=== PATIENT | male | born 1960 | race African-American/Black ===

== ENCOUNTER 2016-04-12 14:41 | Observation (INO) | payer MEDICAID ==
[~2016-04-12] VITALS: Ht 170.2 cm; Wt 85.0 kg
[~2016-04-12 14:41] MED LIST: ASPI1TAB69 PO; CARV6.252 PO; CLOP75TA PO; FLUTI110I INH; FURO1TAB60 PO; LISI-519 PO; NITR1SUB3 SL; POTA20TA5 PO; SIMV20TA PO; VENTAER INH
[2016-04-12 14:43] VITALS: BP 111/73; PULSE 80; RESP 17; TEMP 97.9; O2SAT 99
[2016-04-12 14:59] VITALS: BP 119/77; PULSE 74; RESP 16; O2SAT 100
[2016-04-12] MEDS ORDERED: ASPIRIN 81 MG CHEW TAB PO ONE (15:15)
[2016-04-12] MEDS ORDERED: SODIUM CHLORIDE 0.9% FLUSH 5 ML FLUSH IVF PRN ×2 (15:15→16:30)
[2016-04-12 15:41] VITALS: O2SAT 100
[2016-04-12 15:43] LABS: AUTOMATED NEUTROPHIL # 3.7 TH/MM3 (1.8-7.7); BASOPHIL % 0.7 % (0.0-2.0); EOSINOPHIL # 0.1 TH/MM3 (0-0.4); EOSINOPHIL % 2.1 % (0.0-4.0); HEMO FLAGS DIFF FINAL; LYMPH % 22.9 % (9.0-44.0); LYMPHOCYTE # 1.4 TH/MM3 (1.0-4.8); MEAN CELL VOLUME 79.5 FL (80.0-100.0); MEAN CORPUSCULAR HEMOGLOBIN 25.9 PG (27.0-34.0); MEAN CORPUSCULAR HGB CONC 32.6 % (32.0-36.0); NEUT % 60.3 % (16.0-70.0); PLATELET COUNT 278 TH/MM3 (150-450); RED BLOOD COUNT 4.53 MIL/MM3 (4.50-5.90); RED CELL DISTRIBUTION WIDTH 14.3 % (11.6-17.2); WHITE BLOOD COUNT 6.1 TH/MM3 (4.0-11.0)
--- NOTE | 2016-04-12 15:48 | RADRPT ---
EXAM DATE/TIME: 04/12/2016 15:13 [place] COMPARISON: CT ABDOMEN & PELVIS W CONTRAST, September 26, 2015, 3:34. CHEST SINGLE AP, April 04, 2014, 2:44. INDICATIONS : Cough and chest pain for 3 days. MEDICAL HISTORY : Hypertension. SURGICAL HISTORY : Pacemaker. CABG. ENCOUNTER: Initial ACUITY: 3 days PAIN SCORE: 0/10 LOCATION: Bilateral Chest FINDINGS: Portable AP view of the chest demonstrates stable mild enlargement of the cardiac silhouette in this patient post median sternotomy. Left chest wall cardiac pacing device size AICD is present. No pleura l effusion, airspace consolidation, or pneumothorax is visualized. The bones and soft tissues demonst rate no acute finding. CONCLUSION: Stable chest x-ray. No acute cardiopulmonary abnormality is identified. Benito Fuentes MD on April 12, 2016 at 15:45 Board Certified Radiologist. This report was verified electronically.
[2016-04-12 16:01] LABS: APTT (PATIENT) 27.6 SEC (24.3-30.1)
[2016-04-12 16:06] LABS: BICARBONATE 26.1 MEQ/L (21.0-32.0); MAGNESIUM 1.8 MG/DL (1.5-2.5); POTASSIUM 3.7 MEQ/L (3.5-5.1)
[2016-04-12 16:21] LABS: CKMB 3.8 NG/ML (0.5-3.6)
--- NOTE | 2016-04-12 16:21 | PD ---
HPI Chief Complaint: Chest Pain Time Seen by Provider: 14:55 Travel History International Travel<30 days: No Contact w/Intl Traveler<30days: No Traveled to known affect area: No History of Present Illness HPI 56-year-old male came to the emergency room with history of chest pain on and off since this morning. Patient points to the left side of his chest radiating to the right side. Patient took one aspirin this morning. He has strong history of coronary artery disease. He has had couple stents as well as bypass surgery. He has hypertension and takes his medications like he is supposed to. However he still smoking cigarettes. Denied any drug abuse history. No associated symptoms like dizziness, syncope, nausea, diaphoresis. Since the pain kept coming and going patient decided come to the emergency room. Vital signs are within normal limits. 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 [facility] Past Medical History Narrative Medical List of his past medical, social and family history as reviewed from the nursing note. Hx Anticoagulant Therapy: Yes (plavix) Asthma: No Blood Disorders: No Heart Rhythm Problems: Yes Cancer: No Cardiac Catheterization: Yes Cardiovascular Problems: Yes High Cholesterol: Yes Chemotherapy: No Chest Pain: Yes Congestive Heart Failure: Yes COPD: No Coronary Artery Disease: Yes Diabetes: No Diminished Hearing: No Endocrine: No Gastrointestinal Disorders: No Genitourinary: No Hypertension: Yes Musculoskeletal: No Neurologic: No Psychiatric: No Reproductive: No Respiratory: No Myocardial Infarction: Yes Radiation Therapy: No Sleep Apnea: No Past Surgical History Cardiac Surgery: Yes (PACER/DEFIB [facility]) Coronary Artery Bypass Graft: Yes Coronary Stent: Yes (X 2 IN 2010) Other Surgery: Yes (CABG 2012, 2010 STENTS) Family History Family Myocardial Infarction: Yes Social History Alcohol Use: No Tobacco Use: Yes (2 PPD) Substance Use: No Allergies-Medications (Allergen,Severity, Reaction): Coded Allergies: No Known Allergies (Unverified , 03/20/16) Comments No known drug allergies. Reported Meds & Prescriptions Reported Meds & Active Scripts Active Lasix (Furosemide) 40 Mg Tab 20 Mg PO BID Carvedilol 6.25 Mg Tab 6.25 Mg PO BID Clopidogrel (Clopidogrel Bisulfate) 75 Mg Tab 75 Mg PO DAILY Reported Potassium Chloride Microencaps 20 Meq Tab 20 Meq PO Q12HR Lisinopril 5 Mg Tab 2.5 Mg PO DAILY Aspirin 81 Mg Tabdr 81 Mg PO DAILY Simvastatin 20 Mg Tab 20 Mg PO HS Nitroglycerin SL (Nitroglycerin) 0.4 Mg Subl 0.4 Mg SL DIRECTED PRN ONE TABLET UNDER THE TONGUE NEEDED FOR CHEST PAIN, MAY REPEAT EVERY FIVE MINUTES FOR A TOTAL OF 3 DOSES OR CALL 911 IF NO RELIEF Flovent Hfa 12 GM Inh (Fluticasone Propionate) 110 Mcg/Act Inh 1 Puff INH BID Ventolin Hfa 18 GM Inh (Albuterol Sulfate) 90 Mcg/Act Aer 1 Puff INH Q4H PRN Narrative Medication List of his home medications reviewed from the nursing note. Review of Systems Except as stated in HPI: all other systems reviewed are Neg Physical Exam Narrative GENERAL: Awake, alert, moderate distress SKIN: Warm and dry. HEAD: Atraumatic. Normocephalic. EYES: Pupils equal and round. No scleral icterus. No injection or drainage. ENT: No nasal bleeding or discharge. Mucous membranes pink and moist. NECK: Trachea midline. No JVD. CARDIOVASCULAR: Regular rate and rhythm. No murmur appreciated. RESPIRATORY: No accessory muscle use. Clear to auscultation. Breath sounds equal bilaterally. GASTROINTESTINAL: Abdomen soft, non-tender, nondistended. Hepatic and splenic margins not palpable. MUSCULOSKELETAL: No obvious deformities. No clubbing. No cyanosis. No edema. NEUROLOGICAL: Awake and alert. No obvious cranial nerve deficits. Motor grossly within normal limits. Normal speech. PSYCHIATRIC: Appropriate mood and affect; insight and judgment normal. Data Data Last Documented VS Orders Electrocardiogram (04/12/16 ) Basic Metabolic Panel (Bmp) (04/12/16 15:02) Ckmb (Isoenzyme) Profile (04/12/16 15:02) Complete Blood Count With Diff (04/12/16 15:02) D-Dimer (04/12/16 15:02) Magnesium (Mg) (04/12/16 15:02) Prothrombin Time / Inr (Pt) (04/12/16 15:02) Act Partial Throm Time (Ptt) (04/12/16 15:02) Troponin I (04/12/16 15:02) Chest, Single Ap (04/12/16 15:02) Ecg Monitoring (04/12/16 15:02) Bilateral Bp Monitoring (04/12/16 15:02) Iv Access Insert/Monitor (04/12/16 15:02) Oximetry (04/12/16 15:02) Oxygen Administration (04/12/16 15:02) Aspirin Chew (Aspirin Chew) (04/12/16 15:15) Sodium Chloride 0.9% Flush (Ns Flush) (04/12/16 15:15) CKMB (04/12/16 15:05) CKMB% (04/12/16 15:05) Admit Order (Ed Use Only) (04/12/16 16:19) Labs MDM Medical Decision Making Medical Screen Exam Complete: Yes Emergency Medical Condition: Yes Medical Record Reviewed: Yes Interpretation(s) Twelve-lead EKG was reviewed by me. Normal sinus rhythm, right axis deviation, interventricular conduction delay, tall T waves, lateral and inferior T wave inversions, first-degree AV block. Heart rate of 74 bpm. Differential Diagnosis ACS, non-STEMI, PE Narrative Course 4:44 PM blood test results of back and within normal limits. I gave patient 2 baby aspirin. Patient has significant risk factor for coronary artery disease/ ACS. I decided to admit him to chest pain center to be ruled out. Procedures EKG Prior to Arrival: Yes Diagnosis Primary Impression: Chest pain Qualified Code: R07.9 - Chest pain, unspecified type Admitting Information Admitting Physician Requests: Observation Scripts E-Z Spacer-Aerosol Holding Chamber 1 Mis Mis #1 EA .ROUTE DIRECTED Ref 0 Prov:Katie Greenberg MD R2 04/14/16 Potassium Chloride Microencaps 20 Meq Tab20 Meq PO Q12HR #60 TAB Prov:Katie Greenberg MD R2 04/14/16 Pantoprazole (Protonix)40 Mg Tab40 Mg PO DAILY #7 TAB Ref 0 Prov:Katie Greenberg MD R2 04/14/16 Prednisone 10 Mg Tab10 Mg PO DAILY #12 TAB Ref 0 Prov:Katie Greenberg MD R2 04/14/16 Furosemide 20 Mg Tab20 Mg PO BID #60 TAB Prov:Katie Greenberg MD R2 04/14/16 Dennis Fagan MD Apr 12, 2016 16:21 Red Blood Count 4.53 MIL/MM3 Hemoglobin 11.7 GM/DL Hematocrit 36.0 % Mean Corpuscular Volume 79.5 FL Mean Corpuscular Hemoglobin 25.9 PG Mean Corpuscular Hemoglobin 32.6 % Concent Red Cell Distribution Width 14.3 % Platelet Count 278 TH/MM3 Mean Platelet Volume 8.7 FL Neutrophils (%) (Auto) 60.3 % Lymphocytes (%) (Auto) 22.9 % Monocytes (%) (Auto) 14.0 % Eosinophils (%) (Auto) 2.1 % Basophils (%) (Auto) 0.7 % Neutrophils # (Auto) 3.7 TH/MM3 Lymphocytes # (Auto) 1.4 TH/MM3 Monocytes # (Auto) 0.9 TH/MM3 Eosinophils # (Auto) 0.1 TH/MM3 Basophils # (Auto) 0.0 TH/MM3 CBC Comment DIFF FINAL Differential Comment Prothrombin Time 11.0 SEC Prothromb Time International 1.0 RATIO Ratio Activated Partial 27.6 SEC Thromboplast Time D-Dimer Quantitative (PE/DVT) 0.38 MG/L FEU Sodium Level 138 MEQ/L Potassium Level 3.7 MEQ/L Chloride Level 105 MEQ/L Carbon Dioxide Level 26.1 MEQ/L Anion Gap 7 MEQ/L Blood Urea Nitrogen 22 MG/DL Creatinine 1.37 MG/DL Estimat Glomerular Filtration 65 ML/MIN Rate Random Glucose 91 MG/DL Calcium Level 9.1 MG/DL Magnesium Level 1.8 MG/DL Total Creatine Kinase 387 U/L Creatine Kinase MB 3.8 NG/ML Creatine Kinase MB % 1.0 % Troponin I 0.04 NG/ML [facility] Medical Decision Making Medical Screen Exam Complete: Yes Emergency Medical Condition: Yes Medical Record Reviewed: Yes Interpretation(s) Twelve-lead EKG was reviewed by me. Normal sinus rhythm, right axis deviation, interventricular conduction delay, tall T waves, lateral and inferior T wave inversions, first-degree AV block. Heart rate of 74 bpm. Differential Diagnosis ACS, non-STEMI, PE Narrative Course 4:44 PM blood test results of back and within normal limits. I gave patient 2 baby aspirin. Patient has significant risk factor for coronary artery disease/ ACS. I decided to admit him to chest pain center to be ruled out. Procedures EKG Prior to Arrival: Yes Diagnosis Primary Impression: Chest pain Qualified Code: R07.9 - Chest pain, unspecified type Admitting Information Admitting Physician Requests: Dennis Nichols MD Apr 12, 2016 16:21
[2016-04-12] MEDS ORDERED: ONDANSETRON HCL 4 MG/2 ML VIAL IV PRN (16:30)
[2016-04-12] MEDS ORDERED: ACETAMINOPHEN 500 MG CPLT PO PRN (16:30)
[2016-04-12] MEDS ORDERED: MORPHINE SULFATE 4 MG/ML INJ IV PUSH ONE (16:45)
[2016-04-12] MEDS ORDERED: ONDANSETRON HCL 4 MG/2 ML VIAL IV PUSH ONE (16:45)
[2016-04-12] MEDS ORDERED: SENNOSIDES 8.6 MG TAB PO PRN (17:45)
[2016-04-12] MEDS ORDERED: PROCHLORPERAZINE 25 MG SUPP PR PRN (17:45)
[2016-04-12] MEDS ORDERED: BISACODYL 10 MG SUPP PR PRN (17:45)
[2016-04-12] MEDS ORDERED: ONDANSETRON HCL 4 MG/2 ML VIAL IVP PRN (17:45)
[2016-04-12] MEDS ORDERED: SODIUM CHLORIDE 0.9% FLUSH 5 ML FLUSH FLUSH PRN (17:45)
[2016-04-12 18:29] VITALS: BP 115/78; PULSE 78; RESP 16; O2SAT 100
[2016-04-12] MEDS ORDERED: RESP: ALBUTEROL 2.5 MG/IPRATROPIUM 0.5 MG NEB (PRN) NEB (18:30)
--- NOTE | 2016-04-12 18:44 | HHI.HP ---
[facility] Primary [facility] Physician Viki So MD Admission Diagnosis chest pain, rule out ACS Diagnoses: (1) Chest pain Diagnosis: Principal Chief Complaint: Chest pain 3 days Travel History International Travel<30 Days: No Contact w/Intl Traveler <30 Da: No Traveled to Known Affected Are: No History of Present Illness This is a 56-year-old male patient with a past medical history which includes CAD status post MS 2008, coronary stents and coronary artery bypass graft 2, congestive heart failure status post pacemaker/defibrillator and asthma. Patient reports he ran out of Lasix approximately 6 days ago. Patient reports he was out of his Lasix for about 4 days and then restarted taking them 2 days ago. Patient reports for the past 3 days he's had been having chest pain. The chest pain is located on the left side of his chest with radiation around in a jena which goes around the left side of his chest. Patient denies associated symptoms such as diaphoresis nausea vomiting shortness of breath. Patient does report the chest pain is getting worse today 6 out of 10 in severity. Patient reports the pain is relieved by walking around and taking deep breaths. Patient does report the pain is exacerbated by coughing. Patient reports for the past to 3 days he has had a cough initially was productive of dark phlegm but is now clear. Patient ports he sleeps on 3 pillows which is normal for him. Patient Denies PND or lower extremity edema or weight gain. Patient also denies fevers chills nausea vomiting diarrhea constipation. Review of Systems Except as stated in HPI: all other systems reviewed are Neg Past Family Social History Past Medical History CAD status post MS 2008, coronary stents and coronary artery bypass graft 2, congestive heart failure status post pacemaker/defibrillator and asthma. Past Surgical History Coronary artery bypass graft, cardiac stents, pacemaker defibrillator placement Reported Medications Lasix (Furosemide) 40 Mg Tab 20 Mg PO BID Carvedilol 6.25 Mg Tab 6.25 Mg PO BID Clopidogrel (Clopidogrel Bisulfate) 75 Mg Tab 75 Mg PO DAILY Potassium Chloride Microencaps 20 Meq Tab 20 Meq PO Q12HR Lisinopril 5 Mg Tab 2.5 Mg PO DAILY Aspirin 81 Mg Tabdr 81 Mg PO DAILY Simvastatin 20 Mg Tab 20 Mg PO HS Nitroglycerin SL (Nitroglycerin) 0.4 Mg Subl 0.4 Mg SL DIRECTED PRN ONE TABLET UNDER THE TONGUE NEEDED FOR CHEST PAIN, MAY REPEAT EVERY FIVE MINUTES FOR A TOTAL OF 3 DOSES OR CALL 911 IF NO RELIEF Flovent Hfa 12 GM Inh (Fluticasone Propionate) 110 Mcg/Act Inh 1 Puff INH BID Ventolin Hfa 18 GM Inh (Albuterol Sulfate) 90 Mcg/Act Aer 1 Puff INH Q4H PRN Allergies: Coded Allergies: No Known Allergies (Unverified , 03/20/16) Active Ordered Medications Current Medications Medications (Trade) Dose Ordered Sig/Jann Route Start Time Stop Time Status Last Admin (Tylenol) 500 mg Q4H PRN PO 04/12/16 16:30 (NS Flush) 2 ml UNSCH PRN FLUSH 04/12/16 17:45 (NS Flush) 2 ml BID FLUSH 04/12/16 21:00 (Zofran Inj) 4 mg Q6H PRN IVP 04/12/16 17:45 (Compazine Supp) 25 mg Q12H PRN LA 04/12/16 17:45 (Dulcolax Supp) 10 mg DAILY PRN LA 04/12/16 17:45 (Senokot) 17.2 mg Q12H PRN PO 04/12/16 17:45 (Nitroglycerin 2% Oint) 0.5 inch Q6HR TOPICAL 04/12/16 18:30 UNV (Ecotrin Ec) 81 mg DAILY PO 04/13/16 09:00 UNV (Coreg) 6.25 mg BID PO 04/12/16 21:00 UNV (Plavix) 75 mg DAILY PO 04/13/16 09:00 UNV (Lasix) 20 mg BID PO 04/12/16 21:00 UNV (KCl) 20 meq Q12HR PO 04/12/16 21:00 UNV Non-Formulary Medication 20 mg HS PO 04/12/16 21:00 UNV Family History Mother secondary to breast cancer Social History Patient smokes half-pack serous per day for the past 35 years History of heroin use denies current illicit drug use Physical Exam Vital Signs Vital Signs Date Time Temp Pulse Resp B/P Pulse Ox O2 Delivery O2 Flow Rate FiO2 04/12/16 15:41 100 Room Air 04/12/16 15:41 100 Room Air 04/12/16 14:59 74 16 119/77 100 Room Air 04/12/16 14:54 20 04/12/16 14:43 97.9 80 17 111/73 99 Physical Exam GENERAL: This is a well-nourished, well-developed patient, in no apparent distress. SKIN: No rashes, ecchymoses or lesions. Cool and dry. HEAD: Atraumatic. Normocephalic. No temporal or scalp tenderness. EYES: Extraocular motions intact. No scleral icterus. No injection or drainage. CARDIOVASCULAR: Regular rate and rhythm without murmurs, gallops, or rubs. RESPIRATORY: Diminished throughout no wheezes rhonchi or rale GASTROINTESTINAL: Abdomen soft, non-tender, nondistended. MUSCULOSKELETAL: Extremities without clubbing, cyanosis, or edema. No joint tenderness, effusion, or edema noted. No calf tenderness. Negative Homans sign bilaterally. NEUROLOGICAL: Awake and alert. No focal deficits appreciated. Motor and sensory grossly within normal limits. Five out of 5 muscle strength in all muscle groups. Normal speech. Laboratory Laboratory Tests Test 04/12/16 15:05 White Blood Count 6.1 Red Blood Count 4.53 Hemoglobin 11.7 Hematocrit 36.0 Mean Corpuscular Volume 79.5 Mean Corpuscular Hemoglobin 25.9 Mean Corpuscular Hemoglobin 32.6 Concent Red Cell Distribution Width 14.3 Platelet Count 278 Mean Platelet Volume 8.7 Neutrophils (%) (Auto) 60.3 Lymphocytes (%) (Auto) 22.9 Monocytes (%) (Auto) 14.0 Eosinophils (%) (Auto) 2.1 Basophils (%) (Auto) 0.7 Neutrophils # (Auto) 3.7 Lymphocytes # (Auto) 1.4 Monocytes # (Auto) 0.9 Eosinophils # (Auto) 0.1 Basophils # (Auto) 0.0 CBC Comment DIFF FINAL Differential Comment Prothrombin Time 11.0 Prothromb Time International 1.0 Ratio Activated Partial 27.6 Thromboplast Time D-Dimer Quantitative (PE/DVT) 0.38 Sodium Level 138 Potassium Level 3.7 Chloride Level 105 Carbon Dioxide Level 26.1 Anion Gap 7 Blood Urea Nitrogen 22 Creatinine 1.37 Estimat Glomerular Filtration 65 Rate Random Glucose 91 Calcium Level 9.1 Magnesium Level 1.8 Total Creatine Kinase 387 Creatine Kinase MB 3.8 Creatine Kinase MB % 1.0 Troponin I 0.04 Digoxin Level 0.1 Result Diagram: 04/12/16 1505 04/12/16 1505 Imaging Last Impressions Chest X-Ray 04/12/16 1502 Signed Impressions: Service Date/Time: March 15:13 - CONCLUSION: Stable chest x-ray. No acute cardiopulmonary abnormality is identified. Benito Fuentes MD Assessment and Plan Assessment and Plan This is a 56-year-old male patient with a past medical history which includes CAD status post MS 2008, coronary stents and coronary artery bypass graft 2, congestive heart failure status post pacemaker/defibrillator and asthma. Patient reports he ran out of Lasix approximately 6 days ago. Patient reports he was out of his Lasix for about 4 days and then restarted taking them 2 days ago. Patient reports for the past 3 days he's had been having chest pain. Chest pain rule out acute coronary syndrome patient with a history of CAD MS coronary artery bypass graft and cardiac stents Initial troponin 0.04 will trend serial troponin Initial EKG reviewed by myself as well as Dr. Andrade reveals Normal sinus rhythm, right axis deviation, interventricular conduction delay, tall T waves, lateral and inferior T wave inversions, first-degree AV block. Heart rate of 74 bpm. 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 Frausto revealed stable chest x- ray no acute cardiopulmonary abnormality identified Asthma history Continue Flovent add duonebs PRN Renal insufficiency creatinine 1.37 baseline 0.93-1.2 Recheck BMP in a.m. DVT prophylaxis with SCDs Discussed plan of care with patient, ER provider, RN Written by Pushpa Fuller, acting as scribe for Dr. Frausto on 04/12/16 at 18 :42. The documentation accurately reflects the work performed [id number] by me Dr. Frausto on 04/12/16 at 18:42. Discussed Condition With patient nurse, ED physician Problem Qualifiers (1) Chest pain: Qualified Code: R07.9 - Chest pain, unspecified type Pushpa Fuller Apr 12, 2016 18:44 Addie Frausto MD Apr 12, 2016 19:34
[2016-04-12] MEDS: NITROGLYCERIN 2% OINT 1 GM PACKET TOPICAL SCH (18:49)
[2016-04-12] MEDS ORDERED: PILL SPLITTER OTHER PRN (19:00)
--- NOTE | 2016-04-12 19:41 | EKG ---
Date Performed: 04/12/2016 Time Performed: 14:56:42 PTAGE: 56 years EKG: Sinus rhythm WITH FIRST DEGREE AV BLOCK BORDERLINE RIGHT AXIS DEVIATION MODERATE INTRAVENTRICULAR CONDUCTION GURJIT Y MODERATE T-WAVE ABNORMALITY, CONSIDER INFERIOR AND LATERAL ISCHEMIA vs REPOLARIZATION CHANGES ABNOR MAL ECG Since PREVIOUS TRACING STchanges are more pronounced PREVIOUS TRACIN04/04/2014 08.30 DOCTOR: Charley Tinsley Interpretating Date/Time 04/12/2016 19:40:31
[2016-04-12 19:56] VITALS: BP 108/67; PULSE 60; RESP 19; TEMP 98.6; O2SAT 97
[2016-04-12] MEDS ORDERED: RESP: ALBUTEROL 2.5 MG/IPRATROPIUM 0.5 MG NEB (SCH) NEB (20:00)
[2016-04-12] MEDS ORDERED: SODIUM CHLORIDE 0.9% FLUSH 5 ML FLUSH IVF SCH (21:00)
[2016-04-12] MEDS: SODIUM CHLORIDE 0.9% FLUSH 5 ML FLUSH FLUSH SCH (21:16)
[2016-04-12] MEDS: PRAVASTATIN SOD 40 MG TAB PO SCH (21:16)
[2016-04-12] MEDS: CARVEDILOL 6.25 MG TAB PO SCH (21:17)
[2016-04-12] MEDS: FUROSEMIDE 20 MG TAB PO SCH (21:17)
[2016-04-12] MEDS: POTASSIUM CHLORIDE 20 MEQ CONTROLLED RELEASE TAB PO SCH (21:23)
[2016-04-12 21:44] VITALS: O2SAT 98
[2016-04-12] MEDS: FLUTICASONE PROPIONATE 110 MCG/ACT 12 GM INHALER INH SCH (22:45)
[2016-04-12 22:57] LABS: CKMB 3.1 NG/ML (0.5-3.6)
[2016-04-13] VITALS (10 sets, daily range): BP systolic 82–116; BP diastolic 50–68; PULSE 62–73; RESP 18–20; TEMP 97.7–98.6; O2SAT 95–99
[2016-04-13] MEDS: NITROGLYCERIN 2% OINT 1 GM PACKET TOPICAL SCH ×4 (00:38→18:00)
[2016-04-13 04:15] LABS: AUTOMATED NEUTROPHIL # 3.1 TH/MM3 (1.8-7.7); BASOPHIL % 0.5 % (0.0-2.0); EOSINOPHIL # 0.1 TH/MM3 (0-0.4); EOSINOPHIL % 2.2 % (0.0-4.0); HEMATOCRIT 34.5 % (39.0-51.0); HEMO FLAGS DIFF FINAL; LYMPH % 22.7 % (9.0-44.0); LYMPHOCYTE # 1.1 TH/MM3 (1.0-4.8); MEAN CELL VOLUME 79.6 FL (80.0-100.0); MEAN CORPUSCULAR HEMOGLOBIN 25.8 PG (27.0-34.0); MEAN CORPUSCULAR HGB CONC 32.4 % (32.0-36.0); MONO % 13.7 % (0.0-8.0); NEUT % 60.9 % (16.0-70.0); PLATELET COUNT 260 TH/MM3 (150-450); RED BLOOD COUNT 4.33 MIL/MM3 (4.50-5.90); RED CELL DISTRIBUTION WIDTH 14.9 % (11.6-17.2); WHITE BLOOD COUNT 5.1 TH/MM3 (4.0-11.0)
[2016-04-13 04:44] LABS: ANION GAP 8 MEQ/L (5-15); BICARBONATE 28.8 MEQ/L (21.0-32.0); BLOOD UREA NITROGEN 24 MG/DL (7-18); CHLORIDE 104 MEQ/L (98-107); GLOMERULAR FILTRATION RATE 62 ML/MIN (>89); POTASSIUM 3.6 MEQ/L (3.5-5.1); SODIUM (NA) 141 MEQ/L (136-145)
[2016-04-13 04:47] LABS: CREATINE KINASE 285 U/L (39-308)
[2016-04-13 05:01] LABS: CKMB 2.6 NG/ML (0.5-3.6)
--- NOTE | 2016-04-13 08:23 | HHI.FPPN ---
Subjective Remarks Mr Fuentes is a 56-year-old male patient with a past medical history which includes CAD status post [place] 2009, coronary stents and coronary artery bypass graft 2, congestive heart failure status post pacemaker/ defibrillator and asthma who is feeling generally ill this am. He reports a 4 day history of cough initially was productive of dark phlegm but is now clear.. He was tending his sick girlfriend with the flu last weekend. He has also had headaches, sore throat, myalgias and arthralgias though he denies any high fevers or chills. He had some chest pain at home for three days and presented to the hospital with this however he had little to no elevation in his troponins and his EKG is difficult to interpret as he has a pacemaker. The chest pain was located on the left side of his chest with radiation around in a kaw which went around the left side of his chest but he denies chest pain this am. Patient denies associated symptoms such as diaphoresis nausea vomiting shortness of breath. Patient does report the chest pain was getting worse to 6 out of 10 in severity before coming to the hospital. Patient reported the pain is relieved by walking around and taking deep breaths. Patient also reported the pain was exacerbated by coughing. Patient reports he sleeps on 3 pillows which is normal for him. Patient Denies PND or lower extremity edema or weight gain. Patient also denies fevers chills nausea vomiting diarrhea constipation. Patient reports he ran out of Lasix approximately 6 days ago. Patient reports he was out of his Lasix for about 4 days and then restarted taking them 2 days ago. He has no chest pain this am above the generalized pain he is having. He was a smoker and has a history of asthma which could be made worse by the flu. Objective Vitals Vital Signs Date Time Temp Pulse Resp B/P Pulse Ox O2 Delivery O2 Flow Rate FiO2 04/13/16 07:35 97.8 71 18 97/60 99 04/13/16 03:41 98.2 62 20 105/60 97 04/13/16 00:02 98.2 63 19 99/56 96 04/12/16 21:44 98 04/12/16 19:56 98.6 60 19 108/67 97 04/12/16 18:29 78 16 115/78 100 Room Air 04/12/16 15:41 100 Room Air 04/12/16 15:41 100 Room Air 04/12/16 14:59 74 16 119/77 100 Room Air 04/12/16 14:54 20 04/12/16 14:43 97.9 80 17 111/73 99 Result Diagram: 04/13/16 0347 04/13/16 0347 Objective Remarks GENERAL: This is a well-nourished, well-developed patient, having "spasms" of cough where he has trouble speaking momentarily. SKIN: No rashes, ecchymoses or lesions. Cool and dry. HEAD: Atraumatic. Normocephalic. EYES: Extraocular motions intact. No scleral icterus. No injection or drainage. CARDIOVASCULAR: Regular rate and rhythm without murmurs, gallops, or rubs. Some occasional early beats. RESPIRATORY: good air movement, no wheezes rhonchi or rales GASTROINTESTINAL: Abdomen soft, non-tender, nondistended. MUSCULOSKELETAL: Extremities without clubbing, cyanosis, or edema. No joint tenderness, effusion, or edema noted. No calf tenderness. NEUROLOGICAL: Awake and alert. No focal deficits appreciated. Motor and sensory grossly within normal limits. Five out of 5 muscle strength in all muscle groups. Normal speech. A/P Problem List: (1) Flu Status: Acute Plan: based on history of exposure and current sxs suspect the flu. It is too late for tamiflu but can treat symptomatically with tylenol, nebulizers and steroids as he has a history of asthma which can be greatly exacerbated by the flu. flu test ordered. no suspected pneumonia at this time (2) Coronary artery disease Status: Chronic Plan: no need for cath now as he has other reasons for his chest pain and atypical pain with being better when he walks and worse when he coughs Patient reports recent stress test January 2016 was normal (3) HTN (hypertension) Status: Chronic Plan: stay on meds (4) Atypical chest pain Status: Acute Plan: was worse with coughing so suspect it could be more pleuritic pain at this time (5) DVT prophylaxis Status: Acute Plan: lovenox, will start 40 mg daily (6) Congestive heart failure Status: Chronic Plan: Chronic systolic congestive heart failure status post pacemaker/ defibrillator placement Continue Lasix, Coreg and Lisinopril checked BNP, 400s Chest x-ray revealed stable chest x-ray no acute cardiopulmonary abnormality identified (7) Renal insufficiency Status: Acute Plan: slightly elevated over baseline. will recheck. pt taking po, may need to back off on lasix if he worsens Problem Qualifiers (1) Coronary artery disease: Qualified Code: I25.10 - Coronary artery disease involving [place] heart, angina presence unspecified, unspecified vessel or lesion type (2) HTN (hypertension): Qualified Code: I10 - Essential hypertension (3) Congestive heart failure: Qualified Code: I50.22 - Chronic systolic congestive heart failure Bonnie Porter MD Apr 13, 2016 08:23
[2016-04-13] MEDS ORDERED: guaiFENesin/CODEINE SYRUP 200 MG/20 MG/10 ML CUP PO PRN (09:00)
[2016-04-13] MEDS ORDERED: ACETAMINOPHEN 325 MG TAB PO PRN (09:00)
[2016-04-13] MEDS ORDERED: DEXAMETHASONE SOD PHOS 4 MG/ML VIAL IM ONE (09:00)
[2016-04-13] MEDS: FUROSEMIDE 20 MG TAB PO SCH ×2 (09:38→21:00)
[2016-04-13] MEDS: CARVEDILOL 6.25 MG TAB PO SCH ×2 (09:38→21:32)
[2016-04-13] MEDS: POTASSIUM CHLORIDE 20 MEQ CONTROLLED RELEASE TAB PO SCH ×2 (09:38→21:00)
[2016-04-13] MEDS: SODIUM CHLORIDE 0.9% FLUSH 5 ML FLUSH FLUSH SCH ×2 (09:38→21:32)
[2016-04-13] MEDS: CLOPIDOGREL 75 MG TAB PO SCH (09:38)
[2016-04-13] MEDS: LISINOPRIL 5 MG TAB PO SCH (09:39)
[2016-04-13] MEDS: ASPIRIN EC 81 MG TABEC PO SCH (09:39)
[2016-04-13] MEDS: FLUTICASONE PROPIONATE 110 MCG/ACT 12 GM INHALER INH SCH ×2 (09:39→21:32)
[2016-04-13] MEDS: ENOXAPARIN SODIUM 40 MG/0.4 ML SYRINGE SQ SCH (11:52)
--- NOTE | 2016-04-13 17:28 | EKG ---
Date Performed: 04/12/2016 Time Performed: 21:26:04 PTAGE: 56 years EKG: Sinus rhythm WITH FIRST DEGREE AV BLOCK BORDERLINE RIGHT AXIS DEVIATION MODERATE INTRAVENTRICULAR CONDUCTION GURJIT Y ST ELEVATION CONSISTENT WITH INJURY, PERICARDITIS, OR EARLY REPOLARIZATION ST DEVIATION AND MODERAT E T-WAVE ABNORMALITY, CONSIDER LATERAL ISCHEMIA ABNORMAL ECG PREVIOUS TRACING : 04/12/2016 14.56 Since previous tracing, no significant change noted DOCTOR: Charley Tinsley Interpretating Date/Time 04/13/2016 17:25:03
--- NOTE | 2016-04-13 17:29 | EKG ---
Date Performed: 04/13/2016 Time Performed: 03:33:17 PTAGE: 56 years EKG: Sinus rhythm WITH FIRST DEGREE AV BLOCK MODERATE INTRAVENTRICULAR CONDUCTION DELAY ST ELEVATION CONSISTENT WITH I NJURY, PERICARDITIS, OR EARLY REPOLARIZATION ST DEVIATION AND MODERATE T-WAVE ABNORMALITY, CONSIDER L ATERAL ISCHEMIA ST DEVIATION AND MODERATE T-WAVE ABNORMALITY, CONSIDER INFERIOR ISCHEMIA ABNORMAL ECG PREVIOUS TRACING : 04/12/2016 21.26 Since previous tracing, no significant change noted DOCTOR: Charley Tinsley Interpretating Date/Time 04/13/2016 17:25:33
[2016-04-13] MEDS: PRAVASTATIN SOD 40 MG TAB PO SCH (21:00)
[2016-04-13] MEDS: RESP: ALBUTEROL 2.5 MG/IPRATROPIUM 0.5 MG NEB (SCH) NEB (22:27)
[2016-04-14 04:11] VITALS: BP 105/59; PULSE 68; RESP 18; TEMP 98.4; O2SAT 98
[2016-04-14] MEDS: NITROGLYCERIN 2% OINT 1 GM PACKET TOPICAL SCH ×3 (05:29→12:24)
[2016-04-14 07:04] LABS: AUTOMATED NEUTROPHIL # 9.2 TH/MM3 (1.8-7.7); BASOPHIL % 0.1 % (0.0-2.0); EOSINOPHIL % 0.2 % (0.0-4.0); HEMATOCRIT 34.9 % (39.0-51.0); HEMO FLAGS DIFF FINAL; LYMPH % 12.3 % (9.0-44.0); LYMPHOCYTE # 1.4 TH/MM3 (1.0-4.8); MEAN CELL VOLUME 80.1 FL (80.0-100.0); MEAN CORPUSCULAR HEMOGLOBIN 25.9 PG (27.0-34.0); MEAN CORPUSCULAR HGB CONC 32.3 % (32.0-36.0); MONO % 5.9 % (0.0-8.0); NEUT % 81.5 % (16.0-70.0); PLATELET COUNT 270 TH/MM3 (150-450); RED BLOOD COUNT 4.36 MIL/MM3 (4.50-5.90); RED CELL DISTRIBUTION WIDTH 14.8 % (11.6-17.2); WHITE BLOOD COUNT 11.3 TH/MM3 (4.0-11.0)
[2016-04-14 07:10] LABS: BICARBONATE 28.6 MEQ/L (21.0-32.0)
[2016-04-14 07:19] VITALS: PULSE 85
[2016-04-14] MEDS: RESP: ALBUTEROL 2.5 MG/IPRATROPIUM 0.5 MG NEB (SCH) NEB ×2 (07:47→13:13)
[2016-04-14 08:24] VITALS: BP 109/61; PULSE 66; RESP 18; TEMP 98.3; O2SAT 98
--- NOTE | 2016-04-14 08:30 | HHI.FPPN ---
Subjective Remarks Pt seen and examined this morning. No acute events overnight. Pt reports feeling significantly improved since admission. He denies chest pain, abdominal pain, calf pain. He endorses a occasional wheezing, denies feeling short of breath. He notes that he has a small amount of bright red blood in his stools and after he has a bowel movement. He last had a colonoscopy 2 years ago at the [facility]. He denies a significant amount of bleeding with bowel movements. (Katie Greenberg MD R2) Objective Vitals Vital Signs Date Time Temp Pulse Resp B/P Pulse Ox O2 Delivery O2 Flow Rate FiO2 04/14/16 08:24 98.3 66 18 109/61 98 04/14/16 07:50 21 04/14/16 04:11 98.4 68 18 105/59 98 04/13/16 23:51 98.2 70 19 106/60 98 04/13/16 22:39 71 04/13/16 22:28 95 21 04/13/16 19:35 98.6 69 19 116/68 98 04/13/16 15:31 97.7 73 19 96/53 96 04/13/16 11:39 97.7 69 18 82/50 98 04/13/16 11:25 67 (Katie Greenberg MD R2) Result Diagram: 04/14/16 0616 04/14/16 0616 Objective Remarks GENERAL: This is a well-nourished, well-developed patient, in no acute distress. SKIN: No rashes, ecchymoses or lesions. Cool and dry. HEAD: Atraumatic. Normocephalic. EYES: Extraocular motions intact. No scleral icterus. No injection or drainage. CARDIOVASCULAR: Regular rate and rhythm without murmurs, gallops, or rubs. Some occasional early beats. RESPIRATORY: Good air movement, no wheezes rhonchi or rales GASTROINTESTINAL: Abdomen soft, non-tender, nondistended. MUSCULOSKELETAL: Extremities without clubbing, cyanosis, or edema. No joint tenderness, effusion, or edema noted. No calf tenderness. NEUROLOGICAL: Awake and alert. No focal deficits appreciated. Motor and sensory grossly within normal limits. Normal speech. (Katie Greenberg MD R2) A/P Assessment and Plan Pt is a 56 year old Afican Nepalese male presenting with chest pain and flu symptoms. PCP is Dr. So. Discharge Planning Anticipate discharge later today. (Katie Greenberg MD R2) Attending Attestation Patient seen and examined. Case reviewed and discussed with the resident team. Agree with plan of care as discussed with me and documented in the resident note. he has a history of asthma so agree with treating for an exacerbation (Bonnie Porter MD) Problem List: (1) Flu Status: Acute Plan: Exposure history and current symptoms suggestive of the flu, despite negative antigen test. . It is too late for tamiflu but can treat symptomatically with tylenol, nebulizers and steroids as he has a history of asthma which can be greatly exacerbated by the flu. No suspected pneumonia at this time Influenza A and B antigen negative -Tylenol 650mg po Q4hrs prin headache or fever -Prednisone 40 mg po daily -Duonebs -Robitussin prn Cough (2) Coronary artery disease Status: Chronic Plan: Pt with history of coronary artery disease. Cardiac catheterization not indicated at this time as chest pain is otherwise explained by non-cardiac causes, pain improves with ambulation, worsens with coughing. -Patient reports recent stress test January 2016 was normal -Continue home medications (3) HTN (hypertension) Status: Chronic Plan: Continue home medications (4) Atypical chest pain Status: Resolved Plan: Resolved Pt currently denies chest pain. Previously pain was worse with coughing, so suspect it could be more pleuritic pain (5) Congestive heart failure Status: Chronic Plan: Chronic systolic congestive heart failure status post pacemaker/ defibrillator placement Continue Lasix, Coreg and Lisinopril checked BNP:404 Chest x-ray revealed stable chest x-ray no acute cardiopulmonary abnormality identified (6) Renal insufficiency Status: Acute Plan: Resolved Creatinine 1.28 this morning, decreased from 1.43 yesterday (7) Bright red blood per rectum Status: Acute Plan: Pt endorses occasional bright red blood per rectum, worse after bowel movements, likely due to hemorrhoids. -H&H stable, pt slightly anemic with hemoglobin and hematocrit of 11.3 and 34.9 respectively -Reports last colonoscopy was 2 years ago, he has had a difficult time following up with GI due to his insurance. -Pt to follow up with GI as an out patient (8) DVT prophylaxis Status: Acute Plan: lovenox, 40 mg daily (Katie Greenberg MD R2) Problem Qualifiers (1) Coronary artery disease: Qualified Code: I25.10 - Coronary artery disease involving [place] heart, angina presence unspecified, unspecified vessel or lesion type (2) HTN (hypertension): Qualified Code: I10 - Essential hypertension (3) Congestive heart failure: Qualified Code: I50.22 - Chronic systolic congestive heart failure Katie Greenberg MD R2 Apr 14, 2016 08:30 Bonnie Porter MD Apr 16, 2016 14:07
[2016-04-14] MEDS: FLUTICASONE PROPIONATE 110 MCG/ACT 12 GM INHALER INH SCH (08:44)
[2016-04-14] MEDS: SODIUM CHLORIDE 0.9% FLUSH 5 ML FLUSH FLUSH SCH (08:44)
[2016-04-14] MEDS: CARVEDILOL 6.25 MG TAB PO SCH (08:44)
[2016-04-14] MEDS: ASPIRIN EC 81 MG TABEC PO SCH (08:45)
[2016-04-14] MEDS: FUROSEMIDE 20 MG TAB PO SCH (08:45)
[2016-04-14] MEDS: POTASSIUM CHLORIDE 20 MEQ CONTROLLED RELEASE TAB PO SCH (08:45)
[2016-04-14] MEDS: CLOPIDOGREL 75 MG TAB PO SCH (08:45)
[2016-04-14] MEDS: LISINOPRIL 5 MG TAB PO SCH (08:46)
[2016-04-14] MEDS ORDERED: predniSONE 20 MG TAB PO SCH (09:00)
--- NOTE | 2016-04-14 09:54 | HHI.DCPOC ---
Discharge Care Plan Diagnosis: (1) CAD (coronary artery disease) (2) CHF (congestive heart failure) (3) Coronary artery disease (4) Flu (5) HTN (hypertension) (6) Renal insufficiency (7) Bright red blood per rectum (8) Atypical chest pain Goals to Promote Your Health * To prevent worsening of your condition and complications * To maintain your health at the optimal level Directions to Meet Your Goals Take your medications as prescribed Follow your dietary instruction Follow activity as directed Keep your appointments as scheduled Take your immunizations and boosters as scheduled If your symptoms worsen call your PCP, if no PCP go to Urgent Care Center or Emergency Room Smoking is Dangerous to Your Health. Avoid second hand smoke Call the 24-hour hour crisis hotline for domestic abuse at Katie Greenberg MD R2 Apr 14, 2016 09:53
[2016-04-14] MEDS ORDERED: FURO20TA PO (10:00)
[2016-04-14] MEDS ORDERED: PROT40TA PO (10:00)
[2016-04-14] MEDS ORDERED: PRED10 PO (10:00)
[2016-04-14] MEDS ORDERED: E-ZMIS3 (11:07)
[2016-04-14] MEDS ORDERED: POTA20TA5 PO (11:07)
[2016-04-14 11:39] VITALS: BP 118/74; PULSE 72; RESP 24; TEMP 98; O2SAT 100
[2016-04-14] MEDS: ENOXAPARIN SODIUM 40 MG/0.4 ML SYRINGE SQ SCH (12:24)
[2016-04-30] MEDS ORDERED: PROT40TA PO (08:48)
[2016-05-10] MEDS ORDERED: FLUTI110I INH (10:40)
[2016-05-10] MEDS ORDERED: VENTAER INH (10:40)
[2016-05-10] MEDS ORDERED: PROT40TA PO (10:41)
[2016-05-15] MEDS ORDERED: POTA20TA5 PO (09:34)
[2016-05-15] MEDS ORDERED: FURO20TA PO (09:35)
[2016-06-11] MEDS ORDERED: FLUTI110I INH (15:02)
[2016-06-21] MEDS ORDERED: VIAG100T PO (11:19)
[2016-06-25] MEDS ORDERED: CLOP75TA PO (15:18)
[2016-07-05] MEDS ORDERED: ALBUAER3 INH (09:23)
== END 2016-04-14 16:23 | disposition home or self-care (01) ==
LOC: NEPE 14:41 → NEDA 16:21 → NEPHCDU 19:07
PROVIDERS: ADMIT Family Medicine; ATTEND Family Medicine
DX: R07.9 Chest pain, unspecified (principal); I25.119 Atherosclerotic heart disease of native coronary artery with unspecified angina pectoris; I10 Essential (primary) hypertension; F17.210 Nicotine dependence, cigarettes, uncomplicated; Z79.01 Long term (current) use of anticoagulants; E78.00 Pure hypercholesterolemia, unspecified; I25.2 Old myocardial infarction; Z79.899 Other long term (current) drug therapy; I44.0 Atrioventricular block, first degree; Z95.5 Presence of coronary angioplasty implant and graft; Z95.1 Presence of aortocoronary bypass graft; Z95.0 Presence of cardiac pacemaker; J45.909 Unspecified asthma, uncomplicated; I50.22 Chronic systolic (congestive) heart failure; Z95.810 Presence of automatic (implantable) cardiac defibrillator; N28.9 Disorder of kidney and ureter, unspecified; K92.1 Melena; D64.9 Anemia, unspecified
CPT/HCPCS: 71010; 80048; 80162; 82550; 82552; 83735; 83880; 84484; 85025; 85379; 85610; 85730; 87804; 93005; 94640; 94664; 97163; 99285; G0378; G8987; G8988; J1100; J1650; J2270; J2405; J7512

== ENCOUNTER 2016-09-24 20:09 | Inpatient (IN) | payer MEDICAID ==
[~2016-09-24] VITALS: Ht 170.2 cm; Wt 73.4 kg
[~2016-09-24 20:09] MED LIST changes: +ALBUAER3 INH; +E-ZMIS3; -FURO1TAB60 PO; +FURO20TA PO; +PROT40TA PO; +VIAG100T PO
[2016-09-24 20:10] VITALS: BP 121/79; PULSE 89; RESP 18; TEMP 98.8; O2SAT 99
--- NOTE | 2016-09-24 21:41 | PD ---
Physical Exam Date Seen by Provider: Sep 24, 2016 Time Seen by Provider: 21:37 Narrative 56 y/o male with History CHF and Pace maker. C/O pain in left chest constantly since yesterday. Worse today. Increased SOB with exertion. 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 Patient has increased lower extremity swelling and pain as well. No fever or chills. Protocols ordered. Vital signs reviewed. Patient stable. Awaiting Bed placement. Data Data Last Documented VS Vital Signs Date Time Temp Pulse Resp B/P Pulse Ox O2 Delivery O2 Flow Rate FiO2 09/24/16 20:10 98.8 89 18 121/79 99 Room Air [facility] Medical Record Reviewed: Yes Supervised Visit with MARIO: Yes Condition: Stable Jimmy Daigle Sep 24, 2016 21:41
--- NOTE | 2016-09-24 22:12 | PD ---
HPI Chief Complaint: Chest Pain Time Seen by Provider: 22:05 Travel History International Travel<30 days: No Contact w/Intl Traveler<30days: No Traveled to known affect area: No History of Present Illness HPI The patient is a 56 year old male who presents to the [facility] emergency department with a history of left sided lower chest pain/left upper quadrant abdominal pain that radiates down to the left lower quadrant of the abdomen that began 2 days ago. The patient reports that the pain was coming and going and then became constant yesterday. He reports that it was less severe yesterday and has become increasingly painful today. He reports that the pain is an aching sensation. He reports that it is associated with shortness of breath. He denies having any diaphoresis, nausea or vomiting associated with this. He reports that he has had a one-week history of diarrhea 2-3 times per day. He reports that he attributed the diarrhea to recently being on antibiotics for a tooth that was pulled. He reports that the tooth was pulled approximately 2 weeks ago. He reports that he did complete a course of amoxicillin. He denies having any blood or mucus in his stool. He denies taking an aspirin daily, however he has been taking Plavix daily. The patient has a history of coronary artery disease status post stents being placed previously and 2008 and a two-vessel coronary artery bypass graft done in 2011. The patient also reports having a pacemaker and defibrillator placed in 2014 related to congestive heart failure. He reports that he has lower extremity edema that waxes and wanes in severity. He reports that 2 days ago he began to have pain in the left leg. On review of systems, the patient denies having any recent fevers, increased cough or congestion, neck pain, urinary symptoms, or neurologic symptoms. [facility] Past Medical History Narrative Medical The patient's past medical history is significant for coronary artery disease status post myocardial infarction in 2008 with stents placed, history of coronary artery bypass grafting 2 vessels in 2011, history of congestive heart failure status post pacemaker and defibrillator placement, history of asthma, history of hypertension, hyperlipidemia. Hx Anticoagulant Therapy: Yes (plavix) Asthma: No Blood Disorders: No Heart Rhythm Problems: Yes Cancer: No Cardiac Catheterization: Yes Cardiovascular Problems: Yes High Cholesterol: Yes Chemotherapy: No Chest Pain: Yes Congestive Heart Failure: Yes COPD: No Coronary Artery Disease: Yes Diabetes: No Diminished Hearing: No Endocrine: No Gastrointestinal Disorders: No Genitourinary: No Hypertension: Yes Immune Disorder: No Implanted Vascular Access Dvce: Yes Musculoskeletal: No Neurologic: No Psychiatric: No Reproductive: No Respiratory: No Myocardial Infarction: Yes Radiation Therapy: No Sleep Apnea: No Thyroid Disease: No Past Surgical History Narrative Surgical The patient's past surgical history is significant for coronary artery bypass grafting of 2 vessels, pacemaker and defibrillator placement. Body Medical Devices: PACEMAKER, DEFIBRILLATOR Cardiac Surgery: Yes (PACER/DEFIB [facility]) Coronary Artery Bypass Graft: Yes Coronary Stent: Yes (X 2 IN 2010) Other Surgery: Yes (CABG 2012, 2010 STENTS) Family History Family Myocardial Infarction: Yes Social History Alcohol Use: No Tobacco Use: Yes (3-4 cigarettes per day) Substance Use: Yes (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) Allergies-Medications (Allergen,Severity, Reaction): Coded Allergies: No Known Allergies (Unverified , 09/24/16) Reported Meds & Prescriptions Reported Meds & Active Scripts Active Potassium Chloride Microencaps 20 Meq Tab 20 Meq PO Q12HR Proair Hfa 8.5 GM Inh (Albuterol Sulfate) 90 Mcg/Act Aer 1 Puff INH Q4H PRN 108 mcg/actuation Clopidogrel (Clopidogrel Bisulfate) 75 Mg Tab 75 Mg PO DAILY Flovent Hfa 12 GM Inh (Fluticasone Propionate) 110 Mcg/Act Inh 1 Puff INH BID Furosemide 20 Mg Tab 20 Mg PO BID Ventolin Hfa 18 GM Inh (Albuterol Sulfate) 90 Mcg/Act Aer 1 Puff INH Q4H PRN E-Z Spacer-Aerosol Holding Chamber 1 Mis Mis 1 Ea .ROUTE DIRECTED Carvedilol 6.25 Mg Tab 6.25 Mg PO BID Reported Lisinopril 5 Mg Tab 2.5 Mg PO DAILY Simvastatin 20 Mg Tab 20 Mg PO HS Nitroglycerin SL (Nitroglycerin) 0.4 Mg Subl 0.4 Mg SL DIRECTED PRN ONE TABLET UNDER THE TONGUE NEEDED FOR CHEST PAIN, MAY REPEAT EVERY FIVE MINUTES FOR A TOTAL OF 3 DOSES OR CALL 911 IF NO RELIEF Review of Systems Except as stated in HPI: all other systems reviewed are Neg General / Constitutional: No: Fever Eyes: No: Visual changes HENT: No: Headaches Cardiovascular: Positive: Chest Pain or Discomfort Respiratory: Positive: Shortness of Breath Gastrointestinal: Positive: Diarrhea, Abdominal Pain, Changes in Bowel Habits, No: Nausea, Vomiting, Hematemesis, Hematochezia, Indigestion, Loss of Appetite Genitourinary: No: Dysuria Musculoskeletal: No: Pain Skin: No Rash Neurologic: No: Weakness Psychiatric: No: Depression Endocrine: No: Polydipsia Hematologic/Lymphatic: No: Easy Bruising Physical Exam Narrative General: The patient is a well-developed well-nourished male in no acute distress. Head and Neck exam: Head is normocephalic atraumatic. Eyes: EOMI, pupils are equal round and reactive to light. Nose: Midline septum with pink mucous membranes Mouth: Dentition unremarkable. Moist mucus membranes. Posterior oropharynx is not erythematous. No tonsillar hypertrophy. Uvula midline. Airway patent. Neck: No palpable lymphadenopathy. No nuchal rigidity. No thyromegaly. Cardiovascular: Regular rate and rhythm without murmurs, gallops, or rubs. No pulse deficit to the extremities and simultaneous auscultation and palpation of his radial artery. Lungs: Clear to auscultation bilaterally. No wheezes, rhonchi, or rales. Abdomen: Soft, with tenderness on palpation of the left upper and left lower quadrant of the abdomen. No other tenderness on palpation of the other quadrants of the abdomen. No guarding, rebound, or rigidity. Negative [place] sign. Normal bowel sounds are audible. No tenderness on palpation of McBurney's point. Extremities: No clubbing, cyanosis, or edema. 2+ pulses in all 4 extremities. The patient reports having left-sided calf tenderness on palpation. Less than 3 second capillary refill of his digits bilaterally. Back: No spinous process tenderness to palpation. No costovertebral angle tenderness to palpation. Neurologic Exam: Grossly nonfocal. Skin Exam: No rash noted. Intact skin that is warm and dry. Data Data Last Documented VS Vital Signs Date Time Temp Pulse Resp B/P Pulse Ox O2 Delivery O2 Flow Rate FiO2 09/25/16 00:05 84 16 108/66 99 Room Air 09/24/16 20:10 98.8 Orders Electrocardiogram (09/24/16 21:41) B-Type Natriuretic Peptide (09/24/16 21:41) Ckmb (Isoenzyme) Profile (09/24/16 21:41) Complete Blood Count With Diff (09/24/16 21:41) Comprehensive Metabolic Panel (09/24/16 21:41) Magnesium (Mg) (09/24/16 21:41) Prothrombin Time / Inr (Pt) (09/24/16 21:41) Act Partial Throm Time (Ptt) (09/24/16 21:41) Troponin I (09/24/16 21:41) Chest, Single Ap (09/24/16 21:41) Nitroglycerin 2% Oint (Nitroglycerin 2% (09/24/16 22:15) Nitroglycerin Sl (Nitrostat Sl) (09/24/16 22:15) Aspirin Chew (Aspirin Chew) (09/25/16 09:00) Cta Thor Abd Aorta W Iv C W3d (09/24/16 22:05) Us Leg Venous Doppler (09/24/16 22:24) Aspirin Chew (Aspirin Chew) (09/24/16 22:29) Aspirin Chew (Aspirin Chew) (09/24/16 22:29) Aspirin Chew (Aspirin Chew) (09/24/16 22:45) CKMB (09/24/16 22:05) CKMB% (09/24/16 22:05) Iohexol 350 Inj (Omnipaque 350 Inj) (09/24/16 23:29) Admit Order (Ed Use Only) (09/25/16 00:08) Ceftriaxone Inj (Rocephin Inj) (09/25/16 00:15) Azithromycin Inj (Zithromax Inj) (09/25/16 00:15) Blood Culture (09/25/16 00:08) Amylase (09/24/16 22:05) Lipase (09/24/16 22:05) Labs Laboratory Tests Test 09/24/16 22:05 Prothrombin Time 11.4 SEC Prothromb Time International 1.0 RATIO Ratio Activated Partial 24.0 SEC Thromboplast Time Sodium Level 139 MEQ/L Potassium Level 3.7 MEQ/L Chloride Level 105 MEQ/L Carbon Dioxide Level 25.1 MEQ/L Blood Urea Nitrogen 12 MG/DL Creatinine 1.37 MG/DL Random Glucose 81 MG/DL Calcium Level 8.5 MG/DL Magnesium Level 1.6 MG/DL Total Bilirubin 1.6 MG/DL Aspartate Amino Transf 58 U/L (AST/SGOT) Alanine Aminotransferase 45 U/L (ALT/SGPT) Alkaline Phosphatase 97 U/L B-Type Natriuretic Peptide 1089 PG/ML Total Protein 6.9 GM/DL Albumin 3.3 GM/DL White Blood Count 5.7 TH/MM3 Red Blood Count 5.99 MIL/MM3 Hemoglobin 15.0 GM/DL Hematocrit 48.2 % Mean Corpuscular Volume 80.4 FL Mean Corpuscular Hemoglobin 25.1 PG Mean Corpuscular Hemoglobin 31.2 % Concent Red Cell Distribution Width 16.0 % Platelet Count 344 TH/MM3 Mean Platelet Volume 8.0 FL Neutrophils (%) (Auto) 69.4 % Lymphocytes (%) (Auto) 15.1 % Monocytes (%) (Auto) 13.4 % Eosinophils (%) (Auto) 1.3 % Basophils (%) (Auto) 0.8 % Neutrophils # (Auto) 3.9 TH/MM3 Lymphocytes # (Auto) 0.9 TH/MM3 Monocytes # (Auto) 0.8 TH/MM3 Eosinophils # (Auto) 0.1 TH/MM3 Basophils # (Auto) 0.0 TH/MM3 CBC Comment DIFF FINAL Differential Comment Anion Gap 9 MEQ/L Estimat Glomerular Filtration 65 ML/MIN Rate Total Creatine Kinase 737 U/L Creatine Kinase MB 7.1 NG/ML Creatine Kinase MB % 1.0 % Troponin I 0.04 NG/ML Amylase Level 41 U/L Lipase 73 U/L [facility] Medical Decision Making Medical Screen Exam Complete: Yes Emergency Medical Condition: Yes Medical Record Reviewed: Yes Interpretation(s) Last Impressions Lower Extremity Ultrasound 09/24/[id number] Signed Impressions: Service Date/Time: Saturday, September 24, 2016 22:51 - CONCLUSION: Normal examination. Sudeep Flores MD Aorta CTA 09/24/[id number] Signed Impressions: Service Date/Time: Saturday, September 24, 2016 23:22 - CONCLUSION: 1. Left upper lobe pneumonia. 2. 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 3. No evidence for aortic dissection. 4. Minimal atherosclerosis. 5. Emphysema. 6. Left lower lobe nodule. Six-month followup CT chest recommended. 7. Cardiomegaly. Sudeep Flores MD Chest X-Ray [id number]/[id number] Signed Impressions: Service Date/Time: Saturday, September 24, 2016 21:48 - CONCLUSION: 1. Cardiomegaly with questionable minimal interstitial edema. Jaron Llamas MD Differential Diagnosis Acute coronary syndrome, versus aortic dissection, versus STEMI, versus gastritis, versus colitis Narrative Course During the course of the patients emergency department visit, the patients history, examination, and differential diagnosis were reviewed with the patient. The patient had IV access obtained and blood work sent for analysis. The patient was placed on a cardiac cath rn with oximetry and blood pressure monitoring. An ECG was done on arrival. The patient's ECG shows a sinus rhythm heart rate of 85, borderline right axis deviation, ST segment elevation was noted in the anteroseptal leads which was reviewed and compared to prior ECGs done at this facility. The patient has a similar appearing ECG done in March 2016 when he was admitted for chest pain and a rule out serial cardiac enzyme protocol. The patient was initially provided aspirin 162 mg by mouth 1, sublingual nitroglycerin. The patients laboratory studies were reviewed and remarkable for a white count of 5.7, hemoglobin 15, platelets 344 with 13.4 monocytes, CMP is remarkable for creatinine of 1.37, glucose 81, GFR 65, total bilirubin 1.6, AST 58, CPK 737 with MB percent of 1, troponin I 0.04, lipase 73, BNP 1089, PT 11.4, PTT 24, urinalysis shows concentrated urine, 4 urobilinogen otherwise unremarkable. Radiology studies were reviewed and remarkable for chest x-ray that shows cardiomegaly with questionable minimal interstitial edema, ultrasound shows no evidence of DVT. CT aortogram reveals a left upper lobe pneumonia, focal subcentimeter aneurysm right external iliac artery, no evidence for aortic dissection, minimal atherosclerosis, emphysema, left lower lobe nodule recommending six-month follow-up CT. Given the findings of pneumonia blood cultures 2 were sent. The patient was given Rocephin 1 g IV, 8 azithromycin 500 IV. The patients results were discussed with the patient, including the plan of care. I explained that further testing and/ or monitoring is indicated based on the patients history, examination, and/ or laboratory findings. Therefore, I recommended admission for additional evaluation. The patient expressed understanding and was agreeable with this plan. The patient was admitted to the hospital in stable condition and [facility] Physician Communication Physician Communication the patient's case was discussed with Dr. Link who did agree to admit the patient for further evaluation and treatment at this time. Diagnosis Primary Impression: Chest pain, rule out acute myocardial infarction Additional Impressions: Abdominal pain Qualified Code: R10.9 - Abdominal pain, unspecified abdominal location Pneumonia Qualified Code: J18.1 - Pneumonia of left upper lobe due to infectious organism Admitting Information Admitting Physician Requests: Admit Condition: Stable Moriah Blas MD Sep 24, 2016 22:12 Moriah Blas MD Sep 24, 2016 22:12
[2016-09-24] MEDS ORDERED: NITROGLYCERIN 2% OINT 1 GM PACKET TOPICAL ONE (22:15)
--- NOTE | 2016-09-24 22:22 | RADRPT ---
EXAM DATE/TIME: 09/24/2016 21:48 [facility] COMPARISON: CHEST SINGLE AP, April 12, 2016, 15:13. INDICATIONS : Chest pain. MEDICAL HISTORY : Hypertension. SURGICAL HISTORY : CABG. Pacemaker. ENCOUNTER: Initial ACUITY: 2 days PAIN SCORE: 6/10 LOCATION: Bilateral chest FINDINGS: A single view of the chest demonstrates global cardiomegaly. Pacer leads overlie right atrium and rig ht ventricle. Previous median sternotomy. Mild interstitial prominence present with no significant ef fusion. CONCLUSION: 1. Cardiomegaly with questionable minimal interstitial edema. Jaron Llamas MD on September 24, 2016 at 22:20 Board Certified Radiologist. This report was verified electronically.
[2016-09-24] MEDS ORDERED: ASPIRIN 81 MG CHEW TAB ONE ×2 (22:29)
[2016-09-24 22:36] LABS: AUTOMATED NEUTROPHIL # 3.9 TH/MM3 (1.8-7.7); BASOPHIL % 0.8 % (0.0-2.0); EOSINOPHIL # 0.1 TH/MM3 (0-0.4); EOSINOPHIL % 1.3 % (0.0-4.0); HEMATOCRIT 48.2 % (39.0-51.0); HEMO FLAGS DIFF FINAL; LYMPH % 15.1 % (9.0-44.0); LYMPHOCYTE # 0.9 TH/MM3 (1.0-4.8); MEAN CELL VOLUME 80.4 FL (80.0-100.0); MEAN CORPUSCULAR HEMOGLOBIN 25.1 PG (27.0-34.0); MEAN CORPUSCULAR HGB CONC 31.2 % (32.0-36.0); MONO % 13.4 % (0.0-8.0); NEUT % 69.4 % (16.0-70.0); PLATELET COUNT 344 TH/MM3 (150-450); RED BLOOD COUNT 5.99 MIL/MM3 (4.50-5.90); WHITE BLOOD COUNT 5.7 TH/MM3 (4.0-11.0)
[2016-09-24] MEDS: NITROGLYCERIN 0.4 MG SL 25 TABS/BTL SL PRN (22:36)
[2016-09-24 22:40] VITALS: BP 108/66; PULSE 80; RESP 16; O2SAT 96
[2016-09-24 22:45] LABS: PROTHROMBIN TIME - PATIENT 11.4 SEC (9.8-11.6)
[2016-09-24] MEDS ORDERED: ASPIRIN 81 MG CHEW TAB CHEW ONE (22:45)
[2016-09-24 22:48] LABS: ALT (GPT) 45 U/L (12-78)
[2016-09-24 22:51] LABS: ALKALINE PHOSPHATASE 97 U/L (45-117); ANION GAP 9 MEQ/L (5-15); AST (GOT) 58 U/L (15-37); BICARBONATE 25.1 MEQ/L (21.0-32.0); BLOOD UREA NITROGEN 12 MG/DL (7-18); CHLORIDE 105 MEQ/L (98-107); CREATINE KINASE 737 U/L (39-308); GLOMERULAR FILTRATION RATE 65 ML/MIN (>89); MAGNESIUM 1.6 MG/DL (1.5-2.5); POTASSIUM 3.7 MEQ/L (3.5-5.1); SODIUM (NA) 139 MEQ/L (136-145); TOTAL BILIRUBIN ADULT 1.6 MG/DL (0.2-1.0)
[2016-09-24 23:04] LABS: CKMB 7.1 NG/ML (0.5-3.6)
--- NOTE | 2016-09-24 23:21 | RADRPT ---
EXAM DATE/TIME: 09/24/2016 22:51 [facility] COMPARISON: No previous studies available for comparison. INDICATIONS : Left leg pain and swelling. MEDICAL HISTORY : Myocardial infarction. Congestive heart failure. Hypercholesterolemia. Coronary artery disease. An ticoagulant therapy, Plavix. Hyperlipidemia. Afib. Hypertension. Blood transfusion. SURGICAL HISTORY : CABG Coronary artery stent. Pacemaker. Internal defibrillator. ENCOUNTER: Initial ACUITY: 3 days PAIN SCORE: 2/10 LOCATION: Left leg. TECHNIQUE: Venous ultrasound of the leg was performed from the inguinal ligament to the proximal calf. Real-silvestre e, color Doppler and spectral tracing, compression and augmentation techniques were used. FINDINGS: There is normal compressibility of the deep venous system from the inguinal region to the proximal ca lf. No echogenic clot is seen in the lumen of the common femoral, femoral, popliteal, and posterior tibial veins. There is a normal response of the venous system to proximal and distal augmentation an d respiration. CONCLUSION: Normal examination. Sudeep Flores MD on September 24, 2016 at 23:20 Board Certified Radiologist. This report was verified electronically.
[2016-09-24] MEDS ORDERED: IOHEXOL 350 MG/ML 10 ML VIAL (for RAD DIAG) IV ONE (23:29)
--- NOTE | 2016-09-24 23:59 | RADRPT ---
EXAM DATE/TIME: 09/24/2016 23:22 [facility] COMPARISON: No previous studies available for comparison. INDICATIONS : Chest pain with shortness of breath. IV CONTRAST: 95 cc Omnipaque 350 (iohexol) IV RADIATION DOSE: 5.94 CTDIvol (mGy) MEDICAL HISTORY : Myocardial infarction. Congestive heart failure. Hypertension. Coronary artery disease. SURGICAL HISTORY : CABG Pacemaker. ENCOUNTER: Initial ACUITY: 3 days PAIN SCALE: 10/10 LOCATION: chest TECHNIQUE: Volumetric scanning was performed using a multi-row detector CT scanner. The data was post processed with a variety of visualization algorithms including full volume maximum intensity projection, multi -planar sliding thin slab reformation, curved planar reformation, and surface rendering techniques. Using automated exposure control and adjustment of the mA and/or kV according to patient size, radiat ion dose was kept as low as reasonably achievable to obtain optimal diagnostic quality images. DICOM format image data is available electronically for review and comparison. FINDINGS: There are moderate emphysematous changes identified. There is consolidation identified in the le ft upper lobe characteristic of a pneumonia. There is a noncalcified nodular focus at the left lung b ase measuring 8.5 mm. The patient is status post CABG and cardiac pacer placement. 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 There is no aneurysm or dissection. The heart is enlarged. There is min imal calcific plaquing left common iliac artery and internal iliac artery as well as the right common and internal iliac arteries. There is a focal aneurysm of the right external iliac artery on axial i mage 183 of series 2 measuring 8.5 mm. There is no evidence for stenosis. Liver, gallbladder, spleen, kidneys, pancreas, adrenals, small and large bowel, urinary bladder and prostate are unremarkable. T he osseous structures are intact. CONCLUSION: 1. Left upper lobe pneumonia. 2. 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 3. No evidence for aortic dissection. 4. Minimal atherosclerosis. 5. Emphysema. 6. Left lower lobe nodule. Six-month followup CT chest recommended. 7. Cardiomegaly. Sudeep Flores MD on September 24, 2016 at 23:52 Board Certified Radiologist. This report was verified electronically.
[2016-09-25] VITALS (15 sets, daily range): BP systolic 96–110; BP diastolic 60–73; PULSE 70–97; RESP 16–26; TEMP 97–100; O2SAT 94–100
[2016-09-25] MEDS ORDERED: cefTRIAXone INJ 1,000 MG in SODIUM CHLORIDE 0.9% INJ 100 ML IV ONE (00:15)
[2016-09-25] MEDS ORDERED: AZITHROMYCIN INJ 500 MG in SODIUM CHLOR 0.9% 250 ML INJ 250 ML IV ONE (00:15)
--- NOTE | 2016-09-25 00:15 | HHI.HP ---
HPI Service Family Medicine Primary Care Physician Viki So MD Admission Diagnosis CP R/O [place], Pneumonia Diagnoses: Chief Complaint: chest pains and shortness of breath International Travel<30 Days: No Contact w/Intl Traveler<30days: No Known Affected Area: No History of Present Illness 56 YO male FPTS pt with PMHx of CHF (EF20%), CAD, HTN, HLD, IL in 2008, CABGx2 ( 2012 and 2014 w/pacer and internal defibrillator), and tobacco use presents with left-sided CP and SOB for 3 days and developing sharp pains and edema in bilateral LEs over the past day or two. 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 Pain radiates from left side of chest down to the left lower quadrant of abdomen and is accompanied by dizziness. Pt's cough is productive of clear sputum. Pt states he has reduced tobacco use from 1 ppd in 2008 to 4 cigarettes per day currently. Pt endorses unintended wt loss of 4 pounds over the last month with associated loss of appetite, followed by rapid wt gain w/LE edema over the past few days. Denies fever, dysuria, N/V, but admits to some loose stools over the past week. In ED, pt is afebrile w/VSS, EKG w/ST elevations but no interval change from , BNP 1089, Tropo 0.04; CXR w/cardiomegaly and possible interstitial edema , Doppler US of LEs negative for DVT, and CTA w/HOLLIE PNA and right iliac artery aneurysm; CP partially alleviated by nitroglycerin, started on Rocephin 1g q24h and Azithromycin 500 mg BID. Admitted for OBS. (Shravan Vicente MD R1) Review of Systems Constitutional: COMPLAINS OF: Diaphoretic episodes, Weight loss, Dizziness, Change in appetite, DENIES: Fatigue, Fever, Weight gain, Chills, Night Sweats Endocrine: DENIES: Heat/cold intolerance, Polydipsia, Polyuria, Polyphagia Eyes: DENIES: Blurred vision, Diplopia, Eye inflammation, Eye pain, Vision loss , Photosensitivity, Double Vision Ears, nose, mouth, throat: DENIES: Tinnitus, Hearing loss, Vertigo, Nasal discharge, Oral lesions, Throat pain, Hoarseness, Ear Pain, Running Nose, Epistaxis, Sinus Pain, Toothache, Odynophagia Respiratory: COMPLAINS OF: Sputum production (clear sputum), Shortness of breath Cardiovascular: COMPLAINS OF: Chest pain, Dyspnea on Exertion, Lower Extremity Edema Gastrointestinal: COMPLAINS OF: Abdominal pain (left sided), Diarrhea, DENIES : Black stools, Bloody stools, Constipation, Nausea, Vomiting, Difficulty Swallowing, Anorexia Genitourinary: DENIES: Sexual dysfunction, Urinary frequency, Urinary incontinence, Urgency, Hematuria, Dysuria, Nocturia, Penile Discharge, Testicular Pain, Testicular Swelling Musculoskeletal: DENIES: Joint pain, Muscle aches, Stiffness, Joint Swelling, Back pain, Neck pain Integumentary: DENIES: Abnormal pigmentation, Nail changes, Pruritus, Rash Hematologic/lymphatic: DENIES: Bruising, Lymphadenopathy (Shravan Vicente MD R1) Past Family Social History Past Medical History [place] in 2008 Congestive heart failure with last hospitalization in July 2014 requiring pacer placement w/internal defibrillator Hemorrhoids Hyperlipidemia Hypertension Past Surgical History CABG in 3 stents placed Cardiac pacer w/internal defibrillator placed in July 2014 for decreased ejection fraction Reported Medications Reported Meds & Active Scripts Active Potassium Chloride Microencaps 20 Meq Tab 20 Meq PO Q12HR Proair Hfa 8.5 GM Inh (Albuterol Sulfate) 90 Mcg/Act Aer 1 Puff INH Q4H PRN 108 mcg/actuation Clopidogrel (Clopidogrel Bisulfate) 75 Mg Tab 75 Mg PO DAILY Viagra (Sildenafil Citrate) 100 Mg Tab 100 Mg PO DAILY PRN Patient not to take nitroglycerin while on this medication. Flovent Hfa 12 GM Inh (Fluticasone Propionate) 110 Mcg/Act Inh 1 Puff INH BID Furosemide 20 Mg Tab 20 Mg PO BID Ventolin Hfa 18 GM Inh (Albuterol Sulfate) 90 Mcg/Act Aer 1 Puff INH Q4H PRN E-Z Spacer-Aerosol Holding Chamber 1 Mis Mis 1 Ea .ROUTE DIRECTED Carvedilol 6.25 Mg Tab 6.25 Mg PO BID Reported Lisinopril 5 Mg Tab 2.5 Mg PO DAILY Simvastatin 20 Mg Tab 20 Mg PO HS Nitroglycerin SL (Nitroglycerin) 0.4 Mg Subl 0.4 Mg SL DIRECTED PRN ONE TABLET UNDER THE TONGUE NEEDED FOR CHEST PAIN, MAY REPEAT EVERY FIVE MINUTES FOR A TOTAL OF 3 DOSES OR CALL 911 IF NO RELIEF (Shravan Vicente MD R1) Allergies: Coded Allergies: No Known Allergies (Unverified , 09/24/16) Active Ordered Medications Current Medications Medications (Trade) Dose Ordered Sig/Jann Route Start Time Stop Time Status Last Admin (Nitrostat Sl) 0.4 mg Q5M PRN SL 09/24/16 22:15 09/24/16 22:36 (Coreg) 6.25 mg BID PO 09/25/16 09:00 (Plavix) 75 mg DAILY PO 09/25/16 09:00 (Flovent Hfa 110 Mcg Inh) 1 puff BID INH 09/25/16 09:00 (Prinivil) 2.5 mg DAILY PO 09/25/16 09:00 (Lipitor) 40 mg HS PO 09/25/16 21:00 (Pill Splitter) 1 ea UNSCH PRN OTHER 09/25/16 00:45 (NS Flush) 2 ml UNSCH PRN IV FLUSH 09/25/16 01:00 (NS Flush) 2 ml BID IV FLUSH 09/25/16 09:00 (Zofran Inj) 4 mg Q6H PRN IVP 09/25/16 01:00 (Heparin Inj) 5,000 units Q12H SQ 09/25/16 01:00 (Tylenol) 650 mg Q6H PRN PO 09/25/16 01:00 (Pipestem 5-325 Mg) 1 tab Q4H PRN PO 09/25/16 01:00 (Pipestem 7.5-325 Mg) 1 tab Q4H PRN PO 09/25/16 01:00 (Narcan Inj) 0.4 mg UNSCH PRN IV 09/25/16 01:00 (Cayla-Colace) 1 tab BID PO 09/25/16 09:00 (Milk Of Magnesia Liq) 30 ml Q12H PRN PO 09/25/16 01:00 (Senokot) 17.2 mg Q12H PRN PO 09/25/16 01:00 (Dulcolax Supp) 10 mg DAILY PRN RECTAL 09/25/16 01:00 (Lactulose Liq) 30 ml DAILY PRN PO 09/25/16 01:00 (Aspirin Chew) 162 mg DAILY PO 09/25/16 09:00 (Nitroglycerin 2% Oint) 1 inch Q6HR PRN TOP 09/25/16 01:15 (Morphine Inj) 2 mg Q5M PRN IV 09/25/16 01:15 Furosemide 20 mg 20 mg BID PO 09/25/16 09:00 (Rocephin Inj/NS Inj) 100 ml @ 200 mls/hr Q24H IV 09/25/16 21:30 (Zithromax) 500 mg Q24H PO 09/25/16 21:00 09/28/16 20:59 Family History Father: Gout of natural causes Mother: of breast cancer Sister's 5: Metastatic cancer origin unknown, lung cancer, hypertension Social History Tobacco: One pack per day until [place] in 2008 then half a pack per day; now smoking 4 cigarettes per day; smoking a total 35 years Alcohol: Denies Drugs: Denies current use, history of heroin use/injectables - screened in the past for hepatitis and AIDS currently negative (Shravan Vicente MD R1) Physical Exam Vital Signs Vital Signs Date Time Temp Pulse Resp B/P Pulse Ox O2 Delivery O2 Flow Rate FiO2 09/25/16 00:05 84 16 108/66 99 Room Air 09/24/16 22:40 80 16 108/66 96 Room Air 09/24/16 20:10 98.8 89 18 121/79 99 Room Air Physical Exam GENERAL: This is a well-nourished, well-developed patient, in no apparent distress. SKIN: No rashes, ecchymoses or lesions. Cool and dry. HEAD: Atraumatic. Normocephalic. EYES: Pupils equal round and reactive. Extraocular motions intact. No scleral icterus. No injection or drainage. ENT: Nose without bleeding, purulent drainage or septal hematoma. Throat without erythema, tonsillar hypertrophy or exudate. Uvula midline. Airway patent. NECK: Trachea midline. No lymphadenopathy. Supple, nontender, no meningeal signs. CARDIOVASCULAR: Regular rate and rhythm without murmurs, gallops, or rubs. RESPIRATORY: Clear to auscultation. Breath sounds equal bilaterally. No wheezes , rales, or rhonchi. GASTROINTESTINAL: Abdomen soft, tender to palpation in LUQ and LLQ, nondistended. No hepato-splenomegaly, or palpable masses. No guarding. MUSCULOSKELETAL: Extremities without clubbing, cyanosis; 1+ pitting edema in bilateral feet (L>R). No joint tenderness, effusion, or edema noted. Pt felt Left calf tenderness. No tenderness to dorsiflexion of bilateral feet. NEUROLOGICAL: Awake and alert. Cranial nerves II through XII intact. Motor and sensory grossly within normal limits. Normal speech. Laboratory Laboratory Tests Test 09/24/16 22:05 White Blood Count 5.7 Red Blood Count 5.99 Hemoglobin 15.0 Hematocrit 48.2 Mean Corpuscular Volume 80.4 Mean Corpuscular Hemoglobin 25.1 Mean Corpuscular Hemoglobin 31.2 Concent Red Cell Distribution Width 16.0 Platelet Count 344 Mean Platelet Volume 8.0 Neutrophils (%) (Auto) 69.4 Lymphocytes (%) (Auto) 15.1 Monocytes (%) (Auto) 13.4 Eosinophils (%) (Auto) 1.3 Basophils (%) (Auto) 0.8 Neutrophils # (Auto) 3.9 Lymphocytes # (Auto) 0.9 Monocytes # (Auto) 0.8 Eosinophils # (Auto) 0.1 Basophils # (Auto) 0.0 CBC Comment DIFF FINAL Differential Comment Prothrombin Time 11.4 Prothromb Time International 1.0 Ratio Activated Partial 24.0 Thromboplast Time Sodium Level 139 Potassium Level 3.7 Chloride Level 105 Carbon Dioxide Level 25.1 Anion Gap 9 Blood Urea Nitrogen 12 Creatinine 1.37 Estimat Glomerular Filtration 65 Rate Random Glucose 81 Calcium Level 8.5 Magnesium Level 1.6 Total Bilirubin 1.6 Aspartate Amino Transf 58 (AST/SGOT) Alanine Aminotransferase 45 (ALT/SGPT) Alkaline Phosphatase 97 Total Creatine Kinase 737 Creatine Kinase MB 7.1 Creatine Kinase MB % 1.0 Troponin I 0.04 B-Type Natriuretic Peptide 1089 Total Protein 6.9 Albumin 3.3 (Shravan Vicente MD R1) Result Diagram: 09/24/16220409/24/162204 Imaging Last Impressions Lower Extremity Ultrasound 09/24/162223 Signed Impressions: Service Date/Time: Saturday, September 24, 2016 22:51 - CONCLUSION: Normal examination. Sudeep Flores MD Aorta CTA 09/24/162204 Signed Impressions: Service Date/Time: Saturday, September 24, 2016 23:22 - CONCLUSION: 1. Left upper lobe pneumonia. 2. 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 3. No evidence for aortic dissection. 4. Minimal atherosclerosis. 5. Emphysema. 6. Left lower lobe nodule. Six-month followup CT chest recommended. 7. Cardiomegaly. Sudeep Flores MD Chest X-Ray 09/24/164 Signed Impressions: Service Date/Time: Saturday, September 24, 2016 21:48 - CONCLUSION: 1. Cardiomegaly with questionable minimal interstitial edema. Jaron Llamas MD (Shravan Vicente MD R1) Assessment and Plan Assessment and Plan 56-year-old male w/PMHx IL, s/p CABGx2, CHF (EF20%) presents with exertional CP , SOB and cough with [place] r/o, CHF exacerbation, and possible CAP. Normal CBC, CXR and tropo x1, but elevated BNP 1089, CK-MB 7.1. CTA notes right iliac artery aneurysm and r/o AAA, but also notes small node in LLL. DDx: demand ischemia atypical CP vs COPD exacerbation vs PNA vs mesenteric ischemia. Code Status FULL Discussed Condition With Dr Soto (Shravan Vicente MD R1) Attending Attestation Patient seen and examined. Case reviewed and discussed with the resident team. Agree with plan of care as discussed with me and documented in the resident note. (Izaiah Bañuelos MD) Problem List: (1) Atypical chest pain Status: Acute Plan: - BNP 1089, CK-MB 7.1, Tropo 0.04 - CXR w/Cardiomegaly - Trending Trops and EKG q3h - Mag 1.6 wnl - Tylenol 650 mg PRN, Pipestem 5-325 for pain - Morphine 2mg IV for breakthrough CP - Nitroglycerin PRN for CP - ASA 162 mg PO/day - Plavix 75 mg PO day - Echo later today (2) CHF (congestive heart failure) Status: Chronic Plan: - Continue home dose Lasix 20 mg PO BID, Carvedilol 6.25 mg PO BID, Lisinopril 5 mg PO/day - Holding IVF for now (3) PNA (pneumonia) Status: Acute Plan: - CTA w/HOLLIE PNA w/normal WBC on CBC - Blood cx pending - Rocephin 1g IV q12h and Azithromycin 500 mg PO/day - Continue home dose albuterol 2 puffs 2x/day (4) COPD (chronic obstructive pulmonary disease) Status: Acute Plan: - COPD noted on imaging in 35 year smoker - Albuterol neb PRN q2h inhaler - Flutacasone 1 puff BID (5) HTN (hypertension) Status: Chronic Plan: - Stable w/BP 108/66 - Holding home simvastatin, continuing lisinopril as above (6) Tobacco dependency Status: Chronic Plan: - Encourage smoking cessation (7) FEN/GI/PPx Status: Acute Plan: - NPO at midnight due to CP - Plavix as above - Heparin 5000 units q12h for DVT ppx - Doppler US of LEs negative for DVT - Senna and colace PRN (Shravan Vicente MD R1) Problem Qualifiers (1) CHF (congestive heart failure): Qualified Code: I50.22 - Chronic systolic congestive heart failure (2) PNA (pneumonia): Qualified Code: J18.1 - Pneumonia of left upper lobe due to infectious organism (3) COPD (chronic obstructive pulmonary disease): Qualified Code: J44.9 - Chronic obstructive pulmonary disease, unspecified COPD type Shravan Vicente MD R1 Sep 25, 2016 00:15 Izaiah Bañuelos MD Sep 26, 2016 10:56
[2016-09-25] MEDS: NITROGLYCERIN 0.4 MG SL 25 TABS/BTL SL PRN ×2 (00:37→00:38)
[2016-09-25] MEDS ORDERED: PILL SPLITTER OTHER PRN (00:45)
[2016-09-25] MEDS ORDERED: SENNOSIDES 8.6 MG TAB PO PRN (01:00)
[2016-09-25] MEDS ORDERED: ONDANSETRON HCL 4 MG/2 ML VIAL IVP PRN (01:00)
[2016-09-25] MEDS ORDERED: MAGNESIUM HYDROXIDE SUSP 30 ML CUP PO PRN (01:00)
[2016-09-25] MEDS ORDERED: ACETAMINOPHEN 325 MG TAB PO PRN (01:00)
[2016-09-25] MEDS ORDERED: NALOXONE HCL 0.4 MG/ML AMP IV PRN (01:00)
[2016-09-25] MEDS ORDERED: ACETAMINOPHEN/HYDROcodone 325 MG/7.5 MG TAB PO PRN (01:00)
[2016-09-25] MEDS ORDERED: LACTULOSE SYRUP 20 GM/30 ML CUP PO PRN (01:00)
[2016-09-25] MEDS ORDERED: BISACODYL 10 MG SUPP RECTAL PRN (01:00)
[2016-09-25] MEDS ORDERED: ACETAMINOPHEN/HYDROcodone 325 MG/5 MG TAB PO PRN (01:00)
[2016-09-25] MEDS ORDERED: SODIUM CHLORIDE 0.9% FLUSH 10 ML FLUSH IV FLUSH PRN (01:00)
[2016-09-25] MEDS ORDERED: MORPHINE SULFATE 4 MG/ML INJ IV PRN (01:15)
[2016-09-25] MEDS ORDERED: NITROGLYCERIN 2% OINT 1 GM PACKET TOP PRN (01:15)
[2016-09-25 01:27] LABS: AMYLASE 41 U/L (25-115)
[2016-09-25] MEDS ORDERED: RESP: ALBUTEROL 2.5 MG/3 ML NEB (PRN) INH (01:30)
[2016-09-25] MEDS: HEPARIN SODIUM - SQ 10,000 UNITS/ML VIAL SQ SCH ×2 (01:43→12:22)
[2016-09-25 02:56] LABS: BLOOD, URINE NEG (NEG); COMMENT (UR) CULT NOT INDICATED; CULTURE IF INDICATED CULT NOT INDICATED; GLUCOSE,URINE NEG (NEG); KETONE, URINE NEG (NEG); MUCUS URINE FEW /lpf (OCC); NITRITE,URINE NEG (NEG); PH, URINE 5.5 (5.0-8.5); SQUAMOUS EPITHELIAL CELL URINE 1 /hpf (0-5); URINE COLOR YELLOW (YELLW/STRAW)
[2016-09-25 03:07] LABS: MAGNESIUM 1.5 MG/DL (1.5-2.5)
[2016-09-25] MEDS: ASPIRIN 81 MG CHEW TAB PO SCH (08:24)
[2016-09-25] MEDS: LISINOPRIL 5 MG TAB PO SCH (08:24)
[2016-09-25] MEDS: DOCUSATE SODIUM 50 MG/SENNA 8.6 MG TAB PO SCH ×2 (08:25→20:36)
[2016-09-25] MEDS: CARVEDILOL 6.25 MG TAB PO SCH ×2 (08:25→20:36)
[2016-09-25] MEDS: CLOPIDOGREL 75 MG TAB PO SCH (08:25)
[2016-09-25] MEDS ORDERED: guaiFENesin/DEXTROMETHORPHAN 200 MG/20 MG/10 ML CUP PO PRN (08:30)
--- NOTE | 2016-09-25 08:31 | HHI.FPPN ---
Subjective Remarks Pt seen and examined this morning. No acute events overnight. Pt continues to endorse pain in his left chest and left abdomen. He has been coughing for the past several days. Pain worse with coughing. He denies substernal chest pain. He endorses shortness of breath after coughing, otherwise breathing is stable. Pt reports that he has been having liquid stools prior to coming to the hospital. He has not yet had a bowel movement. (Katie Greenberg MD R3) Objective Vitals Vital Signs Date Time Temp Pulse Resp B/P Pulse Ox O2 Delivery O2 Flow Rate FiO2 09/25/16 05:02 97 16 100/66 97 Room Air 09/25/16 02:00 99 Nasal Cannula 2.00 09/25/16 00:05 84 16 108/66 99 Room Air 09/24/16 22:40 80 16 108/66 96 Room Air 09/24/16 20:10 98.8 89 18 121/79 99 Room Air I/O 09/24/16 09/24/16 09/24/16 09/25/16 09/25/16 09/25/16 07:00 15:00 23:00 07:00 15:00 23:00 Output Total 325 ml Balance -325 ml Output Urine Total 325 ml (Katie Greenberg MD R3) Result Diagram: 09/24/16220409/24/162204 Objective Remarks GENERAL: This is a well-nourished, well-developed patient, in no apparent distress. SKIN: No rashes, ecchymoses or lesions. Cool and dry. HEAD: Atraumatic. Normocephalic. Pupils equal round and reactive. Extraocular motions intact. No scleral icterus. No injection or drainage. Nose without bleeding, purulent drainage or septal hematoma. Airway patent. NECK: Trachea midline. Supple, nontender, no meningeal signs. CARDIOVASCULAR: Regular rate and rhythm RESPIRATORY: Clear to auscultation. Upper lung wood clear to auscultation. Lower lung wood with expiratory wheezes GASTROINTESTINAL: Abdomen soft, nondistended. left upper and lower quadrants and left flank tender to light palpation. No hepato-splenomegaly, or palpable masses. MUSCULOSKELETAL: Extremities without clubbing, cyanosis; 1+ pitting edema in bilateral feet (L>R). No joint tenderness, effusion, or edema noted. NEUROLOGICAL: Awake and alert. Motor and sensory grossly within normal limits. Normal speech. (Katie Greenberg MD R3) A/P Assessment and Plan 56-year-old male w/PMHx [place], s/p CABGx2, CHF (EF20%) presents with exertional CP , SOB and cough with [place] r/o, CHF exacerbation, and possible CAP. Normal CBC, CXR and tropo x1, but elevated BNP 1089, CK-MB 7.1. CTA notes right iliac artery aneurysm and r/o AAA, but also notes small node in LLL. DDx: demand ischemia atypical CP vs COPD exacerbation vs PNA vs mesenteric ischemia. Discharge Planning Anticipate discharge once labs have resulted and respiratory status is stable, likely in 1-2 days. (Katie Greenberg MD R3) Attending Attestation Patient seen and examined. Case reviewed and discussed with the resident team. Agree with plan of care as discussed with me and documented in the resident note. (Izaiah Bañuelos MD) Problem List: (1) Atypical chest pain Status: Acute Plan: Pt with left chest and abdominal pain. Due to history of CABG, stent placement and pacemaker, ACS was ruled. Pt continues to have pain. He has been coughing several days prior to coming into the hospital, left chest and abdomen and flank region tender to palpation on exam, likely musculoskeletal in nature. - Troponins 0.04-->0.05-->0.04 - No interval EKG cchanges suggestive of ischemia - BNP elevated to 1089, will continue to trend - Echo ordered, to be completed later today Pain medication: - Tylenol 650 mg PRN, Brant 5-325 for pain - Morphine 2mg IV for breakthrough CP - Nitroglycerin PRN for CP Imaging: - Chest X-ray: Cardiomegaly with questionable minimal interstitial edema - Aorta CTA: Focal subcentimeter aneurysm, right external iliac artery. No evidence of aortic dissection. Minimal atherosclerosis. Emphysema. Left lower lobe nodule that should be followed with a CT in 6 months to reevaluate (2) CHF (congestive heart failure) Status: Chronic Plan: - Increase Lasix to 20 mg IV BID, continue to monitor creatinine -We'll hold off on IV fluids due to concern for CHF exacerbation with elevated BNP, see plan above Continue home medications: - Carvedilol 6.25 mg PO BID - Lisinopril 5 mg PO/day (3) PNA (pneumonia) Status: Acute Plan: CTA significant for left upper lobe pneumonia. No acute infectious process identified on chest x-ray. Patient reports worsening cough several days prior to hospitalization. has been afebrile, white blood cell count within normal limits. - Rocephin 1g IV q12h and Azithromycin 500 mg PO/day - Continue home dose albuterol 2 puffs 2x/day - DuoNeb's Q6hrs while awake - Incentive spirometry - We'll check urinary Legionella and pneumococcal antigen - Blood cultures pending (4) COPD (chronic obstructive pulmonary disease) Status: Acute Plan: -Continue home medication, see above (5) CAD (coronary artery disease) Status: Chronic Plan: Patient with history of stent placement 2, CABG Continuing home medications: -Plavix 75 mg daily -Statin converted to Atorvastatin 40 mg daily (6) HTN (hypertension) Status: Chronic Plan: -Blood pressure stable -Continue home medications as above (7) Diarrhea Status: Acute Plan: Patient with recent history of antibiotic use. He reports having liquid stools. -We'll check C. difficile PCR (8) Tobacco dependency Status: Chronic Plan: - Encourage smoking cessation (9) FEN/GI/PPx Status: Acute Plan: Fluids: None at this time Electrolytes: Within normal limits, continue to monitor Nutrition: Heart healthy diet, fluid ejection to 2 L DVT PPX: Plavix, home med (Katie Greenberg MD R3) Problem Qualifiers (1) CHF (congestive heart failure): Qualified Code: I50.22 - Chronic systolic congestive heart failure (2) PNA (pneumonia): Qualified Code: J18.1 - Pneumonia of left upper lobe due to infectious organism (3) COPD (chronic obstructive pulmonary disease): Qualified Code: J44.9 - Chronic obstructive pulmonary disease, unspecified COPD type Katie Greenberg MD R3 Sep 25, 2016 08:31 Izaiah Bañuelos MD Sep 26, 2016 10:59
[2016-09-25] MEDS: FLUTICASONE PROPIONATE 110 MCG/ACT 12 GM INHALER INH SCH ×2 (09:00→20:38)
[2016-09-25] MEDS ORDERED: FUROSEMIDE 20 MG TAB PO SCH (09:00)
[2016-09-25] MEDS: SODIUM CHLORIDE 0.9% FLUSH 10 ML FLUSH IV FLUSH SCH ×2 (09:00→20:36)
[2016-09-25] MEDS ORDERED: SODIUM CHLORIDE 0.9% FLUSH 10 ML FLUSH IV FLUSH SCH (09:00)
[2016-09-25] MEDS ORDERED: ASPIRIN 81 MG CHEW TAB CHEW SCH (09:00)
--- NOTE | 2016-09-25 15:05 | EKG ---
Date Performed: 09/25/2016 Time Performed: 04:03:25 PTAGE: 56 years EKG: Sinus rhythm WITH FIRST DEGREE AV BLOCK WITH OCCASIONAL SUPRAVENTRICULAR PREMATURE COMPLEXES POSSIBLE LEFT ATRIAL ENLARGEMENT POSSIBLE RIGHT VENTRICULAR HYPERTROPHY PROBABLE LATERAL MYOCARDIAL INFARCTION ABNORMAL E CG PREVIOUS TRACING : 09/25/2016 02.07 DOCTOR: Nanette Smiley Interpretating Date/Time 09/25/2016 14:59:00
--- NOTE | 2016-09-25 15:33 | EKG ---
Date Performed: 09/25/2016 Time Performed: 02:07:56 PTAGE: 56 years EKG: Sinus rhythm WITH FIRST DEGREE AV BLOCK WITH OCCASIONAL SUPRAVENTRICULAR PREMATURE COMPLEXES POSSIBLE LEFT ATRIAL ENLARGEMENT POSSIBLE RIGHT VENTRICULAR HYPERTROPHY LATERAL MYOCARDIAL INFARCTION ABNORMAL ECG PREVIOUS TRACING : 04/13/2016 03.33 DOCTOR: Nanette Smiley Interpretating Date/Time 09/25/2016 15:32:10
--- NOTE | 2016-09-25 15:37 | EKG ---
Date Performed: 09/24/2016 Time Performed: 21:48:10 PTAGE: 56 years EKG: Sinus rhythm LEFT ATRIAL ENLARGEMENT BORDERLINE RIGHT AXIS DEVIATION PATTERN CONSISTENT WITH PULMONARY DISEASE ST ELEVATION, PROBABLY EARLY REPOLARIZATION NONSPECIFIC ST & T-WAVE ABNORMALITY ABNORMAL ECG PREVIOUS TRACING : 04/13/2016 03.33 DOCTOR: Nanette Smiley Interpretating Date/Time 09/25/2016 15:34:48
[2016-09-25] MEDS: FUROSEMIDE 20 MG/2 ML VIAL IV PUSH SCH (17:39)
[2016-09-25] MEDS ORDERED: FUROSEMIDE 20 MG/2 ML VIAL IV PUSH SCH (18:00)
[2016-09-25] MEDS ORDERED: AZITHROMYCIN 250 MG TAB PO SCH (21:00)
[2016-09-25] MEDS ORDERED: ATORVASTATIN 40 MG TAB PO SCH (21:00)
[2016-09-25] MEDS: RESP: ALBUTEROL 2.5 MG/IPRATROPIUM 0.5 MG NEB (SCH) NEB (21:17)
[2016-09-25] MEDS ORDERED: cefTRIAXone INJ 1,000 MG in SODIUM CHLORIDE 0.9% INJ 100 ML IV SCH (21:30)
[2016-09-26] VITALS (7 sets, daily range): BP systolic 90–118; BP diastolic 55–76; PULSE 77–95; RESP 16–20; TEMP 98–99.3; O2SAT 98–100
[2016-09-26] MEDS: HEPARIN SODIUM - SQ 10,000 UNITS/ML VIAL SQ SCH ×2 (01:39→12:17)
[2016-09-26] MEDS: RESP: ALBUTEROL 2.5 MG/IPRATROPIUM 0.5 MG NEB (SCH) NEB (08:12)
[2016-09-26 08:29] LABS: AUTOMATED NEUTROPHIL # 3.2 TH/MM3 (1.8-7.7); BASOPHIL % 0.6 % (0.0-2.0); EOSINOPHIL # 0.1 TH/MM3 (0-0.4); EOSINOPHIL % 1.3 % (0.0-4.0); HEMATOCRIT 39.4 % (39.0-51.0); HEMO FLAGS DIFF FINAL; LYMPH % 14.6 % (9.0-44.0); LYMPHOCYTE # 0.7 TH/MM3 (1.0-4.8); MEAN CELL VOLUME 78.7 FL (80.0-100.0); MEAN CORPUSCULAR HEMOGLOBIN 25.8 PG (27.0-34.0); MEAN CORPUSCULAR HGB CONC 32.8 % (32.0-36.0); MONO % 18.2 % (0.0-8.0); NEUT % 65.3 % (16.0-70.0); PLATELET COUNT 271 TH/MM3 (150-450); RED BLOOD COUNT 5.01 MIL/MM3 (4.50-5.90); RED CELL DISTRIBUTION WIDTH 15.7 % (11.6-17.2); WHITE BLOOD COUNT 4.9 TH/MM3 (4.0-11.0)
[2016-09-26 08:57] LABS: ALKALINE PHOSPHATASE 74 U/L (45-117); ALT (GPT) 28 U/L (12-78); ANION GAP 9 MEQ/L (5-15); AST (GOT) 30 U/L (15-37); BICARBONATE 25.8 MEQ/L (21.0-32.0); BLOOD UREA NITROGEN 15 MG/DL (7-18); CHLORIDE 105 MEQ/L (98-107); GLOMERULAR FILTRATION RATE 68 ML/MIN (>89); HDL CHOLESTEROL 23.4 MG/DL (40.0-60.0); LDL CHOLESTEROL 109 MG/DL (0-99); POTASSIUM 3.8 MEQ/L (3.5-5.1); SODIUM (NA) 140 MEQ/L (136-145)
[2016-09-26] MEDS: DOCUSATE SODIUM 50 MG/SENNA 8.6 MG TAB PO SCH (09:30)
[2016-09-26] MEDS: LISINOPRIL 5 MG TAB PO SCH (09:30)
[2016-09-26] MEDS: CARVEDILOL 6.25 MG TAB PO SCH (09:30)
[2016-09-26] MEDS: CLOPIDOGREL 75 MG TAB PO SCH (09:30)
[2016-09-26] MEDS: ASPIRIN 81 MG CHEW TAB PO SCH (09:30)
[2016-09-26] MEDS: FLUTICASONE PROPIONATE 110 MCG/ACT 12 GM INHALER INH SCH (09:31)
[2016-09-26] MEDS: FUROSEMIDE 20 MG/2 ML VIAL IV PUSH SCH ×2 (09:31→17:26)
[2016-09-26] MEDS: SODIUM CHLORIDE 0.9% FLUSH 10 ML FLUSH IV FLUSH SCH (09:47)
--- NOTE | 2016-09-26 11:10 | HHI.FPPN ---
Subjective Remarks Patient seen and examined this morning. No acute events overnight. Patient has been afebrile, vital signs stable. Patient reports that he continues to have pain on his left side, is worse with movement. He denies any centrally located chest pain. His breathing is stable. He denies abdominal pain. Swelling of lower extremities has significantly improved. He has no other acute concerns. (Katie Greenberg MD R3) Objective Vitals Vital Signs Date Time Temp Pulse Resp B/P Pulse Ox O2 Delivery O2 Flow Rate FiO2 09/26/16 09:39 79 09/26/16 09:39 Room Air 09/26/16 08:14 98 21 09/26/16 08:00 98.7 78 20 118/74 100 09/26/16 04:00 Room Air 09/26/16 04:00 98.7 82 18 109/68 98 09/26/16 00:00 Room Air 09/26/16 00:00 99.3 79 16 95/58 100 09/25/16 21:22 96 21 09/25/16 20:00 Room Air 09/25/16 20:00 100.0 86 16 110/68 98 09/25/16 20:00 87 09/25/16 18:36 73 09/25/16 16:45 97.0 93 20 99/73 99 09/25/16 16:00 97.8 73 22 96/62 100 09/25/16 15:00 73 09/25/16 13:00 74 09/25/16 12:00 97.7 70 26 100/68 99 I/O 09/25/16 09/25/16 09/25/16 09/26/16 09/26/16 09/26/16 07:00 15:00 23:00 07:00 15:00 23:00 Intake Total 360 ml 240 ml 240 ml Output Total 325 ml 250 ml 850 ml Balance -325 ml 110 ml -610 ml 240 ml Intake Oral 360 ml 240 ml 240 ml Output Urine Total 325 ml 250 ml 850 ml # Voids 2 # Bowel Movements 0 1 (Katie Greenberg MD R3) Result Diagram: 09/26/16 0750 09/26/16 0750 Objective Remarks GENERAL: This is a well-nourished, well-developed patient, in no apparent distress. SKIN: No rashes, ecchymoses or lesions. Cool and dry. HEAD: Atraumatic. Normocephalic. Pupils equal round and reactive. Extraocular motions intact. No scleral icterus. No injection or drainage. Nose without bleeding, purulent drainage or septal hematoma. Airway patent. NECK: Trachea midline. Supple, nontender, no meningeal signs. CARDIOVASCULAR: Regular rate and rhythm RESPIRATORY: Clear to auscultation. Upper lung wood clear to auscultation. Lower lung wood with mild bibasilar crackles. GASTROINTESTINAL: Abdomen soft, nondistended. left upper and lower quadrants and left flank tender to light palpation. No hepato-splenomegaly, or palpable masses. MUSCULOSKELETAL: Extremities without clubbing, cyanosis; trace edema of bilateral lower extremities to midcalf. No joint tenderness, effusion, or edema noted. NEUROLOGICAL: Awake and alert. Motor and sensory grossly within normal limits. Normal speech. (Katie Greenberg MD R3) A/P Assessment and Plan 56-year-old male w/PMHx [place], s/p CABGx2, CHF (EF20%) presents with exertional CP , SOB and cough with [place] r/o, CHF exacerbation, and possible CAP. Normal CBC, CXR and tropo x1, but elevated BNP 1089, CK-MB 7.1. CTA notes right iliac artery aneurysm and r/o AAA, but also notes small node in LLL. DDx: demand ischemia atypical CP vs COPD exacerbation vs PNA vs mesenteric ischemia. Discharge Planning Anticipate discharge once after echo has resulted. Respiratory status stable. Anticipate discharge later today. (Katie Greenberg MD R3) Attending Attestation Patient seen and examined. Case reviewed and discussed with the resident team. Agree with plan of care as discussed with me and documented in the resident note. (Izaiah Bañuelos MD) Problem List: (1) Atypical chest pain Status: Acute Plan: Pt with left chest and abdominal pain. Due to history of CABG, stent placement and pacemaker, ACS was ruled. Pt continues to have pain. He has been coughing several days prior to coming into the hospital, left chest and abdomen and flank region tender to palpation on exam, likely musculoskeletal in nature. - Troponins 0.04-->0.05-->0.04 - No interval EKG changes suggestive of ischemia - BNP elevated to 1089--> 1246, will continue to trend - Echo completed, results pending Pain medication: - Tylenol 650 mg PRN, Bogard 5-325 for pain - Morphine 2mg IV for breakthrough CP - Nitroglycerin PRN for CP Imaging: - Chest X-ray: Cardiomegaly with questionable minimal interstitial edema - Aorta CTA: Focal subcentimeter aneurysm, right external iliac artery. No evidence of aortic dissection. Minimal atherosclerosis. Emphysema. Left lower lobe nodule that should be followed with a CT in 6 months to reevaluate (2) CHF (congestive heart failure) Status: Chronic Plan: - Increase Lasix to 20 mg IV BID, continue to monitor creatinine -We'll hold off on IV fluids due to concern for CHF exacerbation with elevated BNP, see plan above Continue home medications: - Carvedilol 6.25 mg PO BID - Lisinopril 5 mg PO/day (3) PNA (pneumonia) Status: Acute Plan: CTA significant for left upper lobe pneumonia. No acute infectious process identified on chest x-ray. Patient reports worsening cough several days prior to hospitalization. Pt has been afebrile, white blood cell count within normal limits. - Rocephin 1g IV q12h and Azithromycin 500 mg PO/day - Continue home dose albuterol 2 puffs 2x/day - DuoNeb's Q6hrs while awake - Incentive spirometry - We'll check urinary Legionella and pneumococcal antigen - Blood cultures pending (4) COPD (chronic obstructive pulmonary disease) Status: Acute Plan: -Continue home medication, see above (5) CAD (coronary artery disease) Status: Chronic Plan: Patient with history of stent placement 2, CABG Continuing home medications: -Plavix 75 mg daily -Statin converted to Atorvastatin 40 mg daily (6) HTN (hypertension) Status: Chronic Plan: -Blood pressure stable -Continue home medications as above (7) Diarrhea Status: Acute Plan: Patient with recent history of antibiotic use. He reports having liquid stools. -No recent diarrhea (8) Tobacco dependency Status: Chronic Plan: - Encourage smoking cessation (9) FEN/GI/PPx Status: Acute Plan: Fluids: None at this time Electrolytes: Within normal limits, continue to monitor Nutrition: Heart healthy diet, fluid ejection to 2 L DVT PPX: Plavix, home med (Katie Greenberg MD R3) Problem Qualifiers (1) CHF (congestive heart failure): Qualified Code: I50.22 - Chronic systolic congestive heart failure (2) PNA (pneumonia): Qualified Code: J18.1 - Pneumonia of left upper lobe due to infectious organism (3) COPD (chronic obstructive pulmonary disease): Qualified Code: J44.9 - Chronic obstructive pulmonary disease, unspecified COPD type Katie Greenberg MD R3 Sep 26, 2016 11:10 Izaiah Bañuelos MD Sep 26, 2016 17:01
--- NOTE | 2016-09-26 11:44 | HHI.FF ---
Face to Face Verification Diagnosis: (1) CAD (coronary artery disease) (2) Pneumonia (3) Chest pain, rule out acute myocardial infarction Physical Therapy Order: Evaluate and Treat, Strength and gait training Home Health Nursing Order: CHF education Nursing assessment with vital signs I have seen patient Jl Fuentes on 09/26/16. My clinical findings support the need for the requested home health care services because: Patient has SOB Infection w/ risk of complications I certify that my clinical findings support that this patient is homebound because: Hx COPD- exertion dyspnea/weakness Poor cardiac reserve Katie Greenberg MD R3 Sep 26, 2016 11:44
[2016-09-26] MEDS ORDERED: GUAI237L PO (14:10)
[2016-09-26] MEDS ORDERED: LEVA750T9 PO (14:10)
[2016-09-26] MEDS ORDERED: FURO20TA PO (14:19)
--- NOTE | 2016-09-26 17:58 | ECHRPT ---
Indication: Chest pain, unspecified CONCLUSIONS Mildly dilated left ventricle. Wall thickness is normal. The left ventricular systolic function is severely reduced with an estimated ejection fraction in th e range of 20-25%. The left atrial size is dilated. Mild mitral valve regurgitation. Aortic valve sclerosis is present. Trace aortic valve regurgitation. There is moderate tricuspid regurgitation. There is estimated severe pulmonary hypertension present ( 80 mmHg). BP: / HR: Rhythm: Sinus Technical Quality:Excellent FINDINGS LEFT VENTRICLE Mildly dilated left ventricle. Wall thickness is normal. The left ventricular systolic function is severely reduced with an estimated ejection fraction in th e range of 20-25%. RIGHT VENTRICLE Normal right ventricular size and systolic function. LEFT ATRIUM The left atrial size is dilated. RIGHT ATRIUM The right atrial size is normal. ATRIAL SEPTUM Normal atrial septal thickness without atrial level shunting by limited color doppler interrogation. AORTA The aortic root and proximal ascending aorta are normal in size on limited imaging. MITRAL VALVE Mild mitral valve regurgitation. AORTIC VALVE Aortic valve sclerosis is present. Trace aortic valve regurgitation. TRICUSPID VALVE There is moderate tricuspid regurgitation. There is estimated severe pulmonary hypertension present ( 80 mmHg). PULMONARY VALVE The pulmonary valve is not well visualized. VESSELS The inferior vena cava is normal in size. PERICARDIUM No pericardial effusion. Trisha John MD, FACC (Electronically Signed) Final Date:26 September 2016 17:56
== END 2016-09-26 18:21 | disposition home or self-care (01) | DRG 190 ==
LOC: NEPE 20:09 → NEDH 09-25 00:10 → N03A 09-25 06:52 → N04A 09-25 16:42
PROVIDERS: ADMIT Family Medicine; ATTEND Family Medicine
DX: J44.0 Chronic obstructive pulmonary disease with (acute) lower respiratory infection (principal); J18.9 Pneumonia, unspecified organism; I50.9 Heart failure, unspecified; I72.3 Aneurysm of iliac artery; R07.89 Other chest pain; I25.2 Old myocardial infarction; I25.10 Atherosclerotic heart disease of native coronary artery without angina pectoris; I51.7 Cardiomegaly; Z95.1 Presence of aortocoronary bypass graft; Z95.5 Presence of coronary angioplasty implant and graft; Z95.810 Presence of automatic (implantable) cardiac defibrillator; F17.210 Nicotine dependence, cigarettes, uncomplicated; E78.5 Hyperlipidemia, unspecified; I10 Essential (primary) hypertension; R19.7 Diarrhea, unspecified
CPT/HCPCS: 71010; 71275; 74174; 80053; 80061; 81001; 82150; 82550; 82552; 83690; 83735; 83880; 84484; 85025; 85610; 85730; 87040; 87449; 87804; 93005; 93306; 93971; 94150; 94640; 94664; J0456; J0696; J1644; J1940; J7050; Q9967

== ENCOUNTER 2016-10-17 10:38 | Emergency (ER) | payer MEDICAID ==
[~2016-10-17] VITALS: Ht 170.2 cm; Wt 70.0 kg
[~2016-10-17 10:38] MED LIST changes: -ASPI1TAB69 PO; +GUAI237L PO; +LEVA750T9 PO; -PROT40TA PO; -VIAG100T PO
[2016-10-17 10:41] VITALS: BP 96/67; PULSE 126; RESP 18; TEMP 97.9; O2SAT 98
[2016-10-17] MEDS ORDERED: NITROGLYCERIN 2% OINT 1 GM PACKET TOP ONE (11:00)
[2016-10-17] MEDS ORDERED: SODIUM CHLORIDE 0.9% FLUSH 10 ML FLUSH IVF PRN (11:00)
[2016-10-17] MEDS ORDERED: DILTIAZEM HCL 25 MG/5 ML VIAL IV PUSH ONE (11:00)
[2016-10-17] MEDS ORDERED: ASPIRIN 325 MG TAB PO ONE (11:00)
[2016-10-17] MEDS ORDERED: SODIUM CHLORIDE 0.9% FLUSH 5 ML FLUSH IV FLUSH PRN (11:00)
[2016-10-17 11:11] VITALS: BP 88/68; PULSE 124; RESP 18; O2SAT 100
--- NOTE | 2016-10-17 11:15 | PD ---
HPI Chief Complaint: Cardiac Complaint Time Seen by Provider: 10:57 Travel History International Travel<30 days: No Contact w/Intl Traveler<30days: No Traveled to known affect area: No History of Present Illness HPI 56-year-old male patient with history of hypertension, high cholesterol, previous PA, currently follows up with Dr. Nunez for cardiology, presents to the ER today for 3 days history of palpitations, chest discomfort, shortness of breath. He states that he had seen his primary care doctor today and was told to come to the ER because his heart rate was fairly fast. He has also noticed some leg swelling as well. Modifying Factors: None Associated Signs & Symptoms: Chest discomfort, shortness of breath, palpitations , leg swelling Risk Factors: Previous PA PFSH Past Medical History Hx Anticoagulant Therapy: Yes (plavix) Asthma: No Blood Disorders: No Heart Rhythm Problems: Yes Cancer: No Cardiac Catheterization: Yes Cardiovascular Problems: Yes High Cholesterol: Yes Chemotherapy: No Chest Pain: Yes Congestive Heart Failure: Yes COPD: Yes Coronary Artery Disease: Yes Diabetes: No Diminished Hearing: No Endocrine: No Gastrointestinal Disorders: No Genitourinary: No Hypertension: Yes Immune Disorder: No Implanted Vascular Access Dvce: Yes Musculoskeletal: No Neurologic: No Psychiatric: No Reproductive: No Respiratory: No Myocardial Infarction: Yes Radiation Therapy: No Sleep Apnea: No Thyroid Disease: No Past Surgical History Body Medical Devices: PACEMAKER, DEFIBRILLATOR Cardiac Surgery: Yes (PACER/DEFIB [facility]) Coronary Artery Bypass Graft: Yes Coronary Stent: Yes (X 2 IN 2010) Other Surgery: Yes (CABG 2012, 2010 STENTS) Family History Family Myocardial Infarction: Yes Social History Alcohol Use: No Tobacco Use: Yes (3-4 cigarettes per day) Substance Use: Yes (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) Allergies-Medications (Allergen,Severity, Reaction): Coded Allergies: No Known Allergies (Unverified , 10/17/16) Reported Meds & Prescriptions Reported Meds & Active Scripts Active Furosemide 20 Mg Tab 20 Mg PO BID Robitussin Cough-Chest Dm Liq (Guaifenesin/Dextromethorphan) 237 Ml Liquid 10 Ml PO Q6HR PRN Levaquin (Levofloxacin) 750 Mg Tablet 1 Tab PO DAILY Potassium Chloride Microencaps 20 Meq Tab 20 Meq PO Q12HR Proair Hfa 8.5 GM Inh (Albuterol Sulfate) 90 Mcg/Act Aer 1 Puff INH Q4H PRN 108 mcg/actuation Clopidogrel (Clopidogrel Bisulfate) 75 Mg Tab 75 Mg PO DAILY Flovent Hfa 12 GM Inh (Fluticasone Propionate) 110 Mcg/Act Inh 1 Puff INH BID Furosemide 20 Mg Tab 20 Mg PO BID Ventolin Hfa 18 GM Inh (Albuterol Sulfate) 90 Mcg/Act Aer 1 Puff INH Q4H PRN E-Z Spacer-Aerosol Holding Chamber 1 Mis Mis 1 Ea .ROUTE DIRECTED Carvedilol 6.25 Mg Tab 6.25 Mg PO BID Reported Lisinopril 5 Mg Tab 2.5 Mg PO DAILY Simvastatin 20 Mg Tab 20 Mg PO HS Nitroglycerin SL (Nitroglycerin) 0.4 Mg Subl 0.4 Mg SL DIRECTED PRN ONE TABLET UNDER THE TONGUE NEEDED FOR CHEST PAIN, MAY REPEAT EVERY FIVE MINUTES FOR A TOTAL OF 3 DOSES OR CALL 911 IF NO RELIEF Review of Systems Except as stated in HPI: all other systems reviewed are Neg Physical Exam Narrative GENERAL: Well-developed middle age -Martiniquais male patient currently mild distress. Awake and oriented 3. SKIN: Focused skin assessment warm/dry. HEAD: Atraumatic. Normocephalic. EYES: Pupils equal and round. No scleral icterus. No injection or drainage. ENT: No nasal bleeding or discharge. Mucous membranes pink and moist. NECK: Trachea midline. No JVD. CARDIOVASCULAR: Fast and irregularly irregular. No murmur appreciated. RESPIRATORY: No accessory muscle use. Clear to auscultation. Breath sounds equal bilaterally. GASTROINTESTINAL: Abdomen soft, non-tender, nondistended. Hepatic and splenic margins not palpable. MUSCULOSKELETAL: No obvious deformities. No clubbing. No cyanosis. No edema. NEUROLOGICAL: Awake and alert. No obvious cranial nerve deficits. Motor grossly within normal limits. Normal speech. PSYCHIATRIC: Appropriate mood and affect; insight and judgment normal. Data Data Last Documented VS Vital Signs Date Time Temp Pulse Resp B/P (MAP) Pulse Ox O2 Delivery O2 Flow Rate FiO2 10/17/16 11:11 124 18 88/68 (75) 100 Nasal Cannula 2.00 10/17/16 10:41 97.9 Orders Orders Electrocardiogram (10/17/16 ) Ecg Monitoring (10/17/16 10:57) Blood Pressure (10/17/16 10:57) Iv Access Insert/Monitor (10/17/16 10:57) Oximetry (10/17/16 10:57) Vital Signs (10/17/16 10:57) Diltiazem Inj (Cardizem Inj) (10/17/16 11:00) Sodium Chloride 0.9% Flush (Ns Flush) (10/17/16 11:00) Electrocardiogram (10/17/16 10:57) Basic Metabolic Panel (Bmp) (10/17/16 10:57) B-Type Natriuretic Peptide (10/17/16 10:57) Ckmb (Isoenzyme) Profile (10/17/16 10:57) Complete Blood Count With Diff (10/17/16 10:57) Magnesium (Mg) (10/17/16 10:57) Prothrombin Time / Inr (Pt) (10/17/16 10:57) Act Partial Throm Time (Ptt) (10/17/16 10:57) Troponin I (10/17/16 10:57) Chest, Single Ap (10/17/16 10:57) Bilateral Bp Monitoring (10/17/16 10:57) Oxygen Administration (10/17/16 10:57) Aspirin (Aspirin) (10/17/16 11:00) Nitroglycerin 2% Oint (Nitroglycerin 2% (10/17/16 11:00) Sodium Chloride 0.9% Flush (Ns Flush) (10/17/16 11:00) CKMB (10/17/16 11:00) CKMB% (10/17/16 11:00) Labs Laboratory Tests Test 10/17/16 11:00 White Blood Count 6.4 TH/MM3 Red Blood Count 4.90 MIL/MM3 Hemoglobin 12.5 GM/DL Hematocrit 39.8 % Mean Corpuscular Volume 81.2 FL Mean Corpuscular Hemoglobin 25.6 PG Mean Corpuscular Hemoglobin Concent 31.5 % Red Cell Distribution Width 15.8 % Platelet Count 303 TH/MM3 Mean Platelet Volume 7.7 FL Neutrophils (%) (Auto) 81.3 % Lymphocytes (%) (Auto) 8.6 % Monocytes (%) (Auto) 8.8 % Eosinophils (%) (Auto) 0.7 % Basophils (%) (Auto) 0.6 % Neutrophils # (Auto) 5.2 TH/MM3 Lymphocytes # (Auto) 0.5 TH/MM3 Monocytes # (Auto) 0.6 TH/MM3 Eosinophils # (Auto) 0.0 TH/MM3 Basophils # (Auto) 0.0 TH/MM3 CBC Comment DIFF FINAL Differential Comment Prothrombin Time 18.2 SEC Prothromb Time International Ratio 1.6 RATIO Activated Partial Thromboplast Time 35.7 SEC Blood Urea Nitrogen 14 MG/DL Creatinine 1.13 MG/DL Random Glucose 96 MG/DL Calcium Level 8.1 MG/DL Magnesium Level 1.4 MG/DL Sodium Level 138 MEQ/L Potassium Level 3.7 MEQ/L Chloride Level 105 MEQ/L Carbon Dioxide Level 23.4 MEQ/L Anion Gap 10 MEQ/L Estimat Glomerular Filtration Rate 81 ML/MIN Total Creatine Kinase 418 U/L Creatine Kinase MB 5.5 NG/ML Creatine Kinase MB % 1.3 % Troponin I 0.03 NG/ML MDM Medical Decision Making Medical Screen Exam Complete: Yes Emergency Medical Condition: Yes Medical Record Reviewed: Yes Interpretation(s) EKG shows A. fib with rapid ventricular response at a rate of [address]pm[address] There is concerning [address] changes and ST elevations in V2 through V4 as well as T-wave depressions in inferior leads. 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 Nunez at 11:06 AM. After seeing the EKG and comparing it to old ones in his office, he does not think that this is a STEMI, thinks that this is more likely to be LVH with strain pattern and a paroxysmal A. fib which needs rate control. Per discussion with him, patient was given Cardizem, aspirin and nitroglycerin. Patient was seen in the ER by Dr. Nunez at 12:45 PM, and he states that considering the improvement in heart rate after being given the meds, negative cardiac enzymes, he feels that the patient can be managed as an outpatient and can be released with follow-up to his office. He will give the patient digoxin and further treatment. Return for any worsening in symptoms as necessary. The plan has been discussed with the patient and he states understanding. Diagnosis Primary Impression: Atrial fibrillation with rapid ventricular response Referrals: Augustin Nunez MD Disposition: 01 DISCHARGE HOME Condition: Stable Carolee Johnson MD Oct 17, 2016 11:15
--- NOTE | 2016-10-17 11:22 | RADRPT ---
EXAM DATE/TIME: 10/17/2016 10:59 [facility] COMPARISON: CHEST SINGLE AP, September 24, 2016, 21:48. INDICATIONS : Short of breath for several days. Cough since yesterday. MEDICAL HISTORY : Myocardial infarction. Congestive heart failure. Hypertension. Coronary artery disease. SURGICAL HISTORY : Coronary artery stent. CABG Pacemaker. ENCOUNTER: Initial ACUITY: 3 days PAIN SCORE: 2/10 LOCATION: Bilateral chest FINDINGS: A single portable frontal view the chest shows moderate cardiomegaly. Pulmonary vessels are prominent but remain distinct. No infiltrates or effusions. Pacing device on the left with median sternotomy w ires. CONCLUSION: Cardiomegaly with pulmonary vascular engorgement but no radiographic evidence to suggest interstitial or intra-alveolar pulmonary edema. Michel Odonnell Jr., MD on October 17, 2016 at 11:16 Board Certified Radiologist. This report was verified electronically.
[2016-10-17 11:28] LABS: AUTOMATED NEUTROPHIL # 5.2 TH/MM3 (1.8-7.7); BASOPHIL % 0.6 % (0.0-2.0); EOSINOPHIL % 0.7 % (0.0-4.0); HEMATOCRIT 39.8 % (39.0-51.0); HEMO FLAGS DIFF FINAL; LYMPH % 8.6 % (9.0-44.0); LYMPHOCYTE # 0.5 TH/MM3 (1.0-4.8); MEAN CELL VOLUME 81.2 FL (80.0-100.0); MEAN CORPUSCULAR HEMOGLOBIN 25.6 PG (27.0-34.0); MEAN CORPUSCULAR HGB CONC 31.5 % (32.0-36.0); MONO % 8.8 % (0.0-8.0); NEUT % 81.3 % (16.0-70.0); PLATELET COUNT 303 TH/MM3 (150-450); RED CELL DISTRIBUTION WIDTH 15.8 % (11.6-17.2); WHITE BLOOD COUNT 6.4 TH/MM3 (4.0-11.0)
[2016-10-17 11:37] LABS: BICARBONATE 23.4 MEQ/L (21.0-32.0); MAGNESIUM 1.4 MG/DL (1.5-2.5); POTASSIUM 3.7 MEQ/L (3.5-5.1)
[2016-10-17 11:44] LABS: APTT (PATIENT) 35.7 SEC (24.3-30.1); INTERNATIONAL NORMALIZED RATIO 1.6 RATIO; PROTHROMBIN TIME - PATIENT 18.2 SEC (9.8-11.6)
[2016-10-17 11:53] LABS: CKMB 5.5 NG/ML (0.5-3.6)
[2016-10-17 13:00] VITALS: BP 97/53; PULSE 99; RESP 18; O2SAT 100
[2016-10-17] MEDS ORDERED: BENZ100 PO (13:32)
--- NOTE | 2016-10-17 13:42 | MB ---
cc: PARVEZ CREWS REWADEE MD DATE OF CONSULTATION 10/17/2016 REFERRING PHYSICIAN Carolee Davis MD REASON FOR CONSULTATION I was asked by Dr. Davis to evaluate the patient with atrial fibrillation with rapid ventricular rate and shortness of breath. HISTORY OF PRESENT ILLNESS Jl Fuentes is a very pleasant 56 year-old -[place] gentleman with a past medical history significant for ischemic dilated cardiomyopathy, ejection fraction 25-30%, chronic atrial fibrillation, hyperlipidemia and status post AICD. He reports having progressive shortness of breath over the past week. He has also noted increasing lower extremity swelling. He reports to be drinking liberal amounts of fluids. He denies chest pain. He saw his primary care physician earlier today and noted him to be in atrial fibrillation with rapid ventricular rate and with shortness of breath and lower extremity swelling prompting emergency room evaluation. He reports to be taking all his medications regularly. MEDICATIONS Prior to admission: 1. Entresto 49/51 mg twice a day 2. Xarelto 20 mg daily 3. Potassium 10 mEq daily 4. Lasix 20 mg twice a day 5. Famotidine 40 mg daily 6. Plavix 75 mg daily 7. Carvedilol 12.5 mg twice a day 8. Simvastatin 40 mg daily ALLERGIES No known drug allergies. PAST MEDICAL HISTORY As above. He also has a history of known: 1. Coronary artery disease and multiple stents, status post CABG times two. 2. Frequent episodes of congestive heart failure. 3. He also has a history of hypercholesterolemia. PAST SURGICAL HISTORY 1. Status post pacemaker AICD. SOCIAL HISTORY He continues to smoke about a pack a day. He denies illicit drug use. He does not drink alcohol. FAMILY HISTORY No family history of premature coronary artery disease. REVIEW OF SYSTEMS He has noted over the past week increasing shortness of breath, lower extremity edema and occasional palpitations. He denies fevers, chills, cough and sputum production. PHYSICAL EXAM VITAL SIGNS: Pulse 124, respirations 18, blood pressure 88/68. HEAD, EYES, EARS, NOSE, AND THROAT: He is anicteric, PERRLA. No xanthelasma. NECK: He has increased JVD. LUNGS: A few bibasilar crackles. CARDIAC: Irregular rate and rhythm. 2/6 systolic murmur left lower sternal border. ABDOMEN: Soft and nontender. EXTREMITIES: Shows 2+ lower extremity edema. ECG atrial fibrillation ventricular rate 127 BMP, normal axis and intervals. Diffuse nonspecific STT abnormalities. STT elevation V2-V5 likely secondary to LVH/early repolarization pattern. LABORATORY DATA WBC 6.4, hemoglobin 12.5, platelet count 303,000. PT is 18.2. BUN 14, creatinine 1.13, calcium 8.1, potassium 3.7, sodium 138, chloride 105, anion gap is 10, troponin is 0.03. Chest x-ray, we will review. IMPRESSION 1. Atrial fibrillation with rapid ventricular rate. 2. Pulmonary congestion secondary to volume overload. 3. History of hypertension. 4. History of dilated congestive cardiomyopathy. 5. History of AICD. 6. Status post AICD/no discharge. PLAN 1. We will change his Lasix regimen to 40 mg daily. 2. Increase Carvedilol 25 mg twice a day. 3. Start Digoxin 0.25 mg daily. No bolus. 4. He was instructed to decrease total fluid intake, although avoid dehydration. 5. Continue all other medications listed. 6. He was instructed to follow up with me in the office early next week for re-evaluation. MD ARAVIND Cohn/LATASHA /12:58 PM /1:19 PM
--- NOTE | 2016-10-17 17:04 | EKG ---
Date Performed: 10/17/2016 Time Performed: 10:48:48 PTAGE: 56 years EKG: ATRIAL FIBRILLATION WITH RAPID VENTRICULAR RESPONSE MARKED RIGHT AXIS DEVIATION ST ELEVATIO N, CONSIDER ANTERIOR INJURY Compared to PREVIOUS TRACING , the patient is now in atrial fibrillation with rapid ventricular rate ACUTE IN PREVIOUS TRACIN09/25/2016 04.03 DOCTOR: Charley Tinsley Interpretating Date/Time 10/17/2016 17:02:01
[2016-10-31] MEDS ORDERED: FURO20TA PO (08:37)
[2016-10-31] MEDS ORDERED: FLUTI110I INH (08:38)
[2016-11-01] MEDS ORDERED: CARV25TA PO (09:25)
[2016-11-01] MEDS ORDERED: DIGO0.25 PO (09:25)
[2016-11-01] MEDS ORDERED: FURO40TA PO (09:25)
[2016-11-21] MEDS ORDERED: SIMV20TA PO (08:32)
[2016-12-06] MEDS ORDERED: NITR1SUB3 SL (08:32)
[2016-12-08] MEDS ORDERED: FURO40TA PO (14:27)
[2016-12-10] MEDS ORDERED: PRED20 PO (11:08)
[2016-12-10] MEDS ORDERED: LEVA750T9 PO (11:08)
== END 2016-10-17 13:39 | disposition home or self-care (01) ==
LOC: NEPE 10:38
DX: I48.91 Unspecified atrial fibrillation (principal); R09.89 Other specified symptoms and signs involving the circulatory and respiratory systems; I50.9 Heart failure, unspecified; R06.02 Shortness of breath; M79.89 Other specified soft tissue disorders; I10 Essential (primary) hypertension; I42.9 Cardiomyopathy, unspecified; F17.200 Nicotine dependence, unspecified, uncomplicated; E78.00 Pure hypercholesterolemia, unspecified
CPT/HCPCS: 71010; 80048; 82550; 82552; 83735; 84484; 85025; 85610; 85730; 93005; 96374

== ENCOUNTER 2016-11-08 00:05 | Inpatient (IN) | payer MEDICAID ==
[~2016-11-08] VITALS: Ht 170.2 cm; Wt 75.0 kg
[2016-11-08] VITALS (11 sets, daily range): BP systolic 101–119; BP diastolic 63–88; PULSE 81–98; RESP 15–26; TEMP 97.2–98.1; O2SAT 93–100
[~2016-11-08 00:05] MED LIST changes: +BENZ100 PO; +CARV25TA PO; -CARV6.252 PO; +DIGO0.25 PO; -FURO20TA PO; +FURO40TA PO
[2016-11-08] MEDS ORDERED: SODIUM CHLORIDE 0.9% FLUSH 10 ML FLUSH IVF PRN (00:15)
[2016-11-08] MEDS: NITROGLYCERIN 0.4 MG SL 25 TABS/BTL SL SCH ×3 (00:15→00:25)
[2016-11-08] MEDS ORDERED: ASPIRIN 81 MG CHEW TAB PO ONE (00:15)
[2016-11-08] MEDS ORDERED: SODIUM CHLOR 0.9% 1000 ML INJ 1,000 ML IV ONE (00:30)
[2016-11-08 00:39] LABS: AUTOMATED NEUTROPHIL # 3.8 TH/MM3 (1.8-7.7); BASOPHIL % 0.5 % (0.0-2.0); EOSINOPHIL # 0.1 TH/MM3 (0-0.4); EOSINOPHIL % 2.3 % (0.0-4.0); HEMATOCRIT 42.7 % (39.0-51.0); HEMO FLAGS DIFF FINAL; LYMPH % 23.4 % (9.0-44.0); LYMPHOCYTE # 1.4 TH/MM3 (1.0-4.8); MEAN CELL VOLUME 81.3 FL (80.0-100.0); MEAN CORPUSCULAR HEMOGLOBIN 26.3 PG (27.0-34.0); MEAN CORPUSCULAR HGB CONC 32.3 % (32.0-36.0); MONO % 10.7 % (0.0-8.0); NEUT % 63.1 % (16.0-70.0); PLATELET COUNT 341 TH/MM3 (150-450); RED BLOOD COUNT 5.25 MIL/MM3 (4.50-5.90); RED CELL DISTRIBUTION WIDTH 16.3 % (11.6-17.2)
--- NOTE | 2016-11-08 00:41 | RADRPT ---
EXAM DATE/TIME: 11/08/2016 00:30 [facility] COMPARISON: CHEST SINGLE AP, October 17, 2016, 10:59. INDICATIONS : Chest pain. MEDICAL HISTORY : Myocardial infarction. Congestive heart failure. Hypertension. SURGICAL HISTORY : Coronary artery stent. CABG. Pacemaker. ENCOUNTER: Initial ACUITY: 1 day PAIN SCORE: 6/10 LOCATION: Bilateral chest FINDINGS: A single view of the chest demonstrates the lungs to be symmetrically aerated without evidence of mas s, infiltrate or effusion. Stable moderate cardiomegaly. No pulmonary vascular engorgement. Left-side d pacing device. Median sternotomy wires. Osseous structures are intact. CONCLUSION: Cardiomegaly. Clear lungs. Michel Odonnell Jr., MD on November 08, 2016 at 0:39 Board Certified Radiologist. This report was verified electronically.
[2016-11-08] MEDS ORDERED: MORPHINE SULFATE 4 MG/ML INJ IV PUSH ONE (00:45)
[2016-11-08 00:51] LABS: APTT (PATIENT) 25.5 SEC (24.3-30.1); INTERNATIONAL NORMALIZED RATIO 1.1 RATIO; PROTHROMBIN TIME - PATIENT 12.6 SEC (9.8-11.6)
[2016-11-08 01:07] LABS: ALKALINE PHOSPHATASE 123 U/L (45-117); ALT (GPT) 45 U/L (12-78); ANION GAP 6 MEQ/L (5-15); AST (GOT) 50 U/L (15-37); BLOOD UREA NITROGEN 23 MG/DL (7-18); CHLORIDE 109 MEQ/L (98-107); CREATINE KINASE 271 U/L (39-308); GLOMERULAR FILTRATION RATE 63 ML/MIN (>89); MAGNESIUM 1.9 MG/DL (1.5-2.5); SODIUM (NA) 142 MEQ/L (136-145); TOTAL BILIRUBIN ADULT 0.9 MG/DL (0.2-1.0)
[2016-11-08 01:10] LABS: POTASSIUM 4.5 MEQ/L (3.5-5.1)
[2016-11-08 01:22] LABS: CKMB 5.1 NG/ML (0.5-3.6)
[2016-11-08] MEDS ORDERED: FUROSEMIDE 40 MG/4 ML VIAL IV PUSH ONE (01:30)
--- NOTE | 2016-11-08 01:34 | PD ---
HPI Chief Complaint: Respiratory Distress Time Seen by Provider: 00:15 Travel History International Travel<30 days: No Contact w/Intl Traveler<30days: No Traveled to known affect area: No History of Present Illness HPI Patient is a 56-year-old male who presents to emergency room with complaints of chest pain and shortness of breath. Patient reports that he has been having on and off chest pain since yesterday afternoon. Patient reports that chest pain feels like a sharp and stabbing sensation to the left side of his chest. Patient reports that tonight, he woke up from sleep with severe chest pain and shortness of breath. Patient does have history of CHF, hypertension, CAD, cardiac stents as well as bypass surgery hyperlipidemia, A. fib, he currently is on aspirin as well as Plavix. Patient reports that he follows with a major general Dr. Terrie Miller in the office. PFSH Past Medical History Hx Anticoagulant Therapy: Yes (plavix) Asthma: No Blood Disorders: No Heart Rhythm Problems: Yes Cancer: No Cardiac Catheterization: Yes Cardiovascular Problems: Yes High Cholesterol: Yes Chemotherapy: No Chest Pain: Yes Congestive Heart Failure: Yes COPD: Yes Coronary Artery Disease: Yes Diabetes: No Diminished Hearing: No Endocrine: No Gastrointestinal Disorders: No Genitourinary: No Hypertension: Yes Immune Disorder: No Implanted Vascular Access Dvce: Yes Musculoskeletal: No Neurologic: No Psychiatric: No Reproductive: No Respiratory: No Myocardial Infarction: Yes Radiation Therapy: No Sleep Apnea: No Thyroid Disease: No Past Surgical History Body Medical Devices: PACEMAKER, DEFIBRILLATOR Cardiac Surgery: Yes (PACER/DEFIB [facility]) Coronary Artery Bypass Graft: Yes Coronary Stent: Yes (X 2 IN 2010) Other Surgery: Yes (CABG 2012, 2010 STENTS) Social History Alcohol Use: No Tobacco Use: Yes (3-4 cigarettes per day) Substance Use: Yes (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) Allergies-Medications (Allergen,Severity, Reaction): Coded Allergies: No Known Allergies (Unverified , 10/17/16) Reported Meds & Prescriptions Reported Meds & Active Scripts Active Digoxin 0.25 Mg Tab 0.25 Mg PO DAILY Furosemide 40 Mg Tab 40 Mg PO DAILY Carvedilol 25 Mg Tab 25 Mg PO BID Flovent Hfa 12 GM Inh (Fluticasone Propionate) 110 Mcg/Act Inh 1 Puff INH BID Tessalon Perles (Benzonatate) 100 Mg Cap 100 Mg PO TID PRN Robitussin Cough-Chest Dm Liq (Guaifenesin/Dextromethorphan) 237 Ml Liquid 10 Ml PO Q6HR PRN Levaquin (Levofloxacin) 750 Mg Tablet 1 Tab PO DAILY Potassium Chloride Microencaps 20 Meq Tab 20 Meq PO Q12HR Proair Hfa 8.5 GM Inh (Albuterol Sulfate) 90 Mcg/Act Aer 1 Puff INH Q4H PRN 108 mcg/actuation Clopidogrel (Clopidogrel Bisulfate) 75 Mg Tab 75 Mg PO DAILY Ventolin Hfa 18 GM Inh (Albuterol Sulfate) 90 Mcg/Act Aer 1 Puff INH Q4H PRN E-Z Spacer-Aerosol Holding Chamber 1 Mis Mis 1 Ea .ROUTE DIRECTED Reported Lisinopril 5 Mg Tab 2.5 Mg PO DAILY Simvastatin 20 Mg Tab 20 Mg PO HS Nitroglycerin SL (Nitroglycerin) 0.4 Mg Subl 0.4 Mg SL DIRECTED PRN ONE TABLET UNDER THE TONGUE NEEDED FOR CHEST PAIN, MAY REPEAT EVERY FIVE MINUTES FOR A TOTAL OF 3 DOSES OR CALL 911 IF NO RELIEF Review of Systems General / Constitutional: No: Fever Eyes: No: Visual changes HENT: No: Headaches Cardiovascular: Positive: Chest Pain or Discomfort, Palpitations, Irregular Rhythm, Diaphoresis Respiratory: Positive: Cough, Shortness of Breath Gastrointestinal: No: Abdominal Pain Genitourinary: No: Dysuria Musculoskeletal: No: Pain Skin: No Rash Neurologic: No: Weakness Psychiatric: No: Depression Endocrine: No: Polydipsia Hematologic/Lymphatic: No: Easy Bruising Physical Exam Narrative GENERAL: Moderate distress SKIN: Focused skin assessment warm/dry. HEAD: Atraumatic. Normocephalic. EYES: Pupils equal and round. No scleral icterus. No injection or drainage. ENT: No nasal bleeding or discharge. Mucous membranes pink and moist. NECK: Trachea midline. No JVD. CARDIOVASCULAR: irregular rate and rhythm. No murmur appreciated. RESPIRATORY: No accessory muscle use. Clear to auscultation. Breath sounds equal bilaterally. GASTROINTESTINAL: Abdomen soft, non-tender, nondistended. Hepatic and splenic margins not palpable. MUSCULOSKELETAL: No obvious deformities. No clubbing. No cyanosis. +2 edema bl NEUROLOGICAL: Awake and alert. No obvious cranial nerve deficits. Motor grossly within normal limits. Normal speech. PSYCHIATRIC: Appropriate mood and affect; insight and judgment normal. Data Data Last Documented VS Vital Signs Date Time Temp Pulse Resp B/P (MAP) Pulse Ox O2 Delivery O2 Flow Rate FiO2 11/08/16 00:55 97 15 103/86 (92) 100 Nasal Cannula 2.00 11/08/16 00:11 97.8 Orders Orders Electrocardiogram (11/08/16 00:15) B-Type Natriuretic Peptide (11/08/16 00:15) Ckmb (Isoenzyme) Profile (11/08/16 00:15) Complete Blood Count With Diff (11/08/16 00:15) Comprehensive Metabolic Panel (11/08/16 00:15) Magnesium (Mg) (11/08/16:15) Prothrombin Time / Inr (Pt) (11/08/16:15) Act Partial Throm Time (Ptt) (11/08/16 00:15) Troponin I (11/08/16:15) Chest, Single Ap (11/08/16 00:15) Ecg Monitoring (11/08/16 00:15) Iv Access Insert/Monitor (11/08/16 00:15) Oximetry (11/08/16 00:15) Aspirin Chew (Aspirin Chew) (11/08/16 00:15) Sodium Chloride 0.9% Flush (Ns Flush) (11/08/16 00:15) Nitroglycerin Sl (Nitrostat Sl) (11/08/16 00:15) Digoxin (11/08/16:17) Sodium Chlor 0.9% 1000 Ml Inj (Ns 1000 M (11/08/16 00:30) Morphine Inj (Morphine Inj) (11/08/16 00:45) CKMB (11/08/16 00:10) CKMB% (11/08/16 00:10) Furosemide Inj (Lasix Inj) (11/08/16 01:30) Labs Laboratory Tests Test 11/08/16 00:10 White Blood Count 6.0 TH/MM3 Red Blood Count 5.25 MIL/MM3 Hemoglobin 13.8 GM/DL Hematocrit 42.7 % Mean Corpuscular Volume 81.3 FL Mean Corpuscular Hemoglobin 26.3 PG Mean Corpuscular Hemoglobin Concent 32.3 % Red Cell Distribution Width 16.3 % Platelet Count 341 TH/MM3 Mean Platelet Volume 8.1 FL Neutrophils (%) (Auto) 63.1 % Lymphocytes (%) (Auto) 23.4 % Monocytes (%) (Auto) 10.7 % Eosinophils (%) (Auto) 2.3 % Basophils (%) (Auto) 0.5 % Neutrophils # (Auto) 3.8 TH/MM3 Lymphocytes # (Auto) 1.4 TH/MM3 Monocytes # (Auto) 0.6 TH/MM3 Eosinophils # (Auto) 0.1 TH/MM3 Basophils # (Auto) 0.0 TH/MM3 CBC Comment DIFF FINAL Differential Comment Prothrombin Time 12.6 SEC Prothromb Time International Ratio 1.1 RATIO Activated Partial Thromboplast Time 25.5 SEC Blood Urea Nitrogen 23 MG/DL Creatinine 1.41 MG/DL Random Glucose 100 MG/DL Total Protein 6.4 GM/DL Albumin 2.9 GM/DL Calcium Level 8.6 MG/DL Magnesium Level 1.9 MG/DL Alkaline Phosphatase 123 U/L Aspartate Amino Transf (AST/SGOT) 50 U/L Alanine Aminotransferase (ALT/SGPT) 45 U/L Total Bilirubin 0.9 MG/DL Sodium Level 142 MEQ/L Potassium Level 4.5 MEQ/L Chloride Level 109 MEQ/L Carbon Dioxide Level 27.0 MEQ/L Anion Gap 6 MEQ/L Estimat Glomerular Filtration Rate 63 ML/MIN Total Creatine Kinase 271 U/L Creatine Kinase MB 5.1 NG/ML Troponin I 0.05 NG/ML B-Type Natriuretic Peptide 2299 PG/ML Digoxin Level LESS THAN 0.1 NG/ML MDM Medical Decision Making Medical Screen Exam Complete: Yes Emergency Medical Condition: Yes Medical Record Reviewed: Yes Interpretation(s) EKG at 0008: afib with rvr at 111bpm, qt/qtc: 317/383, no acute st or t wave changes Vital Signs Date Time Temp Pulse Resp B/P (MAP) Pulse Ox O2 Delivery O2 Flow Rate FiO2 11/08/16 00:55 97 15 103/86 (92) 100 Nasal Cannula 2.00 11/08/16 00:17 26 99 Nasal Cannula 2.00 11/08/16 00:11 97.8 98 26 119/88 (98) 99 Differential Diagnosis Differential includes ACS, arrhythmia, electrolyte abnormality, CHF exacerbation Narrative Course 56-year-old male who presents to emergency room with chest pain and shortness of breath for the past 2 days. He was placed on a surveillance monitor upon arrival to the emergency room. He was found to be in A. fib with RVR. I initially ordered nitroglycerin for chest pain, patient was was hypotensive, and this was held. Patient was then given morphine for his chest pain - reports improvement with his symptoms Laboratory Tests Test 11/08/16 00:10 White Blood Count 6.0 TH/MM3 (4.0-11.0) Red Blood Count 5.25 MIL/MM3 (4.50-5.90) Hemoglobin 13.8 GM/DL (13.0-17.0) Hematocrit 42.7 % (39.0-51.0) Mean Corpuscular Volume 81.3 FL (80.0-100.0) Mean Corpuscular Hemoglobin 26.3 PG (27.0-34.0) Mean Corpuscular Hemoglobin Concent 32.3 % (32.0-36.0) Red Cell Distribution Width 16.3 % (11.6-17.2) Platelet Count 341 TH/MM3 (150-450) Mean Platelet Volume 8.1 FL (7.0-11.0) Neutrophils (%) (Auto) 63.1 % (16.0-70.0) Lymphocytes (%) (Auto) 23.4 % (9.0-44.0) Monocytes (%) (Auto) 10.7 % (0.0-8.0) Eosinophils (%) (Auto) 2.3 % (0.0-4.0) Basophils (%) (Auto) 0.5 % (0.0-2.0) Neutrophils # (Auto) 3.8 TH/MM3 (1.8-7.7) Lymphocytes # (Auto) 1.4 TH/MM3 (1.0-4.8) Monocytes # (Auto) 0.6 TH/MM3 (0-0.9) Eosinophils # (Auto) 0.1 TH/MM3 (0-0.4) Basophils # (Auto) 0.0 TH/MM3 (0-0.2) CBC Comment DIFF FINAL Differential Comment Prothrombin Time 12.6 SEC (9.8-11.6) Prothromb Time International Ratio 1.1 RATIO Activated Partial Thromboplast Time 25.5 SEC (24.3-30.1) Blood Urea Nitrogen 23 MG/DL (7-18) Creatinine 1.41 MG/DL (0.60-1.30) Random Glucose 100 MG/DL (74-106) Total Protein 6.4 GM/DL (6.4-8.2) Albumin 2.9 GM/DL (3.4-5.0) Calcium Level 8.6 MG/DL (8.5-10.1) Magnesium Level 1.9 MG/DL (1.5-2.5) Alkaline Phosphatase 123 U/L (45-117) Aspartate Amino Transf (AST/SGOT) 50 U/L (15-37) Alanine Aminotransferase (ALT/SGPT) 45 U/L (12-78) Total Bilirubin 0.9 MG/DL (0.2-1.0) Sodium Level 142 MEQ/L (136-145) Potassium Level 4.5 MEQ/L (3.5-5.1) Chloride Level 109 MEQ/L (98-107) Carbon Dioxide Level 27.0 MEQ/L (21.0-32.0) Anion Gap 6 MEQ/L (5-15) Estimat Glomerular Filtration Rate 63 ML/MIN (>89) Total Creatine Kinase 271 U/L (39-308) Creatine Kinase MB 5.1 NG/ML (0.5-3.6) Troponin I 0.05 NG/ML (0.02-0.05) B-Type Natriuretic Peptide 2299 PG/ML (0-100) Last Impressions Chest X-Ray 11/08/16 0015 Signed Impressions: Service Date/Time: October 00:30 - CONCLUSION: Cardiomegaly. Clear lungs. Michel Odonnell Jr., MD BNP: 2299 - ivf fluids held, IV lasix 40mg ordered. HR now 97. Plan to admit for observation Case reviewed with residents who accepts pt to their service under Dr. High Diagnosis Primary Impression: CHF exacerbation Qualified Codes: I50.23 - Acute on chronic systolic (congestive) heart failure Additional Impression: Chest pain Qualified Codes: R07.9 - Chest pain, unspecified Admitting Information Admitting Physician Requests: Observation Lindsay Aragon DO Nov 08, 2016 01:34
--- NOTE | 2016-11-08 02:51 | HHI.HP ---
HPI Service Family Medicine Primary Care Physician Unknown Admission Diagnosis chest pain, chf exacerbation Diagnoses: International Travel<30 Days: No Contact w/Intl Traveler<30days: No Known Affected Area: No History of Present Illness 56 year old male, patient of Dr. Roe. He has a history of OK with two coronary artery stents, currently on Plavix, congestive heart failure with EF of 20-25 and pacemaker/defibrillator, hypertension, hyperlipidemia, and chronic atrial fibrillation. He presents to the ED with worsening shortness of breath and left sided chest pain that radiates down his left arm. Shortness of breath has been increasing over the past few days. He normally walks a lot at work without a problem and can climb the 18 stairs at his house. However, in the past few days, he gets short of breath after just 5 stairs. He has increasing orthopnea and is requiring 3 pillows when he lies down. He has increasing edema in his lower extremities. He has increased coughing with clear sputum production. He does not report a history of COPD but does use albuterol and Flovent at home and has a smoking history. He reports no PFT testing in the past. He tries to watch what he eats but did eat a bag of salty potato chips a few days ago. He's had two hospital admissions in the past year. His shortness of breath started early this morning and was mild. It increased in intensity throughout the day. It reached a peak at 10:30 PM tonight when he laid down to sleep. The pain is stabbing and sharp and located across his left chest. It radiates down his left arm with pain and cramping going all the way down to his left hand. The pain became severe which prompted his visit to the ED. He gets chest pains routinely, but this is more severe and felt different than his usual chest pains. He states it felt like someone was kicking his chest. He does not get diaphoretic. He did feel lightheaded with the shortness of breath. The episodes of chest pain are intermittent and last about 15 minutes each time. Currently he has zero pain after receiving morphine in the ED. He reports no history of ICU stay or intubations in the past. Review of Systems Constitutional: COMPLAINS OF: Weight loss, DENIES: Diaphoretic episodes, Fever , Weight gain, Chills, Night Sweats Endocrine: DENIES: Polydipsia, Polyuria, Polyphagia Eyes: DENIES: Blurred vision, Eye inflammation, Double Vision Ears, nose, mouth, throat: DENIES: Vertigo, Nasal discharge, Oral lesions, Throat pain, Hoarseness Respiratory: COMPLAINS OF: Cough, Wheezing, Sputum production, Shortness of breath, DENIES: Hemoptysis Cardiovascular: COMPLAINS OF: Chest pain, Dyspnea on Exertion, Orthopnea, DENIES: Palpitations, Syncope Gastrointestinal: DENIES: Abdominal pain, Black stools, Bloody stools, Constipation, Diarrhea, Nausea, Vomiting Musculoskeletal: COMPLAINS OF: Back pain, DENIES: Joint pain, Stiffness, Joint Swelling Integumentary: DENIES: Rash Hematologic/lymphatic: DENIES: Lymphadenopathy Immunologic/allergic: DENIES: Urticaria Neurologic: DENIES: Headache, Localized weakness, Paresthesias, Seizures, Speech Problems, Tremor, Poor Balance Psychiatric: DENIES: Anxiety, Mood changes, Depression Past Family Social History Past Medical History OK in 2008, two stents placed, on Plavix Congestive heart failure with last hospitalization in July 2014 requiring pacer placement Hemorrhoids Hypertension: Entresto Hyperlipidemia: on statin Atrial fibrillation, on digoxin, Xarelto Past Surgical History CABG in 2012 3 stents placed Cardiac pacemaker placed in July 2014 for decreased ejection fraction Reported Medications Reported Meds & Active Scripts Active Digoxin 0.25 Mg Tab 0.25 Mg PO DAILY Furosemide 40 Mg Tab 40 Mg PO DAILY Flovent Hfa 12 GM Inh (Fluticasone Propionate) 110 Mcg/Act Inh 1 Puff INH BID Tessalon Perles (Benzonatate) 100 Mg Cap 100 Mg PO TID PRN Robitussin Cough-Chest Dm Liq (Guaifenesin/Dextromethorphan) 237 Ml Liquid 10 Ml PO Q6HR PRN Potassium Chloride Microencaps 20 Meq Tab 20 Meq PO Q12HR Proair Hfa 8.5 GM Inh (Albuterol Sulfate) 90 Mcg/Act Aer 1 Puff INH Q4H PRN 108 mcg/actuation Clopidogrel (Clopidogrel Bisulfate) 75 Mg Tab 75 Mg PO DAILY Ventolin Hfa 18 GM Inh (Albuterol Sulfate) 90 Mcg/Act Aer 1 Puff INH Q4H PRN E-Z Spacer-Aerosol Holding Chamber 1 Mis Mis 1 Ea .ROUTE DIRECTED Reported Entresto (Sacubitril-Valsartan) 49-51 Mg Tab 1 Tab PO DAILY Xarelto (Rivaroxaban) 20 Mg Tab 20 Mg PO DAILY Lisinopril 5 Mg Tab 2.5 Mg PO DAILY Simvastatin 20 Mg Tab 20 Mg PO HS Nitroglycerin SL (Nitroglycerin) 0.4 Mg Subl 0.4 Mg SL DIRECTED PRN ONE TABLET UNDER THE TONGUE NEEDED FOR CHEST PAIN, MAY REPEAT EVERY FIVE MINUTES FOR A TOTAL OF 3 DOSES OR CALL 911 IF NO RELIEF Allergies: Coded Allergies: No Known Allergies (Unverified , 10/17/16) Active Ordered Medications Inpatient Medications Albuterol Sulfate (Proair Hfa Inh) 2 puff Q4H PRN INH SOB/WHEEZING; Start 11/08 at 03:15 Aspirin (Aspirin Chew) 162 mg ONCE ONCE PO Last administered on 11/08/16 00: 27; Start 11/08/16 at 00:15; Stop 11/08/16 at 00:16; Status DC Clopidogrel Bisulfate (Plavix) 75 mg DAILY PO ; Start 11/08/16 at 09:00 Digoxin (Lanoxin) 0.25 mg DAILY PO ; Start 11/08/16 at 09:00 Fluticasone Propionate (Flovent Hfa 110 Mcg Inh) 1 puff BID INH ; Start at 09:00 Furosemide (Lasix Inj) 40 mg ONCE ONCE IV PUSH Last administered on 11/08/16 01:53; Start 11/08/16 at 01:30; Stop 11/08/16 at 01:31; Status DC Lisinopril (Prinivil) 2.5 mg DAILY PO ; Start 11/08/16 at 09:00; Status Future Hold Morphine Sulfate (Morphine Inj) 2 mg ONCE ONCE IV PUSH Last administered on 00:58; Start 11/08/16 at 00:45; Stop 11/08/16 at 00:46; Status DC Nitroglycerin (Nitrostat Sl) 0.4 mg Q5M SL ; Start 11/08/16 at 00:15; Stop 11/08 at 00:26; Status DC Potassium Chloride (KCl) 20 meq Q12HR PO ; Start 11/08/16 at 09:00 Pravastatin Sodium (Pravachol) 40 mg HS PO ; Start 11/08/16 at 21:00 Rivaroxaban (Xarelto) 20 mg DAILY PO ; Start 11/08/16 at 09:00 Sacubitril/ Valsartan (Entresto 49-51 Mg) 1 tab DAILY PO ; Start 11/08/16 at 09: 00; Status Future Hold Sodium Chloride 1,000 ml @ 999 mls/hr BOLUS ONCE IV Last administered on 11/08t 00:27; Start 11/08/16 at 00:30; Stop 11/08/16 at 01:30; Status DC Sodium Chloride (NS Flush) 2 ml UNSCH PRN IVF FLUSH AFTER USING IV ACCESS; Start 11/08/16 at 00:15 Family History Father: Gout of natural causes Mother: of breast cancer Sister's 5: Metastatic cancer origin unknown, lung cancer, hypertension Social History Tobacco: One pack per day until OK in 2008 then half a pack per day until now smoking a total 35 years Alcohol: Denies Drugs: Denies current use, history of heroin use/injectables - screened in the past for hepatitis and AIDS currently negative. 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 Pacemaker left chest under skin. HEAD: Atraumatic. Normocephalic. EYES: Pupils equal round and reactive. Extraocular motions intact. No scleral icterus. No injection or drainage. ENT: Nose without bleeding, purulent drainage or septal hematoma. Throat without erythema, tonsillar hypertrophy or exudate. Uvula midline. Airway patent. NECK: Trachea midline. Supple, nontender, no meningeal signs. CARDIOVASCULAR: Irregular rhythm, normal rate, laterally displaced PMI. Pacemaker under skin apparent. Pulses intact. Chest wall painful on palpation in the left lower chest. RESPIRATORY: Wheezing bilaterally, rhonchi in bases. No egophony. No dullness to percussion. No respiratory distress. GASTROINTESTINAL: Abdomen soft, non-tender, nondistended. No hepato-splenomegaly , or palpable masses. No guarding. MUSCULOSKELETAL: Left arm anterior and posterior shoulder without pain, has full range of motion of left arm, no pain on palpation of the forearm or elbow, hands and wrist with normal movement and without pain. NEUROLOGICAL: Awake and alert. Cranial nerves II through XII intact. Motor and sensory grossly within normal limits. Five out of 5 muscle strength in all muscle groups. Normal speech. Laboratory Laboratory Tests Test 11/08/16 00:10 White Blood Count 6.0 Red Blood Count 5.25 Hemoglobin 13.8 Hematocrit 42.7 Mean Corpuscular Volume 81.3 Mean Corpuscular Hemoglobin 26.3 Mean Corpuscular Hemoglobin Concent 32.3 Red Cell Distribution Width 16.3 Platelet Count 341 Mean Platelet Volume 8.1 Neutrophils (%) (Auto) 63.1 Lymphocytes (%) (Auto) 23.4 Monocytes (%) (Auto) 10.7 Eosinophils (%) (Auto) 2.3 Basophils (%) (Auto) 0.5 Neutrophils # (Auto) 3.8 Lymphocytes # (Auto) 1.4 Monocytes # (Auto) 0.6 Eosinophils # (Auto) 0.1 Basophils # (Auto) 0.0 CBC Comment DIFF FINAL Differential Comment Prothrombin Time 12.6 Prothromb Time International Ratio 1.1 Activated Partial Thromboplast Time 25.5 Blood Urea Nitrogen 23 Creatinine 1.41 Random Glucose 100 Total Protein 6.4 Albumin 2.9 Calcium Level 8.6 Magnesium Level 1.9 Alkaline Phosphatase 123 Aspartate Amino Transf (AST/SGOT) 50 Alanine Aminotransferase (ALT/SGPT) 45 Total Bilirubin 0.9 Sodium Level 142 Potassium Level 4.5 Chloride Level 109 Carbon Dioxide Level 27.0 Anion Gap 6 Estimat Glomerular Filtration Rate 63 Total Creatine Kinase 271 Creatine Kinase MB 5.1 Troponin I 0.05 B-Type Natriuretic Peptide 2299 Digoxin Level LESS THAN 0.1 Result Diagram: 11/08/16 0010 11/08/169 Imaging Last 72 hours Impressions Chest X-Ray 11/08/16 001 Signed Impressions: Service Date/Time: October 00:30 - CONCLUSION: Cardiomegaly. Clear lungs. Michel Odonnell Jr., MD Septic Shock Reassessment Heart: Irregular Lungs: Clear Skin: Warm Capillary Refill: <2 seconds Caprini VTE Risk Assessment Caprini VTE Risk Assessment: Mod/High Risk (score >= 2) Caprini Risk Assessment Model Point Value = 1 Point Value = 2 Point Value = 3 Point Value = 5 Age 41-60 Minor surgery BMI > 25 kg/m2 Swollen legs Varicose veins or History of unexplained or recurrent spontaneous Oral contraceptives or hormone replacement Sepsis (< 1 month) Serious lung disease, including pneumonia (< 1 month) Abnormal pulmonary function Acute myocardial infarction Congestive heart failure (< 1 month) History of inflammatory bowel disease Medical patient at bed rest Age 61-74 Arthroscopic surgery Major open surgery (> 45 min) Laparoscopic surgery (> 45 min) Malignancy Confined to bed (> 72 hours) Immobilizing plaster cast Central venous access Age >= 75 History of VTE Family history of VTE Factor V Leiden Prothrombin [id number] Lupus anticoagulant Anticardiolipin antibodies Elevated serum homocysteine Heparin-induced thrombocytopenia Other congenital or acquired thrombophilia Stroke (< 1 month) Elective arthroplasty Hip, pelvis, or leg fracture Acute spinal cord injury (< 1 month) Prophylaxis Regimen Total Risk Factor Score Risk Level Prophylaxis Regimen 0-1 Low Early ambulation 2 Moderate Order ONE of the following: *Sequential Compression Device (SCD) *Heparin 5000 units SQ BID 3-4 Higher Order ONE of the following medications: *Heparin 5000 units SQ TID *Enoxaparin/Lovenox 40 mg SQ daily (WT < 150 kg, CrCl > 30 mL/min) *Enoxaparin/Lovenox 30 mg SQ daily (WT < 150 kg, CrCl > 10-29 mL/min) *Enoxaparin/Lovenox 30 mg SQ BID (WT < 150 kg, CrCl > 30 mL/min) AND/OR *Sequential Compression Device (SCD) 5 or more Highest Order ONE of the following medications: *Heparin 5000 units SQ TID (Preferred with Epidurals) *Enoxaparin/Lovenox 40 mg SQ daily (WT < 150 kg, CrCl > 30 mL/min) *Enoxaparin/Lovenox 30 mg SQ daily (WT < 150 kg, CrCl > 10-29 mL/min) *Enoxaparin/Lovenox 30 mg SQ BID (WT < 150 kg, CrCl > 30 mL/min) AND *Sequential Compression Device (SCD) Assessment and Plan Assessment and Plan 56 year old male with a history of presents with chest pain and shortness of breath Code Status FULL CODE Discussed Condition With Will discuss with morning team Problem List: (1) CHF exacerbation ICD Codes: I50.9 - Heart failure, unspecified Status: Acute Plan: Presenting with increasing shortness of breath, increased coughing and sputum production, increasing orthopnea. History of CHF with pacemaker/ defibrillator. Last ECHO 10/17/16, EF was 20-25% with dilated left ventricle. BNP 2299. Chest x-ray with cardiomegaly. Significant pitting edema up to knees on exam. - Lasix 40 mg IV bid, monitor potassium - KCl 20 meQ bid - Continue Entresto 49/51 mg daily - Not on beta brigitte, consider starting before discharge. - May benefit from spironolactone with severe decreased EF. - May consider repeating ECHO, but one done recently, will defer to day team. - Fluid/sodium restriction (1.5L, 2g) - Monitor I's and O's - History of smoking, may be a component of COPD: continue Flovent 1 buff bid and albuterol PRN. Trial of steroids if not improving. Would benefit from bedside PFT once CHF symptoms improved. Smoking cessation counseling. - Low threshold to consult java web application developer if not improving. (2) Chest pain ICD Codes: R07.9 - Chest pain Status: Acute Plan: Atypical chest pain located left chest with radiation down the left arm with arm cramping down to left hand. EKG shows atrial fibrillation with RVR, right axis deviation (not new), q-wave suggesting old infarction, no acute ST changes. Received 162 mg aspirin and 2 mg morphine in ED. Currently no chest pain. - Serial troponins and EKG's - Nitroglycerin topical PRN for chest pain - Cardiac monitoring - Pain management with [place]/morphine as needed (3) Atrial fibrillation ICD Codes: I48.91 - Unspecified atrial fibrillation Status: Chronic Plan: History of atrial fibrillation - Continue digoxin 0.25 mg, check level - Cardiac monitoring - Continue Xarelto 20 mg daily (4) Coronary artery disease ICD Codes: I25.10 - Atherosclerosis of coronary artery Status: Chronic Plan: History of significant coronary artery disease with stents. - Continue Plavix 75 mg daily from home (5) HTN (hypertension) ICD Codes: I10 - Hypertension Status: Chronic Plan: - Continue Entresto from home (6) No contraindication to deep vein thrombosis (DVT) prophylaxis ICD Codes: Z78.9 - Other specified health status Status: Acute Plan: Continue Xarelto from home (7) Nutrition, metabolism, and development symptoms ICD Codes: R63.8 - Other symptoms and signs concerning food and fluid intake Status: Acute Plan: Cardiac diet with fluid restriction (1.5 L) and sodium restriction (2 g) daily Monitor I's and O's Monitor potassium while on Lasix, getting 20 meQ bid Physician Certification 2 Midnight Certification Type: Admission for Inpatient Services Order for Inpatient Services The services are ordered in accordance with Medicare regulations or non- Medicare payer requirements, as applicable. In the case of services not specified as inpatient-only, they are appropriately provided as inpatient services in accordance with the 2-midnight benchmark. Estimated LOS (days): 3 days is the estimated time the patient will need to remain in the hospital, assuming treatment plan goals are met and no additional complications. Post-Hospital Plan: Home Problem Qualifiers (1) CHF exacerbation: Qualified Codes: I50.23 - Acute on chronic systolic (congestive) heart failure (2) Chest pain: Qualified Codes: R07.9 - Chest pain, unspecified (3) Atrial fibrillation: Qualified Codes: I48.2 - Chronic atrial fibrillation London Cifuentes MD R3 Nov 08, 2016 02:51
[2016-11-08] MEDS ORDERED: SACU1TAB7 PO (02:57)
[2016-11-08] MEDS ORDERED: XARE20TA PO (02:57)
[2016-11-08] MEDS ORDERED: ALBUTEROL SULFATE 90 MCG/ACT HFA 8 GM INHALER INH PRN (03:15)
[2016-11-08] MEDS ORDERED: NITROGLYCERIN 0.4 MG SL 25 TABS/BTL SL PRN (03:30)
[2016-11-08] MEDS ORDERED: LACTULOSE SYRUP 20 GM/30 ML CUP PO PRN (03:45)
[2016-11-08] MEDS ORDERED: MORPHINE SULFATE 4 MG/ML INJ IV PUSH PRN (03:45)
[2016-11-08] MEDS ORDERED: SODIUM CHLORIDE 0.9% FLUSH 10 ML FLUSH IV FLUSH PRN (03:45)
[2016-11-08] MEDS ORDERED: NALOXONE HCL 0.4 MG/ML AMP IV PUSH PRN ×2 (03:45)
[2016-11-08] MEDS ORDERED: MAGNESIUM HYDROXIDE SUSP 30 ML CUP PO PRN (03:45)
[2016-11-08] MEDS ORDERED: HYDROmorphone HCL PF 1 MG/ML VIAL IV PUSH PRN (03:45)
[2016-11-08] MEDS ORDERED: BISACODYL 10 MG SUPP RECTAL PRN (03:45)
[2016-11-08] MEDS ORDERED: SENNOSIDES 8.6 MG TAB PO PRN (03:45)
[2016-11-08] MEDS: oxyCODONE/ACETAMINOPHEN 5 MG/325 MG TAB PO PRN ×2 (06:48→22:36)
[2016-11-08] MEDS ORDERED: LISINOPRIL 5 MG TAB PO SCH (09:00)
[2016-11-08] MEDS ORDERED: SACUBITRIL/VALSARTAN 49 MG-51 MG TAB PO SCH (09:00)
[2016-11-08] MEDS: CLOPIDOGREL 75 MG TAB PO SCH (09:23)
[2016-11-08] MEDS: DOCUSATE SODIUM 50 MG/SENNA 8.6 MG TAB PO SCH ×2 (09:23→22:35)
[2016-11-08] MEDS: DIGOXIN 0.25 MG TAB PO SCH (09:23)
[2016-11-08] MEDS: POTASSIUM CHLORIDE 20 MEQ CONTROLLED RELEASE TAB PO SCH ×2 (09:23→21:00)
[2016-11-08] MEDS: SODIUM CHLORIDE 0.9% FLUSH 10 ML FLUSH IV FLUSH SCH ×2 (09:24→22:34)
[2016-11-08] MEDS: FUROSEMIDE 40 MG/4 ML VIAL IV PUSH SCH ×2 (09:24→17:45)
--- NOTE | 2016-11-08 11:11 | HHI.FPPN ---
Subjective Remarks No acute issues overnight. Vitals are stable, patient remains afebrile. His shortness of breath has improved since admission. He continues to have lower extremity edema. His chest pain has also improved, although he continues to feel cramping in his left arm and fingers. Previously, he was feeling cramping throughout his body and this has improved since admission. He denies any fever , chills, nausea, abdominal pain. He does have a chronic cough productive of clear sputum that he attributes to smoking. He expresses interest in tobacco cessation. (Beryl Mckinney MD, R3) Objective Vitals Vital Signs Date Time Temp Pulse Resp B/P (MAP) Pulse Ox O2 Delivery O2 Flow Rate FiO2 11/08/16 09:58 90 11/08/16 08:54 97.8 97 18 113/72 (86) 97 11/08/16 08:43 99 Nasal Cannula 2.00 11/08/16 05:30 65 18 105/70 (82) 100 11/08/16 00:55 97 15 103/86 (92) 100 Nasal Cannula 2.00 11/08/16 00:17 26 99 Nasal Cannula 2.00 11/08/16 00:15 100 Nasal Cannula 2.00 11/08/16 00:11 97.8 98 26 119/88 (98) 99 I/O 11/07/16 11/07/16 11/07/16 11/08/16 11/08/16 11/08/16 07:00 15:00 23:00 07:00 15:00 23:00 Output Total 800 ml Balance -800 ml Output Urine Total 800 ml (Beryl Mckinney MD, R3) Result Diagram: 11/08/16 0010 11/08/16 0010 Imaging Last Impressions Chest X-Ray 11/08/16 0015 Signed Impressions: Service Date/Time: October 00:30 - CONCLUSION: Cardiomegaly. Clear lungs. Michel Odonnell Jr., MD Objective Remarks GENERAL: Well-nourished, well-developed male patient in no acute distress. SKIN: Warm and dry. No rashes or lesions present. EYES: No scleral icterus. No conjunctival injection or drainage. Pupils equal, round, reactive to light and accommodation. Extraocular movements intact. THROAT: Moist mucous membranes. NECK: Supple, trachea midline. CARDIOVASCULAR: Irregularly irregular rate and rhythm without murmurs, gallops, or rubs. Strong radial and pedal pulses. CHEST: Symmetric chest expansion with respiration. RESPIRATORY: Breath sounds clear to auscultation bilaterally. No accessory muscle use. No wheezes, rhonchi or rales. Breathing comfortably on room air. GASTROINTESTINAL: Abdomen soft, non-tender, nondistended. No masses or hernias. No hepatosplenomegaly. Bowel sounds present. MUSCULOSKELETAL: Bilateral lower extremity edema. NEURO: Cranial nerves II through XII grossly intact. Good muscle tone. Normal gait and coordination. PSYCH: Normal mood and affect. Good eye contact. Good insight and judgment. Normal speech. (Beryl Mckinney MD, R3) A/P Assessment and Plan Patient is a 56-year-old male with a past medical history significant for CHF with AICD, GA s/p stent x 2, HTN, HLD, and atrial fibrillation on Xarelto who presented to the hospital with shortness of breath and was admitted for CHF exacerbation. Discharge Planning In 1-3 days pending clinical improvement. sdw Dr. High (Beryl Mckinney MD, R3) Attending Attestation Patient seen and examined with Dr Antonieta Mckinney. Case reviewed and discussed with the resident team. Agree with plan of care as discussed with me and documented in the resident note.Patient is receptive to imformation on different ways of stopping smoking.Patient counseled on management of CHF (Mychal High MD) Problem List: (1) CHF exacerbation ICD Codes: I50.9 - Heart failure, unspecified Status: Resolved Plan: Improving Shortness of breath and increasing orthopnea on admission. Last Echo 10/17/16: EF 20-25% with dilated left ventricle. BNP 2299 on admission. Chest x-ray with cardiomegaly. Significant pitting edema up to knees on exam. - Lasix 40 mg IV bid, monitor potassium - KCl 20 meQ bid - Continue Entresto 49/51 mg daily - Not on beta brigitte, consider starting before discharge. - May benefit from spironolactone with severe decreased EF. - Fluid/sodium restriction (1.5L, 2g) - Monitor I's and O's - Low threshold to consult outside parts salesman if not improving. (2) Chest pain ICD Codes: R07.9 - Chest pain Status: Resolved Plan: Resolved except for continued cramping down to left hand. EKG shows atrial fibrillation with RVR, right axis deviation (not new), q-wave suggesting old infarction, no acute ST changes. Received 162 mg aspirin and 2 mg morphine in ED. Troponin 0.05 Currently no chest pain. - Serial troponins and EKG's - Nitroglycerin topical PRN for chest pain - Cardiac monitoring - Pain management with [place]/morphine as needed (3) COPD (chronic obstructive pulmonary disease) ICD Codes: J44.9 - Chronic obstructive pulmonary disease, unspecified Status: Chronic Plan: History of smoking. Tobacco cessation counseling provided and patient expresses interest in tobacco cessation. Continue Flovent 1 buff bid and albuterol PRN. (4) Atrial fibrillation ICD Codes: I48.91 - Unspecified atrial fibrillation Status: Chronic Plan: History of atrial fibrillation - Continue digoxin 0.25 mg, level low at <0.1 on admission - Cardiac monitoring - Continue Xarelto 20 mg daily (5) Coronary artery disease ICD Codes: I25.10 - Atherosclerosis of coronary artery Status: Chronic Plan: History of significant coronary artery disease with stents. - Continue Plavix 75 mg daily from home (6) HTN (hypertension) ICD Codes: I10 - Hypertension Status: Chronic Plan: - Home dose of Entresto held for low BP (7) No contraindication to deep vein thrombosis (DVT) prophylaxis ICD Codes: Z78.9 - Other specified health status Status: Acute Plan: Continue Xarelto from home (8) Nutrition, metabolism, and development symptoms ICD Codes: R63.8 - Other symptoms and signs concerning food and fluid intake Status: Acute Plan: Cardiac diet with fluid restriction (1.5 L) and sodium restriction (2 g) daily Monitor I's and O's Monitor potassium while on Lasix, getting 20 meQ bid (Beryl Mckinney MD, R3) Problem Qualifiers (1) CHF exacerbation: Qualified Codes: I50.23 - Acute on chronic systolic (congestive) heart failure (2) Chest pain: Qualified Codes: R07.9 - Chest pain, unspecified (3) COPD (chronic obstructive pulmonary disease): Qualified Codes: J43.9 - Emphysema, unspecified (4) Atrial fibrillation: Qualified Codes: I48.2 - Chronic atrial fibrillation (5) Coronary artery disease: Qualified Codes: I25.10 - Atherosclerotic heart disease of [place] coronary artery without angina pectoris (6) HTN (hypertension): Qualified Codes: I10 - Essential (primary) hypertension Beryl Mckinney MD, R3 Nov 08, 2016 11:05 Mychal High MD Nov 09, 2016 12:38
[2016-11-08] MEDS: RIVAROXABAN 20 MG TAB PO SCH (11:27)
[2016-11-08] MEDS: FLUTICASONE PROPIONATE 110 MCG/ACT 12 GM INHALER INH SCH ×2 (11:27→22:32)
--- NOTE | 2016-11-08 11:48 | EKG ---
Date Performed: 11/08/2016 Time Performed: 11:05:23 PTAGE: 56 years EKG: ELECTRONIC VENTRICULAR PACEMAKER ABNORMAL RHYTHM ECG PREVIOUS TRACING : 11/08/2016 00.08 Compared to the previous tracing, previously atrial fibrill ation DOCTOR: Rachid Shelton Interpretating Date/Time 11/08/2016 11:47:36
[2016-11-08 15:02] LABS: BICARBONATE 28.7 MEQ/L (21.0-32.0); POTASSIUM 6.4 MEQ/L (3.5-5.1)
--- NOTE | 2016-11-08 17:14 | EKG ---
Date Performed: 11/08/2016 Time Performed: 00:08:46 PTAGE: 56 years EKG: ATRIAL FIBRILLATION WITH RAPID VENTRICULAR RESPONSE MARKED RIGHT AXIS DEVIATION POSSIBLE AN TERIOR MYOCARDIAL INFARCTION ABNORMAL ECG Compared to the PREVIOUS TRACING from 10/07/16, no significant change DOCTOR: Rachid Shelton Interpretating Date/Time 11/08/2016 17:13:13
[2016-11-08] MEDS ORDERED: PRAVASTATIN SOD 40 MG TAB PO SCH (21:00)
[2016-11-09 01:45] VITALS: BP 95/61; PULSE 85; RESP 16; TEMP 98.1; O2SAT 97
[2016-11-09 02:11] VITALS: PULSE 81
[2016-11-09 05:57] VITALS: BP 106/68; PULSE 95; RESP 16; TEMP 98.3; O2SAT 95
[2016-11-09 06:55] LABS: AUTOMATED NEUTROPHIL # 2.9 TH/MM3 (1.8-7.7); BASOPHIL % 0.8 % (0.0-2.0); EOSINOPHIL # 0.1 TH/MM3 (0-0.4); HEMATOCRIT 39.5 % (39.0-51.0); HEMO FLAGS DIFF FINAL; LYMPH % 21.7 % (9.0-44.0); LYMPHOCYTE # 0.9 TH/MM3 (1.0-4.8); MEAN CELL VOLUME 81.1 FL (80.0-100.0); MEAN CORPUSCULAR HEMOGLOBIN 25.5 PG (27.0-34.0); MEAN CORPUSCULAR HGB CONC 31.4 % (32.0-36.0); MONO % 8.1 % (0.0-8.0); NEUT % 66.4 % (16.0-70.0); PLATELET COUNT 257 TH/MM3 (150-450); RED BLOOD COUNT 4.87 MIL/MM3 (4.50-5.90); RED CELL DISTRIBUTION WIDTH 15.7 % (11.6-17.2); WHITE BLOOD COUNT 4.3 TH/MM3 (4.0-11.0)
[2016-11-09 07:25] LABS: ANION GAP 7 MEQ/L (5-15); AST (GOT) 33 U/L (15-37); BICARBONATE 28.6 MEQ/L (21.0-32.0); BLOOD UREA NITROGEN 26 MG/DL (7-18); CHLORIDE 106 MEQ/L (98-107); GLOMERULAR FILTRATION RATE 70 ML/MIN (>89); POTASSIUM 4.1 MEQ/L (3.5-5.1); SODIUM (NA) 142 MEQ/L (136-145)
[2016-11-09 07:37] LABS: ALKALINE PHOSPHATASE 84 U/L (45-117); ALT (GPT) 34 U/L (12-78); TOTAL BILIRUBIN ADULT 1.2 MG/DL (0.2-1.0)
[2016-11-09 08:18] VITALS: BP 100/76; PULSE 96; RESP 24; TEMP 98.4; O2SAT 95
[2016-11-09 08:34] VITALS: O2SAT 96
[2016-11-09] MEDS: POTASSIUM CHLORIDE 20 MEQ CONTROLLED RELEASE TAB PO SCH (09:00)
[2016-11-09] MEDS: DIGOXIN 0.25 MG TAB PO SCH (09:03)
[2016-11-09] MEDS: DOCUSATE SODIUM 50 MG/SENNA 8.6 MG TAB PO SCH (09:03)
[2016-11-09] MEDS: RIVAROXABAN 20 MG TAB PO SCH (09:04)
[2016-11-09] MEDS: CLOPIDOGREL 75 MG TAB PO SCH (09:04)
[2016-11-09] MEDS: SODIUM CHLORIDE 0.9% FLUSH 10 ML FLUSH IV FLUSH SCH (09:05)
[2016-11-09] MEDS: FUROSEMIDE 40 MG/4 ML VIAL IV PUSH SCH (09:05)
[2016-11-09] MEDS: FLUTICASONE PROPIONATE 110 MCG/ACT 12 GM INHALER INH SCH (09:06)
[2016-11-09 09:52] VITALS: PULSE 104
[2016-11-09] MEDS ORDERED: NICO14DI T-DERMAL (10:37)
[2016-11-09] MEDS ORDERED: NITR1SUB3 SL (10:37)
--- NOTE | 2016-11-09 10:38 | HHI.DCPOC ---
Discharge Care Plan Diagnosis: (1) CHF exacerbation Goals to Promote Your Health * To prevent worsening of your condition and complications * To maintain your health at the optimal level Directions to Meet Your Goals Take your medications as prescribed Follow your dietary instruction Follow activity as directed Keep your appointments as scheduled Take your immunizations and boosters as scheduled If your symptoms worsen call your PCP, if no PCP go to Urgent Care Center or Emergency Room Smoking is Dangerous to Your Health. Avoid second hand smoke Call the 24-hour hour crisis hotline for domestic abuse at Beryl Mckinney MD, R3 Nov 09, 2016 10:38
--- NOTE | 2016-11-09 11:05 | HHI.FPPN ---
Subjective Remarks No acute issues overnight. Vitals are stable, patient remains afebrile. He is feeling much better today, back to baseline with his breathing. He no longer has orthopnea and his lower extremity edema has improved. He denies any further chest pain but does continue to have occasional paraesthesia in his left arm. He denies any cough, fever, chills, nausea or vomiting. He is tolerating PO and feels ready to go home today. (Beryl Mckinney MD, R3) Objective Vitals Vital Signs Date Time Temp Pulse Resp B/P (MAP) Pulse Ox O2 Delivery O2 Flow Rate FiO2 11/09/16 09:52 104 11/09/16 08:18 98.4 96 24 100/76 (84) 95 11/09/16 05:57 98.3 95 16 106/68 (81) 95 11/09/16 02:11 81 11/09/16 01:45 98.1 85 16 95/61 (72) 97 11/08/16 23:42 18 11/08/16 21:19 98.1 91 16 101/65 (77) 93 11/08/16 18:00 97 Nasal Cannula 2.00 11/08/16 16:00 98.1 81 20 101/63 (76) 97 11/08/16 12:00 97.2 97 20 106/70 (82) 98 I/O 11/08/16 11/08/16 11/08/16 11/09/16 11/09/16 11/09/16 07:00 15:00 23:00 07:00 15:00 23:00 Intake Total 240 ml Output Total 800 ml Balance -800 ml 240 ml Intake Oral 240 ml Output Urine Total 800 ml # Voids 7 # Bowel Movements 0 (Beryl Mckinney MD, R3) Result Diagram: 11/09/16 0509 11/09/16 0508 Imaging Last Impressions Chest X-Ray 11/08/16 0015 Signed Impressions: Service Date/Time: October 00:30 - CONCLUSION: Cardiomegaly. Clear lungs. Michel Odonnell Jr., MD Objective Remarks GENERAL: Well-nourished, well-developed male patient in no acute distress. SKIN: Warm and dry. No rashes or lesions present. EYES: No scleral icterus. No conjunctival injection or drainage. Pupils equal, round, reactive to light and accommodation. Extraocular movements intact. THROAT: Moist mucous membranes. NECK: Supple, trachea midline. CARDIOVASCULAR: Irregularly irregular rate and rhythm without murmurs, gallops, or rubs. Strong radial and pedal pulses. CHEST: Symmetric chest expansion with respiration. RESPIRATORY: Breath sounds clear to auscultation bilaterally. No accessory muscle use. No wheezes, rhonchi or rales. Breathing comfortably on room air. GASTROINTESTINAL: Abdomen soft, non-tender, nondistended. No masses or hernias. No hepatosplenomegaly. Bowel sounds present. MUSCULOSKELETAL: Bilateral lower extremity edema. NEURO: Cranial nerves II through XII grossly intact. Good muscle tone. Normal gait and coordination. PSYCH: Normal mood and affect. Good eye contact. Good insight and judgment. Normal speech. (Beryl Mckinney MD, R3) A/P Assessment and Plan Patient is a 56-year-old male with a past medical history significant for CHF with AICD, AL s/p stent x 2, HTN, HLD, and atrial fibrillation on Xarelto who presented to the hospital with shortness of breath and was admitted for CHF exacerbation. Discharge Planning Discharge home today. sdw Dr. High (Beryl Mckinney MD, R3) Attending Attestation THIS CASE WAS DISCUSSED WITH THE RESIDENT PHYSICIANS. PATIENT INTERVIEWED AND EXAMINED WITH DR MCKINNEY, I HAVE REVIEWED THE RECORD AND AGREE WITH THE ABOVE NOTE AND PLAN OF CARE WAS DISCUSSED. PATIENT WILL FOLLOW CHF DIET.TAKE HIS MEDS SCHEDULED,DAILY WEIGHTS AND HAVE RENEWED HIS SLNITRO SCRIPT.PATIENT WOULD LIKE A RETURN TO WORK NOTE (Mychal High MD) Problem List: (1) CHF exacerbation ICD Codes: I50.9 - Heart failure, unspecified Status: Resolved Plan: Resolved Shortness of breath and increasing orthopnea on admission now resolved. Last Echo 10/17/16: EF 20-25% with dilated left ventricle. BNP 2299 on admission. Chest x-ray with cardiomegaly. - Transition to PO Lasix 40mg PO daily - KCl 20 meQ bid - Continue Entresto 49/51 mg daily - Follow-up with ammunition components inspector as an outpatient - Fluid/sodium restriction (1.5L, 2g) - Monitor I's and O's (2) Chest pain ICD Codes: R07.9 - Chest pain Status: Resolved Plan: Resolved. AL r/o Will refill home medication of Nitro PRN chest pain on discharge (3) COPD (chronic obstructive pulmonary disease) ICD Codes: J44.9 - Chronic obstructive pulmonary disease, unspecified Status: Chronic Plan: History of smoking. Tobacco cessation counseling provided and patient expresses interest in tobacco cessation. Continue Flovent 1 buff bid and albuterol PRN. Nicotine patch on discharge to help with tobacco cessation (4) Atrial fibrillation ICD Codes: I48.91 - Unspecified atrial fibrillation Status: Chronic Plan: History of atrial fibrillation - Continue digoxin 0.25 mg, level low at <0.1 on admission - Cardiac monitoring - Continue Xarelto 20 mg daily (5) Coronary artery disease ICD Codes: I25.10 - Atherosclerosis of coronary artery Status: Chronic Plan: History of significant coronary artery disease with stents. - Continue Plavix 75 mg daily from home (6) HTN (hypertension) ICD Codes: I10 - Hypertension Status: Chronic Plan: -Continue home Entresto (7) No contraindication to deep vein thrombosis (DVT) prophylaxis ICD Codes: Z78.9 - Other specified health status Status: Acute Plan: Continue Xarelto from home (8) Nutrition, metabolism, and development symptoms ICD Codes: R63.8 - Other symptoms and signs concerning food and fluid intake Status: Acute Plan: Cardiac diet with fluid restriction (1.5 L) and sodium restriction (2 g) daily Monitor I's and O's Monitor potassium while on Lasix, getting 20 meQ bid (Beryl Mckinney MD, R3) Problem Qualifiers (1) CHF exacerbation: Qualified Codes: I50.23 - Acute on chronic systolic (congestive) heart failure (2) Chest pain: Qualified Codes: R07.9 - Chest pain, unspecified (3) COPD (chronic obstructive pulmonary disease): Qualified Codes: J43.9 - Emphysema, unspecified (4) Atrial fibrillation: Qualified Codes: I48.2 - Chronic atrial fibrillation (5) Coronary artery disease: Qualified Codes: I25.10 - Atherosclerotic heart disease of [place] coronary artery without angina pectoris (6) HTN (hypertension): Qualified Codes: I10 - Essential (primary) hypertension Beryl Mckinney MD, R3 Nov 09, 2016 11:05 Mychal High MD Nov 09, 2016 15:37
[2016-11-21] MEDS ORDERED: SIMV20TA PO (08:32)
[2016-12-06] MEDS ORDERED: NITR1SUB3 SL (08:32)
[2016-12-08] MEDS ORDERED: FURO40TA PO (14:27)
[2016-12-10] MEDS ORDERED: LEVA750T9 PO (11:08)
[2016-12-10] MEDS ORDERED: PRED20 PO (11:08)
== END 2016-11-09 13:02 | disposition home or self-care (01) | DRG 293 ==
LOC: NEPE 00:05 → NEDA 02:28 → OBSVTOIN 03:40 → N05A 06:01
PROVIDERS: ADMIT Family Medicine; ATTEND Family Medicine
DX: I50.9 Heart failure, unspecified (principal); Z95.1 Presence of aortocoronary bypass graft; R07.89 Other chest pain; I10 Essential (primary) hypertension; I48.2 Chronic atrial fibrillation; I25.2 Old myocardial infarction; I25.10 Atherosclerotic heart disease of native coronary artery without angina pectoris; Z95.5 Presence of coronary angioplasty implant and graft; Z79.02 Long term (current) use of antithrombotics/antiplatelets; I51.7 Cardiomegaly; Z95.810 Presence of automatic (implantable) cardiac defibrillator; E78.5 Hyperlipidemia, unspecified; J44.9 Chronic obstructive pulmonary disease, unspecified; F17.210 Nicotine dependence, cigarettes, uncomplicated
CPT/HCPCS: 71010; 80048; 80053; 80162; 82550; 82552; 83735; 83880; 84484; 85025; 85610; 85730; 93005; 96374; 96375; J1940; J2270; J7030

== ENCOUNTER 2017-01-05 21:36 | Emergency (ER) | payer MEDICAID ==
[~2017-01-05] VITALS: Ht 170.2 cm; Wt 72.0 kg
[~2017-01-05 21:36] MED LIST changes: -ALBUAER3 INH; -BENZ100 PO; -CARV25TA PO; -LEVA750T9 PO; -LISI-519 PO; +SACU1TAB7 PO
[2017-01-05 21:37] VITALS: BP 122/75; PULSE 87; RESP 20; TEMP 99.1; O2SAT 99
--- NOTE | 2017-01-05 21:53 | PD ---
HPI Chief Complaint: Respiratory Symptoms Time Seen by Provider: 21:45 Travel History International Travel<30 days: No Contact w/Intl Traveler<30days: No Traveled to known affect area: No History of Present Illness HPI 56-year-old male with history of COPD, CHF, presents for evaluation. For the past 3 days he has had cough, congestion, some dyspnea when coughing. The cough is occasionally productive with clear sputum. He has had chills but no objective fevers at home. He denies any chest pain, nausea or vomiting, abdominal pain, leg swelling. He has been compliant with all medications at home. He has no other complaints at this time. His primary care physician is Dr. roy. [facility] Past Medical History Hx Anticoagulant Therapy: Yes (plavix) Asthma: Yes Blood Disorders: No Heart Rhythm Problems: Yes Cancer: No Cardiac Catheterization: Yes Cardiovascular Problems: Yes High Cholesterol: Yes Chemotherapy: No Chest Pain: Yes Congestive Heart Failure: Yes COPD: Yes Coronary Artery Disease: Yes Diabetes: No Diminished Hearing: No Endocrine: No Gastrointestinal Disorders: No Genitourinary: No Hypertension: Yes Immune Disorder: No Implanted Vascular Access Dvce: Yes (PACER) Musculoskeletal: No Neurologic: No Psychiatric: No Reproductive: No Respiratory: Yes Myocardial Infarction: Yes Radiation Therapy: No Sleep Apnea: No Thyroid Disease: No Past Surgical History AICD: Yes Body Medical Devices: PACEMAKER, DEFIBRILLATOR Cardiac Surgery: Yes (pacemaker) Coronary Artery Bypass Graft: Yes Coronary Stent: Yes (X 2 IN 2010) Other Surgery: Yes (CABG 2012, 2010 STENTS) Family History Family Myocardial Infarction: Yes Social History Alcohol Use: No Tobacco Use: No Substance Use: No (cocaine (quit in 2008)) Allergies-Medications (Allergen,Severity, Reaction): Coded Allergies: No Known Allergies (Unverified Adverse Reaction, Unknown, 01/05/17) Reported Meds & Prescriptions Reported Meds & Active Scripts Active Prednisone 50 Mg Tab 50 Mg PO DAILY 5 Days Zithromax Z-Koko (Azithromycin) 250 Mg Dspk 250 Mg PO DIRECTED 500 MG (2 tabs) day 1, then 1 tab days 2-5. Ventolin Hfa 18 GM Inh (Albuterol Sulfate) 90 Mcg/Act Aer 1 Puff INH Q4H PRN Nitroglycerin SL (Nitroglycerin) 0.4 Mg Subl 0.4 Mg SL DIRECTED PRN ONE TABLET UNDER THE TONGUE NEEDED FOR CHEST PAIN, MAY REPEAT EVERY FIVE MINUTES Simvastatin 20 Mg Tab 20 Mg PO HS Digoxin 0.25 Mg Tab 0.25 Mg PO DAILY Flovent Hfa 12 GM Inh (Fluticasone Propionate) 110 Mcg/Act Inh 1 Puff INH BID Robitussin Cough-Chest Dm Liq (Guaifenesin/Dextromethorphan) 237 Ml Liquid 10 Ml PO Q6HR PRN Potassium Chloride Microencaps 20 Meq Tab 20 Meq PO Q12HR Clopidogrel (Clopidogrel Bisulfate) 75 Mg Tab 75 Mg PO DAILY E-Z Spacer-Aerosol Holding Chamber 1 Mis Mis 1 Ea .ROUTE DIRECTED Reported Furosemide 40 Mg Tab 40 Mg PO BID Entresto (Sacubitril-Valsartan) 49-51 Mg Tab 1 Tab PO DAILY Review of Systems Except as stated in HPI: all other systems reviewed are Neg Physical Exam Narrative GENERAL: Well-developed well-nourished male in no acute distress SKIN: Warm and dry. HEAD: Atraumatic. Normocephalic. EYES: Pupils equal and round. No scleral icterus. No injection or drainage. ENT: No nasal bleeding or discharge. Mucous membranes pink and moist. NECK: Trachea midline. No JVD. CARDIOVASCULAR: Regular rate and rhythm. No murmur appreciated. RESPIRATORY: No accessory muscle use. Mild wheezing, coarse breath sounds bilaterally. GASTROINTESTINAL: Abdomen soft, non-tender, nondistended. Hepatic and splenic margins not palpable. MUSCULOSKELETAL: No obvious deformities. No clubbing. No cyanosis. No edema. NEUROLOGICAL: Awake and alert. No obvious cranial nerve deficits. Motor grossly within normal limits. Normal speech. PSYCHIATRIC: Appropriate mood and affect; insight and judgment normal. Data Data Last Documented VS Vital Signs Date Time Temp Pulse Resp B/P (MAP) Pulse Ox O2 Delivery O2 Flow Rate FiO2 01/05/17 23:35 01/05/17 22:00 99 2.00 01/05/17 22:00 19 Nasal Cannula 01/05/17 21:37 99.1 87 Orders Orders Complete Blood Count With Diff (01/05/17 21:51) Basic Metabolic Panel (Bmp) (01/05/17 21:51) B-Type Natriuretic Peptide (01/05/17 21:51) Magnesium (Mg) (01/05/17 21:51) Influenzae A/B Antigen (01/05/17 21:51) Iv Access Insert/Monitor (01/05/17 21:51) Electrocardiogram (01/05/17 21:51) Ecg Monitoring (01/05/17 21:51) Oximetry (01/05/17 21:51) Oxygen Administration (01/05/17 21:51) Chest, Single Ap (01/05/17 21:51) Sodium Chloride 0.9% Flush (Ns Flush) (01/05/17 22:00) Methylprednisolone So Succ Inj (Solumedr (01/05/17 22:00) Albuterol-Ipratropium Neb (Duoneb Neb) (01/05/17 22:00) Ed Discharge Order (01/05/17 23:31) Labs Laboratory Tests Test 01/05/17 21:50 White Blood Count 3.9 TH/MM3 Red Blood Count 4.81 MIL/MM3 Hemoglobin 12.2 GM/DL Hematocrit 38.5 % Mean Corpuscular Volume 80.1 FL Mean Corpuscular Hemoglobin 25.3 PG Mean Corpuscular Hemoglobin Concent 31.6 % Red Cell Distribution Width 16.8 % Platelet Count 252 TH/MM3 Mean Platelet Volume 8.1 FL Neutrophils (%) (Auto) 58.0 % Lymphocytes (%) (Auto) 22.3 % Monocytes (%) (Auto) 18.7 % Eosinophils (%) (Auto) 0.6 % Basophils (%) (Auto) 0.4 % Neutrophils # (Auto) 2.3 TH/MM3 Lymphocytes # (Auto) 0.9 TH/MM3 Monocytes # (Auto) 0.7 TH/MM3 Eosinophils # (Auto) 0.0 TH/MM3 Basophils # (Auto) 0.0 TH/MM3 CBC Comment DIFF FINAL Differential Comment Blood Urea Nitrogen 15 MG/DL Creatinine 1.31 MG/DL Random Glucose 100 MG/DL Calcium Level 8.8 MG/DL Magnesium Level 1.7 MG/DL Sodium Level 137 MEQ/L Potassium Level 4.1 MEQ/L Chloride Level 104 MEQ/L Carbon Dioxide Level 24.7 MEQ/L Anion Gap 8 MEQ/L Estimat Glomerular Filtration Rate 68 ML/MIN B-Type Natriuretic Peptide 1661 PG/ML MDM Medical Decision Making Medical Screen Exam Complete: Yes Emergency Medical Condition: Yes Medical Record Reviewed: Yes Differential Diagnosis COPD exacerbation, CHF exacerbation, pneumonia, bronchitis, reactive airway disease Narrative Course The patient was placed on ECG monitoring pulse oximetry. A 12 EKG was obtained. Plan is for basic lab work, chest x-ray, DuoNeb treatment and Solu- Medrol. Upon reexamination the patient is feeling improved after the administration of DuoNeb nebs. His chest x-ray reveals, take cardiomegaly with no acute findings. His BNP is 1661 however this is improved from recent visit. At this point in time the plan is to attempt to ambulate the patient, influenza antigen test is currently pending. Diagnosis Primary Impression: COPD exacerbation Additional Impression: CHF (congestive heart failure) Qualified Codes: I50.9 - Heart failure, unspecified Scripts Prednisone (Prednisone) 50 Mg Tab 50 MG PO DAILY for 5 Days, #5 TAB 0 Refills Prov: Carolee Johnson MD 01/05/17 Azithromycin (Zithromax Z-Koko) 250 Mg Dspk 250 MG PO DIRECTED for Infection, #1 DSPK 0 Refills 500 MG (2 tabs) day 1, then 1 tab days 2-5. Prov: Carolee Johnson MD 01/05/17 Albuterol 18 GM Inh (Ventolin Hfa 18 GM Inh) 90 Mcg/Act Aer 1 PUFF INH Q4H Y for SHORTNESS OF BREATH, #1 INHALER 0 Refills Prov: Carolee Johnson MD 01/05/17 Ajay Pleitez Jan 05, 2017 21:53
[2017-01-05 22:00] VITALS: RESP 19; O2SAT 99
[2017-01-05] MEDS ORDERED: methylPREDNISolone SOD SUCC 125 MG/2 ML VIAL IV PUSH ONE (22:00)
[2017-01-05] MEDS ORDERED: SODIUM CHLORIDE 0.9% FLUSH 10 ML FLUSH IVF PRN (22:00)
[2017-01-05] MEDS: RESP: ALBUTEROL 2.5 MG/IPRATROPIUM 0.5 MG NEB (SCH) INH (22:09)
--- NOTE | 2017-01-05 22:37 | PD ---
Physical Exam Date Seen by Provider: Jan 05, 2017 Time Seen by Provider: 22:10 Narrative I, Dr. Johnson, have reviewed the advance practice practitioner's documentation and am in agreement, met with the patient face to face, made the diagnosis, and the medical decision making was done by me. *My assessment and Findings: Patient seen and evaluated with PA, please see PA note for further details. Here for coughing, shortness of breath, history of COPD and CHF. Notable wheezing on initial exam. Started on nebulizers in the ER. Chest x-ray and workup initiated in the ER. Laboratory Tests Test 01/05/17 21:50 White Blood Count 3.9 TH/MM3 (4.0-11.0) Hemoglobin 12.2 GM/DL (13.0-17.0) Hematocrit 38.5 % (39.0-51.0) Mean Corpuscular Hemoglobin 25.3 PG (27.0-34.0) Mean Corpuscular Hemoglobin Concent 31.6 % (32.0-36.0) Monocytes (%) (Auto) 18.7 % (0.0-8.0) Lymphocytes # (Auto) 0.9 TH/MM3 (1.0-4.8) Creatinine 1.31 MG/DL (0.60-1.30) Estimat Glomerular Filtration Rate 68 ML/MIN (>89) B-Type Natriuretic Peptide 1661 PG/ML (0-100) Last 24 hours Impressions Chest X-Ray 01/05/17 2151 Signed Impressions: Service Date/Time: Thursday, January 05, 2017 22:35 - CONCLUSION: No acute cardiopulmonary disease. Compensated stable cardiomegaly. Benito Diaz MD Chest x-ray did not show any signs of acute pulmonary issues. He was given nebulizers in the ER and on reevaluation at 11:20 PM is feeling much improved. He is able to ambulate around the ER without issues. His BNP is quite elevated , patient has long-standing CHF, but chest x-ray reveals a compensated cardiomegaly with no signs of underlying pulmonary edema at this point. His BNP is elevated but actually an improvement from previous ones. At this point, he is ambulatory without issues and I do not think that this is an acute CHF exacerbation. It appears that this is more COPD related at this point with improvement from nebulizers. My plan would be to release him with further nebulization, steroids, and Zithromax. Follow-up with primary care physician. Return for worsening in symptoms as necessary. The plan has been discussed with him and he states understanding. Data Data Last Documented VS Vital Signs Date Time Temp Pulse Resp B/P (MAP) Pulse Ox O2 Delivery O2 Flow Rate FiO2 01/05/17 22:00 99 2.00 01/05/17 22:00 19 Nasal Cannula 01/05/17 21:37 99.1 87 Orders Orders Complete Blood Count With Diff (01/05/17 21:51) Basic Metabolic Panel (Bmp) (01/05/17 21:51) B-Type Natriuretic Peptide (01/05/17 21:51) Magnesium (Mg) (01/05/17 21:51) Influenzae A/B Antigen (01/05/17 21:51) Iv Access Insert/Monitor (01/05/17 21:51) Electrocardiogram (01/05/17 21:51) Ecg Monitoring (01/05/17 21:51) Oximetry (01/05/17 21:51) Oxygen Administration (01/05/17 21:51) Chest, Single Ap (01/05/17 21:51) Sodium Chloride 0.9% Flush (Ns Flush) (01/05/17 22:00) Methylprednisolone So Succ Inj (Solumedr (01/05/17 22:00) Albuterol-Ipratropium Neb (Duoneb Neb) (01/05/17 22:00) Labs Laboratory Tests Test 01/05/17 21:50 White Blood Count 3.9 TH/MM3 Red Blood Count 4.81 MIL/MM3 Hemoglobin 12.2 GM/DL Hematocrit 38.5 % Mean Corpuscular Volume 80.1 FL Mean Corpuscular Hemoglobin 25.3 PG Mean Corpuscular Hemoglobin Concent 31.6 % Red Cell Distribution Width 16.8 % Platelet Count 252 TH/MM3 Mean Platelet Volume 8.1 FL Neutrophils (%) (Auto) 58.0 % Lymphocytes (%) (Auto) 22.3 % Monocytes (%) (Auto) 18.7 % Eosinophils (%) (Auto) 0.6 % Basophils (%) (Auto) 0.4 % Neutrophils # (Auto) 2.3 TH/MM3 Lymphocytes # (Auto) 0.9 TH/MM3 Monocytes # (Auto) 0.7 TH/MM3 Eosinophils # (Auto) 0.0 TH/MM3 Basophils # (Auto) 0.0 TH/MM3 CBC Comment DIFF FINAL Differential Comment Blood Urea Nitrogen 15 MG/DL Creatinine 1.31 MG/DL Random Glucose 100 MG/DL Calcium Level 8.8 MG/DL Magnesium Level 1.7 MG/DL Sodium Level 137 MEQ/L Potassium Level 4.1 MEQ/L Chloride Level 104 MEQ/L Carbon Dioxide Level 24.7 MEQ/L Anion Gap 8 MEQ/L Estimat Glomerular Filtration Rate 68 ML/MIN B-Type Natriuretic Peptide 1661 PG/ML [facility] Medical Record Reviewed: Yes Supervised Visit with MARIO: Yes Diagnosis Primary Impression: COPD (chronic obstructive pulmonary disease) Med/Other Pt SpecificInfo: Prescription(s) given Scripts Prednisone (Prednisone) 50 Mg Tab 50 MG PO DAILY for 5 Days, #5 TAB 0 Refills Prov: Carolee Johnson MD 01/05/17 Azithromycin (Zithromax Z-Koko) 250 Mg Dspk 250 MG PO DIRECTED for Infection, #1 DSPK 0 Refills 500 MG (2 tabs) day 1, then 1 tab days 2-5. Prov: Carolee Johnson MD 01/05/17 Albuterol 18 GM Inh (Ventolin Hfa 18 GM Inh) 90 Mcg/Act Aer 1 PUFF INH Q4H Y for SHORTNESS OF BREATH, #1 INHALER 0 Refills Prov: Carolee Johnson MD 01/05/17 Disposition: 01 DISCHARGE HOME Condition: Stable Carolee Johnson MD Jan 05, 2017 22:37
[2017-01-05 22:42] LABS: BICARBONATE 24.7 MEQ/L (21.0-32.0); MAGNESIUM 1.7 MG/DL (1.5-2.5); POTASSIUM 4.1 MEQ/L (3.5-5.1)
[2017-01-05 22:44] LABS: AUTOMATED NEUTROPHIL # 2.3 TH/MM3 (1.8-7.7); BASOPHIL % 0.4 % (0.0-2.0); EOSINOPHIL % 0.6 % (0.0-4.0); HEMATOCRIT 38.5 % (39.0-51.0); HEMO FLAGS DIFF FINAL; LYMPH % 22.3 % (9.0-44.0); LYMPHOCYTE # 0.9 TH/MM3 (1.0-4.8); MEAN CELL VOLUME 80.1 FL (80.0-100.0); MEAN CORPUSCULAR HEMOGLOBIN 25.3 PG (27.0-34.0); MEAN CORPUSCULAR HGB CONC 31.6 % (32.0-36.0); MONO % 18.7 % (0.0-8.0); PLATELET COUNT 252 TH/MM3 (150-450); RED BLOOD COUNT 4.81 MIL/MM3 (4.50-5.90); RED CELL DISTRIBUTION WIDTH 16.8 % (11.6-17.2); WHITE BLOOD COUNT 3.9 TH/MM3 (4.0-11.0)
--- NOTE | 2017-01-05 22:54 | RADRPT ---
EXAM DATE/TIME: 01/05/2017 22:35 [place] COMPARISON: CHEST SINGLE AP, December 08, 2016, 14:47. INDICATIONS : Shortness of breath. MEDICAL HISTORY : Hypercholesterolemia. Hypertension Myocardial infarction. Congestive heart failure, Coronary wilfredo ry disease, AFIB, COPD, Asthma. SURGICAL HISTORY : Pacemaker. CABG. Cardiac cath, defibrillator, coronary stent. ENCOUNTER: Initial ACUITY: 3 days PAIN SCORE: 0/10 LOCATION: Bilateral chest FINDINGS: No infiltrate, effusion or pneumothorax demonstrated. Mild to moderate cardiomegaly again noted. Bety ent has had previous median sternotomy. Cardiac pacer/defibrillator present. CONCLUSION: No acute cardiopulmonary disease. Compensated stable cardiomegaly. Benito Diaz MD on January 05, 2017 at 22:51 Board Certified Radiologist. This report was verified electronically.
[2017-01-05] MEDS ORDERED: ZITHTAB PO (23:31)
[2017-01-05] MEDS ORDERED: VENTAER INH (23:31)
[2017-01-05] MEDS ORDERED: PRED50 PO (23:31)
--- NOTE | 2017-01-06 12:03 | EKG ---
Date Performed: 01/05/2017 Time Performed: 22:00:10 PTAGE: 56 years EKG: ATRIAL FIBRILLATION WITH ABERRANT CONDUCTION OR VENTRICULAR PREMATURE COMPLEXES BORDERLINE RIGHT AXIS DEVIATION PREVIOUS TRACING 12/09/16 ST elevation is noted in the anterior leads. Compared to prior tracing no significant change, except that paced beats are no longer noted. DOCTOR: Eddie Greenberg Interpretating Date/Time 01/06/2017 12:01:38
== END 2017-01-05 23:47 | disposition home or self-care (01) ==
LOC: NEPC 21:36
DX: J44.1 Chronic obstructive pulmonary disease with (acute) exacerbation (principal); I50.9 Heart failure, unspecified; R68.83 Chills (without fever); R94.31 Abnormal electrocardiogram [ECG] [EKG]; I10 Essential (primary) hypertension; E78.00 Pure hypercholesterolemia, unspecified; I25.2 Old myocardial infarction; Z79.01 Long term (current) use of anticoagulants; Z79.899 Other long term (current) drug therapy; Z95.0 Presence of cardiac pacemaker; Z87.09 Personal history of other diseases of the respiratory system; Z86.79 Personal history of other diseases of the circulatory system
CPT/HCPCS: 71010; 80048; 83735; 83880; 85025; 87804; 93005; 94640; 94664; 96374; 99285; J2930

== ENCOUNTER 2017-02-09 04:15 | Emergency (ER) | payer MEDICAID ==
[~2017-02-09] VITALS: Ht 170.2 cm; Wt 78.0 kg
[2017-02-09 04:15] VITALS: BP 113/70; PULSE 90; RESP 22; TEMP 98; O2SAT 97
[~2017-02-09 04:15] MED LIST changes: +PRED50 PO; +ZITHTAB PO
[2017-02-09 04:35] VITALS: BP 127/83; PULSE 77; O2SAT 98
[2017-02-09 04:49] VITALS: O2SAT 98
--- NOTE | 2017-02-09 04:55 | PD ---
HPI Chief Complaint: Chest Pain Time Seen by Provider: 04:32 Travel History International Travel<30 days: No Contact w/Intl Traveler<30days: No Traveled to known affect area: No History of Present Illness HPI The patient is a 57-year-old Jasm[place] male who presents emergency department for 3 days of shortness of breath, productive cough, and chest wall pain. The patient states his symptoms started 3 days ago shortness of breath. Patient noted he has some wheezing, has been using his nebulizers at home without significant relief. He then developed a productive cough producing white to yellow sputum and now complains of anterior abdominal and chest wall pain secondary to coughing. The chest pain is reproducible with coughing, is not present at rest. The patient does have a history of COPD, CHF, and previous bronchitis. The patient's symptoms are moderate without any alleviating or exacerbating factors. The patient denies any fever, chills, sweats, nausea, vomiting, diarrhea, abdominal pain, myalgias, or arthralgias. PFSH Past Medical History Hx Anticoagulant Therapy: Yes (PLAVIX) Asthma: Yes Blood Disorders: No Heart Rhythm Problems: Yes Cancer: No Cardiac Catheterization: Yes Cardiovascular Problems: Yes (CO, PACEMAKER) High Cholesterol: Yes Chemotherapy: No Chest Pain: Yes Congestive Heart Failure: Yes COPD: Yes Coronary Artery Disease: Yes Diabetes: No Diminished Hearing: No Endocrine: No Gastrointestinal Disorders: No Genitourinary: No Hypertension: Yes Immune Disorder: No Implanted Vascular Access Dvce: Yes (PACER) Musculoskeletal: No Neurologic: No Psychiatric: No Reproductive: No Respiratory: Yes (ASTHMA, COPD) Myocardial Infarction: Yes Radiation Therapy: No Sleep Apnea: No Thyroid Disease: No Past Surgical History AICD: Yes Body Medical Devices: PACEMAKER, DEFIBRILLATOR Cardiac Surgery: Yes (pacemaker) Coronary Artery Bypass Graft: Yes Coronary Stent: Yes (X 2 IN 2010) Other Surgery: Yes (CABG 2012, 2010 STENTS) Family History Family Myocardial Infarction: Yes Social History Alcohol Use: No Tobacco Use: No Substance Use: No (cocaine (quit in 2008)) Allergies-Medications (Allergen,Severity, Reaction): Coded Allergies: No Known Allergies (Unverified Adverse Reaction, Unknown, 02/09/17) Reported Meds & Prescriptions Reported Meds & Active Scripts Active Ventolin Hfa 18 GM Inh (Albuterol Sulfate) 90 Mcg/Act Aer 1 Puff INH Q4H PRN Nitroglycerin SL (Nitroglycerin) 0.4 Mg Subl 0.4 Mg SL DIRECTED PRN ONE TABLET UNDER THE TONGUE NEEDED FOR CHEST PAIN, MAY REPEAT EVERY FIVE MINUTES Simvastatin 20 Mg Tab 20 Mg PO HS Digoxin 0.25 Mg Tab 0.25 Mg PO DAILY Flovent Hfa 12 GM Inh (Fluticasone Propionate) 110 Mcg/Act Inh 1 Puff INH BID Robitussin Cough-Chest Dm Liq (Guaifenesin/Dextromethorphan) 237 Ml Liquid 10 Ml PO Q6HR PRN Potassium Chloride Microencaps 20 Meq Tab 20 Meq PO Q12HR Clopidogrel (Clopidogrel Bisulfate) 75 Mg Tab 75 Mg PO DAILY E-Z Spacer-Aerosol Holding Chamber 1 Mis Mis 1 Ea .ROUTE DIRECTED Reported Furosemide 40 Mg Tab 40 Mg PO BID Entresto (Sacubitril-Valsartan) 49-51 Mg Tab 1 Tab PO DAILY Review of Systems Except as stated in HPI: all other systems reviewed are Neg General / Constitutional: No: Fever, Chills Cardiovascular: Positive: Chest Pain or Discomfort (chest wall pain with coughing) Respiratory: Positive: Cough, Shortness of Breath, Wheezing Gastrointestinal: No: Nausea, Vomiting, Abdominal Pain Musculoskeletal: No: Myalgias, Arthralgias, Edema Neurologic: No: Dizziness Physical Exam Narrative GENERAL: Awake, alert, pleasant 57-year-old male who appears his stated age and is actively coughing white to yellow sputum. SKIN: Focused skin assessment warm/dry. HEAD: Atraumatic. Normocephalic. EYES: Pupils equal and round. Mild injection bilaterally. ENT: No nasal bleeding or discharge. Mucous membranes pink and moist. NECK: Trachea midline. No JVD. CARDIOVASCULAR: Irregularly irregular with a heart rate in the 80s. AICD in place left chest wall. RESPIRATORY: No accessory muscle use. Prolonged expiratory phase with diffuse wheezing. GASTROINTESTINAL: Abdomen soft, non-tender, nondistended. No rebound tenderness. MUSCULOSKELETAL: No obvious deformities. No clubbing. No cyanosis. No edema. NEUROLOGICAL: Awake and alert. No obvious cranial nerve deficits. Motor grossly within normal limits. Normal speech. PSYCHIATRIC: Appropriate mood and affect; insight and judgment normal. Data Data Last Documented VS Vital Signs Date Time Temp Pulse Resp B/P (MAP) Pulse Ox O2 Delivery O2 Flow Rate FiO2 02/09/17 05:00 98 21 12/23/17 04:49 Room Air 02/09/17 04:35 77 02/09/17 04:15 98.0 22 Orders Orders Complete Blood Count With Diff (02/09/17 04:47) Comprehensive Metabolic Panel (02/09/17 04:47) Magnesium (Mg) (02/09/17 04:47) Iv Access Insert/Monitor (02/09/17 04:47) Ecg Monitoring (02/09/17 04:47) Oximetry (02/09/17 04:47) Oxygen Administration (02/09/17 04:47) Chest, Single Ap (02/09/17 04:47) Sodium Chloride 0.9% Flush (Ns Flush) (02/09/17 05:00) Methylprednisolone So Succ Inj (Solumedr (02/09/17 05:00) Albuterol-Ipratropium Neb (Duoneb Neb) (02/09/17 05:00) Lidocaine Pf 4% Neb (Lidocaine Pf 4% Neb (02/09/17 05:00) Labs Laboratory Tests Test 02/09/17 05:05 White Blood Count 5.1 TH/MM3 Red Blood Count 4.85 MIL/MM3 Hemoglobin 12.4 GM/DL Hematocrit 40.2 % Mean Corpuscular Volume 83.0 FL Mean Corpuscular Hemoglobin 25.6 PG Mean Corpuscular Hemoglobin Concent 30.9 % Red Cell Distribution Width 17.9 % Platelet Count 241 TH/MM3 Mean Platelet Volume 7.6 FL Neutrophils (%) (Auto) 80.5 % Lymphocytes (%) (Auto) 6.2 % Monocytes (%) (Auto) 11.5 % Eosinophils (%) (Auto) 1.4 % Basophils (%) (Auto) 0.4 % Neutrophils # (Auto) 4.1 TH/MM3 Lymphocytes # (Auto) 0.3 TH/MM3 Monocytes # (Auto) 0.6 TH/MM3 Eosinophils # (Auto) 0.1 TH/MM3 Basophils # (Auto) 0.0 TH/MM3 CBC Comment DIFF FINAL Differential Comment Blood Urea Nitrogen 23 MG/DL Creatinine 1.41 MG/DL Random Glucose 102 MG/DL Total Protein 6.0 GM/DL Albumin 2.9 GM/DL Calcium Level 8.1 MG/DL Magnesium Level 1.5 MG/DL Alkaline Phosphatase 88 U/L Aspartate Amino Transf (AST/SGOT) 42 U/L Alanine Aminotransferase (ALT/SGPT) 33 U/L Total Bilirubin 1.8 MG/DL Sodium Level 140 MEQ/L Potassium Level 3.8 MEQ/L Chloride Level 108 MEQ/L Carbon Dioxide Level 22.2 MEQ/L Anion Gap 10 MEQ/L Estimat Glomerular Filtration Rate 63 ML/MIN MDM Medical Decision Making Medical Screen Exam Complete: Yes Emergency Medical Condition: Yes Medical Record Reviewed: Yes Interpretation(s) EKG reveals atrial fibrillation with a rate in 93. Inverted T waves noted in V5 and V6. Chest x-ray was compared to x-ray performed on January 05, 2017. Reveals compensated stable cardiomegaly. Previous median sternotomy. Cardiac pacer/ defibrillator present. No visible infiltrate. No acute cardiopulmonary disease. Laboratory Tests Test 02/09/17 05:05 White Blood Count 5.1 TH/MM3 Red Blood Count 4.85 MIL/MM3 Hemoglobin 12.4 GM/DL Hematocrit 40.2 % Mean Corpuscular Volume 83.0 FL Mean Corpuscular Hemoglobin 25.6 PG Mean Corpuscular Hemoglobin Concent 30.9 % Red Cell Distribution Width 17.9 % Platelet Count 241 TH/MM3 Mean Platelet Volume 7.6 FL Neutrophils (%) (Auto) 80.5 % Lymphocytes (%) (Auto) 6.2 % Monocytes (%) (Auto) 11.5 % Eosinophils (%) (Auto) 1.4 % Basophils (%) (Auto) 0.4 % Neutrophils # (Auto) 4.1 TH/MM3 Lymphocytes # (Auto) 0.3 TH/MM3 Monocytes # (Auto) 0.6 TH/MM3 Eosinophils # (Auto) 0.1 TH/MM3 Basophils # (Auto) 0.0 TH/MM3 CBC Comment DIFF FINAL Differential Comment Blood Urea Nitrogen 23 MG/DL Creatinine 1.41 MG/DL Random Glucose 102 MG/DL Total Protein 6.0 GM/DL Albumin 2.9 GM/DL Calcium Level 8.1 MG/DL Magnesium Level 1.5 MG/DL Alkaline Phosphatase 88 U/L Aspartate Amino Transf (AST/SGOT) 42 U/L Alanine Aminotransferase (ALT/SGPT) 33 U/L Total Bilirubin 1.8 MG/DL Sodium Level 140 MEQ/L Potassium Level 3.8 MEQ/L Chloride Level 108 MEQ/L Carbon Dioxide Level 22.2 MEQ/L Anion Gap 10 MEQ/L Estimat Glomerular Filtration Rate 63 ML/MIN Differential Diagnosis Differential diagnosis includes bronchitis, COPD exacerbation, congestive heart failure, pulmonary edema, ACS, cardiomyopathy, pleural effusion, pulmonary embolism. Narrative Course IV was established, labs are drawn and sent, and the patient was placed on cardiac telemetry monitoring and continuous pulse oximetry monitoring. EKG was ordered and interpreted. Chest x-ray was obtained. The patient received Solu- Medrol 125 mg orally and duo nebs 3 with respiratory lidocaine. I reviewed the patient's previous visits, he has multiple admissions for COPD and chest pain, has a cardiomyopathy with chronically elevated BNP and has a baseline troponin that varies between 0.0 3 AM 0.08. The patient's chest wall is reproducible with coughing and palpation, is alleviated at rest. He has diffuse wheezing, most likely bronchitis and/or COPD exacerbation. The patient had no tachycardia or hypoxia, I doubt pulmonary embolism. Chest x-ray reveals stable cardiomegaly, no acute cardiopulmonary disease. The patient was reevaluated at 5:45 AM, his symptoms had significantly improved. The patient does not have a nebulizer at home, I did advise them to follow-up with his primary physician to obtain a nebulizer and outpatient basis. The patient will be treated for bronchitis with acute COPD exacerbation with prednisone, Zithromax, and promethazine with codeine. He will also be given a work excuse for 2 days. He is advised to return if symptoms worsen or progress. Diagnosis Primary Impression: COPD (chronic obstructive pulmonary disease) Qualified Codes: J44.9 - Chronic obstructive pulmonary disease, unspecified Additional Impression: Bronchitis Patient Instructions: General Instructions Additional Instructions: Medications as directed. Work excuse for 2 days. Avoid tobacco use and tobacco smoke. Follow-up with your primary physician on an outpatient basis as soon as possible and obtain an outpatient nebulizer. Return if symptoms worsen or progress. Med/Other Pt SpecificInfo: Prescription(s) given Scripts Promethazine-Codeine Liq (Promethazine-Codeine Liq) 6.25-10 Mg/5 Ml Syrp 5 ML PO Q6H Y for COUGH AND/OR COLD SYMPTOMS, #240 ML 0 Refills Prov: Anthony Boggs MD 02/09/17 Azithromycin (Zithromax Z-Koko) 250 Mg Dspk 250 MG PO DIRECTED for Infection, #1 DSPK 0 Refills 500 MG (2 tabs) day 1, then 1 tab days 2-5. Prov: Anthony Boggs MD 02/09/17 Prednisone (Prednisone) 50 Mg Tab 50 MG PO DAILY for 5 Days, #5 TAB 0 Refills Prov: Anthony Boggs MD 02/09/17 Disposition: 01 DISCHARGE HOME Condition: Stable Anthony Boggs MD Feb 09, 2017 04:55
[2017-02-09 05:00] VITALS: O2SAT 98
[2017-02-09] MEDS ORDERED: RESP: LIDOCAINE HCL 4% PF 5 ML NEB NEB ONE (05:00)
[2017-02-09] MEDS ORDERED: methylPREDNISolone SOD SUCC 125 MG/2 ML VIAL IV PUSH ONE (05:00)
[2017-02-09] MEDS ORDERED: SODIUM CHLORIDE 0.9% FLUSH 10 ML FLUSH IVF PRN (05:00)
[2017-02-09] MEDS: RESP: ALBUTEROL 2.5 MG/IPRATROPIUM 0.5 MG NEB (SCH) INH (05:05)
[2017-02-09 05:15] LABS: AUTOMATED NEUTROPHIL # 4.1 TH/MM3 (1.8-7.7); BASOPHIL % 0.4 % (0.0-2.0); EOSINOPHIL # 0.1 TH/MM3 (0-0.4); EOSINOPHIL % 1.4 % (0.0-4.0); HEMATOCRIT 40.2 % (39.0-51.0); HEMOGLOBIN 12.4 GM/DL (13.0-17.0); LYMPH % 6.2 % (9.0-44.0); LYMPHOCYTE # 0.3 TH/MM3 (1.0-4.8); MEAN CORPUSCULAR HEMOGLOBIN 25.6 PG (27.0-34.0); MEAN CORPUSCULAR HGB CONC 30.9 % (32.0-36.0); MEAN PLATELET VOLUME 7.6 FL (7.0-11.0); MONO % 11.5 % (0.0-8.0); MONOCYTE # 0.6 TH/MM3 (0-0.9); NEUT % 80.5 % (16.0-70.0); PLATELET COUNT 241 TH/MM3 (150-450); RED BLOOD COUNT 4.85 MIL/MM3 (4.50-5.90); RED CELL DISTRIBUTION WIDTH 17.9 % (11.6-17.2); WHITE BLOOD COUNT 5.1 TH/MM3 (4.0-11.0)
[2017-02-09 05:33] LABS: ALBUMIN 2.9 GM/DL (3.4-5.0); AST (GOT) 42 U/L (15-37); BICARBONATE 22.2 MEQ/L (21.0-32.0); BLOOD UREA NITROGEN 23 MG/DL (7-18); CALCIUM 8.1 MG/DL (8.5-10.1); CHLORIDE 108 MEQ/L (98-107); CREATININE 1.41 MG/DL (0.60-1.30); GLOMERULAR FILTRATION RATE 63 ML/MIN (>89); GLUCOSE,RANDOM 102 MG/DL (74-106); MAGNESIUM 1.5 MG/DL (1.5-2.5); SODIUM (NA) 140 MEQ/L (136-145)
[2017-02-09 05:34] LABS: ALT (GPT) 33 U/L (12-78)
[2017-02-09 05:36] LABS: ALKALINE PHOSPHATASE 88 U/L (45-117); TOTAL BILIRUBIN ADULT 1.8 MG/DL (0.2-1.0)
[2017-02-09] MEDS ORDERED: ZITHTAB PO (05:50)
[2017-02-09] MEDS ORDERED: PRED50 PO (05:50)
[2017-02-09] MEDS ORDERED: PROM6.256 PO (05:50)
--- NOTE | 2017-02-09 06:28 | RADRPT ---
EXAM DATE/TIME: 02/09/2017 05:06 [facility] COMPARISON: CHEST SINGLE AP, January 05, 2017, 22:35. INDICATIONS : Shortness of breath. MEDICAL HISTORY : Hypercholesterolemia. Hypertension Myocardial infarction. CHF CAD COPD Asthma SURGICAL HISTORY : Pacemaker. CABG. Coronary artery stent. Defibrillator ENCOUNTER: Initial ACUITY: 1 day PAIN SCORE: 0/10 LOCATION: Bilateral chest FINDINGS: Pacemaker device is noted with control pack over the left chest. Cardiac silhouette is enlarged, unch anged. Mild central vascular congestion and interstitial prominence. No evidence of alveolar consolid ation or significant effusion. CONCLUSION: Cardiomegaly and vascular congestion. Benito Terrazas MD on February 09, 2017 at 6:25 Board Certified Radiologist. This report was verified electronically.
--- NOTE | 2017-02-09 17:05 | EKG ---
Date Performed: 02/09/2017 Time Performed: 04:45:13 PTAGE: 57 years EKG: ATRIAL FIBRILLATION MARKED RIGHT AXIS DEVIATION DIFFUSE ST-T CHANGES ABNORMAL ECG PREVIOUS TRACING : 01/05/2017 22.00 Compared to prior tracing no significant change DOCTOR: Trisha John Interpretating Date/Time 02/09/2017 17:03:29
[2017-02-15] MEDS ORDERED: IPRASOL INH (11:42)
[2017-02-15] MEDS ORDERED: NEBULIZER1 MI1 (11:42)
[2017-02-15] MEDS ORDERED: NICO14DI T-DERMAL (11:44)
== END 2017-02-09 06:35 | disposition home or self-care (01) ==
LOC: NEPC 04:15
DX: J44.9 Chronic obstructive pulmonary disease, unspecified (principal); J20.9 Acute bronchitis, unspecified; I42.9 Cardiomyopathy, unspecified; I48.91 Unspecified atrial fibrillation; R94.31 Abnormal electrocardiogram [ECG] [EKG]; I11.0 Hypertensive heart disease with heart failure; I50.9 Heart failure, unspecified; I25.10 Atherosclerotic heart disease of native coronary artery without angina pectoris; I25.2 Old myocardial infarction
CPT/HCPCS: 71010; 80053; 83735; 85025; 93005; 94640; 94664; 96374; 99285; J2930

== ENCOUNTER 2017-02-10 00:06 | Inpatient (IN) | payer MEDICAID ==
[~2017-02-10] VITALS: Ht 170.2 cm; Wt 70.4 kg
[2017-02-10] VITALS (12 sets, daily range): BP systolic 103–137; BP diastolic 64–76; PULSE 79–118; RESP 18–31; TEMP 97.5–99; O2SAT 93–100
[~2017-02-10 00:06] MED LIST changes: +PROM6.256 PO
--- NOTE | 2017-02-10 00:29 | PD ---
HPI Chief Complaint: Respiratory Symptoms Time Seen by Provider: 00:17 Travel History International Travel<30 days: No Contact w/Intl Traveler<30days: No Traveled to known affect area: No History of Present Illness HPI 57-year-old man, history of CAD, COPD, CHF, EF 20-25%, presents with worsening shortness of breath, some chest pain, some cough. Short of breath worse with laying flat. Was seen in the ED yesterday and treated for COPD exacerbation. Chest x-ray did rate some vascular congestion. Patient states his cough is been productive of green phlegm. No fevers. No other associated symptoms. Otherwise has been feeling generally well and healthy. History Past Medical History Narrative Medical CAD, history of [place], CABG in 2012 stents CHF, history of AICD, EF 2024% Hypertension Hyperlipidemia Chronic A. fib, on Xarelto COPD Tetanus Vaccination: Unknown Influenza Vaccination: Yes Social History Alcohol Use: No Tobacco Use: No Allergies-Medications (Allergen,Severity, Reaction): Coded Allergies: No Known Allergies (Unverified Adverse Reaction, Unknown, 02/10/17) Reported Meds & Prescriptions Reported Meds & Active Scripts Active Promethazine-Codeine Liq 6.25-10 Mg/5 Ml Syrp 5 Ml PO Q6H PRN Zithromax Z-Koko (Azithromycin) 250 Mg Dspk 250 Mg PO DIRECTED 500 MG (2 tabs) day 1, then 1 tab days 2-5. Prednisone 50 Mg Tab 50 Mg PO DAILY 5 Days Ventolin Hfa 18 GM Inh (Albuterol Sulfate) 90 Mcg/Act Aer 1 Puff INH Q4H PRN Nitroglycerin SL (Nitroglycerin) 0.4 Mg Subl 0.4 Mg SL DIRECTED PRN ONE TABLET UNDER THE TONGUE NEEDED FOR CHEST PAIN, MAY REPEAT EVERY FIVE MINUTES Simvastatin 20 Mg Tab 20 Mg PO HS Digoxin 0.25 Mg Tab 0.25 Mg PO DAILY Flovent Hfa 12 GM Inh (Fluticasone Propionate) 110 Mcg/Act Inh 1 Puff INH BID Robitussin Cough-Chest Dm Liq (Guaifenesin/Dextromethorphan) 237 Ml Liquid 10 Ml PO Q6HR PRN Potassium Chloride Microencaps 20 Meq Tab 20 Meq PO Q12HR Clopidogrel (Clopidogrel Bisulfate) 75 Mg Tab 75 Mg PO DAILY E-Z Spacer-Aerosol Holding Chamber 1 Mis Mis 1 Ea .ROUTE DIRECTED Reported Furosemide 40 Mg Tab 40 Mg PO BID Entresto (Sacubitril-Valsartan) 49-51 Mg Tab 1 Tab PO DAILY Review of Systems Except as stated in HPI: all other systems reviewed are Neg Physical Exam Narrative GENERAL: 57-year-old man, generally well-appearing. Moderate respiratory distress. SKIN: Focused skin assessment warm/dry. HEAD: Atraumatic. Normocephalic. EYES: Pupils equal and round. No scleral icterus. No injection or drainage. ENT: No nasal bleeding or discharge. Mucous membranes pink and moist. NECK: Trachea midline. Some JVD. CARDIOVASCULAR: Heart rate irregular, little bit rapid. No murmurs. RESPIRATORY: Moderate respiratory distress. Rales throughout the boluses with diminished breath sounds and some expiratory wheezing. GASTROINTESTINAL: Abdomen soft, non-tender, nondistended. Hepatic and splenic margins not palpable. MUSCULOSKELETAL: No obvious deformities. Mild edema both lower extremities. NEUROLOGICAL: Awake and alert. No obvious cranial nerve deficits. Motor grossly within normal limits. Normal speech. PSYCHIATRIC: Appropriate mood and affect; insight and judgment normal. Data Data Last Documented VS Vital Signs Date Time Temp Pulse Resp B/P (MAP) Pulse Ox O2 Delivery O2 Flow Rate FiO2 02/10/17 03:03 97 02/10/17 03:02 118 20 137/75 (95) Room Air 02/10/17 01:22 2.00 02/10/17 00:08 98.5 Orders Orders Complete Blood Count With Diff (02/10/17 00:17) Comprehensive Metabolic Panel (02/10/17 00:17) B-Type Natriuretic Peptide (02/10/17 00:17) Act Partial Throm Time (Ptt) (02/10/17 00:17) Prothrombin Time / Inr (Pt) (02/10/17 00:17) Magnesium (Mg) (02/10/17 00:17) Troponin I (02/10/17 00:17) Influenzae A/B Antigen (02/10/17 00:17) Iv Access Insert/Monitor (02/10/17 00:17) Electrocardiogram (02/10/17 00:17) Ecg Monitoring (02/10/17 00:17) Oximetry (02/10/17 00:17) Oxygen Administration (02/10/17 00:17) Chest, Single Ap (02/10/17 00:17) Sodium Chloride 0.9% Flush (Ns Flush) (02/10/17 00:30) Furosemide Inj (Lasix Inj) (02/10/17 00:30) Albuterol-Ipratropium Neb (Duoneb Neb) (02/10/17 00:30) Oseltamivir (Tamiflu) (02/10/17 02:45) Oseltamivir (Tamiflu) (02/10/17 02:45) Place In Observation (02/10/17 ) Vital Signs (Adult) [place].Q4H (02/10/17 02:48) Activity Oob Ad Evelin (02/10/17 02:48) Intake + Output 06,14,22 (02/10/17 02:48) Resp Oxygen Diogenes C Titrat 1-4 L (02/10/17 ) Sodium Chloride 0.9% Flush (Ns Flush) (02/10/17 03:00) Sodium Chloride 0.9% Flush (Ns Flush) (02/10/17 09:00) Admit Order (Ed Use Only) (02/10/17 ) Labs Laboratory Tests Test 02/10/17 00:20 White Blood Count 10.2 TH/MM3 Red Blood Count 4.63 MIL/MM3 Hemoglobin 11.9 GM/DL Hematocrit 38.0 % Mean Corpuscular Volume 82.1 FL Mean Corpuscular Hemoglobin 25.7 PG Mean Corpuscular Hemoglobin Concent 31.3 % Red Cell Distribution Width 18.2 % Platelet Count 277 TH/MM3 Mean Platelet Volume 8.0 FL Neutrophils (%) (Auto) 89.0 % Lymphocytes (%) (Auto) 3.7 % Monocytes (%) (Auto) 7.3 % Eosinophils (%) (Auto) 0.0 % Basophils (%) (Auto) 0.0 % Neutrophils # (Auto) 9.1 TH/MM3 Lymphocytes # (Auto) 0.4 TH/MM3 Monocytes # (Auto) 0.7 TH/MM3 Eosinophils # (Auto) 0.0 TH/MM3 Basophils # (Auto) 0.0 TH/MM3 CBC Comment DIFF FINAL Differential Comment Prothrombin Time 11.6 SEC Prothromb Time International Ratio 1.1 RATIO Activated Partial Thromboplast Time 27.3 SEC Blood Urea Nitrogen 22 MG/DL Creatinine 1.37 MG/DL Random Glucose 136 MG/DL Total Protein 6.2 GM/DL Albumin 3.0 GM/DL Calcium Level 8.5 MG/DL Magnesium Level 1.6 MG/DL Alkaline Phosphatase 92 U/L Aspartate Amino Transf (AST/SGOT) 35 U/L Alanine Aminotransferase (ALT/SGPT) 32 U/L Total Bilirubin 1.3 MG/DL Sodium Level 140 MEQ/L Potassium Level 4.1 MEQ/L Chloride Level 107 MEQ/L Carbon Dioxide Level 23.3 MEQ/L Anion Gap 10 MEQ/L Estimat Glomerular Filtration Rate 65 ML/MIN Troponin I 0.05 NG/ML B-Type Natriuretic Peptide 3910 PG/ML [facility] [place] Medical Decision Making Medical Screen Exam Complete: Yes Emergency Medical Condition: Yes Interpretation(s) My review of EKG: A. fib, rate of 95, normal axis, inferior lateral ST changes with T wave inversions. LABS: CBC mild anemia. CMP mildly elevated BUN and creatinine Troponin 0.05 BNP 3910 Chest x-ray: Stable with fairly well compensated cardiomegaly. Influenza positive for flu a Differential Diagnosis CHF exacerbation, COPD exacerbation, pneumonia, A. fib, ACS, other Narrative Course Medical decision making 57 year-old woman presents emergency department worsening shortness of breath, treated for COPD exacerbation, likely some element of volume overload as well. We'll continue bronchodilators, steroids, antibiotics, will add diuretics, reassess but likely observation overnight. Patient received steroids with EMS. Started on antibiotics yesterday. Positive for flu, will start Tamiflu as well. Symptoms likely related to combination of influenza was CHF and COPD exacerbation. Diagnosis Primary Impression: Influenza A Additional Impression: COPD exacerbation Admitting Information Admitting Physician Requests: Iain Barrera MD Feb 10, 2017 00:29
[2017-02-10] MEDS ORDERED: FUROSEMIDE 40 MG/4 ML VIAL IVP ONE (00:30)
[2017-02-10] MEDS ORDERED: SODIUM CHLORIDE 0.9% FLUSH 10 ML FLUSH IVF PRN (00:30)
[2017-02-10] MEDS: RESP: ALBUTEROL 2.5 MG/IPRATROPIUM 0.5 MG NEB (SCH) INH (00:33)
--- NOTE | 2017-02-10 00:45 | RADRPT ---
EXAM DATE/TIME: 02/10/2017 00:25 [facility] COMPARISON: CHEST SINGLE AP, February 09, 2017, 5:06. INDICATIONS : Chest pain. MEDICAL HISTORY : Hypercholesterolemia. Hypertension Myocardial infarction. CHF CAD COPD Asthma SURGICAL HISTORY : Pacemaker. CABG. Coronary artery stent. Defibrillator ENCOUNTER: Subsequent ACUITY: 2 days PAIN SCORE: 8/10 LOCATION: Bilateral chest FINDINGS: Pacemaker device is noted with control pack over the left chest. Cardiac silhouette is enlarged, unch anged. Mediastinal contours and pulmonary vascular is stable. There is no evidence of focal infiltrat e or effusion. CONCLUSION: Stable exam with fairly well compensated cardiomegaly. Benito Terrazas MD on February 10, 2017 at 0:43 Board Certified Radiologist. This report was verified electronically.
[2017-02-10 01:30] LABS: AUTOMATED NEUTROPHIL # 9.1 TH/MM3 (1.8-7.7); HEMOGLOBIN 11.9 GM/DL (13.0-17.0); LYMPH % 3.7 % (9.0-44.0); LYMPHOCYTE # 0.4 TH/MM3 (1.0-4.8); MEAN CELL VOLUME 82.1 FL (80.0-100.0); MEAN CORPUSCULAR HEMOGLOBIN 25.7 PG (27.0-34.0); MEAN CORPUSCULAR HGB CONC 31.3 % (32.0-36.0); MONO % 7.3 % (0.0-8.0); MONOCYTE # 0.7 TH/MM3 (0-0.9); PLATELET COUNT 277 TH/MM3 (150-450); RED BLOOD COUNT 4.63 MIL/MM3 (4.50-5.90); RED CELL DISTRIBUTION WIDTH 18.2 % (11.6-17.2); WHITE BLOOD COUNT 10.2 TH/MM3 (4.0-11.0)
[2017-02-10 01:43] LABS: AST (GOT) 35 U/L (15-37); BICARBONATE 23.3 MEQ/L (21.0-32.0); BLOOD UREA NITROGEN 22 MG/DL (7-18); CALCIUM 8.5 MG/DL (8.5-10.1); CHLORIDE 107 MEQ/L (98-107); CREATININE 1.37 MG/DL (0.60-1.30); GLOMERULAR FILTRATION RATE 65 ML/MIN (>89); GLUCOSE,RANDOM 136 MG/DL (74-106); MAGNESIUM 1.6 MG/DL (1.5-2.5); SODIUM (NA) 140 MEQ/L (136-145)
[2017-02-10 01:48] LABS: ALKALINE PHOSPHATASE 92 U/L (45-117); ALT (GPT) 32 U/L (12-78); TOTAL BILIRUBIN ADULT 1.3 MG/DL (0.2-1.0); TOTAL PROTEIN 6.2 GM/DL (6.4-8.2); TROPONIN I 0.05 NG/ML (0.02-0.05)
[2017-02-10 01:53] LABS: INTERNATIONAL NORMALIZED RATIO 1.1 RATIO; PROTHROMBIN TIME - PATIENT 11.6 SEC (9.8-11.6)
[2017-02-10] MEDS ORDERED: OSELTAMIVIR PHOSPHATE 75 MG CAP PO ONE (02:30)
[2017-02-10] MEDS ORDERED: OSELTAMIVIR PHOSPHATE 45 MG CAP PO ONE (02:45)
[2017-02-10] MEDS ORDERED: OSELTAMIVIR PHOSPHATE 30 MG CAP PO ONE (02:45)
[2017-02-10] MEDS ORDERED: SODIUM CHLORIDE 0.9% FLUSH 10 ML FLUSH IV FLUSH PRN ×2 (03:00→04:15)
[2017-02-10] MEDS ORDERED: RESP: ALBUTEROL 2.5 MG/3 ML NEB (PRN) NEB (04:15)
[2017-02-10] MEDS ORDERED: HEPARIN SODIUM - SQ 10,000 UNITS/ML VIAL SQ SCH (04:15)
[2017-02-10] MEDS ORDERED: ACETAMINOPHEN 325 MG TAB PO PRN (04:15)
[2017-02-10] MEDS ORDERED: ONDANSETRON HCL 4 MG/2 ML VIAL IV PUSH PRN (04:15)
--- NOTE | 2017-02-10 04:19 | HHI.HP ---
HPI Service Family Medicine Primary Care Physician No Primary Care Physician Admission Diagnosis influenza, COPD exacerbation Diagnoses: International Travel<30 Days: No Contact w/Intl Traveler<30days: No Known Affected Area: No History of Present Illness 57 yo AAM with PMH of COPD, CHF (EF 20-25%), A fib, CAD presenting to the ED with SOB, CP and cough. He has had a productive cough (clear sputum) for the past 3 days. He developed SOB, wheezing, chest pain precipitated by the cough and came to the ED on 02/09 - CXR at that time was negative. Patient received SoluMedrol x1, DuoNebs x 3 and improved significantly. Was sent home with prescriptions for Z miguelangel, Prednisone and promethazine codeine cough syrup, but was unable to have any of them filled over the holiday weekend. He states he felt well enough to walk around and go shopping on the day of discharge, but he is returning to the ED today due to worsening shortness of breath, cough with associated chest pain. He describes the chest pain as burning and along the L sternal border, only occurring with cough and never at rest. +Chills. Denies fever, N/V, diarrhea, abdominal pain, black/bloody stool. Of note, he stated he starting having pain in his R groin area, states he has known history of enlarged prostate - has appointment with urologist in February. Denies history of known hernia. Of note, he has been hospitalized 6-7 times in past year for respiratory distress. Never intubated or in ICU Review of Systems Constitutional: COMPLAINS OF: Chills, DENIES: Fever Ears, nose, mouth, throat: DENIES: Throat pain, Running Nose Respiratory: COMPLAINS OF: Cough, Wheezing, Sputum production, Shortness of breath, DENIES: Hemoptysis Cardiovascular: COMPLAINS OF: Chest pain, Palpitations (when SOB) Gastrointestinal: DENIES: Abdominal pain, Black stools, Bloody stools, Diarrhea , Nausea, Vomiting Genitourinary: DENIES: Urinary frequency, Dysuria Musculoskeletal: DENIES: Joint pain, Muscle aches Integumentary: DENIES: Rash Hematologic/lymphatic: DENIES: Lymphadenopathy Other Per HPI, all other systems reviewed were negative Past Family Social History Past Medical History COPD CHF CAD s/p coronary stent x2 in 2010 [place] sp CABG in 2013 Afib - Pacemaker in 2015 HTN Past Surgical History See PMH Allergies: Coded Allergies: No Known Allergies (Unverified Adverse Reaction, Unknown, 02/10/17) Family History Sister has CAD Breast cancer in mother, sister has renal cancer HTN in sisters Social History Lives by himself 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 Stopped smoking 3 weeks ago (wearing Nicotine patch now), used to smoke 0.5 ppd No alcohol 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 Resting comfortably in bed SKIN: No rashes, ecchymoses or lesions. Cool and dry. HEAD: Atraumatic. Normocephalic. No temporal or scalp tenderness. EYES: Pupils equal round and reactive. Extraocular motions intact. No scleral icterus. No injection or drainage. ENT: Nose without bleeding, purulent drainage or septal hematoma. Throat without erythema, tonsillar hypertrophy or exudate. Uvula midline. Airway patent. NECK: Trachea midline. No JVD or lymphadenopathy. Supple, nontender, no meningeal signs. CARDIOVASCULAR: Irregular rhythm, normal rate with no murmurs RESPIRATORY: Rales throughout the bases with diminished breath sounds and some expiratory wheezing. GASTROINTESTINAL: Abdomen soft, non-tender, nondistended. No hepato-splenomegaly , or palpable masses. No guarding. MUSCULOSKELETAL: Extremities without clubbing, cyanosis, or edema. No joint tenderness, effusion, or edema noted. No calf tenderness. Negative Homans sign bilaterally. NEUROLOGICAL: Awake and alert. Cranial nerves II through XII intact. Motor and sensory grossly within normal limits. Five out of 5 muscle strength in all muscle groups. Normal speech. Laboratory Laboratory Tests Test 02/10/17 00:20 White Blood Count 10.2 Red Blood Count 4.63 Hemoglobin 11.9 Hematocrit 38.0 Mean Corpuscular Volume 82.1 Mean Corpuscular Hemoglobin 25.7 Mean Corpuscular Hemoglobin Concent 31.3 Red Cell Distribution Width 18.2 Platelet Count 277 Mean Platelet Volume 8.0 Neutrophils (%) (Auto) 89.0 Lymphocytes (%) (Auto) 3.7 Monocytes (%) (Auto) 7.3 Eosinophils (%) (Auto) 0.0 Basophils (%) (Auto) 0.0 Neutrophils # (Auto) 9.1 Lymphocytes # (Auto) 0.4 Monocytes # (Auto) 0.7 Eosinophils # (Auto) 0.0 Basophils # (Auto) 0.0 CBC Comment DIFF FINAL Differential Comment Prothrombin Time 11.6 Prothromb Time International Ratio 1.1 Activated Partial Thromboplast Time 27.3 Blood Urea Nitrogen 22 Creatinine 1.37 Random Glucose 136 Total Protein 6.2 Albumin 3.0 Calcium Level 8.5 Magnesium Level 1.6 Alkaline Phosphatase 92 Aspartate Amino Transf (AST/SGOT) 35 Alanine Aminotransferase (ALT/SGPT) 32 Total Bilirubin 1.3 Sodium Level 140 Potassium Level 4.1 Chloride Level 107 Carbon Dioxide Level 23.3 Anion Gap 10 Estimat Glomerular Filtration Rate 65 Troponin I 0.05 B-Type Natriuretic Peptide 3910 Date/Time Source Procedure Growth Status 02/10/17 00:25 Nasal Washing Influenza Types A,B Antigen (ROJAS) - Final Positive For Flu A Antigen Complete Result Diagram: 02/10/17 0020 02/10/17 0020 Imaging Last 24 hours Impressions Chest X-Ray 02/10/17 0017 Signed Impressions: Service Date/Time: Friday, February 10, 2017 00:25 - CONCLUSION: Stable exam with fairly well compensated cardiomegaly. MD Sue Mishra VTE Risk Assessment Sue VTE Risk Assessment: No/Low Risk (score <= 1) Assessment and Plan Assessment and Plan 57 yo M with PMH of COPD, CHF, CAD, A fib with pacemaker presenting to ED with 3 day history of SOB, Cough, CP. Found to be influenza positive on admission. CXR negative on admission. Differential including COPD exacerbation vs CHF exacerbation vs PE. Improved symptomatically in ED after DuoNebs x 3, 40mg Lasix. Code Status Full Code Discussed Condition With Dr. Quan and Dr. Arriaga Problem List: (1) SOB (shortness of breath) ICD Codes: R06.02 - Shortness of breath Plan: 3 day history of worsening SOB, wheezing COPD vs CHF exacerbation (likely multifactorial) vs PE Given 3 DuoNebs, 40mg Lasix x1 in the ED Improved symptomatically Afebrile per history and on admission CXR - stable exam BNP elevated at 3910 (most recent was 1661 on 01/05/17) D-dimer WNL Plan: Duonebs scheduled q4hr Albuterol PRN Repeat BNP 2D Echo ordered Continue home medications: Continue Lasix 40mg BID (KCL 10mg BID) Entresto 49-51mg daily Plavix 75 mg daily Pravastatin 40 daily ASA 81 mg chew (2) Chest pain ICD Codes: R07.9 - Chest pain Status: Acute Plan: Complaining of CP associated with cough ASC rule out with significant PMH of cardiac disease Wells score of 1.5, D-Dimer WNL so PE is unlikely Troponin 0.05 x2 EKG on 02/09 showed no change from prior EKG Trending troponin, EKG See SOB workup as above Continuing home meds as above (3) Influenza A ICD Codes: J10.1 - Influenza due to other identified influenza virus with other respiratory manifestations Status: Acute Plan: Influenza A positive on admission No history of fevers, muscle aches, joint pain Starting Tamiflu 75mg po BID (4) Afib ICD Codes: I48.91 - Unspecified atrial fibrillation Plan: Known history of Afib with pacemaker in place Continue Digoxin 0.25mg daily Reportedly on Xarelto per prior documentation, not currently in med rec. Will need to confirm with his pharmacy Giving Heparin 5,000 units TID Consider cardiology consult pending workup/management of Afib (5) FEN Plan: No IVF at this time as patient likely has CHF component of SOB Replace electrolytes as needed Foster Villalobos MD R1 Feb 10, 2017 04:19
[2017-02-10] MEDS: OSELTAMIVIR PHOSPHATE 30 MG CAP PO SCH ×3 (05:00→21:42)
[2017-02-10] MEDS: OSELTAMIVIR PHOSPHATE 45 MG CAP PO SCH ×3 (05:00→21:41)
[2017-02-10] MEDS: DIGOXIN 0.25 MG TAB PO SCH ×2 (05:52→08:33)
[2017-02-10] MEDS: RESP: ALBUTEROL 2.5 MG/IPRATROPIUM 0.5 MG NEB (SCH) NEB ×4 (07:12→23:50)
[2017-02-10] MEDS: POTASSIUM CHLORIDE 10 MEQ CONTROLLED RELEASE TAB PO SCH ×2 (08:31→21:43)
[2017-02-10] MEDS: CLOPIDOGREL 75 MG TAB PO SCH (08:32)
[2017-02-10] MEDS: ASPIRIN 81 MG CHEW TAB CHEW SCH (08:32)
[2017-02-10] MEDS: SACUBITRIL/VALSARTAN 49 MG-51 MG TAB PO SCH (08:33)
[2017-02-10] MEDS: FUROSEMIDE 40 MG/4 ML VIAL IVP SCH ×2 (08:33→17:19)
[2017-02-10] MEDS: SODIUM CHLORIDE 0.9% FLUSH 10 ML FLUSH IV FLUSH SCH ×2 (08:34→21:42)
[2017-02-10] MEDS ORDERED: DIGOXIN 0.25 MG TAB PO SCH (09:00)
[2017-02-10] MEDS ORDERED: POTASSIUM CHLORIDE 10 MEQ CONTROLLED RELEASE TAB PO SCH (09:00)
[2017-02-10] MEDS ORDERED: SODIUM CHLORIDE 0.9% FLUSH 10 ML FLUSH IV FLUSH SCH (09:00)
[2017-02-10] MEDS ORDERED: POTASSIUM CHLORIDE 20 MEQ CONTROLLED RELEASE TAB PO SCH (09:00)
--- NOTE | 2017-02-10 11:13 | HHI.HP ---
HPI Service Family Medicine Primary Care Physician No Primary Care Physician Admission Diagnosis influenza, COPD exacerbation Diagnoses: (1) SOB (shortness of breath) Diagnosis: Principal (2) Influenza A Diagnosis: Principal (3) Afib Diagnosis: Principal (4) FEN Diagnosis: Principal (5) Chest pain Diagnosis: Principal International Travel<30 Days: No Contact w/Intl Traveler<30days: No Known Affected Area: No History of Present Illness Mr Fuentes is a 57 yo AAM with PMH of COPD, CHF (EF 20-25%), A fib, CAD who presented to the ED with SOB, CP and cough. He has had a productive cough ( clear sputum) for the past 3-4 days. He developed SOB, wheezing, chest pain precipitated by the cough and came to the ED on 02/09 - CXR at that time was negative for pneumonia. Patient received SoluMedrol x1, DuoNebs x 3 and improved significantly. Was sent home with prescriptions for Z miguelangel, Prednisone and promethazine codeine cough syrup, but was unable to have any of them filled over the holiday weekend. He states he felt well enough to walk around and go shopping on the day of discharge, but he is returning to the ED today due to worsening shortness of breath, cough with associated chest pain. He describes the chest pain as burning and along the L sternal border, only occurring with cough and never at rest. His chest pain gas completely resolved at this point. + Chills. Denies fever, N/V, diarrhea, abdominal pain, black/bloody stool. Of note , he stated he starting having pain in his R groin area, states he has known history of enlarged prostate - has appointment with urologist in February. Denies history of known hernia. Of note, he has been hospitalized 6-7 times in past year for respiratory distress. Never intubated or in ICU. He is stable today compared to admission and does not have any chest pain at this time. His cough is still present. Will admit for his current flu, COPD and CHF. Review of Systems Other Constitutional: COMPLAINS OF: Chills, DENIES: Fever Ears, nose, mouth, throat: DENIES: Throat pain, Running Nose Respiratory: COMPLAINS OF: Cough, Wheezing, Sputum production, Shortness of breath, DENIES: Hemoptysis Cardiovascular: COMPLAINS OF: Chest pain, Palpitations (when SOB) Gastrointestinal: DENIES: Abdominal pain, Black stools, Bloody stools, Diarrhea , Nausea, Vomiting Genitourinary: DENIES: Urinary frequency, Dysuria Musculoskeletal: DENIES: Joint pain, Muscle aches Integumentary: DENIES: Rash Hematologic/lymphatic: DENIES: Lymphadenopathy Other Per HPI, all other systems reviewed were negative Past Family Social History Past Medical History COPD CHF CAD s/p coronary stent x2 in 2010 [place] sp CABG in 2012 Afib - Pacemaker in 2014 HTN Past Surgical History See PMH Allergies: Coded Allergies: No Known Allergies (Unverified Adverse Reaction, Unknown, 02/10/17) Family History Sister has CAD Breast cancer in mother, sister has renal cancer HTN in sisters Social History 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 Stopped smoking 3 weeks ago (wearing Nicotine patch now), used to smoke 0.5 ppd No alcohol 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, cocaine but stopped in 2002 No pets Physical Exam Vital Signs Vital Signs Date Time Temp Pulse Resp B/P (MAP) Pulse Ox O2 Delivery O2 Flow Rate FiO2 02/10/17 08:41 98.2 86 20 103/68 (80) 98 02/10/17 07:16 93 21 02/10/17 05:48 99.0 97 18 113/64 (80) 97 02/10/17 04:03 02/10/17 03:03 97 02/10/17 03:02 118 20 137/75 (95) 96 Room Air 02/10/17 01:22 111 24 119/73 (88) 97 Nasal Cannula 2.00 02/10/17 00:28 100 Nasal Cannula 2.00 02/10/17 00:28 100 Nasal Cannula 2.00 02/10/17 00:17 94 31 98 Room Air 02/10/17 00:08 98.5 92 31 119/73 (88) 100 Physical Exam GENERAL: This is a well-nourished, well-developed patient, in no apparent distress. Resting comfortably in bed on 2 pillows SKIN: No rashes, ecchymoses or lesions. Cool and dry. HEAD: Atraumatic. Normocephalic. EYES: Pupils equal round and reactive. Extraocular motions intact. No scleral icterus. No injection or drainage. ENT: Nose without bleeding, purulent drainage or septal hematoma. Airway patent. NECK: Trachea midline. No JVD or lymphadenopathy. Supple, nontender, no meningeal signs. CARDIOVASCULAR: Irregular rhythm, normal rate with no murmurs RESPIRATORY: few rales in bases with diminished breath sounds and some expiratory wheezing throughout. GASTROINTESTINAL: Abdomen soft, non-tender, nondistended. No hepato-splenomegaly , or palpable masses. No guarding. MUSCULOSKELETAL: Extremities without clubbing, cyanosis, or edema. No joint tenderness, effusion, or edema noted. No calf tenderness. Negative Homans sign bilaterally. NEUROLOGICAL: Awake and alert. Cranial nerves II through XII intact. Motor and sensory grossly within normal limits. Five out of 5 muscle strength in all muscle groups. Normal speech. Laboratory Laboratory Tests Test 02/10/17 00:20 02/10/17 05:48 White Blood Count 10.2 Red Blood Count 4.63 Hemoglobin 11.9 Hematocrit 38.0 Mean Corpuscular Volume 82.1 Mean Corpuscular Hemoglobin 25.7 Mean Corpuscular Hemoglobin Concent 31.3 Red Cell Distribution Width 18.2 Platelet Count 277 Mean Platelet Volume 8.0 Neutrophils (%) (Auto) 89.0 Lymphocytes (%) (Auto) 3.7 Monocytes (%) (Auto) 7.3 Eosinophils (%) (Auto) 0.0 Basophils (%) (Auto) 0.0 Neutrophils # (Auto) 9.1 Lymphocytes # (Auto) 0.4 Monocytes # (Auto) 0.7 Eosinophils # (Auto) 0.0 Basophils # (Auto) 0.0 CBC Comment DIFF FINAL Differential Comment Prothrombin Time 11.6 Prothromb Time International Ratio 1.1 Activated Partial Thromboplast Time 27.3 Blood Urea Nitrogen 22 Creatinine 1.37 Random Glucose 136 Total Protein 6.2 Albumin 3.0 Calcium Level 8.5 Magnesium Level 1.6 Alkaline Phosphatase 92 Aspartate Amino Transf (AST/SGOT) 35 Alanine Aminotransferase (ALT/SGPT) 32 Total Bilirubin 1.3 Sodium Level 140 Potassium Level 4.1 Chloride Level 107 Carbon Dioxide Level 23.3 Anion Gap 10 Estimat Glomerular Filtration Rate 65 Troponin I 0.05 0.05 B-Type Natriuretic Peptide 3910 D-Dimer Quantitative (PE/DVT) 0.24 Date/Time Source Procedure Growth Status 02/10/17 00:25 Nasal Washing Influenza Types A,B Antigen (ROJAS) - Final Positive For Flu A Antigen Complete Result Diagram: 02/10/17 0020 02/10/17 0020 Imaging Last 24 hours Impressions Chest X-Ray 02/10/17 0017 Signed Impressions: Service Date/Time: Friday, February 10, 2017 00:25 - CONCLUSION: Stable exam with fairly well compensated cardiomegaly. MD Sue Mishra VTE Risk Assessment Sue VTE Risk Assessment: No/Low Risk (score <= 1) Caprini Risk Assessment Model Point Value = 1 Point Value = 2 Point Value = 3 Point Value = 5 Age 41-60 Minor surgery BMI > 25 kg/m2 Swollen legs Varicose veins or History of unexplained or recurrent spontaneous Oral contraceptives or hormone replacement Sepsis (< 1 month) Serious lung disease, including pneumonia (< 1 month) Abnormal pulmonary function Acute myocardial infarction Congestive heart failure (< 1 month) History of inflammatory bowel disease Medical patient at bed rest Age 61-74 Arthroscopic surgery Major open surgery (> 45 min) Laparoscopic surgery (> 45 min) Malignancy Confined to bed (> 72 hours) Immobilizing plaster cast Central venous access Age >= 75 History of VTE Family history of VTE Factor V Leiden Prothrombin [id number] Lupus anticoagulant Anticardiolipin antibodies Elevated serum homocysteine Heparin-induced thrombocytopenia Other congenital or acquired thrombophilia Stroke (< 1 month) Elective arthroplasty Hip, pelvis, or leg fracture Acute spinal cord injury (< 1 month) Prophylaxis Regimen Total Risk Factor Score Risk Level Prophylaxis Regimen 0-1 Low Early ambulation 2 Moderate Order ONE of the following: *Sequential Compression Device (SCD) *Heparin 5000 units SQ BID 3-4 Higher Order ONE of the following medications: *Heparin 5000 units SQ TID *Enoxaparin/Lovenox 40 mg SQ daily (WT < 150 kg, CrCl > 30 mL/min) *Enoxaparin/Lovenox 30 mg SQ daily (WT < 150 kg, CrCl > 10-29 mL/min) *Enoxaparin/Lovenox 30 mg SQ BID (WT < 150 kg, CrCl > 30 mL/min) AND/OR *Sequential Compression Device (SCD) 5 or more Highest Order ONE of the following medications: *Heparin 5000 units SQ TID (Preferred with Epidurals) *Enoxaparin/Lovenox 40 mg SQ daily (WT < 150 kg, CrCl > 30 mL/min) *Enoxaparin/Lovenox 30 mg SQ daily (WT < 150 kg, CrCl > 10-29 mL/min) *Enoxaparin/Lovenox 30 mg SQ BID (WT < 150 kg, CrCl > 30 mL/min) AND *Sequential Compression Device (SCD) Assessment and Plan Assessment and Plan 57 yo M with PMH of COPD, CHF, CAD, A fib with pacemaker presenting to ED with 3 day history of SOB, Cough, CP. Found to be influenza positive on admission. CXR negative on admission. Differential including COPD exacerbation vs CHF exacerbation vs PE. Improved symptomatically in ED after DuoNebs x 3, 40mg Lasix. Problem List: (1) SOB (shortness of breath) ICD Codes: R06.02 - Shortness of breath Plan: 3 day history of worsening SOB, wheezing COPD vs CHF exacerbation (likely multifactorial) vs PE Given 3 DuoNebs, 40mg Lasix x1 in the ED Improved symptomatically Afebrile per history and on admission CXR - stable exam BNP elevated at 3910 (most recent was 1661 on 01/05/17) D-dimer WNL Plan: Duonebs scheduled q4hr Albuterol PRN Repeat BNP 2D Echo ordered Continue home medications: Continue Lasix 40mg BID (KCL 10mg BID) Entresto 49-51mg daily Plavix 75 mg daily Pravastatin 40 daily ASA 81 mg chew (2) Chest pain ICD Codes: R07.9 - Chest pain Status: Acute Plan: Complained of CP associated with cough ASC rule out with significant PMH of cardiac disease Wells score of 1.5, D-Dimer WNL so PE is unlikely Troponin 0.05 x2 EKG on 02/09 showed no change from prior EKG Trending troponin, EKG See SOB workup as above Continuing home meds as above Now CP gone. (3) Influenza A ICD Codes: J10.1 - Influenza due to other identified influenza virus with other respiratory manifestations Status: Acute Plan: Influenza A positive on admission No history of fevers, muscle aches, joint pain Starting Tamiflu 75mg po BID (4) Afib ICD Codes: I48.91 - Unspecified atrial fibrillation Plan: Known history of Afib with pacemaker in place Continue Digoxin 0.25mg daily. unsure of exact dose of coreg but in old records 12.5 mg BID so will start that. on Xarelto per prior documentation, not currently in med rec. pt reports taking this so will start here and stop heparin Consider cardiology consult pending workup/management of Afib/CHF. will use digoxin and coreg for rate control which is most important. so far, his rate and BP have been fine. (5) FEN Plan: No IVF at this time as patient likely has CHF component of SOB Replace electrolytes as needed Problem Qualifiers (1) Afib: Qualified Codes: I48.2 - Chronic atrial fibrillation (2) Chest pain: Qualified Codes: R07.1 - Chest pain on breathing Bonnie Porter MD Feb 10, 2017 11:13
[2017-02-10] MEDS: RIVAROXABAN 20 MG TAB PO SCH (11:26)
--- NOTE | 2017-02-10 21:33 | EKG ---
Date Performed: 02/10/2017 Time Performed: 00:17:55 PTAGE: 57 years EKG: ATRIAL FIBRILLATION BORDERLINE RIGHT AXIS DEVIATION PATTERN CONSISTENT WITH PULMONARY DISEA SE ST DEVIATION AND MODERATE T-WAVE ABNORMALITY, CONSIDER INFERIOR ISCHEMIA ABNORMAL ECG NO PREVIOUS TRACING DOCTOR: Trisha John Interpretating Date/Time 02/10/2017 21:31:57
[2017-02-10] MEDS: CARVEDILOL 6.25 MG TAB PO SCH (21:41)
[2017-02-10] MEDS: PRAVASTATIN SOD 20 MG TAB PO SCH (21:42)
[2017-02-11] VITALS (16 sets, daily range): BP systolic 96–111; BP diastolic 52–78; PULSE 72–101; RESP 16–22; TEMP 97.3–98.3; O2SAT 93–100
[2017-02-11] MEDS ORDERED: OSELTAMIVIR PHOSPHATE 45 MG CAP PO SCH ×2 (03:00→09:00)
[2017-02-11] MEDS ORDERED: OSELTAMIVIR PHOSPHATE 30 MG CAP PO SCH ×2 (03:00→09:00)
[2017-02-11] MEDS: RESP: ALBUTEROL 2.5 MG/IPRATROPIUM 0.5 MG NEB (SCH) NEB ×6 (05:11→23:34)
[2017-02-11] MEDS: SODIUM CHLORIDE 0.9% FLUSH 10 ML FLUSH IV FLUSH SCH ×2 (07:23→20:46)
--- NOTE | 2017-02-11 08:03 | HHI.FPPN ---
Subjective Remarks Patient sitting on side of bed. Nurse reports he continued to wheeze and cough overnight. Patient still not feeling himself. He is on 2L nasal cannula overnight. No fevers overnight. Has audible wheezing and productive cough while I am in the room. No chest pain. No abdominal pain, nausea, vomiting, diarrhea. No muscle aches. No peripheral edema. Objective Vitals Vital Signs Date Time Temp Pulse Resp B/P (MAP) Pulse Ox O2 Delivery O2 Flow Rate FiO2 02/11/17 07:36 99 Nasal Cannula 2.00 02/11/17 07:33 94 Nasal Cannula 2.00 02/11/17 05:16 96 Nasal Cannula 2.00 02/11/17 04:00 97.3 91 22 111/78 (89) 100 02/11/17 03:57 80 02/11/17 00:00 72 02/11/17 00:00 98.3 82 20 111/64 (80) 100 02/10/17 20:00 98.2 86 20 118/68 (85) 96 02/10/17 20:00 Nasal Cannula 2.00 02/10/17 20:00 96 02/10/17 17:33 92 02/10/17 16:23 Room Air 02/10/17 16:00 97.5 79 20 125/76 (92) 97 02/10/17 13:28 97.9 88 20 126/75 (92) 96 02/10/17 08:41 98.2 86 20 103/68 (80) 98 I/O 02/10/17 02/10/17 02/10/17 02/11/17 02/11/17 02/11/17 07:00 15:00 23:00 07:00 15:00 23:00 Intake Total 200 ml Output Total 600 ml Balance -400 ml Intake Oral 200 ml Output Urine Total 600 ml # Voids 1 5 2 # Bowel Movements 1 0 Result Diagram: 02/10/17 0020 02/10/17 0020 Imaging Last 72 hours Impressions Chest X-Ray 02/10/17 0017 Signed Impressions: Service Date/Time: Friday, February 10, 2017 00:25 - CONCLUSION: Stable exam with fairly well compensated cardiomegaly. Benito Terrazas MD Objective Remarks GENERAL: Sitting up on side of bed, nasal cannula in place, audible wheeze and coughing SKIN: No rashes or lesions HEENT: Normocephalic, no nasal discharge, no conjunctivitis NECK: Trachea midline. No JVD or lymphadenopathy. CARDIOVASCULAR: RRR, no murmurs, pulses intact, normal capillary refill. RESPIRATORY: Rales throughout the bases with diminished breath sounds and audible expiratory wheezing, productive cough throughout exam. GASTROINTESTINAL: Abdomen soft, non-tender, nondistended, normal bowel sounds MUSCULOSKELETAL: No peripheral edema. NEUROLOGICAL: Awake and alert. A/P Assessment and Plan 57 yo male with PMH of COPD, CHF, CAD, A fib with pacemaker presenting to ED with 3 day history of SOB, Cough, CP. Found to be influenza positive on admission. Presentation most consistent with COPD exacerbation brought about by influenza virus. Discharge Planning Likely return home once clinically stable. May need O2 walk test before discharge to see if he needs oxygen therapy at home. Problem List: (1) COPD exacerbation ICD Codes: J44.1 - Chronic obstructive pulmonary disease with (acute) exacerbation Status: Acute Plan: COPD exacerbated by influenza. - Continue DuoNebs scheduled, albuterol PRN. - Added inhaled fluticasone from home. - Added prednisone 50 mg daily and Azithromycin 500 mg daily on 02/11. Continue for 5 days. - Added Mucinex to help with mucous clearance. 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 (2) Influenza A ICD Codes: J10.1 - Influenza due to other identified influenza virus with other respiratory manifestations Status: Acute Plan: Influenza A positive. - Continue Oseltamivir 75 mg PO bid, continue for 5 days. - Supportive management. (3) CHF (congestive heart failure) ICD Codes: I50.9 - Congestive heart failure Status: Acute Plan: Presenting with increasing shortness of breath, likely multifactorial. Possibly with small component of CHF exacerbation. - Continue Entresto. - Continue carvedilol 6.25 q12hrs - Continue Lasix 40 mg PO daily, monitor fluid status, renal function - Follow up on ECHO - 2g sodium restriction - May benefit from spironolactone depending on ejection fraction. (4) CAD (coronary artery disease) ICD Codes: I25.10 - Atherosclerotic heart disease of [place] coronary artery without angina pectoris Status: Chronic Plan: History of coronary artery disease. Presented with chest pain. ACS and PE ruled out. - Continue aspirin and Plavix from home. - Continue statin. - Recommend no smoking, healthy diet, daily exercise. (5) Afib ICD Codes: I48.91 - Unspecified atrial fibrillation Status: Chronic Plan: Known history of Afib with pacemaker in place. Currently rate controlled. - Continue Digoxin 0.25mg daily. - Continue carvedilol - Continue Xarelto for anticoagulation. - Continue telemetry. (6) FEN Plan: PO fluids Heart healthy diet Replace electrolytes as needed Monitor potassium and fluid status while on Lasix Problem Qualifiers (1) Afib: Qualified Codes: I48.2 - Chronic atrial fibrillation London Cifuentes MD R3 Feb 11, 2017 08:03
[2017-02-11] MEDS ORDERED: FUROSEMIDE 40 MG TAB PO SCH (09:00)
[2017-02-11] MEDS: OSELTAMIVIR PHOSPHATE 45 MG CAP PO SCH ×2 (09:04→20:46)
[2017-02-11] MEDS: RIVAROXABAN 20 MG TAB PO SCH (09:04)
[2017-02-11] MEDS: CARVEDILOL 6.25 MG TAB PO SCH ×2 (09:05→20:46)
[2017-02-11] MEDS: SACUBITRIL/VALSARTAN 49 MG-51 MG TAB PO SCH (09:05)
[2017-02-11] MEDS: OSELTAMIVIR PHOSPHATE 30 MG CAP PO SCH ×2 (09:05→20:46)
[2017-02-11] MEDS: POTASSIUM CHLORIDE 10 MEQ CONTROLLED RELEASE TAB PO SCH ×2 (09:05→20:46)
[2017-02-11] MEDS: DIGOXIN 0.25 MG TAB PO SCH (09:05)
[2017-02-11] MEDS: CLOPIDOGREL 75 MG TAB PO SCH (09:05)
[2017-02-11] MEDS: ASPIRIN 81 MG CHEW TAB CHEW SCH (09:06)
[2017-02-11 09:23] LABS: ALBUMIN 2.9 GM/DL (3.4-5.0); AST (GOT) 28 U/L (15-37); BICARBONATE 28.5 MEQ/L (21.0-32.0); BLOOD UREA NITROGEN 23 MG/DL (7-18); CALCIUM 8.6 MG/DL (8.5-10.1); CHLORIDE 100 MEQ/L (98-107); CREATININE 1.19 MG/DL (0.60-1.30); GLOMERULAR FILTRATION RATE 76 ML/MIN (>89); GLUCOSE,RANDOM 84 MG/DL (74-106); SODIUM (NA) 136 MEQ/L (136-145)
[2017-02-11 09:24] LABS: ALT (GPT) 27 U/L (12-78)
[2017-02-11 09:27] LABS: ALKALINE PHOSPHATASE 78 U/L (45-117); TOTAL BILIRUBIN ADULT 1.3 MG/DL (0.2-1.0); TOTAL PROTEIN 6.1 GM/DL (6.4-8.2)
[2017-02-11] MEDS: predniSONE 50 MG TAB PO SCH (10:09)
[2017-02-11] MEDS: guaiFENesin E.R. 600 MG TAB PO SCH ×2 (10:09→20:46)
[2017-02-11] MEDS: AZITHROMYCIN 250 MG TAB PO SCH (10:09)
--- NOTE | 2017-02-11 11:09 | RADRPT ---
EXAM DATE/TIME: 02/11/2017 10:17 [place] COMPARISON: No previous studies available for comparison. INDICATIONS : Chest pain and shortness of breath- Congestive heart failure. MEDICAL HISTORY : Chronic obstructive pulmonary disease. Hypercholesterolemia. Hypertension Myocardial infarction . CHF CAD, Asthma. SURGICAL HISTORY : Pacemaker. CABG. Coronary artery stent. Defibrillator. ENCOUNTER: Subsequent ACUITY: 2 days PAIN SCORE: 4/10 LOCATION: Bilateral chest FINDINGS: Cardiomegaly, previous bypass, defibrillator. Mild congestive failure. Moderate hyperinflation. No pleural effusion. CONCLUSION: Moderate hyperinflation with mild interstitial edema. Hyperinflation could mask significant failure. . Jl Zimmerman MD FACR on February 11, 2017 at 11:07 Board Certified Radiologist. This report was verified electronically.
[2017-02-11 11:18] LABS: HEMATOCRIT 44.6 % (39.0-51.0); HEMOGLOBIN 13.9 GM/DL (13.0-17.0); MEAN CELL VOLUME 83.1 FL (80.0-100.0); MEAN CORPUSCULAR HEMOGLOBIN 25.9 PG (27.0-34.0); MEAN CORPUSCULAR HGB CONC 31.2 % (32.0-36.0); PLATELET COUNT 300 TH/MM3 (150-450); RED BLOOD COUNT 5.37 MIL/MM3 (4.50-5.90); RED CELL DISTRIBUTION WIDTH 18.4 % (11.6-17.2); WHITE BLOOD COUNT 8.1 TH/MM3 (4.0-11.0)
[2017-02-11] MEDS: FLUTICASONE PROPIONATE 110 MCG/ACT 12 GM INHALER INH SCH ×2 (11:20→20:47)
[2017-02-11] MEDS: PRAVASTATIN SOD 20 MG TAB PO SCH (20:46)
[2017-02-12] VITALS (12 sets, daily range): BP systolic 102–112; BP diastolic 62–80; PULSE 69–94; RESP 16–20; TEMP 97.1–98.4; O2SAT 94–98
[2017-02-12] MEDS: RESP: ALBUTEROL 2.5 MG/IPRATROPIUM 0.5 MG NEB (SCH) NEB ×5 (03:06→20:44)
[2017-02-12] MEDS: SODIUM CHLORIDE 0.9% FLUSH 10 ML FLUSH IV FLUSH SCH ×2 (08:00→22:20)
--- NOTE | 2017-02-12 08:00 | HHI.FPPN ---
Subjective Remarks No fevers overnight. No leukocytosis present. Objective Vitals Vital Signs Date Time Temp Pulse Resp B/P (MAP) Pulse Ox O2 Delivery O2 Flow Rate FiO2 02/12/17 04:58 98.4 76 16 108/62 (77) 94 02/12/17 04:00 88 02/12/17 00:00 69 02/11/17 21:25 Nasal Cannula 2.00 02/11/17 21:25 97.8 90 16 107/60 (76) 95 02/11/17 20:24 Nasal Cannula 2.00 02/11/17 20:24 97.6 89 16 110/62 (78) 96 02/11/17 20:02 93 Nasal Cannula 2.00 02/11/17 20:00 88 02/11/17 16:10 80 02/11/17 16:00 98.2 86 18 96/52 (67) 95 02/11/17 12:00 98.1 96 18 104/71 (82) 97 02/11/17 11:46 95 02/11/17 08:28 Nasal Cannula 2.00 21 02/11/17 08:00 98.3 90 20 110/77 (88) 98 I/O 02/11/17 02/11/17 02/11/17 02/12/17 02/12/17 02/12/17 07:00 15:00 23:00 07:00 15:00 23:00 Intake Total 720 ml 240 ml Balance 720 ml 240 ml Intake Oral 720 ml 240 ml # Voids 2 3 12 # Bowel Movements 0 1 1 Result Diagram: 02/11/17 1052 02/11/17 0810 Objective Remarks GENERAL: Sitting up on side of bed, nasal cannula in place, audible wheeze and coughing SKIN: No rashes or lesions HEENT: Normocephalic, no nasal discharge, no conjunctivitis NECK: Trachea midline. No JVD or lymphadenopathy. CARDIOVASCULAR: RRR, no murmurs, pulses intact, normal capillary refill. RESPIRATORY: Rales throughout the bases with diminished breath sounds and audible expiratory wheezing, productive cough throughout exam. GASTROINTESTINAL: Abdomen soft, non-tender, nondistended, normal bowel sounds MUSCULOSKELETAL: No peripheral edema. NEUROLOGICAL: Awake and alert. A/P Assessment and Plan 57 yo male with PMH of COPD, CHF, CAD, A fib with pacemaker presenting to ED with 3 day history of SOB, Cough, CP. Found to be influenza positive on admission. Presentation most consistent with COPD exacerbation brought about by influenza virus. Discharge Planning Likely return home once clinically stable. May need O2 walk test before discharge to see if he needs oxygen therapy at home. Problem List: (1) COPD exacerbation ICD Codes: J44.1 - Chronic obstructive pulmonary disease with (acute) exacerbation Status: Acute Plan: COPD exacerbated by influenza. - Continue DuoNebs scheduled, albuterol PRN. - Added inhaled fluticasone from home. - Added prednisone 50 mg daily and Azithromycin 500 mg daily on 02/11. Continue for 5 days. - Added Mucinex to help with mucous clearance. - Supplemental O2 - Would likely benefit from pulmonary rehab after discharge and a card grader. (2) Influenza A ICD Codes: J10.1 - Influenza due to other identified influenza virus with other respiratory manifestations Status: Acute Plan: Influenza A positive. - Continue Oseltamivir 75 mg PO bid, continue for 5 days. - Supportive management. (3) CHF (congestive heart failure) ICD Codes: I50.9 - Congestive heart failure Status: Acute Plan: Presenting with increasing shortness of breath, likely multifactorial. Possibly with small component of CHF exacerbation. BNP trending down with Lasix. - Continue Entresto. - Continue carvedilol 6.25 q12hrs - Continue Lasix 40 mg PO daily, monitor fluid status, renal function - Follow up on ECHO - 2g sodium restriction - May benefit from spironolactone depending on ejection fraction. (4) CAD (coronary artery disease) ICD Codes: I25.10 - Atherosclerotic heart disease of [place] coronary artery without angina pectoris Status: Chronic Plan: History of coronary artery disease. Presented with chest pain. ACS and PE ruled out. - Continue aspirin and Plavix from home. - Continue statin. - Recommend no smoking, healthy diet, daily exercise. (5) Afib ICD Codes: I48.91 - Unspecified atrial fibrillation Status: Chronic Plan: Known history of Afib with pacemaker in place. Currently rate controlled. - Continue Digoxin 0.25mg daily. - Continue carvedilol - Continue Xarelto for anticoagulation. - Continue telemetry. (6) FEN Plan: PO fluids Heart healthy diet Replace electrolytes as needed Monitor potassium and fluid status while on Lasix Problem Qualifiers (1) Afib: Qualified Codes: I48.2 - Chronic atrial fibrillation [place] Cifuentes MD R3 Feb 12, 2017 08:00
[2017-02-12] MEDS: guaiFENesin E.R. 600 MG TAB PO SCH ×2 (08:03→22:22)
[2017-02-12] MEDS: AZITHROMYCIN 250 MG TAB PO SCH (08:03)
[2017-02-12] MEDS: CLOPIDOGREL 75 MG TAB PO SCH (08:04)
[2017-02-12] MEDS: predniSONE 50 MG TAB PO SCH (08:04)
[2017-02-12] MEDS: FUROSEMIDE 40 MG TAB PO SCH (08:04)
[2017-02-12] MEDS: DIGOXIN 0.25 MG TAB PO SCH (08:04)
[2017-02-12] MEDS: SACUBITRIL/VALSARTAN 49 MG-51 MG TAB PO SCH (08:04)
[2017-02-12] MEDS: POTASSIUM CHLORIDE 10 MEQ CONTROLLED RELEASE TAB PO SCH ×2 (08:04→22:22)
[2017-02-12] MEDS: RIVAROXABAN 20 MG TAB PO SCH (08:04)
[2017-02-12] MEDS: ASPIRIN 81 MG CHEW TAB CHEW SCH (08:04)
[2017-02-12] MEDS: OSELTAMIVIR PHOSPHATE 45 MG CAP PO SCH ×2 (08:05→22:22)
[2017-02-12] MEDS: OSELTAMIVIR PHOSPHATE 30 MG CAP PO SCH ×2 (08:05→22:22)
[2017-02-12] MEDS: FLUTICASONE PROPIONATE 110 MCG/ACT 12 GM INHALER INH SCH ×2 (08:05→22:20)
[2017-02-12] MEDS: CARVEDILOL 6.25 MG TAB PO SCH ×2 (08:06→22:22)
--- NOTE | 2017-02-12 09:57 | HHI.FPPN ---
Subjective Remarks Patient with 94% O2 saturation while on 2L overnight. This morning reports some improvement since yesterday. Still having wheezing and coughing. Coughing is improved somewhat. Walking with only mild shortness of breath. Does not feel ready to go home, feels he has a ways to go to reach his baseline. However, he does feel he is heading in the right direction. No fevers overnight. (London Cifuentes MD R3) Objective Vitals Vital Signs Date Time Temp Pulse Resp B/P (MAP) Pulse Ox O2 Delivery O2 Flow Rate FiO2 02/12/17 08:34 97 21 02/12/17 08:00 97.1 83 16 102/71 (81) 94 02/12/17 04:58 98.4 76 16 108/62 (77) 94 02/12/17 04:00 88 02/12/17 00:00 69 02/11/17 21:25 Nasal Cannula 2.00 02/11/17 21:25 97.8 90 16 107/60 (76) 95 02/11/17 20:24 Nasal Cannula 2.00 02/11/17 20:24 97.6 89 16 110/62 (78) 96 02/11/17 20:02 93 Nasal Cannula 2.00 02/11/17 20:00 88 02/11/17 16:10 80 02/11/17 16:00 98.2 86 18 96/52 (67) 95 02/11/17 12:00 98.1 96 18 104/71 (82) 97 02/11/17 11:46 95 I/O 02/11/17 02/11/17 02/11/17 02/12/17 02/12/17 02/12/17 07:00 15:00 23:00 07:00 15:00 23:00 Intake Total 720 ml 240 ml Balance 720 ml 240 ml Intake Oral 720 ml 240 ml # Voids 2 3 12 # Bowel Movements 0 1 1 (London Cifuentes MD R3) Result Diagram: 02/11/17 1052 02/11/17 0810 Objective Remarks GENERAL: Sitting at edge of bed, 2L nasal cannula, no distress, coughs during interview SKIN: No rashes or lesions HEENT: Normocephalic, no nasal discharge, no conjunctivitis NECK: Trachea midline. No JVD or lymphadenopathy. CARDIOVASCULAR: RRR, no murmurs, pulses intact, normal capillary refill. RESPIRATORY: expiratory wheezing, productive cough throughout exam, somewhat improved from yesterday GASTROINTESTINAL: Abdomen soft, non-tender, nondistended, normal bowel sounds MUSCULOSKELETAL: No peripheral edema. NEUROLOGICAL: Awake and alert. (London Cifuentes MD R3) A/P Assessment and Plan 57 yo male with PMH of COPD, CHF, CAD, A fib with pacemaker presenting to ED with 3 day history of SOB, Cough, CP. Found to be influenza positive on admission. Presentation most consistent with COPD exacerbation brought about by influenza virus. Discharge Planning Likely return home once clinically stable. Likely does not need home O2 walk test as he reports he does not get short of breath partaking in his routine activities. Would benefit from pulmonary rehab and a bi report developer given 3 hospital admissions for COPD this year. (London Cifuentes MD R3) Attending Attestation Patient seen and examined. Case reviewed and discussed with the resident team. Agree with plan of care as discussed with me and documented in the resident note. agree with steroids. he has the flu and should hopefully be helped by the tamiflu (Bonnie Porter MD) Problem List: (1) COPD exacerbation ICD Codes: J44.1 - Chronic obstructive pulmonary disease with (acute) exacerbation Status: Acute Plan: COPD exacerbated by influenza. - Continue DuoNebs scheduled, albuterol PRN. - Added inhaled fluticasone from home. - Added prednisone 50 mg daily and Azithromycin 500 mg daily on 02/11. Continue for 5 days. - Added Mucinex to help with mucous clearance. - Supplemental O2 - Would likely benefit from pulmonary rehab after discharge and a bi report developer. - Has tried quitting smoking intermittently, would benefit from Chantix versus nicotine gum/patches. (2) Influenza A ICD Codes: J10.1 - Influenza due to other identified influenza virus with other respiratory manifestations Status: Acute Plan: Influenza A positive. - Continue Oseltamivir 75 mg PO bid, continue for 5 days. - Supportive management. (3) CHF (congestive heart failure) ICD Codes: I50.9 - Congestive heart failure Status: Acute Plan: Presenting with increasing shortness of breath, likely multifactorial. Possibly with small component of CHF exacerbation. BNP trending down with Lasix. - Continue Entresto. - Continue carvedilol 6.25 q12hrs - Continue Lasix 40 mg PO daily, monitor fluid status, renal function - Follow up on ECHO - 2g sodium restriction - May benefit from spironolactone depending on ejection fraction. (4) CAD (coronary artery disease) ICD Codes: I25.10 - Atherosclerotic heart disease of [place] coronary artery without angina pectoris Status: Chronic Plan: History of coronary artery disease. Presented with chest pain. ACS and PE ruled out. - Continue aspirin and Plavix from home. - Continue statin. - Recommend no smoking, healthy diet, daily exercise. (5) Afib ICD Codes: I48.91 - Unspecified atrial fibrillation Status: Chronic Plan: Known history of Afib with pacemaker in place. Currently rate controlled. - Continue Digoxin 0.25mg daily. - Continue carvedilol - Continue Xarelto for anticoagulation. - Continue telemetry. (6) FEN Plan: PO fluids Heart healthy diet Replace electrolytes as needed Monitor potassium and fluid status while on Lasix (London Cifuentes MD R3) Problem Qualifiers (1) CHF (congestive heart failure): Qualified Codes: I50.21 - Acute systolic (congestive) heart failure (2) Afib: Qualified Codes: I48.2 - Chronic atrial fibrillation London Cifuentes MD R3 Feb 12, 2017 09:57 Bonnie Porter MD Feb 13, 2017 11:31
[2017-02-12 11:44] LABS: HEMATOCRIT 44.3 % (39.0-51.0); HEMOGLOBIN 13.8 GM/DL (13.0-17.0); MEAN CELL VOLUME 82.5 FL (80.0-100.0); MEAN CORPUSCULAR HEMOGLOBIN 25.7 PG (27.0-34.0); MEAN CORPUSCULAR HGB CONC 31.2 % (32.0-36.0); MEAN PLATELET VOLUME 8.1 FL (7.0-11.0); PLATELET COUNT 293 TH/MM3 (150-450); RED BLOOD COUNT 5.36 MIL/MM3 (4.50-5.90); RED CELL DISTRIBUTION WIDTH 18.1 % (11.6-17.2); WHITE BLOOD COUNT 6.9 TH/MM3 (4.0-11.0)
[2017-02-12 12:10] LABS: BICARBONATE 33.7 MEQ/L (21.0-32.0); CALCIUM 9.3 MG/DL (8.5-10.1); CREATININE 1.15 MG/DL (0.60-1.30)
--- NOTE | 2017-02-12 20:30 | ECHRPT ---
Indication: Heart failure, unspecified CONCLUSIONS The left ventricular systolic function is severely reduced with an estimated ejection fraction of 20 %. Left ventricular enlargement. The left atrial size is [id number] dilated. There is estimated mild pulmonary hypertension present (range 40-50 mmHg). There is mild to moderate tricuspid valve regurgitation. BP: 110 / 77 HR: 101 Rhythm: MEASUREMENTS (Male / Female) Normal Values Technical Quality:Good 2D ECHO LV Diastolic Diameter PLAX 5.8 cm 4.2 - 5.9 / 3.9 - 5.3 cm LV Systolic Diameter PLAX 5.1 cm IVS Diastolic Thickness 1.1 cm 0.6 - 1.0 / 0.6 - 0.9 cm LVPW Diastolic Thickness 0.7 cm 0.6 - 1.0 / 0.6 - 0.9 cm LV Relative Wall Thickness 0.3 RV Internal Dim ED PLAX 2.5 cm M-MODE Aortic Root Diameter MM 3.7 cm LA Systolic Diameter MM 5.1 cm LA Ao Ratio MM 1.4 AV Cusp Separation MM 1.9 cm DOPPLER Mitral E Point Velocity 119.0 cm/s Mitral A Point Velocity 65.2 cm/s Mitral E to A Ratio 1.8 LV E' Lateral Velocity 8.7 cm/s Mitral E to LV E' Lateral Ratio 13.7 TR Peak Velocity 315.0 cm/s TR Peak Gradient 39.7 mmHg Right Atrial Pressure 10.0 mmHg Pulmonary Artery Systolic Pressu 49.7 mmHg Right Ventricular Systolic Press 49.7 mmHg FINDINGS LEFT VENTRICLE The left ventricular systolic function is severely reduced with an estimated ejection fraction of 20 %. Left ventricular enlargement. Wall thickness is normal. Normal left ventricular size. Doppler parameters are consistent with impaired left ventricular relaxtion RIGHT VENTRICLE Normal right ventricular size and systolic function. LEFT ATRIUM The left atrial size is rvst-[id number] dilated. RIGHT ATRIUM The right atrial size is normal. There is a pacemaker wire present in the right atrial cavity. ATRIAL SEPTUM Normal atrial septal thickness without atrial level shunting by limited color doppler interrogation. AORTA The aortic root and proximal ascending aorta are not well visualized. MITRAL VALVE Mild mitral valve regurgitation. Structurally normal mitral valve. AORTIC VALVE Trileaflet aortic valve. No aortic valve stenosis or regurgitation. TRICUSPID VALVE There is estimated mild pulmonary hypertension present (range 40-50 mmHg). There is mild to moderate tricuspid valve regurgitation. PULMONARY VALVE No pulmonary valve regurgitation or stenosis. VESSELS The inferior vena cava is normal in size. PERICARDIUM No pericardial effusion. Trisha John MD, FACC (Electronically Signed) Final Date:12 February 2017 20:29
[2017-02-12] MEDS: PRAVASTATIN SOD 20 MG TAB PO SCH (22:22)
[2017-02-13] VITALS (7 sets, daily range): BP systolic 98–130; BP diastolic 64–74; PULSE 69–103; RESP 17–20; TEMP 97.6–98.4; O2SAT 95–98
[2017-02-13] MEDS: RESP: ALBUTEROL 2.5 MG/IPRATROPIUM 0.5 MG NEB (SCH) NEB ×4 (00:16→11:49)
[2017-02-13] MEDS ORDERED: PRED50 PO (08:33)
[2017-02-13] MEDS ORDERED: CARV6.25 PO (08:33)
[2017-02-13] MEDS ORDERED: AZIT250T3 PO (08:33)
[2017-02-13] MEDS ORDERED: OSEL45 PO (08:33)
[2017-02-13] MEDS ORDERED: SPIR25TA PO (08:33)
[2017-02-13] MEDS ORDERED: OSEL30 PO (08:33)
[2017-02-13] MEDS ORDERED: XARE20TA PO (08:33)
--- NOTE | 2017-02-13 08:36 | HHI.DCPOC ---
Discharge Care Plan Diagnosis: (1) Atrial fibrillation (2) CHF (congestive heart failure) (3) COPD (chronic obstructive pulmonary disease) (4) CAD (coronary artery disease) (5) Influenza A (6) COPD exacerbation Goals to Promote Your Health * To prevent worsening of your condition and complications * To maintain your health at the optimal level Directions to Meet Your Goals Take your medications as prescribed Follow your dietary instruction Follow activity as directed Keep your appointments as scheduled Take your immunizations and boosters as scheduled If your symptoms worsen call your PCP, if no PCP go to Urgent Care Center or Emergency Room Smoking is Dangerous to Your Health. Avoid second hand smoke Call the 24-hour hour crisis hotline for domestic abuse at [place] Cifuentes MD R3 Feb 13, 2017 08:36
[2017-02-13] MEDS: SODIUM CHLORIDE 0.9% FLUSH 10 ML FLUSH IV FLUSH SCH (09:15)
[2017-02-13 09:16] LABS: BICARBONATE 31.1 MEQ/L (21.0-32.0); CALCIUM 8.5 MG/DL (8.5-10.1); CREATININE 1.2 MG/DL (0.60-1.30)
[2017-02-13] MEDS: predniSONE 50 MG TAB PO SCH (09:19)
[2017-02-13] MEDS: DIGOXIN 0.25 MG TAB PO SCH (09:19)
[2017-02-13] MEDS: POTASSIUM CHLORIDE 10 MEQ CONTROLLED RELEASE TAB PO SCH (09:19)
--- NOTE | 2017-02-13 09:19 | HHI.FPPN ---
Subjective Remarks Patient doing well this morning, now off oxygen therapy. He is sitting up in bed and in no distress. He reports feeling pretty much back to himself this morning. Had minimal coughing overnight. Remains afebrile. Has been walking without much dyspnea. Still coughing but improving. He is requesting to go home. We discussed discharge instructions and planning. (London Cifuentes MD R3) Objective Vitals Vital Signs Date Time Temp Pulse Resp B/P (MAP) Pulse Ox O2 Delivery O2 Flow Rate FiO2 02/13/17 08:34 98 02/13/17 04:00 72 02/13/17 04:00 98.4 75 20 98/64 (75) 97 02/13/17 00:00 103 02/13/17 00:00 98.2 87 20 130/66 (87) 95 02/12/17 20:46 97 02/12/17 20:00 80 02/12/17 20:00 97.6 88 20 112/71 (85) 95 02/12/17 20:00 Nasal Cannula 2.00 02/12/17 16:14 93 02/12/17 16:00 97.1 85 18 106/80 (89) 98 02/12/17 12:12 94 02/12/17 12:00 97.5 93 18 110/69 (83) 96 02/12/17 10:18 Nasal Cannula 2.00 21 I/O 02/12/17 02/12/17 02/12/17 02/13/17 02/13/17 02/13/17 07:00 15:00 23:00 07:00 15:00 23:00 Intake Total 240 ml 720 ml 360 ml Balance 240 ml 720 ml 360 ml Intake Oral 240 ml 720 ml 360 ml # Voids 12 4 2 # Bowel Movements 1 2 0 (London Cifuentes MD R3) Result Diagram: 02/12/17 1036 02/12/17 1026 Objective Remarks GENERAL: Sitting up in bed, no distress SKIN: No rashes or lesions HEENT: Normocephalic, no nasal discharge, no conjunctivitis NECK: Trachea midline. No JVD or lymphadenopathy. CARDIOVASCULAR: RRR, no murmurs, pulses intact, normal capillary refill. RESPIRATORY: Wheezing mostly resolved now, no coughing during exam today, on room air with no respiratory distress GASTROINTESTINAL: Abdomen soft, non-tender, nondistended, normal bowel sounds MUSCULOSKELETAL: No peripheral edema. NEUROLOGICAL: Awake and alert. (London Cifuentes MD R3) A/P Assessment and Plan 57 yo male with PMH of COPD, CHF, CAD, A fib with pacemaker presenting to ED with 3 day history of SOB, Cough, CP. Found to be influenza positive on admission. Presentation most consistent with COPD exacerbation brought about by influenza virus. Discharge Planning Will discharge home today. Needs to follow closely with primary care physician. I will refer him to cardiology and pulmonology as well. He's had 3 hospital admissions for COPD this year. He has significantly lowered systolic function, and I will also start spironolactone. His renal function and potassium need to be monitored carefully on this medication. He would also benefit from pulmonary rehab. (London Cifuentes MD R3) Attending Attestation Patient seen and examined. He was sleeping very soundly when I entered his room and was breathing well. Case reviewed and discussed with the resident team. Agree with plan of care as discussed with me and documented in the resident note . happy he is feeling better (Bonnie Porter MD) Problem List: (1) COPD exacerbation ICD Codes: J44.1 - Chronic obstructive pulmonary disease with (acute) exacerbation Status: Acute Plan: COPD exacerbated by influenza. - Continue DuoNebs scheduled, albuterol PRN. - Added inhaled fluticasone from home. - Added prednisone 50 mg daily and Azithromycin 500 mg daily on 02/11. Continue for 5 days. - Added Mucinex to help with mucous clearance. - Supplemental O2 as needed. - Would likely benefit from pulmonary rehab after discharge and a operator helper. - Has tried quitting smoking intermittently, would benefit from Chantix versus nicotine gum/patches. (2) Influenza A ICD Codes: J10.1 - Influenza due to other identified influenza virus with other respiratory manifestations Status: Acute Plan: Influenza A positive. - Continue Oseltamivir 75 mg PO bid, continue for 5 days. - Supportive management. (3) CHF (congestive heart failure) ICD Codes: I50.9 - Congestive heart failure Status: Acute Plan: Presenting with increasing shortness of breath, likely multifactorial. Possibly with small component of CHF exacerbation. BNP trending down with Lasix. - Continue Entresto. - Continue carvedilol 6.25 q12hrs - Continue Lasix 40 mg PO daily, monitor fluid status, renal function - ECHO showing significantly reduced ejection fraction, added spironolactone to regimen. Will need to follow renal panel and potassium carefully on this medication. - 2g sodium restriction (4) CAD (coronary artery disease) ICD Codes: I25.10 - Atherosclerotic heart disease of [place] coronary artery without angina pectoris Status: Chronic Plan: History of coronary artery disease. Presented with chest pain. ACS and PE ruled out. - Continue aspirin and Plavix from home. - Continue statin. - Recommend no smoking, healthy diet, daily exercise. (5) Afib ICD Codes: I48.91 - Unspecified atrial fibrillation Status: Chronic Plan: Known history of Afib with pacemaker in place. Currently rate controlled. - Continue Digoxin 0.25mg daily. - Continue carvedilol - Continue Xarelto for anticoagulation. - Continue telemetry. (6) FEN Plan: PO fluids Heart healthy diet Replace electrolytes as needed Monitor potassium, renal function and fluid status while on spironolactone (London Cifuentes MD R3) Problem Qualifiers (1) CHF (congestive heart failure): Qualified Codes: I50.21 - Acute systolic (congestive) heart failure (2) Afib: Qualified Codes: I48.2 - Chronic atrial fibrillation [place] Cifuentes MD R3 Feb 13, 2017 09:19 Bonnie Porter MD Feb 13, 2017 11:32
[2017-02-13] MEDS: CARVEDILOL 6.25 MG TAB PO SCH (09:20)
[2017-02-13] MEDS: guaiFENesin E.R. 600 MG TAB PO SCH (09:20)
[2017-02-13] MEDS: ASPIRIN 81 MG CHEW TAB CHEW SCH (09:20)
[2017-02-13] MEDS: CLOPIDOGREL 75 MG TAB PO SCH (09:21)
[2017-02-13] MEDS: FUROSEMIDE 40 MG TAB PO SCH (09:21)
[2017-02-13] MEDS: SACUBITRIL/VALSARTAN 49 MG-51 MG TAB PO SCH (09:22)
[2017-02-13] MEDS: RIVAROXABAN 20 MG TAB PO SCH (09:22)
[2017-02-13] MEDS: AZITHROMYCIN 250 MG TAB PO SCH (09:23)
[2017-02-13] MEDS: FLUTICASONE PROPIONATE 110 MCG/ACT 12 GM INHALER INH SCH (09:23)
--- NOTE | 2017-02-13 09:38 | HHI.DS ---
Discharge Summary Admission Date Feb 10, 2017 at 11:04 Discharge Date: Feb 13, 2017 Admitting Diagnosis influenza, COPD exacerbation (1) COPD exacerbation Diagnosis: Principal Plan: COPD exacerbated by influenza. - Continue DuoNebs scheduled, albuterol PRN. - Added inhaled fluticasone from home. - Added prednisone 50 mg daily and Azithromycin 500 mg daily on 02/11. Continue for 5 days. - Added Mucinex to help with mucous clearance. - Supplemental O2 as needed. - Would likely benefit from pulmonary rehab after discharge and a chief hospital administrator. - Has tried quitting smoking intermittently, would benefit from Chantix versus nicotine gum/patches. ICD Codes: J44.1 - Chronic obstructive pulmonary disease with (acute) exacerbation Status: Acute (2) Influenza A Diagnosis: Principal Plan: Influenza A positive. - Continue Oseltamivir 75 mg PO bid, continue for 5 days. - Supportive management. ICD Codes: J10.1 - Influenza due to other identified influenza virus with other respiratory manifestations Status: Acute (3) CHF (congestive heart failure) Diagnosis: Principal Plan: Presenting with increasing shortness of breath, likely multifactorial. Possibly with small component of CHF exacerbation. BNP trending down with Lasix. - Continue Entresto. - Continue carvedilol 6.25 q12hrs - Continue Lasix 40 mg PO daily, monitor fluid status, renal function - ECHO showing significantly reduced ejection fraction, added spironolactone to regimen. Will need to follow renal panel and potassium carefully on this medication. - 2g sodium restriction ICD Codes: I50.9 - Congestive heart failure Status: Acute (4) CAD (coronary artery disease) Diagnosis: Secondary Plan: History of coronary artery disease. Presented with chest pain. ACS and PE ruled out. - Continue aspirin and Plavix from home. - Continue statin. - Recommend no smoking, healthy diet, daily exercise. ICD Codes: I25.10 - Atherosclerotic heart disease of [place] coronary artery without angina pectoris Status: Chronic (5) Afib Diagnosis: Secondary Plan: Known history of Afib with pacemaker in place. Currently rate controlled. - Continue Digoxin 0.25mg daily. - Continue carvedilol - Continue Xarelto for anticoagulation. - Continue telemetry. ICD Codes: I48.91 - Unspecified atrial fibrillation Status: Chronic (6) FEN Diagnosis: Secondary Plan: PO fluids Heart healthy diet Replace electrolytes as needed Monitor potassium, renal function and fluid status while on spironolactone Brief History Mr Fuentes is a 57 yo AAM with PMH of COPD, CHF (EF 20-25%), A fib, CAD who presented to the ED with SOB, CP and cough. He has had a productive cough ( clear sputum) for the past 3-4 days. He developed SOB, wheezing, chest pain precipitated by the cough and came to the ED on 02/09 - CXR at that time was negative for pneumonia. Patient received SoluMedrol x1, DuoNebs x 3 and improved significantly. Was sent home with prescriptions for Z koko, Prednisone and promethazine codeine cough syrup, but was unable to have any of them filled over the holiday weekend. He states he felt well enough to walk around and go shopping on the day of discharge, but he is returning to the ED today due to worsening shortness of breath, cough with associated chest pain. He describes the chest pain as burning and along the L sternal border, only occurring with cough and never at rest. His chest pain gas completely resolved at this point. + Chills. Denies fever, N/V, diarrhea, abdominal pain, black/bloody stool. Of note , he stated he starting having pain in his R groin area, states he has known history of enlarged prostate - has appointment with urologist in February. Denies history of known hernia. Of note, he has been hospitalized 6-7 times in past year for respiratory distress. Never intubated or in ICU. He is stable today compared to admission and does not have any chest pain at this time. His cough is still present. Will admit for his current flu, COPD and CHF. CBC/BMP: 02/12/17 1036 02/13/17 0835 Significant Findings Laboratory Tests Test 02/11/17 08:10 02/11/17 10:52 02/12/17 10:26 02/12/17 10:36 Blood Urea Nitrogen 23 MG/DL (7-18) 30 MG/DL (7-18) Total Protein 6.1 GM/DL (6.4-8.2) Albumin 2.9 GM/DL (3.4-5.0) Total Bilirubin 1.3 MG/DL (0.2-1.0) Estimat Glomerular Filtration Rate 76 ML/MIN (>89) 79 ML/MIN (>89) B-Type Natriuretic Peptide 1349 PG/ML (0-100) Mean Corpuscular Hemoglobin 25.9 PG (27.0-34.0) 25.7 PG (27.0-34.0) Mean Corpuscular Hemoglobin Concent 31.2 % (32.0-36.0) 31.2 % (32.0-36.0) Red Cell Distribution Width 18.4 % (11.6-17.2) 18.1 % (11.6-17.2) Carbon Dioxide Level 33.7 MEQ/L (21.0-32.0) Anion Gap 4 MEQ/L (5-15) Test 02/13/17 08:35 Blood Urea Nitrogen 33 MG/DL (7-18) Estimat Glomerular Filtration Rate 75 ML/MIN (>89) PE at Discharge GENERAL: Sitting up in bed, no distress SKIN: No rashes or lesions HEENT: Normocephalic, no nasal discharge, no conjunctivitis NECK: Trachea midline. No JVD or lymphadenopathy. CARDIOVASCULAR: RRR, no murmurs, pulses intact, normal capillary refill. RESPIRATORY: Wheezing mostly resolved now, no coughing during exam today, on room air with no respiratory distress GASTROINTESTINAL: Abdomen soft, non-tender, nondistended, normal bowel sounds MUSCULOSKELETAL: No peripheral edema. NEUROLOGICAL: Awake and alert. Hospital Course 57 year old male with a history of COPD, CHF, atrial fibrillation, and coronary artery disease presented to the ED with increasing dyspnea, chest pain, and coughing. ACS was ruled out. He was found to be positive for influenza A. His presentation was most consistent with a COPD exacerbation, but may be a mixed etiology also with CHF exacerbation. His ECHO shows a reduced ejection fraction down to the 20% range. He was treated with DuoNeb scheduled treatments, continued inhaled fluticasone from home, prednisone 50mg daily, Azithromycin 500 mg daily, Mucinex to help with mucous clearance, and O2 supplementation. He was given Oseltamivir 75 mg daily and will continue for a total of 5 days. He was given Lasix during his stay which was tapered down to 40 mg PO daily. By the time of discharge, he is doing well on room air, walking without much dyspnea, coughing has improved, and he is afebrile. He is to follow up closely with his primary care physician. He should also follow with a pricing clerk and a chief hospital administrator, especially given multiple hospitalizations for dyspnea this year. He would also benefit from pulmonary rehab. Because his ejection fraction is reduced down to 20%, spironolactone 25 mg daily was started. A BMP was ordered for 2 to 3 days and his potassium and renal function need to be monitored carefully on this medication. He was counseled on a heart healthy diet and sodium restriction. He has intermittently tried to quit smoking, and he was given smoking cessation counseling. He would benefit from smoking cessation aids, such as nicotine patches/gum or Chantix or Wellbutrin. He will continue his prednisone and Azithromycin for a total of 5 days. Pt Condition on Discharge: Fair Discharge Disposition: Discharge Home Discharge Instructions DIET: Follow Instructions for: Heart Healthy Diet Additional Diet Instructions: Limit sodium in diet Activities you can perform: Regular-No Restrictions Follow up Referrals: Cardiology - 1 Week PCP Follow-up - 1 Week Pulmonology - 1 Week New Orders: BASIC METABOLIC PROF - 2-3 Days New Medications: Spironolactone (Spironolactone) 25 Mg Tab 25 MG PO DAILY, #30 TAB 0 Refills Azithromycin (Azithromycin) 250 Mg Tab 500 MG PO DAILY, #2 TAB Carvedilol (Coreg) 6.25 Mg Tab 6.25 MG PO Q12HR, #60 TAB Oseltamivir (Tamiflu) 30 Mg Cap 30 MG PO BID, #3 CAP Take 75 mg (one 45 mg and one 30 mg tablet) twice a day. Oseltamivir (Tamiflu) 45 Mg Cap 45 MG PO BID, #3 CAP Take 75 mg (one 45 mg and one 30 mg tablet) twice a day. Prednisone (Prednisone) 50 Mg Tab 50 MG PO DAILY, #3 TAB Rivaroxaban (Xarelto) 20 Mg Tab 20 MG PO DAILY, #30 TAB Continued Medications: Albuterol 18 GM Inh (Ventolin Hfa 18 GM Inh) 90 Mcg/Act Aer 1 PUFF INH Q4H PRN for SHORTNESS OF BREATH, #1 INHALER 0 Refills Clopidogrel (Clopidogrel) 75 Mg Tab 75 MG PO DAILY for Blood Clot Prevention, #30 TAB 11 Refills Digoxin (Digoxin) 0.25 Mg Tab 0.25 MG PO DAILY for Regulate Heart Beat, #30 TAB 3 Refills E-Z Spacer-Aerosol Holding Chamber (E-Z Spacer-Aerosol Holding Chamber) 1 Mis Mis 1 EA .ROUTE DIRECTED for Breathing Treatment, #1 EA 0 Refills Fluticasone 12 GM Inh (Flovent Hfa 12 GM Inh) 110 Mcg/Act Inh 1 PUFF INH BID for Asthma Management, #1 INHALER 6 Refills Nitroglycerin SL (Nitroglycerin SL) 0.4 Mg Subl 0.4 MG SL DIRECTED PRN for CHEST PAIN, #100 TAB.SL 3 Refills ONE TABLET UNDER THE TONGUE NEEDED FOR CHEST PAIN, MAY REPEAT EVERY FIVE MINUTES Potassium Chloride Microencaps (Potassium Chloride Microencaps) 20 Meq Tab 20 MEQ PO Q12HR, #60 TAB 6 Refills Sacubitril-Valsartan (Entresto) 49-51 Mg Tab 1 TAB PO DAILY for Heart Failure, #30 TAB 0 Refills Simvastatin (Simvastatin) 20 Mg Tab 20 MG PO HS for Cholesterol Management, #90 TAB 6 Refills Discontinued Medications: Azithromycin (Zithromax Z-Koko) 250 Mg Dspk 250 MG PO DIRECTED for Infection, #1 DSPK 0 Refills 500 MG (2 tabs) day 1, then 1 tab days 2-5. Furosemide (Furosemide) 40 Mg Tab 40 MG PO BID, #60 TAB 0 Refills Guaifenesin/Dextromethorphan (Robitussin Cough-Chest Dm Liq) 237 Ml Liquid 10 ML PO Q6HR PRN for COUGH, #237 UNIT Prednisone (Prednisone) 50 Mg Tab 50 MG PO DAILY for 5 Days, #5 TAB 0 Refills Promethazine-Codeine Liq (Promethazine-Codeine Liq) 6.25-10 Mg/5 Ml Syrp 5 ML PO Q6H PRN for COUGH AND/OR COLD SYMPTOMS, #240 ML 0 Refills London Cifuentes MD R3 Feb 13, 2017 09:38
[2017-02-13] MEDS: OSELTAMIVIR PHOSPHATE 45 MG CAP PO SCH (10:13)
[2017-02-13] MEDS: OSELTAMIVIR PHOSPHATE 30 MG CAP PO SCH (10:13)
[2017-02-15] MEDS ORDERED: NEBULIZER1 MI1 (11:42)
[2017-02-15] MEDS ORDERED: IPRASOL INH (11:42)
[2017-02-15] MEDS ORDERED: NICO14DI T-DERMAL (11:44)
== END 2017-02-13 14:14 | disposition home or self-care (01) | DRG 190 ==
LOC: NEPE 00:06 → NEDA 03:37 → INTOOBSV 04:30 → OBSVTOIN 04:30 → NEPGCP 04:41 → OBSVTOIN 11:04 → N04B 15:29
PROVIDERS: ADMIT Family Medicine; ATTEND Family Medicine
DX: J44.1 Chronic obstructive pulmonary disease with (acute) exacerbation (principal); I50.23 Acute on chronic systolic (congestive) heart failure; I11.0 Hypertensive heart disease with heart failure; J10.1 Influenza due to other identified influenza virus with other respiratory manifestations; I25.10 Atherosclerotic heart disease of native coronary artery without angina pectoris; F17.210 Nicotine dependence, cigarettes, uncomplicated; E78.5 Hyperlipidemia, unspecified; N40.0 Benign prostatic hyperplasia without lower urinary tract symptoms; I48.2 Chronic atrial fibrillation; Z95.5 Presence of coronary angioplasty implant and graft; Z95.1 Presence of aortocoronary bypass graft; I25.2 Old myocardial infarction; Z95.0 Presence of cardiac pacemaker; Z79.82 Long term (current) use of aspirin; Z79.02 Long term (current) use of antithrombotics/antiplatelets; Z79.01 Long term (current) use of anticoagulants
CPT/HCPCS: 71010; 71020; 80048; 80053; 83735; 83880; 84484; 85025; 85027; 85379; 85610; 85730; 87804; 93005; 93306; 94150; 94640; 94664; 94667; 94668; 96374; J1644; J1940; J7512

== ENCOUNTER 2017-03-01 21:23 | Emergency (ER) | payer MEDICAID ==
[~2017-03-01] VITALS: Ht 170.2 cm; Wt 71.4 kg
[~2017-03-01 21:23] MED LIST changes: +AZIT250T3 PO; +CARV6.25 PO; -GUAI237L PO; +IPRASOL INH; +NEBULIZER1 MI1; +NICO14DI T-DERMAL; +OSEL30 PO; +OSEL45 PO; -PROM6.256 PO; +SPIR25TA PO; +XARE20TA PO; -ZITHTAB PO
[2017-03-01 21:31] VITALS: BP 134/72; PULSE 77; RESP 14; TEMP 98.5; O2SAT 99
[2017-03-02 02:00] VITALS: BP 151/76; PULSE 70; RESP 16; O2SAT 100
[2017-03-02] MEDS ORDERED: traMADol HCL 50 MG TAB PO ONE (03:30)
--- NOTE | 2017-03-02 03:47 | RADRPT ---
EXAM DATE/TIME: 03/02/2017 03:31 [facility] COMPARISON: No previous studies available for comparison. INDICATIONS : Pain and swelling due to Gout. MEDICAL HISTORY : Hypertension. Congestive heart failure. Gout SURGICAL HISTORY : Pacemaker. ENCOUNTER: Initial ACUITY: 2 days PAIN SCORE: 10/10 LOCATION: Left foot FINDINGS: Three view examination of the left foot demonstrates no soft tissue swelling, dislocation, or fractur e. The tarsal bones appear intact. The interphalangeal and metatarsophalangeal joints are intact. The calcaneus is intact. Bony mineralization is normal. CONCLUSION: Normal examination for a patient of this age. Clarke Rivera MD on March 02, 2017 at 3:44 Board Certified Radiologist. This report was verified electronically.
[2017-03-02 04:18] VITALS: BP 119/72; PULSE 67; RESP 16; O2SAT 100
--- NOTE | 2017-03-02 05:12 | RADRPT ---
EXAM DATE/TIME: 03/02/2017 04:51 [facility] COMPARISON: US LEG LEFT VENOUS DOPPLER, September 24, 2016, 22:51. INDICATIONS : Left leg swelling. MEDICAL HISTORY : Myocardial infarction. Congestive heart failure. Chronic obstructive pulmonary disease. Coronary a rtery disease. Hyperlipidemia. Anticoagulant therapy. Hemorrhoids. SURGICAL HISTORY : Defibrillator. CABG Coronary artery stent. ENCOUNTER: Subsequent ACUITY: 1 day PAIN SCORE: 2/10 LOCATION: Left leg. TECHNIQUE: Venous ultrasound of the leg was performed from the inguinal ligament to the proximal calf. Real-silvestre e, color Doppler and spectral tracing, compression and augmentation techniques were used. FINDINGS: There is normal compressibility of the deep venous system from the inguinal region to the proximal ca lf. No echogenic clot is seen in the lumen of the common femoral, femoral, popliteal, and posterior tibial veins. There is a normal response of the venous system to proximal and distal augmentation an d respiration. CONCLUSION: No evidence of DVT. No change compared to the prior study. Clarke Rivera MD on March 02, 2017 at 5:09 Board Certified Radiologist. This report was verified electronically.
[2017-03-02] MEDS ORDERED: TRAM50TA PO (05:21)
--- NOTE | 2017-03-02 05:24 | PD ---
HPI Chief Complaint: Pain: Acute or Chronic Time Seen by Provider: 03:21 Travel History International Travel<30 days: No Contact w/Intl Traveler<30days: No Traveled to known affect area: No History of Present Illness HPI 57-year-old male with history of gouty arthritis with swelling and pain of the left foot and mild swelling into the left lower leg. Patient denies any swelling of the right lower extremity. Patient denies any long distance travel protracted bedrest surgical procedure history of clotting disorder. Patient's had no shortness of breath pleuritic chest pain orthopnea. Patient denies fever or chills. Patient's had no groin pain. Patient does have history of gouty arthritis. Patient also has history of CHF atrial fibrillation pacemaker and takes blood thinning agent, Xarelto. Patient denies any injury or fall. Patient rates his foot pain 10 over 10 in intensity. PFSH Past Medical History Narrative Medical Asthma atrial fibrillation chest pain CHF pacemaker defibrillator COPD CAD gouty arthritis [place] hypertension; no tobacco use; nursing notes reviewed Hx Anticoagulant Therapy: Yes (PLAVIX) Asthma: Yes Atrial Fibrillation: Yes Blood Disorders: No Anxiety: No Depression: No Heart Rhythm Problems: No Cancer: No Cardiac Catheterization: Yes Cardiovascular Problems: Yes High Cholesterol: No Chemotherapy: No Chest Pain: Yes Congestive Heart Failure: Yes COPD: Yes Coronary Artery Disease: Yes Diabetes: No Diminished Hearing: No Endocrine: No Gastrointestinal Disorders: Yes (HEMORRHOIDS) GERD: No Genitourinary: Yes Hiatal Hernia: No Hypertension: Yes Immune Disorder: No Implanted Vascular Access Dvce: Yes (PACER/DEFIB) Kidney Stones: No Musculoskeletal: No Neurologic: No Psychiatric: No Reproductive: No Respiratory: Yes (bronchitis hx) Immunizations Current: Yes Migraines: No Myocardial Infarction: Yes Radiation Therapy: No Renal Failure: No Seizures: No Sleep Apnea: No Thyroid Disease: No Ulcer: No Past Surgical History Abdominal Surgery: No AICD: Yes ([employer] IMPLANTABLE DEFIBRILLATOR 2014) Arteriovenous Shunt: No Body Medical Devices: PACEMAKER, DEFIBRILLATOR Cardiac Surgery: Yes (pacemaker) Coronary Artery Bypass Graft: Yes Coronary Stent: Yes (X 2 IN 2010) Ear Surgery: No Endocrine Surgery: No Eye Surgery: No Genitourinary Surgery: No Gynecologic Surgery: No Insulin Pump: No Joint Replacement: No Oral Surgery: No Pacemaker: Yes (PACER ) Thoracic Surgery: No Other Surgery: Yes (CABG 2013, 2011 STENTS) Family History Family Myocardial Infarction: Yes Social History Alcohol Use: No Tobacco Use: No Substance Use: No Allergies-Medications (Allergen,Severity, Reaction): Coded Allergies: No Known Allergies (Unverified Adverse Reaction, Unknown, 03/02/17) Reported Meds & Prescriptions Reported Meds & Active Scripts Active Tramadol (Tramadol HCl) 50 Mg Tab 50 Mg PO Q6H PRN Furosemide 40 Mg Tab 40 Mg PO DAILY Nicotine Patch (Nicotine) 14 Mg/24 Hr Patch 14 Mg T-DERMAL DAILY Duoneb (Ipratropium-Albuterol Neb) 0.5-2.5 Mg/3 Ml Neb 1 Nebule INH DAILY Nebulizer 1 Mis Mis Ea .ROUTE DIRECTED Spironolactone 25 Mg Tab 25 Mg PO DAILY Coreg (Carvedilol) 6.25 Mg Tab 6.25 Mg PO Q12HR Prednisone 50 Mg Tab 50 Mg PO DAILY Xarelto (Rivaroxaban) 20 Mg Tab 20 Mg PO DAILY Tamiflu (Oseltamivir Phosphate) 45 Mg Cap 45 Mg PO BID Take 75 mg (one 45 mg and one 30 mg tablet) twice a day. Tamiflu (Oseltamivir Phosphate) 30 Mg Cap 30 Mg PO BID Take 75 mg (one 45 mg and one 30 mg tablet) twice a day. Azithromycin 250 Mg Tab 500 Mg PO DAILY Ventolin Hfa 18 GM Inh (Albuterol Sulfate) 90 Mcg/Act Aer 1 Puff INH Q4H PRN Nitroglycerin SL (Nitroglycerin) 0.4 Mg Subl 0.4 Mg SL DIRECTED PRN ONE TABLET UNDER THE TONGUE NEEDED FOR CHEST PAIN, MAY REPEAT EVERY FIVE MINUTES Simvastatin 20 Mg Tab 20 Mg PO HS Digoxin 0.25 Mg Tab 0.25 Mg PO DAILY Flovent Hfa 12 GM Inh (Fluticasone Propionate) 110 Mcg/Act Inh 1 Puff INH BID Potassium Chloride Microencaps 20 Meq Tab 20 Meq PO Q12HR Clopidogrel (Clopidogrel Bisulfate) 75 Mg Tab 75 Mg PO DAILY E-Z Spacer-Aerosol Holding Chamber 1 Mis Mis 1 Ea .ROUTE DIRECTED Reported Entresto (Sacubitril-Valsartan) 49-51 Mg Tab 1 Tab PO DAILY Review of Systems Except as stated in HPI: all other systems reviewed are Neg Physical Exam Narrative GENERAL: Well-developed well-nourished female in no acute distress no respiratory distress SKIN: Warm and dry. HEAD: Normocephalic. EYES: No scleral icterus. No injection or drainage. NECK: Supple, trachea midline. No JVD or lymphadenopathy. CARDIOVASCULAR: Regular rate and rhythm without murmurs, gallops, or rubs. RESPIRATORY: Breath sounds equal bilaterally. No accessory muscle use. GASTROINTESTINAL: Abdomen soft, non-tender, nondistended. MUSCULOSKELETAL: No cyanosis, or edema. Attention left lower leg mild peeling edema with tenderness at the metatarsal heads no ankle tenderness or swelling mild left calf edema with negative Homans sign no palpable cord and no pitting edema no deformity capillary refill is brisk and less than 2 seconds dorsalis pedis pulses 2+ to palpation left groin without lymphadenopathy BACK: Nontender without obvious deformity. No CVA tenderness. Data Data Last Documented VS Vital Signs Date Time Temp Pulse Resp B/P (MAP) Pulse Ox O2 Delivery O2 Flow Rate FiO2 03/02/17 04:18 67 16 119/72 (88) 100 Room Air 03/01/17 21:31 98.5 Orders Orders Foot, Complete ([id number]) (03/02/17 ) Us Leg Venous Doppler (03/02/17 ) Tramadol (Ultram) (03/02/17 03:30) MDM Medical Decision Making Medical Screen Exam Complete: Yes Emergency Medical Condition: Yes Medical Record Reviewed: Yes Interpretation(s) Last Impressions Foot X-Ray 03/02/17 0000 Signed Impressions: Service Date/Time: Thursday, March 02, 2017 03:31 - CONCLUSION: Normal examination for a patient of this age. Clarke Rivera MD Vital Signs Date Time Temp Pulse Resp B/P (MAP) Pulse Ox O2 Delivery O2 Flow Rate FiO2 03/02/17 04:18 67 16 119/72 (88) 100 Room Air 03/02/17 02:00 70 16 151/76 (101) 100 Room Air 03/01/17 21:31 98.5 77 14 134/72 (92) 99 Ultrasound left lower extremity no DVT per reading radiologist Differential Diagnosis Gouty arthritis, tendinitis, cellulitis, DVT, occult fracture Narrative Course Imaging of the foot performed without obvious abnormality no obvious fracture or retained radiopaque foreign body; ultrasound performed which reveals no DVT; patient given tramadol for pain management as he is on blood thinner for history of atrial fibrillation Patient reassessed At 5:20 AM patient reports pain is improved and is desirous of being discharged to home Diagnosis Primary Impression: Gouty arthritis Referrals: Primary Care Physician 2 days Patient Instructions: Narcotic given in the ED, General Instructions Departure Forms: Tests/Procedures, Work Release Special Instructions: no work x 2 days Additional Instructions: Elevate left foot Take pain medication as prescribed as needed Follow-up with your primary care provider call office on Saturday No work 2 days Return to the emergency department for any concerns or change in condition Med/Other Pt SpecificInfo: Prescription(s) given Scripts Tramadol (Tramadol) 50 Mg Tab 50 MG PO Q6H Y for PAIN, #12 TAB 0 Refills Prov: Carolyn Boss MD 03/02/17 Disposition: 01 DISCHARGE HOME Condition: Stable Carolyn Boss MD Mar 02, 2017 05:24
== END 2017-03-02 06:22 | disposition home or self-care (01) ==
LOC: NEPC 21:23
DX: M10.9 Gout, unspecified (principal); I48.91 Unspecified atrial fibrillation; I11.0 Hypertensive heart disease with heart failure; I50.9 Heart failure, unspecified; I25.10 Atherosclerotic heart disease of native coronary artery without angina pectoris; I25.2 Old myocardial infarction; Z79.01 Long term (current) use of anticoagulants
CPT/HCPCS: 73630; 93971; 99284

== ENCOUNTER 2017-03-04 20:16 | Emergency (ER) | payer MEDICAID ==
[~2017-03-04] VITALS: Ht 170.2 cm; Wt 71.4 kg
[~2017-03-04 20:16] MED LIST changes: +TRAM50TA PO
[2017-03-04 20:21] VITALS: BP 106/78; PULSE 98; RESP 18; TEMP 97.8; O2SAT 100
[2017-03-04 20:41] VITALS: BP 115/56; PULSE 94; RESP 18; O2SAT 95
[2017-03-04] MEDS ORDERED: MORPHINE SULFATE 2 MG/ML INJ IV PUSH ONE (20:45)
[2017-03-04] MEDS ORDERED: ONDANSETRON HCL 4 MG/2 ML VIAL IV PUSH ONE (20:45)
[2017-03-04] MEDS ORDERED: KETOROLAC TROMETHAMINE 30 MG/ML (IVP) VIAL IV PUSH ONE (20:45)
[2017-03-04] MEDS ORDERED: DEXAMETHASONE SOD PHOS 20 MG/5 ML VIAL IV PUSH ONE (20:45)
--- NOTE | 2017-03-04 20:49 | PD ---
HPI Chief Complaint: Musculoskeletal Complaint Time Seen by Provider: 20:29 Travel History International Travel<30 days: No Contact w/Intl Traveler<30days: No Traveled to known affect area: No History of Present Illness HPI 49-year-old male that presents to the ED for evaluation of possible gout. Per patient has a history of gout in the past. He denies any injuries to his extremities but he states that his been having a gout attack since last week. Per patient last week he was seen here and was diagnosed with gout to his left great toe. Per patient he was given tramadol for his been taking it would some relief. Per patient the pain continues. He does have a history of H her fibrillation and takes her altered. He denies any trauma. Per patient the swelling and pain on the left foot appears to have improved although he does still get pain here and there but now he is having left knee pain as well as right foot pain and feels similar to his previous gout. Per patient she's never had gout on his knee. He had an ultrasound and x-rays done last time to were negative for DVT as well as fracture or bony injuries. Per patient his pain currently is 8 out of 10 more noticeable on the left than the right. Also more noticeable on the left knee. Patient denies any extraneous activity. Per patient the pain on the right foot feels similar to his previous gout which she' s had that same joint in the past. Pain on the knee is sharp and burning like and feels like his gout but he's never had gout on his left knee. He has no allergies to medication. He has not seen anybody since been discharged. PFSH Past Medical History Hx Anticoagulant Therapy: Yes (Plavix, Xarelto) Asthma: Yes Atrial Fibrillation: Yes Blood Disorders: No Anxiety: No Depression: No Heart Rhythm Problems: No Cancer: No Cardiac Catheterization: Yes Cardiovascular Problems: Yes (CHF, HTN, hyperlipidemia, pacemaker) High Cholesterol: No Chemotherapy: No Chest Pain: Yes Congestive Heart Failure: Yes COPD: Yes Coronary Artery Disease: Yes Diabetes: No Diminished Hearing: No Endocrine: No Gastrointestinal Disorders: Yes (HEMORRHOIDS) GERD: No Genitourinary: Yes Hiatal Hernia: No Hypertension: Yes Immune Disorder: No Implanted Vascular Access Dvce: Yes (PACER/DEFIB) Kidney Stones: No Musculoskeletal: No Neurologic: No Psychiatric: No Reproductive: No Respiratory: Yes (COPD) Immunizations Current: Yes Migraines: No Myocardial Infarction: Yes Radiation Therapy: No Renal Failure: No Seizures: No Sleep Apnea: No Thyroid Disease: No Ulcer: No Past Surgical History Abdominal Surgery: No AICD: Yes ([employer] IMPLANTABLE DEFIBRILLATOR 2014) Arteriovenous Shunt: No Body Medical Devices: PACEMAKER, DEFIBRILLATOR Cardiac Surgery: Yes (pacemaker) Coronary Artery Bypass Graft: Yes Coronary Stent: Yes (X 2 IN 2010) Ear Surgery: No Endocrine Surgery: No Eye Surgery: No Genitourinary Surgery: No Gynecologic Surgery: No Insulin Pump: No Joint Replacement: No Oral Surgery: No Pacemaker: Yes (PACER ) Thoracic Surgery: No Other Surgery: Yes (CABG 2012, 2010 STENTS) Family History Family Myocardial Infarction: Yes Social History Alcohol Use: No Tobacco Use: No Substance Use: No Allergies-Medications (Allergen,Severity, Reaction): Coded Allergies: No Known Allergies (Unverified Adverse Reaction, Unknown, 03/02/17) Reported Meds & Prescriptions Reported Meds & Active Scripts Active Tramadol (Tramadol HCl) 50 Mg Tab 50 Mg PO Q6H PRN Indomethacin 50 Mg Cap 50 Mg PO TID PRN Take with food, milk, or antacids to decrease stomach adverse effects. Prednisone 20 Mg Tab 20 Mg PO BID 5 Days Tramadol (Tramadol HCl) 50 Mg Tab 50 Mg PO Q6H PRN Furosemide 40 Mg Tab 40 Mg PO DAILY Nicotine Patch (Nicotine) 14 Mg/24 Hr Patch 14 Mg T-DERMAL DAILY Duoneb (Ipratropium-Albuterol Neb) 0.5-2.5 Mg/3 Ml Neb 1 Nebule INH DAILY Nebulizer 1 Mis Mis Ea .ROUTE DIRECTED Spironolactone 25 Mg Tab 25 Mg PO DAILY Coreg (Carvedilol) 6.25 Mg Tab 6.25 Mg PO Q12HR Prednisone 50 Mg Tab 50 Mg PO DAILY Xarelto (Rivaroxaban) 20 Mg Tab 20 Mg PO DAILY Tamiflu (Oseltamivir Phosphate) 45 Mg Cap 45 Mg PO BID Take 75 mg (one 45 mg and one 30 mg tablet) twice a day. Tamiflu (Oseltamivir Phosphate) 30 Mg Cap 30 Mg PO BID Take 75 mg (one 45 mg and one 30 mg tablet) twice a day. Azithromycin 250 Mg Tab 500 Mg PO DAILY Ventolin Hfa 18 GM Inh (Albuterol Sulfate) 90 Mcg/Act Aer 1 Puff INH Q4H PRN Nitroglycerin SL (Nitroglycerin) 0.4 Mg Subl 0.4 Mg SL DIRECTED PRN ONE TABLET UNDER THE TONGUE NEEDED FOR CHEST PAIN, MAY REPEAT EVERY FIVE MINUTES Simvastatin 20 Mg Tab 20 Mg PO HS Digoxin 0.25 Mg Tab 0.25 Mg PO DAILY Flovent Hfa 12 GM Inh (Fluticasone Propionate) 110 Mcg/Act Inh 1 Puff INH BID Potassium Chloride Microencaps 20 Meq Tab 20 Meq PO Q12HR Clopidogrel (Clopidogrel Bisulfate) 75 Mg Tab 75 Mg PO DAILY E-Z Spacer-Aerosol Holding Chamber 1 Mis Mis 1 Ea .ROUTE DIRECTED Reported Entresto (Sacubitril-Valsartan) 49-51 Mg Tab 1 Tab PO DAILY Review of Systems Except as stated in HPI: all other systems reviewed are Neg Physical Exam Narrative GENERAL: SKIN: Warm and dry. HEAD: Atraumatic. Normocephalic. EYES: Pupils equal and round. No scleral icterus. No injection or drainage. ENT: No nasal bleeding or discharge. Mucous membranes pink and moist. Tongue is midline. No uvula deviation. NECK: Trachea midline. No JVD. CARDIOVASCULAR: Regular rate and rhythm. No murmurs, S3, S4. RESPIRATORY: No accessory muscle use. Clear to auscultation. Breath sounds equal bilaterally. GASTROINTESTINAL: Abdomen soft, non-tender, nondistended. Hepatic and splenic margins not palpable. MUSCULOSKELETAL: Extremities without clubbing, cyanosis, or edema. No obvious deformities. Full range of motion of the upper and lower extremities bilaterally. 2+ pulses bilaterally. Patient does have slight soft tissue swelling and tenderness to palpation on the MIP joint of the right and left foot bilaterally. More noticeable on the right than the left. 2+ pulses bilaterally. Patient's have reproducible pain on the left knee but no obvious swelling or deformity noted. Pain is noted to the lateral aspect of the left knee. No obvious bony deformity noted. Sensation intact bilaterally. Not warm to the touch. No erythema noted. NEUROLOGICAL: Awake and alert. No obvious cranial nerve deficits. Motor grossly within normal limits. Five out of 5 muscle strength in the arms and legs. Normal speech. PSYCHIATRIC: Appropriate mood and affect; insight and judgment normal. Data Data Last Documented VS Vital Signs Date Time Temp Pulse Resp B/P (MAP) Pulse Ox O2 Delivery O2 Flow Rate FiO2 03/04/17 20:41 94 18 115/56 (75) 95 Room Air 03/04/17 20:21 97.8 Orders Orders Complete Blood Count With Diff (03/04/17 20:34) Basic Metabolic Panel (Bmp) (03/04/17 20:34) Prothrombin Time / Inr (Pt) (03/04/17 20:34) Act Partial Throm Time (Ptt) (03/04/17 20:34) Magnesium (Mg) (03/04/17 20:34) Iv Access Insert/Monitor (03/04/17 20:34) Knee, Complete (4vws) (03/04/17 ) Foot, Complete (Har4roa) (03/04/17 ) Dexamethasone Inj (Decadron Inj) (03/04/17 20:45) Morphine Inj (Morphine Inj) (03/04/17 20:45) Ondansetron Inj (Zofran Inj) (03/04/17 20:45) Ketorolac Inj (Toradol Inj) (03/04/17 20:45) Ed Discharge Order (03/04/17 21:39) Labs Laboratory Tests Test 03/04/17 20:40 White Blood Count 6.6 TH/MM3 Red Blood Count 4.42 MIL/MM3 Hemoglobin 11.3 GM/DL Hematocrit 36.7 % Mean Corpuscular Volume 83.0 FL Mean Corpuscular Hemoglobin 25.6 PG Mean Corpuscular Hemoglobin Concent 30.9 % Red Cell Distribution Width 16.6 % Platelet Count 342 TH/MM3 Mean Platelet Volume 7.7 FL Neutrophils (%) (Auto) 73.5 % Lymphocytes (%) (Auto) 16.4 % Monocytes (%) (Auto) 8.9 % Eosinophils (%) (Auto) 0.8 % Basophils (%) (Auto) 0.4 % Neutrophils # (Auto) 4.9 TH/MM3 Lymphocytes # (Auto) 1.1 TH/MM3 Monocytes # (Auto) 0.6 TH/MM3 Eosinophils # (Auto) 0.1 TH/MM3 Basophils # (Auto) 0.0 TH/MM3 CBC Comment DIFF FINAL Differential Comment Prothrombin Time 15.4 SEC Prothromb Time International Ratio 1.5 RATIO Activated Partial Thromboplast Time 36.4 SEC Blood Urea Nitrogen 28 MG/DL Creatinine 1.44 MG/DL Random Glucose 93 MG/DL Calcium Level 9.4 MG/DL Magnesium Level 1.8 MG/DL Sodium Level 138 MEQ/L Potassium Level 4.8 MEQ/L Chloride Level 102 MEQ/L Carbon Dioxide Level 28.7 MEQ/L Anion Gap 7 MEQ/L Estimat Glomerular Filtration Rate 61 ML/MIN MDM Medical Decision Making Medical Screen Exam Complete: Yes Emergency Medical Condition: Yes Medical Record Reviewed: Yes Interpretation(s) CBC & BMP Diagram 03/04/17 20:40 Calcium Level 9.4, Magnesium Level 1.8 Last Impressions Knee X-Ray 03/04/17 0000 Signed Impressions: Service Date/Time: Saturday, March 04, 2017 20:47 - CONCLUSION: 1. Small joint effusion. Otherwise, unremarkable exam. Michel Odonnell Jr., MD Foot X-Ray 03/04/17 0000 Signed Impressions: Service Date/Time: Saturday, March 04, 2017 20:44 - CONCLUSION: No acute disease. Michel Odonnell Jr., MD Differential Diagnosis Gout versus arthritic pain versus swelling versus fracture versus infection versus septic arthritis less likely Narrative Course 57-year-old male that presents to the ED for evaluation of possible gout. Patient was properly examined and was found to have signs and symptoms of unclear etiology but likely gouty arthritis. He was seen here for the same a week ago and diagnosed with same with improvement of symptoms with tramadol. Unclear as to what patient was not given any anti-inflammatories the likely secondary to his blood thinner use. Patient does complain of pain to Areas this time. Labs and imaging will be ordered. Patient was given IV pain medication as well as anti-inflammatories. Labs and imaging showed no sign of acute disease. Patient was reassured. This time recommendations for close follow with PCP. See ED worsening symptoms. Patient was given prescriptions for prednisone as well as indomethacin and tramadol. Patient likely requiring antibiotic per his to help with his symptoms. Diagnosis Primary Impression: Gout attack Qualified Codes: M10.9 - Gout, unspecified Patient Instructions: General Instructions, Narcotic given in the ED Additional Instructions: Apply ice to areas of pain. Take medications as prescribed. Follow with PCP for further evaluation and workup. See ED if worsening symptoms. Med/Other Pt SpecificInfo: Prescription(s) given Scripts Tramadol (Tramadol) 50 Mg Tab 50 MG PO Q6H Y for PAIN, #12 TAB 0 Refills Prov: Jed Sloan MD 03/04/17 Indomethacin (Indomethacin) 50 Mg Cap 50 MG PO TID Y for PAIN SCALE 1 TO 10, #15 CAP 0 Refills Take with food, milk, or antacids to decrease stomach adverse effects. Prov: Jed Sloan MD 03/04/17 Prednisone (Prednisone) 20 Mg Tab 20 MG PO BID for 5 Days, #10 TAB 0 Refills Prov: Jed Sloan MD 03/04/17 Disposition: 01 DISCHARGE HOME Condition: Marc Snyder Mar 04, 2017 20:49
[2017-03-04 21:06] LABS: AUTOMATED NEUTROPHIL # 4.9 TH/MM3 (1.8-7.7); BASOPHIL % 0.4 % (0.0-2.0); EOSINOPHIL # 0.1 TH/MM3 (0-0.4); EOSINOPHIL % 0.8 % (0.0-4.0); HEMATOCRIT 36.7 % (39.0-51.0); HEMOGLOBIN 11.3 GM/DL (13.0-17.0); LYMPH % 16.4 % (9.0-44.0); LYMPHOCYTE # 1.1 TH/MM3 (1.0-4.8); MEAN CORPUSCULAR HEMOGLOBIN 25.6 PG (27.0-34.0); MEAN CORPUSCULAR HGB CONC 30.9 % (32.0-36.0); MEAN PLATELET VOLUME 7.7 FL (7.0-11.0); MONO % 8.9 % (0.0-8.0); MONOCYTE # 0.6 TH/MM3 (0-0.9); NEUT % 73.5 % (16.0-70.0); PLATELET COUNT 342 TH/MM3 (150-450); RED BLOOD COUNT 4.42 MIL/MM3 (4.50-5.90); RED CELL DISTRIBUTION WIDTH 16.6 % (11.6-17.2); WHITE BLOOD COUNT 6.6 TH/MM3 (4.0-11.0)
--- NOTE | 2017-03-04 21:07 | RADRPT ---
EXAM DATE/TIME: 03/04/2017 20:44 [facility] COMPARISON: No previous studies available for comparison. INDICATIONS : Right distal foot pain. No known injury. MEDICAL HISTORY : Myocardial infarction. Congestive heart failure. Chronic obstructive pulmonary disease. Coronary artery disease. Hyperlipidemia. Anticoagulant therapy. Hemorrhoids. SURGICAL HISTORY : CABG. Coronary artery stent. Defibrilator. ENCOUNTER: Initial ACUITY: 4 - 6 days PAIN SCORE: 5/10 LOCATION: Right foot, MTPJs FINDINGS: Three view examination of the right foot demonstrates no soft tissue swelling, dislocation, or fractu re. The tarsal bones appear intact. The interphalangeal and metatarsophalangeal joints are intact. The calcaneus is intact. Bony mineralization is normal. CONCLUSION: No acute disease. Michel Odonnell Jr., MD on March 04, 2017 at 21:04 Board Certified Radiologist. This report was verified electronically.
--- NOTE | 2017-03-04 21:08 | RADRPT ---
EXAM DATE/TIME: 03/04/2017 20:47 [facility] COMPARISON: No previous studies available for comparison. INDICATIONS : Generalized left knee pain with no known injury. MEDICAL HISTORY : Myocardial infarction. Congestive heart failure. Chronic obstructive pulmonary disease. Coronary artery disease. Hyperlipidemia. Anticoagulant therapy. Hemorrhoids. SURGICAL HISTORY : CABG. Coronary artery stent. Defibrilator. ENCOUNTER: Subsequent ACUITY: 4 - 6 days PAIN SCORE: 5/10 LOCATION: Left knee, entire FINDINGS: Four view examination of the left knee demonstrates no evidence of fracture or dislocation. Bony min eralization is normal. The articular surfaces are intact. Small joint effusion. Old trauma involving the proximal fibula. CONCLUSION: 1. Small joint effusion. Otherwise, unremarkable exam. Michel Odonnell Jr., MD on March 04, 2017 at 21:05 Board Certified Radiologist. This report was verified electronically.
[2017-03-04 21:23] LABS: BICARBONATE 28.7 MEQ/L (21.0-32.0); CALCIUM 9.4 MG/DL (8.5-10.1); CREATININE 1.44 MG/DL (0.60-1.30); MAGNESIUM 1.8 MG/DL (1.5-2.5)
[2017-03-04 21:34] LABS: INTERNATIONAL NORMALIZED RATIO 1.5 RATIO; PROTHROMBIN TIME - PATIENT 15.4 SEC (9.8-11.6)
[2017-03-04] MEDS ORDERED: INDO50CA PO (21:37)
[2017-03-04] MEDS ORDERED: PRED20 PO (21:37)
[2017-03-04] MEDS ORDERED: TRAM50TA PO (21:37)
== END 2017-03-04 22:07 | disposition home or self-care (01) ==
LOC: NEPE 20:16
DX: M10.9 Gout, unspecified (principal); M79.671 Pain in right foot; M79.672 Pain in left foot; M25.562 Pain in left knee; I48.91 Unspecified atrial fibrillation; I50.9 Heart failure, unspecified; I11.0 Hypertensive heart disease with heart failure; J44.9 Chronic obstructive pulmonary disease, unspecified; I25.10 Atherosclerotic heart disease of native coronary artery without angina pectoris; I25.2 Old myocardial infarction; Z95.5 Presence of coronary angioplasty implant and graft
CPT/HCPCS: 73564; 73630; 80048; 83735; 85025; 85610; 85730; 96374; 96375; 99284; J1100; J1885; J2270; J2405

== ENCOUNTER → 2017-04-12 | Outpatient (CLI) | payer MEDICAID ==
[~2017-04-12] MED LIST changes: +INDO50CA PO; +PRED20 PO
--- NOTE | 2017-04-15 14:04 | RSPPFT ---
DATE OF PROCEDURE: 04/12/17 COMMENTS: Spirometry with FVC of 2.6, FEV1 of 1.8 and FEV1/FVC ratio at 69%. Slow vital capacity is 64% of predicted. TLC is 71%. Diffusion capacity is 65%. Room air arterial blood gases show pH of 7.48, PCO2 of 30, PO2 of 105. A positive but non-significant response to acutely inhaled bronchodilator noted./ IMPRESSION: 1. Moderately severe airways obstruction. 2. Mild airways restriction. 3. Moderate reduction in diffusion capacity. 4. Adequate oxygenation and alveolar ventilation.
== END ==
LOC: HRSP 09:09
PROVIDERS: ATTEND Internal Medicine Sleep Medicine
DX: R06.89 Other abnormalities of breathing (principal)
CPT/HCPCS: 36600; 82805; 94060; 94726; 94729

== ENCOUNTER 2017-07-20 08:19 | Emergency (ER) | payer MEDICAID ==
[~2017-07-20] VITALS: Ht 170.2 cm; Wt 70.0 kg
[2017-07-20 08:25] VITALS: BP 111/63; PULSE 60; RESP 16; TEMP 97.6; O2SAT 100
--- NOTE | 2017-07-20 08:48 | PD ---
HPI Chief Complaint: Neuro Symptoms/ Deficits Time Seen by Provider: 08:36 Travel History International Travel<30 days: No Contact w/Intl Traveler<30days: No Traveled to known affect area: No History of Present Illness HPI 57yo M with PMH of CHF s/p AICD, gout here with c/o left arm tingling and weakness after waking up at 9pm last night. Denies any fever, trauma, changes in speech, changes in vision, focal weakness in leg, numbness in leg or facial droop. Denies any chest pain, sob, n/v, abdominal pain. PFSH Past Medical History Hx Anticoagulant Therapy: Yes (Plavix, Xarelto) Asthma: Yes Atrial Fibrillation: Yes Blood Disorders: No Anxiety: No Depression: No Heart Rhythm Problems: No Cancer: No Cardiac Catheterization: Yes Cardiovascular Problems: Yes (CHF, HTN, hyperlipidemia, pacemaker) High Cholesterol: No Chemotherapy: No Chest Pain: Yes Congestive Heart Failure: Yes COPD: Yes Coronary Artery Disease: Yes Diabetes: No Diminished Hearing: No Endocrine: No Gastrointestinal Disorders: Yes (HEMORRHOIDS) GERD: No Genitourinary: Yes Hiatal Hernia: No Hypertension: Yes Immune Disorder: No Implanted Vascular Access Dvce: Yes (PACER/DEFIB) Kidney Stones: No Musculoskeletal: No Neurologic: No Psychiatric: No Reproductive: No Respiratory: Yes (COPD) Immunizations Current: Yes Migraines: No Myocardial Infarction: Yes Radiation Therapy: No Renal Failure: No Seizures: No Sleep Apnea: No Thyroid Disease: No Ulcer: No Past Surgical History Abdominal Surgery: No AICD: Yes ([employer] IMPLANTABLE DEFIBRILLATOR 2014) Arteriovenous Shunt: No Body Medical Devices: PACEMAKER, DEFIBRILLATOR Cardiac Surgery: Yes (pacemaker) Coronary Artery Bypass Graft: Yes Coronary Stent: Yes (X 2 IN 2010) Ear Surgery: No Endocrine Surgery: No Eye Surgery: No Genitourinary Surgery: No Gynecologic Surgery: No Insulin Pump: No Joint Replacement: No Oral Surgery: No Pacemaker: Yes (PACER ) Thoracic Surgery: No Other Surgery: Yes (CABG 2012, 2010 STENTS) Social History Alcohol Use: No Tobacco Use: No Substance Use: No Allergies-Medications (Allergen,Severity, Reaction): Coded Allergies: No Known Allergies (Unverified Adverse Reaction, Unknown, 07/20/17) Reported Meds & Prescriptions Reported Meds & Active Scripts Active Coreg (Carvedilol) 6.25 Mg Tab 6.25 Mg PO Q12HR Xarelto (Rivaroxaban) 20 Mg Tab 20 Mg PO DAILY Spironolactone 25 Mg Tab 25 Mg PO DAILY Duoneb (Ipratropium-Albuterol Neb) 0.5-2.5 Mg/3 Ml Neb 1 Nebule INH DAILY Tramadol (Tramadol HCl) 50 Mg Tab 50 Mg PO Q6H PRN Indomethacin 50 Mg Cap 50 Mg PO TID PRN Take with food, milk, or antacids to decrease stomach adverse effects. Prednisone 20 Mg Tab 20 Mg PO BID 5 Days Tramadol (Tramadol HCl) 50 Mg Tab 50 Mg PO Q6H PRN Furosemide 40 Mg Tab 40 Mg PO DAILY Nicotine Patch (Nicotine) 14 Mg/24 Hr Patch 14 Mg T-DERMAL DAILY Nebulizer 1 Mis Mis Ea .ROUTE DIRECTED Prednisone 50 Mg Tab 50 Mg PO DAILY Tamiflu (Oseltamivir Phosphate) 45 Mg Cap 45 Mg PO BID Take 75 mg (one 45 mg and one 30 mg tablet) twice a day. Tamiflu (Oseltamivir Phosphate) 30 Mg Cap 30 Mg PO BID Take 75 mg (one 45 mg and one 30 mg tablet) twice a day. Azithromycin 250 Mg Tab 500 Mg PO DAILY Ventolin Hfa 18 GM Inh (Albuterol Sulfate) 90 Mcg/Act Aer 1 Puff INH Q4H PRN Nitroglycerin SL (Nitroglycerin) 0.4 Mg Subl 0.4 Mg SL DIRECTED PRN ONE TABLET UNDER THE TONGUE NEEDED FOR CHEST PAIN, MAY REPEAT EVERY FIVE MINUTES Simvastatin 20 Mg Tab 20 Mg PO HS Digoxin 0.25 Mg Tab 0.25 Mg PO DAILY Flovent Hfa 12 GM Inh (Fluticasone Propionate) 110 Mcg/Act Inh 1 Puff INH BID Potassium Chloride Microencaps 20 Meq Tab 20 Meq PO Q12HR Clopidogrel (Clopidogrel Bisulfate) 75 Mg Tab 75 Mg PO DAILY E-Z Spacer-Aerosol Holding Chamber 1 Mis Mis 1 Ea .ROUTE DIRECTED Reported Entresto (Sacubitril-Valsartan) 49-51 Mg Tab 1 Tab PO DAILY Review of Systems Except as stated in HPI: all other systems reviewed are Neg Physical Exam Narrative GENERAL: 57yo M in mild distress. SKIN: Focused skin assessment warm/dry. HEAD: Atraumatic. Normocephalic. EYES: Pupils equal and round. No scleral icterus. No injection or drainage. ENT: No nasal bleeding or discharge. Mucous membranes pink and moist. NECK: No midline cervical spine ttp. CARDIOVASCULAR: Regular rate and rhythm. No murmur appreciated. RESPIRATORY: No accessory muscle use. Clear to auscultation. Breath sounds equal bilaterally. GASTROINTESTINAL: Abdomen soft, non-tender, nondistended. MUSCULOSKELETAL: LUE: Radial pulse 1+. Unable to extend left wrist. +Tingling in left forearm. NEUROLOGICAL: Awake and alert. No obvious cranial nerve deficits. Left upper extremity with muscle strength 4/5 compare to 5/5 in all other extremities. Normal speech. PSYCHIATRIC: Appropriate mood and affect; insight and judgment normal. Data Data Last Documented VS Vital Signs Date Time Temp Pulse Resp B/P (MAP) Pulse Ox O2 Delivery O2 Flow Rate FiO2 07/20/17 16:35 72 17 110/68 (82) 98 07/20/17 08:25 97.6 Orders Orders Chest, Single Ap (07/20/17 ) Ketorolac Inj (Toradol Inj) (07/20/17 09:45) Ct Cerv Spine W/O Contrast (07/20/17 ) MDM Medical Decision Making Medical Screen Exam Complete: Yes Emergency Medical Condition: Yes Differential Diagnosis Cervical radiculopathy vs. radial nerve palsy vs. brachial plexus injury vs. thoracic outlet syndrome Narrative Course 57yo M with c/o tingling sensation in left arm this morning. Also has weakness isolated in left arm. CT cervical spine showed multilevel cervical spine degenerative changes. Moderate to severe left foraminal stenosis at both C3/C4 and C4/C5. No high grade spinal stenosis demonstrated. No fracture of subluxation. This finding explains pt's left arm symptoms. Pt will need to follow up with neurosurgery for possible surgical intervention. CXR negative for any mass that can cause these symptoms. Pt given toradol which helped with pain. Given a copy of CT findings. Return precautions given. Diagnosis Primary Impression: Foraminal stenosis of cervical region Referrals: Rylan Siddiqui MD call for appointment Cervical foraminal stenosis Patient Instructions: General Instructions Departure Forms: Tests/Procedures Additional Instructions: Please call neurosurgery clinic for appointment in 2 days. Return to the ED if symptoms worsen. Med/Other Pt SpecificInfo: Prescription(s) given Disposition: 01 DISCHARGE HOME Condition: Stable Lilly Saravia Jul 20, 2017 08:48
[2017-07-20] MEDS ORDERED: KETOROLAC TROMETHAMINE 60 MG/2 ML (IM) VIAL IM ONE (09:45)
--- NOTE | 2017-07-20 10:18 | RADRPT ---
EXAM DATE: 07/20/2017 10:02 AM EDT AGE/SEX: 57 years / Male INDICATIONS: Left arm weakness, chest pain CLINICAL DATA: This is the patient's initial encounter. Patient reports that signs and symptoms have been present for 1 day and indicates a pain score of 3/10. MEDICAL/SURGICAL HISTORY: Chronic obstructive pulmonary disease. Cardiovascular disease. Pacem black. COMPARISON: [facility] [place] CHEST SINGLE AP, 02/10/2017. . FINDINGS: AP upright portable view of the chest demonstrate stable moderate cardiomegaly with dual-lead ICD int act median sternotomy wires. Stable cephalization of pulmonary vasculature. The lungs are clear. Osse ous structures suggest an old 06 impaction fracture involving the left humeral head. CONCLUSION: Radiographic findings consistent with congestive heart failure without evidence of pulmonary edema. Electronically signed by: Mary Mott MD 07/20/2017 10:17 AM EDT
--- NOTE | 2017-07-20 16:03 | RADRPT ---
EXAM DATE: 07/20/2017 3:52 PM EDT AGE/SEX: 57 years / Male INDICATIONS: Left arm numbness. CLINICAL DATA: This is the patient's initial encounter. Patient reports that signs and symptoms have been present for 1 day and indicates a pain score of 4/10. MEDICAL/SURGICAL HISTORY: Cardiovascular disease. Congestive heart failure. Hypertension. CAB G. Pacemaker. RADIATION DOSE: 40.30 CTDI (mGy) COMPARISON: No prior [facility] exams available for comparison. TECHNIQUE: Contiguous axial images were obtained using helical multirow detector technique. The vol umetric data was post-processed with multiplanar reconstruction in oblique axial, sagittal, and coron al planes. Using automated exposure control and adjustment of the mA and/or kV according to patient s ize, radiation dose was kept as low as reasonably achievable to obtain optimal diagnostic quality harjinder ges. FINDINGS: There is degenerative appearing kyphosis centered around C5. No fracture or subluxation demonstrated. Moderate degenerative changes are seen, mostly anteriorly, at C1/C2. No associated stenosis. C2-3: Disc height within normal limits. Mild bilateral uncovertebral and facet osteoarthritis withou t significant foraminal or spinal stenosis. C3-4: The disc has mild to moderate loss of height. There is a small, broad/diffuse disc osteophyte complex and left greater than right uncovertebral and facet osteoarthritis. There is mild right and m oderate to severe left foraminal stenosis. C4-5: The disc has mild to moderate loss of height. Small, broad/diffuse disc osteophyte complex and left greater than right uncovertebral and facet osteoarthritis. There is moderate to severe left for aminal stenosis. C5-6: The disc has moderate to severe loss of height. Small, broad/diffuse disc osteophyte complex a nd moderate to severe bilateral uncovertebral and facet osteoarthritis present. There is moderate lala ateral foraminal stenosis. C6-7: The disc has moderate to severe loss of height. There is a small to moderate, broad/diffuse di sc osteophyte complex and right greater than left uncovertebral and facet osteoarthritis. There is mi ld to moderate right and mild left foraminal stenosis. C7-T1: The bony spinal canal is normal in size. No evidence of disc bulge or herniation. The neura l foramina are bilaterally patent. CONCLUSION: 1. Multilevel cervical spine degenerative changes as detailed above. 2. Moderate to severe left foraminal stenosis at both C3/C4 and C4/C5. There is generally mild or mo derate degrees of foraminal stenosis elsewhere. 3. No high-grade spinal stenosis demonstrated. 4. No fracture or subluxation. Have a beer to Electronically signed by: Benito Diaz MD 07/20/2017 4:02 PM EDT
[2017-07-20 16:35] VITALS: BP 110/68
== END 2017-07-20 16:36 | disposition home or self-care (01) ==
LOC: NEPC 08:19
DX: M48.02 Spinal stenosis, cervical region (principal); I11.0 Hypertensive heart disease with heart failure; I50.9 Heart failure, unspecified; I48.91 Unspecified atrial fibrillation; Z79.01 Long term (current) use of anticoagulants
CPT/HCPCS: 71045; 72125; 96372; 99284; J1885

== ENCOUNTER 2017-08-06 20:25 | Observation (INO) | payer MEDICAID ==
[~2017-08-06] VITALS: Ht 170.2 cm; Wt 69.0 kg
[2017-08-06 20:38] VITALS: BP 100/71; PULSE 61; RESP 16; TEMP 97.6; O2SAT 100
[2017-08-06 20:59] VITALS: O2SAT 99
[2017-08-06] MEDS ORDERED: SODIUM CHLORIDE 0.9% FLUSH 10 ML FLUSH IVF PRN (21:00)
[2017-08-06 21:07] LABS: BASOPHIL # 0.1 TH/MM3 (0-0.2); BASOPHIL % 1.1 % (0.0-2.0); EOSINOPHIL # 0.1 TH/MM3 (0-0.4); EOSINOPHIL % 2.7 % (0.0-4.0); HEMATOCRIT 37.5 % (39.0-51.0); HEMOGLOBIN 12.1 GM/DL (13.0-17.0); LYMPH % 21.1 % (9.0-44.0); MEAN CELL VOLUME 83.3 FL (80.0-100.0); MEAN CORPUSCULAR HEMOGLOBIN 26.7 PG (27.0-34.0); MEAN CORPUSCULAR HGB CONC 32.1 % (32.0-36.0); MEAN PLATELET VOLUME 8.4 FL (7.0-11.0); MONO % 12.1 % (0.0-8.0); MONOCYTE # 0.6 TH/MM3 (0-0.9); PLATELET COUNT 243 TH/MM3 (150-450); RED BLOOD COUNT 4.51 MIL/MM3 (4.50-5.90); RED CELL DISTRIBUTION WIDTH 14.2 % (11.6-17.2); WHITE BLOOD COUNT 4.8 TH/MM3 (4.0-11.0)
--- NOTE | 2017-08-06 21:12 | PD ---
Physical Exam Narrative General: The patient is a well-developed well-nourished male in no acute distress. Head and Neck exam: Head is normocephalic atraumatic. Eyes: EOMI, pupils are equal round and reactive to light. Nose: Midline septum with pink mucous membranes Mouth: Dentition unremarkable. Moist mucus membranes. Posterior oropharynx is not erythematous. No tonsillar hypertrophy. Uvula midline. Airway patent. Neck: No palpable lymphadenopathy. No nuchal rigidity. No thyromegaly. Cardiovascular: Regular rate and rhythm without murmurs, gallops, or rubs. No pulse deficit to the extremities on simultaneous auscultation and palpation of his radial artery. No chest wall tenderness on palpation. Lungs: Clear to auscultation bilaterally. No wheezes, rhonchi, or rales. Abdomen: Soft, without tenderness to palpation in all 4 quadrants of the abdomen. No guarding, rebound, or rigidity. Normal bowel sounds are audible. No tenderness on palpation of McBurney's point Extremities: No clubbing, cyanosis, or edema. 2+ pulses in all 4 extremities. No calf tenderness on palpation. Neurologic Exam: Grossly nonfocal, except reported numbness and tingling to the left forearm. The patient previously had difficulty with extension of his left wrist, however he reports that that improved since his last emergency department visit and is able to actively flex and extend his wrist, flex and extend his elbow, abduct his fingers, and make a fist with full strength. Skin Exam: No rash noted. Intact skin that is warm and dry. Data Data Last Documented VS Vital Signs Date Time Temp Pulse Resp B/P (MAP) Pulse Ox O2 Delivery O2 Flow Rate FiO2 08/06/17 21:09 Room Air 08/06/17 20:59 99 08/06/17 20:38 97.6 61 16 100/71 (81) Orders Orders Electrocardiogram (08/06/17 20:48) Ckmb (Isoenzyme) Profile (08/06/17 20:48) Complete Blood Count With Diff (08/06/17 20:48) Comprehensive Metabolic Panel (08/06/17 20:48) Magnesium (Mg) (08/06/17 20:48) Prothrombin Time / Inr (Pt) (08/06/17 20:48) Act Partial Throm Time (Ptt) (08/06/17 20:48) Troponin I (08/06/17 20:48) Lipase (08/06/17 20:48) Chest, Single Ap (08/06/17 20:48) Ecg Monitoring (08/06/17 20:48) Bilateral Bp Monitoring (08/06/17 20:48) Iv Access Insert/Monitor (08/06/17 20:48) Oximetry (08/06/17 20:48) Oxygen Administration (08/06/17 20:48) Sodium Chloride 0.9% Flush (Ns Flush) (08/06/17 21:00) Aspirin Chew (Aspirin Chew) (08/06/17 21:30) CKMB (08/06/17 20:58) CKMB% (08/06/17 20:58) Admit Order (Ed Use Only) (08/06/17 23:48) Labs Laboratory Tests Test 08/06/17 20:58 White Blood Count 4.8 TH/MM3 Red Blood Count 4.51 MIL/MM3 Hemoglobin 12.1 GM/DL Hematocrit 37.5 % Mean Corpuscular Volume 83.3 FL Mean Corpuscular Hemoglobin 26.7 PG Mean Corpuscular Hemoglobin Concent 32.1 % Red Cell Distribution Width 14.2 % Platelet Count 243 TH/MM3 Mean Platelet Volume 8.4 FL Neutrophils (%) (Auto) 63.0 % Lymphocytes (%) (Auto) 21.1 % Monocytes (%) (Auto) 12.1 % Eosinophils (%) (Auto) 2.7 % Basophils (%) (Auto) 1.1 % Neutrophils # (Auto) 3.0 TH/MM3 Lymphocytes # (Auto) 1.0 TH/MM3 Monocytes # (Auto) 0.6 TH/MM3 Eosinophils # (Auto) 0.1 TH/MM3 Basophils # (Auto) 0.1 TH/MM3 CBC Comment DIFF FINAL Differential Comment Prothrombin Time 14.6 SEC Prothromb Time International Ratio 1.4 RATIO Activated Partial Thromboplast Time 32.0 SEC Blood Urea Nitrogen 19 MG/DL Creatinine 1.84 MG/DL Random Glucose 75 MG/DL Total Protein 6.7 GM/DL Albumin 3.4 GM/DL Calcium Level 8.5 MG/DL Magnesium Level 1.7 MG/DL Alkaline Phosphatase 93 U/L Aspartate Amino Transf (AST/SGOT) 20 U/L Alanine Aminotransferase (ALT/SGPT) 14 U/L Total Bilirubin 0.7 MG/DL Sodium Level 145 MEQ/L Potassium Level 4.2 MEQ/L Chloride Level 111 MEQ/L Carbon Dioxide Level 24.1 MEQ/L Anion Gap 10 MEQ/L Estimat Glomerular Filtration Rate 46 ML/MIN Total Creatine Kinase 165 U/L Creatine Kinase MB 2.9 NG/ML Troponin I 0.02 NG/ML Lipase 93 U/L [facility] Medical Record Reviewed: Yes Supervised Visit with MARIO: Yes Narrative Course I, Dr. Blas, have reviewed the advance practice practitioner's documentation and am in agreement, met with the patient face to face, made the diagnosis, and the medical decision making was done by me. The patient was initially evaluated by Halle, the DESKIDDING MACHINE OPERATOR. Please see their complete history and physical. *My assessment and Findings: The patient presents with left-sided chest pain and left arm tingling that began yesterday. The patient reports that he has had the left arm tingling in the past associated with left wrist weakness. He reports that he had this evaluated recently and. He reports that the symptoms of tingling and burning in his left arm and weakness of the left wrist actually improved. He reports that he is working on a referral to the neurosurgeon as previously recommended during his last emergency department visit. He reports that previously he did not have chest pain associated with the left arm tingling. He does report having a history of coronary artery disease. During the course of the patient's emergency department visit, the patient's history, examination, and differential diagnosis were reviewed with the patient. The patient was placed on a cardiac care nurse with oximetry and frequent blood pressure monitoring. The patient had IV access obtained and blood work sent for analysis. EKG shows an electronic ventricular paced rhythm, heart rate is 60, QRS duration 183 ms, QTC 438 ms. The patient's electronic medical record was reviewed. The patient was just seen in the emergency department on July 20 complaining of left arm numbness, tingling, weakness. CT scan of the cervical spine revealed severe degenerative changes with foraminal stenosis on the left which would explain some of the patient's symptoms. He was discharged home to follow-up with the neurosurgeon on-call, Dr. Siddiqui. The patient was initially provided aspirin 81 mg p.o. 1 as the patient according to the record is on Xarelto. The patient's laboratory studies were reviewed and remarkable for a white count of 4.8, hemoglobin 12.1, platelets 243 with 12.1 monocytes, CMP is remarkable for a chloride of 111, BUN 19, creatinine 1.84, PT 14.6, INR 1.4, PTT 32 Radiology studies were reviewed and remarkable for Last Impressions Chest X-Ray 08/06/172047 Signed Impressions: CONCLUSION: 1. Compensated cardiomegaly. 2. No acute abnormality or significant interval change. The patient's results were discussed with the patient, including the plan of care. I explained that further testing and/ or monitoring is indicated based on the patient's history, examination, and/ or laboratory findings. Therefore, I recommended admission for additional evaluation. The patient expressed understanding and was agreeable with this plan. The patient was admitted to the hospital in stable condition and sent to a bed under the care of the chest pain center. Diagnosis Primary Impression: Chest pain, rule out acute myocardial infarction Admitting Information Admitting Physician Requests: Observation Moriah Blas MD Aug 06, 2017 21:12
--- NOTE | 2017-08-06 21:12 | PD ---
HPI Chief Complaint: Chest Pain Time Seen by Provider: 20:50 Travel History International Travel<30 days: No Contact w/Intl Traveler<30days: No Traveled to known affect area: No History of Present Illness HPI Patient is a 57-year-old male presenting to the emergency department for evaluation of chest pain. Patient states the pain started yesterday. He currently rates it a 5 out of 10, he states it radiates down the left side of the chest. He states it is pressure-like and sharp. Pain is constant however it does alleviate and then exacerbate. He states that he felt dizzy today when he gets up. Symptoms are exacerbated with movement. Patient has a history of open heart surgery as well as a pacemaker. Patient denies shortness of breath, abdominal pain, fever, chills, cough. Patient states he was in the emergency department 2 weeks ago with numbness to his left arm and was told he had a nerve injury to his neck. PFSH Past Medical History Hx Anticoagulant Therapy: Yes (Plavix, ) Asthma: Yes Atrial Fibrillation: Yes Cardiac Catheterization: Yes High Cholesterol: Yes Chest Pain: Yes Congestive Heart Failure: Yes COPD: Yes Coronary Artery Disease: Yes Gastrointestinal Disorders: Yes (HEMORRHOIDS) Genitourinary: Yes Hypertension: Yes Immunizations Current: Yes Myocardial Infarction: Yes Past Surgical History AICD: Yes ([employer] IMPLANTABLE DEFIBRILLATOR 2014) Coronary Artery Bypass Graft: Yes Coronary Stent: Yes (X 2 IN 2010) Pacemaker: Yes (PACER /defib) Other Surgery: Yes (CABG 2012, 2010 STENTS) Family History Family Myocardial Infarction: Yes Social History Alcohol Use: No Tobacco Use: Yes Substance Use: No Allergies-Medications (Allergen,Severity, Reaction): Coded Allergies: No Known Allergies (Unverified Adverse Reaction, Unknown, 07/20/17) Reported Meds & Prescriptions Reported Meds & Active Scripts Active Coreg (Carvedilol) 6.25 Mg Tab 6.25 Mg PO Q12HR Xarelto (Rivaroxaban) 20 Mg Tab 20 Mg PO DAILY Spironolactone 25 Mg Tab 25 Mg PO DAILY Duoneb (Ipratropium-Albuterol Neb) 0.5-2.5 Mg/3 Ml Neb 1 Nebule INH DAILY Tramadol (Tramadol HCl) 50 Mg Tab 50 Mg PO Q6H PRN Indomethacin 50 Mg Cap 50 Mg PO TID PRN Take with food, milk, or antacids to decrease stomach adverse effects. Prednisone 20 Mg Tab 20 Mg PO BID 5 Days Tramadol (Tramadol HCl) 50 Mg Tab 50 Mg PO Q6H PRN Furosemide 40 Mg Tab 40 Mg PO DAILY Nicotine Patch (Nicotine) 14 Mg/24 Hr Patch 14 Mg T-DERMAL DAILY Nebulizer 1 Mis Mis Ea .ROUTE DIRECTED Prednisone 50 Mg Tab 50 Mg PO DAILY Tamiflu (Oseltamivir Phosphate) 45 Mg Cap 45 Mg PO BID Take 75 mg (one 45 mg and one 30 mg tablet) twice a day. Tamiflu (Oseltamivir Phosphate) 30 Mg Cap 30 Mg PO BID Take 75 mg (one 45 mg and one 30 mg tablet) twice a day. Azithromycin 250 Mg Tab 500 Mg PO DAILY Ventolin Hfa 18 GM Inh (Albuterol Sulfate) 90 Mcg/Act Aer 1 Puff INH Q4H PRN Nitroglycerin SL (Nitroglycerin) 0.4 Mg Subl 0.4 Mg SL DIRECTED PRN ONE TABLET UNDER THE TONGUE NEEDED FOR CHEST PAIN, MAY REPEAT EVERY FIVE MINUTES Simvastatin 20 Mg Tab 20 Mg PO HS Digoxin 0.25 Mg Tab 0.25 Mg PO DAILY Flovent Hfa 12 GM Inh (Fluticasone Propionate) 110 Mcg/Act Inh 1 Puff INH BID Potassium Chloride Microencaps 20 Meq Tab 20 Meq PO Q12HR Clopidogrel (Clopidogrel Bisulfate) 75 Mg Tab 75 Mg PO DAILY E-Z Spacer-Aerosol Holding Chamber 1 Mis Mis 1 Ea .ROUTE DIRECTED Reported Entresto (Sacubitril-Valsartan) 49-51 Mg Tab 1 Tab PO DAILY Review of Systems Except as stated in HPI: all other systems reviewed are Neg HENT: Positive: Lightheadedness Cardiovascular: Positive: Chest Pain or Discomfort, Dyspnea on exertion Respiratory: Positive: Shortness of Breath Gastrointestinal: No: Nausea, Vomiting, Abdominal Pain Neurologic: Positive: Paresthesia Physical Exam Narrative GENERAL: Well-developed, well-nourished, alert -[place] male. Resting comfortably in no acute distress. SKIN: Warm and dry. HEAD: Atraumatic. Normocephalic. EYES: Pupils equal and round. No scleral icterus. No injection or drainage. ENT: No nasal bleeding or discharge. Mucous membranes pink and moist. NECK: Trachea midline. No JVD. CARDIOVASCULAR: Regular rate and rhythm. RESPIRATORY: No accessory muscle use. Clear to auscultation. Breath sounds equal bilaterally. GASTROINTESTINAL: Abdomen soft, non-tender, nondistended. Hepatic and splenic margins not palpable. MUSCULOSKELETAL: Extremities without clubbing, cyanosis, or edema. No obvious deformities. NEUROLOGICAL: Awake and alert. No obvious cranial nerve deficits. Motor grossly within normal limits. Five out of 5 muscle strength in the arms and legs. Normal speech. PSYCHIATRIC: Appropriate mood and affect; insight and judgment normal. Data Data Last Documented VS Vital Signs Date Time Temp Pulse Resp B/P (MAP) Pulse Ox O2 Delivery O2 Flow Rate FiO2 08/06/17 20:59 99 Room Air 08/06/17 20:38 97.6 61 16 100/71 (81) Orders Orders Electrocardiogram (08/06/17 20:48) Ckmb (Isoenzyme) Profile (08/06/17 20:48) Complete Blood Count With Diff (08/06/17 20:48) Comprehensive Metabolic Panel (08/06/17 20:48) Magnesium (Mg) (08/06/17 20:48) Prothrombin Time / Inr (Pt) (08/06/17 20:48) Act Partial Throm Time (Ptt) (08/06/17 20:48) Troponin I (08/06/17 20:48) Lipase (08/06/17 20:48) Chest, Single Ap (08/06/17 20:48) Ecg Monitoring (08/06/17 20:48) Bilateral Bp Monitoring (08/06/17 20:48) Iv Access Insert/Monitor (08/06/17 20:48) Oximetry (08/06/17 20:48) Oxygen Administration (08/06/17 20:48) Sodium Chloride 0.9% Flush (Ns Flush) (08/06/17 21:00) Labs Laboratory Tests Test 08/06/17 20:58 [facility] Medical Decision Making Medical Screen Exam Complete: Yes Emergency Medical Condition: Yes Medical Record Reviewed: Yes Interpretation(s) Vital Signs Date Time Temp Pulse Resp B/P (MAP) Pulse Ox O2 Delivery O2 Flow Rate FiO2 08/06/17 20:59 99 Room Air 08/06/17 20:59 99 Room Air 08/06/17 20:38 97.6 61 16 100/71 (81) 100 Differential Diagnosis Radiculopathy versus ACS versus [place] versus musculoskeletal strain versus other. Halle Galarza Aug 06, 2017 21:12
[2017-08-06 21:20] LABS: INTERNATIONAL NORMALIZED RATIO 1.4 RATIO; PROTHROMBIN TIME - PATIENT 14.6 SEC (9.8-11.6)
[2017-08-06] MEDS ORDERED: ASPIRIN 81 MG CHEW TAB CHEW ONE (21:30)
--- NOTE | 2017-08-06 21:37 | RADRPT ---
EXAM DATE: 08/06/2017 8:54 PM EDT AGE/SEX: 57 years / Male INDICATIONS: Chest pain. CLINICAL DATA: This is the patient's initial encounter. Patient reports that signs and symptoms have been present for 1 day and indicates a pain score of 5/10. MEDICAL/SURGICAL HISTORY: Congestive heart failure. Cardiovascular disease. CABG. Pacemaker. COMPARISON: [facility] [place], CHEST SINGLE AP, 07/20/2017. . FINDINGS: No new focal pleural or parenchymal opacities. Median sternotomy wires with stable dual lead AICD dev ice. Cardiac silhouette is enlarged. Bony thorax is intact. CONCLUSION: 1. Compensated cardiomegaly. 2. No acute abnormality or significant interval change. Electronically signed by: Deondre Clayton MD 08/06/2017 9:35 PM EDT
[2017-08-06 23:02] LABS: BLOOD UREA NITROGEN 19 MG/DL (7-18); CREATININE 1.84 MG/DL (0.60-1.30); GLOMERULAR FILTRATION RATE 46 ML/MIN (>89)
[2017-08-06 23:03] LABS: ALBUMIN 3.4 GM/DL (3.4-5.0); ALT (GPT) 14 U/L (12-78); AST (GOT) 20 U/L (15-37); CALCIUM 8.5 MG/DL (8.5-10.1); MAGNESIUM 1.7 MG/DL (1.5-2.5); SODIUM (NA) 145 MEQ/L (136-145)
[2017-08-06 23:04] LABS: BICARBONATE 24.1 MEQ/L (21.0-32.0); CHLORIDE 111 MEQ/L (98-107)
[2017-08-06 23:24] LABS: ALKALINE PHOSPHATASE 93 U/L (45-117); GLUCOSE,RANDOM 75 MG/DL (74-106); TOTAL BILIRUBIN ADULT 0.7 MG/DL (0.2-1.0); TOTAL PROTEIN 6.7 GM/DL (6.4-8.2)
[2017-08-06 23:25] LABS: TROPONIN I 0.02 NG/ML (0.02-0.05)
[2017-08-07] VITALS (7 sets, daily range): BP systolic 95–113; BP diastolic 63–66; PULSE 58–62; RESP 16–18; TEMP 97.4–98.8; O2SAT 98–100
[2017-08-07] MEDS ORDERED: SODIUM CHLORIDE 0.9% FLUSH 10 ML FLUSH IV FLUSH PRN (00:30)
[2017-08-07] MEDS ORDERED: ACETAMINOPHEN 500 MG CPLT PO PRN (00:30)
[2017-08-07 01:06] LABS: TROPONIN I 0.02 NG/ML (0.02-0.05)
[2017-08-07 03:40] LABS: TROPONIN I 0.02 NG/ML (0.02-0.05)
--- NOTE | 2017-08-07 08:05 | HHI.HP ---
HPI Primary Care Physician Raul Roe MD Chief Complaint Chest pain History of Present Illness 57-year-old male with history of COPD, congestive heart failure, coronary artery disease with 2 stents, CABG 2, and A. fib presents emergency room for further evaluation chest pain. Onset couple days ago. Location left anterior chest. Characterized as "squeezing, twisting, and sharp pain." Severity moderate. Radiation to left shoulder left arm. Duration has been constant. Associated symptoms include dyspnea. No associated symptoms of nausea, vomiting , or diaphoresis. Precipitating factors cough at movement of left arm repositioning. No relieving factors. Hurts to move left shoulder. Denies similar pain in the past. Virtually been seen in the ER 2 weeks ago was diagnosed with a pinched nerve and he is awaiting a neurosurgeon referral from his PCP. No injury or recent trauma. Review of Systems General: No fatigue, weakness, fever, chills, or recent illness. Has been in his general state of health. HEENT: No SALAS, no vision changes, no nasal congestion or drainage, no dysphasia CV: As stated above. No palpitations or dizziness. RESP: No SOB or wheeze. Daily nonproductive cough. History of COPD. GI: No nausea, vomiting, bowel changes, diarrhea, constipation, pain, distention , melena, or blood in the stool. : No dysuria, urgency, frequency EXT: No lower leg edema MS: Left shoulder pain, no recent injury or trauma. Left fingertips tingling. No change in ROM NEURO: No change in memory, difficulty with balance, LOC, motor/sensory deficits PSYCH: No anxiety, depression, or suicidal ideation SKIN: No rashes, no concerning lesions Past Family Social History Allergies: Coded Allergies: No Known Allergies (Unverified Adverse Reaction, Unknown, 07/20/17) Past Medical History COPD, CHF Ef 20-25%, afib, DVT, x2 cardiac stents, gout, hypertension, former smoker Past Surgical History CABGx2 (2013), Pacer/AICD (2014) Reported Medications Reported Meds & Active Scripts Active Coreg (Carvedilol) 6.25 Mg Tab 6.25 Mg PO Q12HR Xarelto (Rivaroxaban) 20 Mg Tab 20 Mg PO DAILY Spironolactone 25 Mg Tab 25 Mg PO DAILY Duoneb (Ipratropium-Albuterol Neb) 0.5-2.5 Mg/3 Ml Neb 1 Nebule INH DAILY Tramadol (Tramadol HCl) 50 Mg Tab 50 Mg PO Q6H PRN Indomethacin 50 Mg Cap 50 Mg PO TID PRN Take with food, milk, or antacids to decrease stomach adverse effects. Prednisone 20 Mg Tab 20 Mg PO BID 5 Days Furosemide 40 Mg Tab 40 Mg PO DAILY Nicotine Patch (Nicotine) 14 Mg/24 Hr Patch 14 Mg T-DERMAL DAILY Nebulizer 1 Mis Mis Ea .ROUTE DIRECTED Prednisone 50 Mg Tab 50 Mg PO DAILY Tamiflu (Oseltamivir Phosphate) 45 Mg Cap 45 Mg PO BID Take 75 mg (one 45 mg and one 30 mg tablet) twice a day. Ventolin Hfa 18 GM Inh (Albuterol Sulfate) 90 Mcg/Act Aer 1 Puff INH Q4H PRN Nitroglycerin SL (Nitroglycerin) 0.4 Mg Subl 0.4 Mg SL DIRECTED PRN ONE TABLET UNDER THE TONGUE NEEDED FOR CHEST PAIN, MAY REPEAT EVERY FIVE MINUTES Simvastatin 20 Mg Tab 20 Mg PO HS Digoxin 0.25 Mg Tab 0.25 Mg PO DAILY Flovent Hfa 12 GM Inh (Fluticasone Propionate) 110 Mcg/Act Inh 1 Puff INH BID Potassium Chloride Microencaps 20 Meq Tab 20 Meq PO Q12HR Clopidogrel (Clopidogrel Bisulfate) 75 Mg Tab 75 Mg PO DAILY E-Z Spacer-Aerosol Holding Chamber 1 Mis Mis 1 Ea .ROUTE DIRECTED Reported Entresto (Sacubitril-Valsartan) 49-51 Mg Tab 1 Tab PO DAILY Active Ordered Medications Current Medications Medications (Trade) Dose Ordered Sig/Jann Route Start Time Stop Time Status Last Admin (NS Flush) 2 ml UNSCH PRN IVF 08/06/17 21:00 (NS Flush) 2 ml UNSCH PRN IV FLUSH 08/07/17 00:30 (NS Flush) 2 ml BID IV FLUSH 08/07/17 09:00 (Tylenol) 500 mg Q4H PRN PO 08/07/17 00:30 Social History Known CAD, hyperlipidemia, hypertension. No known diabetes. Former smoker. Denies any alcohol or illegal drug use. Past cardiac testing 02/28/14 Lexiscan-no reversible deficits. Large defect. Known EF 20%. x2 cardiac stents placed 2010. CABGx3 2012. Pacer with AICD-2014. Physical Exam Vital Signs Vital Signs Date Time Temp Pulse Resp B/P (MAP) Pulse Ox O2 Delivery O2 Flow Rate FiO2 08/07/17 07:51 97.4 61 18 113/63 (80) 100 08/07/17 04:06 60 08/07/17 03:45 97.9 58 16 102/66 (78) 98 08/07/17 01:31 97.5 60 16 95/63 (74) 100 08/07/17 00:45 98 08/06/17 21:09 Room Air 08/06/17 20:59 99 Room Air 08/06/17 20:59 99 Room Air 08/06/17 20:38 97.6 61 16 100/71 (81) 100 Physical Exam GENERAL: Alert WN, WD, NAD, pleasant, -[place] male HEAD: NC, AT CV: RRR, without murmur, rub, gallop, no JVD, S1-S2 no S3-S4. RESP: Clear lungs throughout bilateral, no crackles, wheeze, rhonchi, symmetrical chest rise, nonlabored, able to speak in full sentences ABD: Soft, NT, ND, no masses, positive bowel tones EXT: Pulses +2x4, no dependent edema MS: Left shoulder pain reproduced with passive ROM. Normal tone x4 extremities, no obvious deformities, full range of motion NEURO: CN II through CN XII grossly intact, motor strength 5/5 PSYCH: A+O x3, pleasant affect, appropriate speech, mood, insight and judgment SKIN: Normal turgor, normal texture Laboratory Laboratory Tests Test 08/06/17 20:58 08/07/17 00:35 08/07/17 03:17 White Blood Count 4.8 Red Blood Count 4.51 Hemoglobin 12.1 Hematocrit 37.5 Mean Corpuscular Volume 83.3 Mean Corpuscular Hemoglobin 26.7 Mean Corpuscular Hemoglobin Concent 32.1 Red Cell Distribution Width 14.2 Platelet Count 243 Mean Platelet Volume 8.4 Neutrophils (%) (Auto) 63.0 Lymphocytes (%) (Auto) 21.1 Monocytes (%) (Auto) 12.1 Eosinophils (%) (Auto) 2.7 Basophils (%) (Auto) 1.1 Neutrophils # (Auto) 3.0 Lymphocytes # (Auto) 1.0 Monocytes # (Auto) 0.6 Eosinophils # (Auto) 0.1 Basophils # (Auto) 0.1 CBC Comment DIFF FINAL Differential Comment Prothrombin Time 14.6 Prothromb Time International Ratio 1.4 Activated Partial Thromboplast Time 32.0 Blood Urea Nitrogen 19 Creatinine 1.84 Random Glucose 75 Total Protein 6.7 Albumin 3.4 Calcium Level 8.5 Magnesium Level 1.7 Alkaline Phosphatase 93 Aspartate Amino Transf (AST/SGOT) 20 Alanine Aminotransferase (ALT/SGPT) 14 Total Bilirubin 0.7 Sodium Level 145 Potassium Level 4.2 Chloride Level 111 Carbon Dioxide Level 24.1 Anion Gap 10 Estimat Glomerular Filtration Rate 46 Total Creatine Kinase 165 125 118 Creatine Kinase MB 2.9 2.4 2.7 Troponin I 0.02 0.02 0.02 Lipase 93 Result Diagram: 08/06/17205708/06/172057 Imaging Last 48 hours Impressions Chest X-Ray 08/06/172047 Signed Impressions: CONCLUSION: 1. Compensated cardiomegaly. 2. No acute abnormality or significant interval change. Course EKG V-paced Caprini VTE Risk Assessment Caprini VTE Risk Assessment: No/Low Risk (score <= 1) Caprini Risk Assessment Model Point Value = 1 Point Value = 2 Point Value = 3 Point Value = 5 Age 41-60 Minor surgery BMI > 25 kg/m2 Swollen legs Varicose veins or History of unexplained or recurrent spontaneous Oral contraceptives or hormone replacement Sepsis (< 1 month) Serious lung disease, including pneumonia (< 1 month) Abnormal pulmonary function Acute myocardial infarction Congestive heart failure (< 1 month) History of inflammatory bowel disease Medical patient at bed rest Age 61-74 Arthroscopic surgery Major open surgery (> 45 min) Laparoscopic surgery (> 45 min) Malignancy Confined to bed (> 72 hours) Immobilizing plaster cast Central venous access Age >= 75 History of VTE Family history of VTE Factor V Leiden Prothrombin [id number] Lupus anticoagulant Anticardiolipin antibodies Elevated serum homocysteine Heparin-induced thrombocytopenia Other congenital or acquired thrombophilia Stroke (< 1 month) Elective arthroplasty Hip, pelvis, or leg fracture Acute spinal cord injury (< 1 month) Prophylaxis Regimen Total Risk Factor Score Risk Level Prophylaxis Regimen 0-1 Low Early ambulation 2 Moderate Order ONE of the following: *Sequential Compression Device (SCD) *Heparin 5000 units SQ BID 3-4 Higher Order ONE of the following medications: *Heparin 5000 units SQ TID *Enoxaparin/Lovenox 40 mg SQ daily (WT < 150 kg, CrCl > 30 mL/min) *Enoxaparin/Lovenox 30 mg SQ daily (WT < 150 kg, CrCl > 10-29 mL/min) *Enoxaparin/Lovenox 30 mg SQ BID (WT < 150 kg, CrCl > 30 mL/min) AND/OR *Sequential Compression Device (SCD) 5 or more Highest Order ONE of the following medications: *Heparin 5000 units SQ TID (Preferred with Epidurals) *Enoxaparin/Lovenox 40 mg SQ daily (WT < 150 kg, CrCl > 30 mL/min) *Enoxaparin/Lovenox 30 mg SQ daily (WT < 150 kg, CrCl > 10-29 mL/min) *Enoxaparin/Lovenox 30 mg SQ BID (WT < 150 kg, CrCl > 30 mL/min) AND *Sequential Compression Device (SCD) Assessment and Plan Assessment and Plan #1 Atypical chest pain-admitted chest pain center. ACS with 3 sets of EKGs and cardiac enzymes. Monitored overnight on telemetry. Seen and evaluated by Dr. Eddie Greenberg. Proceed with Lexiscan due to risk factors, discomfort suggestive of musculoskeletal pain. During exam patient obvious hurting with movement and repositioning of left arm and shoulder. Recommended follow-up with PCP for further testing left shoulder. Danica Rai Aug 07, 2017 08:05
[2017-08-07] MEDS ORDERED: SODIUM CHLORIDE 0.9% FLUSH 10 ML FLUSH IV FLUSH SCH (09:00)
[2017-08-07] MEDS ORDERED: REGADENOSON INJ 0.4 MG/5 ML SYR ONE (10:32)
[2017-08-07] MEDS ORDERED: RESP: ALBUTEROL 2.5 MG/3 ML NEB (PRN) NEB (11:15)
--- NOTE | 2017-08-07 13:40 | RADRPT ---
EXAM DATE: 08/07/2017 1:29 PM EDT AGE/SEX: 57 years / Male INDICATIONS:Angina. . Chest pain with left arm pain. CLINICAL DATA: This is the patient's initial encounter. Patient reports that signs and symptoms have been present for 1 day and indicates a pain score of 0/10. MEDICAL/SURGICAL HISTORY: Congestive heart failure. Hypercholesterolemia. Chronic obstructive pulmonary disease. A-Fib. Angioplasty. CABG. Pacemaker. COMPARISON: No prior exams available for comparison. DOSE: 8.5 mCi Tc 99m Myoview at rest 25.4 mCi [id number] at stress 0.4 mg Lexiscan STRESS SYMPTOMS: Nausea and dyspnea. EJECTION FRACTION: 19 % TECHNIQUE: The patient underwent pharmacologic stress with infusion of prescribed dose. Continuous ECG tracing was monitored during stress. Gated SPECT imaging was performed after stress and conventi onal SPECT imaging was performed at rest. The examination was performed on a SPECT/CT scanner, both attenuation and non-corrected datasets were reviewed. FINDINGS: Distribution: The maximum perfused segment at stress is in the inferior wall. Perfusion Study: There is matched fixed defects involving the apex and the apical and portions of t he mid anterior, lateral, inferior and septal nunez. An area of ischemia is not clearly seen. Gated Study: There is global hypokinesis with an area of dyskinesis at the apical portion of the sep fred. The ejection fraction is calculated at 19%. RISK CATEGORY: High (>3% Annual Morality Rate) CONCLUSION: 1. Large fixed defect involving the apex and portions of the apical and mid left ventricle. 2. Global hypokinesis with reduced ejection fraction 19%. 3. Area of mild dyskinesis of the apical septum. 4. Ischemia is not clearly seen. Electronically signed by: Benito Abad MD 08/07/2017 1:39 PM EDT
--- NOTE | 2017-08-07 13:53 | HHI.DCPOC ---
Discharge Care Plan Diagnosis: (1) Left anterior shoulder pain (2) Musculoskeletal chest pain (3) History of cardiomyopathy (4) History of coronary artery disease (5) History of automatic internal cardiac defibrillator (AICD) Goals to Promote Your Health * To prevent worsening of your condition and complications * To maintain your health at the optimal level Directions to Meet Your Goals Take your medications as prescribed Follow your dietary instruction Follow activity as directed Keep your appointments as scheduled Take your immunizations and boosters as scheduled If your symptoms worsen call your PCP, if no PCP go to Urgent Care Center or Emergency Room Smoking is Dangerous to Your Health. Avoid second hand smoke Call the 24-hour hour crisis hotline for domestic abuse at Danica Rai Aug 07, 2017 13:53
--- NOTE | 2017-08-07 14:12 | EKG ---
Date Performed: 08/07/2017 Time Performed: 03:10:45 PTAGE: 57 years EKG: ELECTRONIC VENTRICULAR PACEMAKER ABNORMAL RHYTHM ECG NO PREVIOUS TRACING DOCTOR: Eddie Greenberg Interpretating Date/Time 08/07/2017 14:11:45
--- NOTE | 2017-08-07 14:12 | EKG ---
Date Performed: 08/07/2017 Time Performed: 00:37:28 PTAGE: 57 years EKG: ELECTRONIC VENTRICULAR PACEMAKER ABNORMAL RHYTHM ECG PREVIOUS TRACING : 08/06/2017 20.54 Since previous tracing, no significant change noted DOCTOR: Eddie Greenberg Interpretating Date/Time 08/07/2017 14:12:09
--- NOTE | 2017-08-07 14:14 | EKG ---
Date Performed: 08/06/2017 Time Performed: 20:54:40 PTAGE: 57 years EKG: ELECTRONIC VENTRICULAR PACEMAKER ABNORMAL RHYTHM ECG PREVIOUS TRACING : 02/10/2017 00.17 Since previous tracing, no significant change noted DOCTOR: Eddie Greenberg Interpretating Date/Time 08/07/2017 14:13:09
--- NOTE | 2017-08-09 08:17 | TR ---
Date Performed: 08/07/2017 Time Performed: 10:13:01 DOCTOR: Eddie Greenberg DRUG LIST: ALBUTEROL COREG ASA DIGOXIN CLINICAL HISTORY: CHEST PAIN CHEST PAIN REASON FOR TEST: CHEST PAIN REASON FOR ENDING: OBSERVATION: CONCLUSION: COMMENTS: Lexiscan stress test was performed under standard four minute protocol. Pacer rhythm w as present throughout testing. Radionuclide was injected one minute prior to ending the test.Nuclear imaging and interpretation are pending.
== END 2017-08-07 16:20 | disposition home or self-care (01) ==
LOC: NEPE 20:25 → NEDA 23:50 → NEPFCDU 08-07 01:06
PROVIDERS: ADMIT Internal Medicine Interventional Cardiology; ATTEND Internal Medicine Interventional Cardiology
DX: R07.89 Other chest pain (principal); R05 Cough; M25.512 Pain in left shoulder; R42 Dizziness and giddiness; R20.0 Anesthesia of skin; I25.10 Atherosclerotic heart disease of native coronary artery without angina pectoris; I11.0 Hypertensive heart disease with heart failure; I50.9 Heart failure, unspecified; J44.9 Chronic obstructive pulmonary disease, unspecified; E78.00 Pure hypercholesterolemia, unspecified; I25.2 Old myocardial infarction; I48.91 Unspecified atrial fibrillation; R94.31 Abnormal electrocardiogram [ECG] [EKG]; M48.02 Spinal stenosis, cervical region; M47.892 Other spondylosis, cervical region; Z95.5 Presence of coronary angioplasty implant and graft; Z87.891 Personal history of nicotine dependence; Z79.01 Long term (current) use of anticoagulants; Z79.899 Other long term (current) drug therapy; Z95.0 Presence of cardiac pacemaker
CPT/HCPCS: 71045; 78452; 80053; 82550; 82552; 83690; 83735; 84484; 85025; 85610; 85730; 93005; 93017; 99285; A9502; G0378; J2785

== ENCOUNTER 2017-09-22 12:25 | Observation (INO) ==
--- NOTE | 2017-09-22 12:54 | XR ---
EXAM DATE: 09/22/2017 12:49 PM EDT AGE/SEX: 57 years / Male INDICATIONS: Chest pain CLINICAL DATA: This is the patient's initial encounter. Patient reports that signs and symptoms have been present for 2 days and indicates a pain score of 8/10. MEDICAL/SURGICAL HISTORY: . Congestive heart failure. Hypercholesterolemia. Chronic obstructive pulmonary disease. A-Fib. . Angioplasty. CABG. Pacemaker COMPARISON: [facility] [place], CHEST SINGLE AP, 08/06/2017. . FINDINGS: AP upright portable view of the chest demonstrates moderate cardiomegaly, stable with a dual lead AIC D device present. Prominence of the pulmonary vasculature. The lungs are clear. CONCLUSION: Stable cardiomegaly with radiographic findings consistent with congestive heart failure. Electronically signed by: Mary Mott MD 09/22/2017 12:52 PM EDT
[2017-09-22 12:58] LABS: Baso % (Auto) 0.6 % (0.0-2.0); Eos # (Auto) 0.1 th/mm3 (0.0-0.4); Eos % (Auto) 2.9 % (0.0-4.0); Hematocrit 40.6 % (39.0-51.0); Hemoglobin 12.7 gm/dL (13.0-17.0); Lymph # (Auto) 0.8 th/mm3 (1.0-4.8); Mean Corpuscular HGB Conc 31.2 % (32.0-36.0); Mean Corpuscular Hemoglobin 26.2 pg (27.0-34.0); Mean Corpuscular Volume 83.8 fL (80.0-100.0); Mean Platelet Volume 8.2 fL (7.0-11.0); Mono # (Auto) 0.4 th/mm3 (0.0-0.9); Mono % (Auto) 8.3 % (0.0-8.0); Neut # (Auto) 3.1 th/mm3 (1.8-7.7); Neut % (Auto) 70.2 % (16.0-70.0); Platelet Count 269 th/mm3 (150-450); Red Blood Count 4.85 mil/mm3 (4.50-5.90); Red Cell Distribution Width 15.1 % (11.6-17.2); White Blood Count 4.4 th/mm3 (4.0-11.0)
[2017-09-22 13:05] LABS: Activated Partial Thrombo Time 33.3 sec (24.3-30.1); INR 1.4 Ratio; Prothrombin Time 14.6 sec (9.8-11.6)
[2017-09-22 13:14] LABS: Alanine Aminotransferase 24 U/L (12-78); Albumin 3.4 g/dL (3.4-5.0); Anion Gap 8 meq/L (5-15); Aspartate Aminotransferase 32 U/L (15-37); Blood Urea Nitrogen 22 mg/dL (7-18); Calcium 8.6 mg/dL (8.5-10.1); Carbon Dioxide 25.3 meq/L (21.0-32.0); Chloride 110 meq/L (98-107); Glomerular Filtration Rate 73 mL/min (>89); Glucose,Random 121 mg/dL (74-106); Lipase 80 U/L (73-393); Potassium 3.8 meq/L (3.5-5.1); Sodium 143 meq/L (136-145)
[2017-09-22 13:18] LABS: Alkaline Phosphatase 102 U/L (45-117); Creatine Kinase 386 U/L (39-308); Total Protein 6.9 g/dL (6.4-8.2); Troponin I 0.03 ng/mL (0.02-0.05)
[2017-09-22 13:31] LABS: CKMB Percent 1.8 % (0.0-4.0); Creatine Kinase MB 6.8 ng/mL (0.5-3.6)
[2017-09-22 13:33] VITALS: PULSE 60
--- NOTE | 2017-09-22 13:39 | ED ---
HPI General Chief Complaint: Chest Pain Stated Complaint: Chest Pain/SOB Time Seen by Provider: 09/22/17 12:32 Source: patient Limitations: no limitations History of Present Illness HPI narrative: Patient is a 57-year-old male who presents to the emergency room with complaints of chest pain. Patient reports that the left arm pain began last night, reports that chest pain began this morning around 7 AM when he woke up. Patient reports that when he has the symptoms, symptoms feeling a "squeezing sensation to his chest." Symptoms have been intermittent in nature, nothing makes pain better or worse. Patient reports that he has had similar chest pains in the past, he was seen a few months ago for this and was told that he had a pinched nerve. He does follow-up with Dr. 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 Reports that he did take 1 sublingual nitroglycerin this morning, reports no relief of chest pain with this. Complete Quality Measures for STEMI Alert Patients Related Data Allergies Allergy/AdvReac Type Severity Reaction Status Date / Time No Known Allergies Allergy Unverified 09/22/17 12:50 Review of Systems Except as stated in HPI: all other systems reviewed are negative [facility] Medical History Medical History CAD (coronary artery disease) (Acute) COPD (chronic obstructive pulmonary disease) (Acute) Myocardial infarction (Acute) Surgical History Surgical History Hx of CABG (Acute) Social History Social History Substance History: No History of Abuse Smoking Status: Current every day smoker Tobacco Type: Cigarettes How Often Do You Have a Drink Containing Alcohol: Never Recent Travel in [facility] within the Last 8 Weeks: No Recent Out of Country Travel within the Last 8 Weeks: No Immunization History Tetanus Immunization: <5 Years Hx Influenza Vaccine This Season: Yes Exam Narrative Exam Narrative: GENERAL: Moderate distress SKIN: Focused skin assessment warm/dry. HEAD: Atraumatic. Normocephalic. EYES: Pupils equal and round. No scleral icterus. No injection or drainage. ENT: No nasal bleeding or discharge. Mucous membranes pink and moist. NECK: Trachea midline. No JVD. CARDIOVASCULAR: Regular rate and rhythm. No murmur appreciated. RESPIRATORY: No accessory muscle use. Clear to auscultation. Breath sounds equal bilaterally. GASTROINTESTINAL: Abdomen soft, non-tender, nondistended. Hepatic and splenic margins not palpable. MUSCULOSKELETAL: No obvious deformities. No clubbing. No cyanosis. No edema. NEUROLOGICAL: Awake and alert. No obvious cranial nerve deficits. Motor grossly within normal limits. Normal speech. PSYCHIATRIC: Appropriate mood and affect; insight and judgment normal. Course Initial Documented Vital Signs Pulse Rate 64 09/22/17 12:32 Respiratory Rate 22 09/22/17 12:32 Blood Pressure 120/78 09/22/17 12:32 Pulse Oximetry 100 09/22/17 12:32 Last Documented Vital Signs Pulse Rate 60 09/22/17 14:00 Respiratory Rate 20 09/22/17 14:00 Blood Pressure 100/61 09/22/17 14:00 Pulse Oximetry 99 09/22/17 14:00 Medical Decision Making MDM Narrative Medical decision making narrative: During the course of the patients emergency department visit, the patients history, examination, and differential diagnosis were reviewed with the patient. The patient was placed on a cardiac rehabilitation program director with oximetry and frequent blood pressure monitoring. The patient had an IV access obtained and blood work sent for analysis. The patient was initially provided 1 sl nitro - cp resolved after this was administered. He did take his plavix this morning The patients laboratory studies were reviewed, initially trop was neg - plan to obs in chest pain unit pateint was given a dose of lasix as his bnp was 2,981, and he does look fluid overloaded on his chest xray. Patient was initially admitted to the chest pain center, upon further evaluation of records, it appears that patient was worked up for similar symptoms on August 07, 2017. Patient had a Lexiscan performed at that time, there is nothing more that can be done in the chest pain unit - patient require admission to hospital for serial trops and possibly further cardiac intervention case reviewed with FP residents who accepts pt to service for obs Differential Diagnosis Differential Diagnosis: ACS, arrhythmia, "pinched nerve," muscle strain Medical Records Medical records reviewed: Yes I reviewed the patient's medical records. Lab Data Result diagrams: 09/22/17 12:40 09/22/17 12:40 Lab Results 09/22/17 09/22/17 09/22/17 Range/Units 12:40 12:40 12:40 WBC 4.4 (4.0-11.0) th/mm3 RBC 4.85 (4.50-5.90) mil/mm3 Hgb 12.7 L (13.0-17.0) gm/dL Hct 40.6 (39.0-51.0) % MCV 83.8 (80.0-100.0) fL MCH 26.2 L (27.0-34.0) pg MCHC 31.2 L (32.0-36.0) % RDW 15.1 (11.6-17.2) % Plt Count 269 (150-450) th/mm3 MPV 8.2 (7.0-11.0) fL Neut % (Auto) 70.2 H (16.0-70.0) % Lymph % (Auto) 18.0 (9.0-44.0) % [place] % (Auto) 8.3 H (0.0-8.0) % Eos % (Auto) 2.9 (0.0-4.0) % Baso % (Auto) 0.6 (0.0-2.0) % Neut # (Auto) 3.1 (1.8-7.7) th/mm3 Lymph # (Auto) 0.8 L (1.0-4.8) th/mm3 [place] # (Auto) 0.4 (0.0-0.9) th/mm3 Eos # (Auto) 0.1 (0.0-0.4) th/mm3 Baso # (Auto) 0.0 (0.0-0.2) th/mm3 WBC Differential . Differential Comment Auto diff final PT 14.6 H (9.8-11.6) sec INR 1.4 Ratio APTT 33.3 H (24.3-30.1) sec Sodium 143 (136-145) meq/L Potassium 3.8 (3.5-5.1) meq/L Chloride 110 H (98-107) meq/L Carbon Dioxide 25.3 (21.0-32.0) meq/L Anion Gap 8 (5-15) meq/L BUN 22 H (7-18) mg/dL Creatinine 1.24 (0.60-1.30) mg/dL Estimated GFR 73 L (>89) mL/min Random Glucose 121 H (74-106) mg/dL Calcium 8.6 (8.5-10.1) mg/dL Total Bilirubin 1.0 (0.2-1.0) mg/dL AST 32 (15-37) U/L ALT 24 (12-78) U/L Alkaline Phosphatase 102 (45-117) U/L Total Creatine Kinase 386 H (39-308) U/L CK-MB (CK-2) 6.8 H (0.5-3.6) ng/mL CK-MB (CK-2) % 1.8 (0.0-4.0) % Troponin I 0.03 (0.02-0.05) ng/mL B-Natriuretic Peptide (0-100) pg/mL Total Protein 6.9 (6.4-8.2) g/dL Albumin 3.4 (3.4-5.0) g/dL Lipase 80 (73-393) U/L 09/22/17 Range/Units 12:40 WBC (4.0-11.0) th/mm3 RBC (4.50-5.90) mil/mm3 Hgb (13.0-17.0) gm/dL Hct (39.0-51.0) % MCV (80.0-100.0) fL MCH (27.0-34.0) pg MCHC (32.0-36.0) % RDW (11.6-17.2) % Plt Count (150-450) th/mm3 MPV (7.0-11.0) fL Neut % (Auto) (16.0-70.0) % Lymph % (Auto) (9.0-44.0) % [place] % (Auto) (0.0-8.0) % Eos % (Auto) (0.0-4.0) % Baso % (Auto) (0.0-2.0) % Neut # (Auto) (1.8-7.7) th/mm3 Lymph # (Auto) (1.0-4.8) th/mm3 [place] # (Auto) (0.0-0.9) th/mm3 Eos # (Auto) (0.0-0.4) th/mm3 Baso # (Auto) (0.0-0.2) th/mm3 WBC Differential Differential Comment PT (9.8-11.6) sec INR Ratio APTT (24.3-30.1) sec Sodium (136-145) meq/L Potassium (3.5-5.1) meq/L Chloride (98-107) meq/L Carbon Dioxide (21.0-32.0) meq/L Anion Gap (5-15) meq/L BUN (7-18) mg/dL Creatinine (0.60-1.30) mg/dL Estimated GFR (>89) mL/min Random Glucose (74-106) mg/dL Calcium (8.5-10.1) mg/dL Total Bilirubin (0.2-1.0) mg/dL AST (15-37) U/L ALT (12-78) U/L Alkaline Phosphatase (45-117) U/L Total Creatine Kinase (39-308) U/L CK-MB (CK-2) (0.5-3.6) ng/mL CK-MB (CK-2) % (0.0-4.0) % Troponin I (0.02-0.05) ng/mL B-Natriuretic Peptide 2981 H (0-100) pg/mL Total Protein (6.4-8.2) g/dL Albumin (3.4-5.0) g/dL Lipase (73-393) U/L Imaging Data Radiologist's impression: Chest X-Ray 09/22/17 12:38 CONCLUSION: Stable cardiomegaly with radiographic findings consistent with congestive heart failure. ECG Data EKG Prior to Arrival: No Attestation: I personally reviewed and interpreted this ECG as follows: Prior ECG tracings: available for review Interpretation: Ventricularly paced at 62 bpm Discharge Plan Discharge Disposition Patient Disposition: 30 Still Patient Discharge Condition Condition: Stable Discharge Details Diagnosis: Chest pain Physicians Team ED Provider: Lindsay Aragon Primary Care Provider: Raul Roe Attending Provider: Kendell Alves ED Status: Admitted Observation Patient
--- NOTE | 2017-09-22 15:30 | P.HPFP ---
History of Present Illness Primary Care Physician: Raul Roe MD, R3 History of Present Illness: 57-year-old male with past history of CHF, hypertension, hyperlipidemia, myocardial infarction who presents today with chest pain. He states that last night he washed dishes for approximately 5 hours straight and noted left arm/ chest pain. He states is also pinched a nerve in the arm before. He woke up the following morning took nitro to relieve his chest pain and it did not improve. His chest pain is improved at this time following pain medication administration. He states his left arm still hurts, feels like needles. He denies nausea, vomiting, jaw pain, shortness of breath, lightheadedness, dizziness, changes in vision, headache, palpitations. The pain seems to be exacerbated by touching his arm. He reports he was recently admitted to the chest pain center approximately 6 weeks ago and was told that he had a pinched nerve in his arm but no MT at that time. Medical CHF HTN HLD Afib DVT Gout MT 2009 Surgery Pacemaker Double bipass Family Father: 03/22 PNA Mother: 03/22 breast cancer Social: EtOH: none Smoking: Smokes 1ppd for 35 years Drugs: In the past, heroin, cocaine - Diagnosis (1) Chest pain (2) Afib (3) CHF (congestive heart failure) (4) COPD (chronic obstructive pulmonary disease) (5) HTN (hypertension) (6) HLD (hyperlipidemia) (7) History of heart disease Review of Systems Constitutional: Denies body ache(s), Denies chills, Denies excessive sweating, Denies fatigue, Denies headache(s), Denies lack of energy Eyes: Denies blind spots, Denies blurry vision, Denies change in vision, Denies double vision, Denies loss of vision, Denies pain Ears, Nose, Mouth, and Throat: Denies abnormal hearing, Denies headache(s) Cardiovascular: Reports chest pain, Reports chest pain at rest, Reports radiating jaw, neck or arm pain, Denies excessive sweating, Denies fainting, Denies generalized swelling, Denies irregular heart rhythm, Denies shortness of breath Respiratory: Denies change in phlegm color, Denies cough, Denies coughing up blood Gastrointestinal: Denies abdominal pain, Denies black, tarry stools, Denies bright, red blood in stools, Denies change in bowel habits, Denies change in stools, Denies coffee ground vomit Genitourinary: Denies blood in urine, Denies painful urination Musculoskeletal: Denies abnormal walking, Denies back pain, Denies neck pain Skin/Breast: Denies skin ulcer, Denies sores Neurologic: Reports tingling, Denies abnormal hearing, Denies numbness, Denies convulsions Psychiatric: Denies anxiety, Denies confusion, Denies depression Endocrine: Denies cold intolerance, Denies flushing Hematologic/Lymphatic: Denies easy bleeding, Denies easy bruising PMFSH - History History Provided By: Patient - Medical History Medical History: Medical History (Last Reviewed 09/22/17 @ 13:37 by Lindsay Aragon) CAD (coronary artery disease) COPD (chronic obstructive pulmonary disease) Myocardial infarction - Surgical History Surgical History: Surgical History (Last Reviewed 09/22/17 @ 13:37 by Lindsay Aragon) Hx of CABG - Tobacco History Tobacco Use In Past 30 Days: Yes Smoking Status: Current every day smoker Tobacco Type: Cigarettes - Alcohol History How Often Do You Have a Drink Containing Alcohol: Never - Substance Use History Substance History: No History of Abuse - Travel History Recent Travel in the [place] Within the Last 8 Weeks: No Recent Travel Out of the Country Within the Last 8 Weeks: No - Immunization History Tetanus Immunization: <5 Years Hx Influenza Vaccine This Season: Yes Medications and Allergies Active Medications: Active Medications Sodium Chloride (Ns Flush) 2 ml IV.FLUSH UNSCH PRN PRN Reason: FLUSH AFTER USING IV ACCESS Allergies Allergy/AdvReac Type Severity Reaction Status Date / Time No Known Allergies Allergy Unverified 09/22/17 12:50 Exam Vital signs: Vital Signs 09/22/17 12:32 09/22/17 12:51 09/22/17 12:53 Pulse Rate 64 63 Respiratory Rate 22 19 Blood Pressure 120/78 98/59 L Pulse Oximetry 100 100 09/22/17 13:17 09/22/17 14:00 Pulse Rate 60 60 Respiratory Rate 19 20 Blood Pressure 92/56 L 100/61 Pulse Oximetry 99 99 Intake & Output 09/21/17 09/22/17 09/22/17 18:59 06:59 18:59 Weight 63.503 kg Narrative: GENERAL: Laying in bed, no acute distress SKIN: Warm and dry. HEAD: Atraumatic. Normocephalic. EYES: Pupils equal and round. No scleral icterus. No injection or drainage. ENT: No nasal bleeding or discharge. Mucous membranes pink and moist. NECK: Trachea midline. No JVD. CARDIOVASCULAR: Regular rate and rhythm. RESPIRATORY: No accessory muscle use. Clear to auscultation. Breath sounds equal bilaterally. GASTROINTESTINAL: Abdomen soft, non-tender, nondistended. Hepatic and splenic margins not palpable. MUSCULOSKELETAL: Extremities without clubbing, cyanosis, or edema. No obvious deformities. Left arm, bicep, tricep, deltoid, pectoralis tender to palpation. Pain with extension and flexion at elbow against resistance. No obvious bruising. NEUROLOGICAL: Awake and alert. No obvious cranial nerve deficits. Motor grossly within normal limits. Five out of 5 muscle strength in the arms and legs. Normal speech. PSYCHIATRIC: Appropriate mood and affect; insight and judgment normal. Results - Labs Result diagrams: 09/22/17 12:40 09/22/17 12:40 Abnormal lab results 09/22/17 09/22/17 09/22/17 Range/Units 12:40 12:40 12:40 Hgb 12.7 L (13.0-17.0) gm/dL MCH 26.2 L (27.0-34.0) pg MCHC 31.2 L (32.0-36.0) % Neut % (Auto) 70.2 H (16.0-70.0) % [place] % (Auto) 8.3 H (0.0-8.0) % Lymph # (Auto) 0.8 L (1.0-4.8) th/mm3 PT 14.6 H (9.8-11.6) sec APTT 33.3 H (24.3-30.1) sec Chloride 110 H (98-107) meq/L BUN 22 H (7-18) mg/dL Estimated GFR 73 L (>89) mL/min Random Glucose 121 H (74-106) mg/dL Total Creatine Kinase 386 H (39-308) U/L CK-MB (CK-2) 6.8 H (0.5-3.6) ng/mL B-Natriuretic Peptide (0-100) pg/mL 09/22/17 Range/Units 12:40 Hgb (13.0-17.0) gm/dL MCH (27.0-34.0) pg MCHC (32.0-36.0) % Neut % (Auto) (16.0-70.0) % [place] % (Auto) (0.0-8.0) % Lymph # (Auto) (1.0-4.8) th/mm3 PT (9.8-11.6) sec APTT (24.3-30.1) sec Chloride (98-107) meq/L BUN (7-18) mg/dL Estimated GFR (>89) mL/min Random Glucose (74-106) mg/dL Total Creatine Kinase (39-308) U/L CK-MB (CK-2) (0.5-3.6) ng/mL B-Natriuretic Peptide 2981 H (0-100) pg/mL Short CBC 09/22/17 Range/Units 12:40 WBC 4.4 (4.0-11.0) th/mm3 Hgb 12.7 L (13.0-17.0) gm/dL Hct 40.6 (39.0-51.0) % Plt Count 269 (150-450) th/mm3 BMP 09/22/17 12:40 Sodium 143 Potassium 3.8 Chloride 110 H Carbon Dioxide 25.3 BUN 22 H Creatinine 1.24 Calcium 8.6 Cardiac Enzymes 09/22/17 Range/Units 12:40 Total Creatine Kinase 386 H (39-308) U/L CK-MB (CK-2) 6.8 H (0.5-3.6) ng/mL Troponin I 0.03 (0.02-0.05) ng/mL Liver Function 09/22/17 Range/Units 12:40 Total Bilirubin 1.0 (0.2-1.0) mg/dL AST 32 (15-37) U/L ALT 24 (12-78) U/L Alkaline Phosphatase 102 (45-117) U/L Albumin 3.4 (3.4-5.0) g/dL - Imaging Impressions Chest X-Ray 09/22/17 12:38 CONCLUSION: Stable cardiomegaly with radiographic findings consistent with congestive heart failure. Caprini VTE Risk Assessment Caprini VTE Risk Assessment: Moderate/High Risk (score >= 2) Caprini Risk Assessment Model: Point Value = 1 Point Value = 2 Point Value = 3 Point Value = 5 Age 41-60 Minor surgery BMI > 25 kg/m2 Swollen legs Varicose veins or History of unexplained or recurrent spontaneous Oral contraceptives or hormone replacement Sepsis (< 1 month) Serious lung disease, including pneumonia (< 1 month) Abnormal pulmonary function Acute myocardial infarction Congestive heart failure (< 1 month) History of inflammatory bowel disease Medical patient at bed rest Age 61-74 Arthroscopic surgery Major open surgery (> 45 min) Laparoscopic surgery (> 45 min) Malignancy Confined to bed (> 72 hours) Immobilizing plaster cast Central venous access Age >= 75 History of VTE Family history of VTE Factor V Leiden Prothrombin [id number] Lupus anticoagulant Anticardiolipin antibodies Elevated serum homocysteine Heparin-induced thrombocytopenia Other congenital or acquired thrombophilia Stroke (< 1 month) Elective arthroplasty Hip, pelvis, or leg fracture Acute spinal cord injury (< 1 month) Prophylaxis Regimen: Total Risk Factor Score Risk Level Prophylaxis Regimen 0-1 Low Early ambulation 2 Moderate Order ONE of the following: *Sequential Compression Device (SCD) *Heparin 5000 units SQ BID 3-4 Higher Order ONE of the following medications: *Heparin 5000 units SQ TID *Enoxaparin/Lovenox 40 mg SQ daily (WT < 150 kg, CrCl > 30 mL/min) *Enoxaparin/Lovenox 30 mg SQ daily (WT < 150 kg, CrCl > 10-29 mL/min) *Enoxaparin/Lovenox 30 mg SQ BID (WT < 150 kg, CrCl > 30 mL/min) AND/OR *Sequential Compression Device (SCD) 5 or more Highest Order ONE of the following medications: *Heparin 5000 units SQ TID (Preferred with Epidurals) *Enoxaparin/Lovenox 40 mg SQ daily (WT < 150 kg, CrCl > 30 mL/min) *Enoxaparin/Lovenox 30 mg SQ daily (WT < 150 kg, CrCl > 10-29 mL/min) *Enoxaparin/Lovenox 30 mg SQ BID (WT < 150 kg, CrCl > 30 mL/min) AND *Sequential Compression Device (SCD) Assessment and Plan - Assessment (1) Chest pain Code(s): R07.9 - Chest pain, unspecified Status: Acute Plan: Patient with chest pain, left arm pain. Washed dishes for 5 hours straight the night before. MSK tenderness on exam. Recently with a negative workup 6 weeks ago in chest pain center. -Follow-up troponins, EKGs -Nitroglycerin as needed -Telemetry -Monitor for signs of acute MT -Pain management -Observe overnight (2) Afib Code(s): I48.91 - Unspecified atrial fibrillation Status: Acute Plan: History of A. fib with pacemaker placed. -Continue Xarelto 20 -Continue digoxin 250 mcg daily -Follow-up reconciled medication (3) CHF (congestive heart failure) Code(s): I50.9 - Heart failure, unspecified Status: Acute Plan: History of CHF -Continue Lasix 20 mg daily (4) COPD (chronic obstructive pulmonary disease) Code(s): J44.9 - Chronic obstructive pulmonary disease, unspecified Status: Acute Plan: History of COPD, currently without exacerbation -Albuterol as needed -titrate O2 as needed (5) HTN (hypertension) Code(s): I10 - Essential (primary) hypertension Status: Acute Plan: History of hypertension -Continue lisinopril 5 mg daily -Continue carvedilol 6.25 mg twice daily (6) HLD (hyperlipidemia) Code(s): E78.5 - Hyperlipidemia, unspecified Status: Acute Plan: History of hyperlipidemia Continue simvastatin 20 mg daily (7) History of heart disease Code(s): Z86.79 - Personal history of other diseases of the circulatory system Status: Acute Plan: History of heart disease as above, myocardial infarction in the past. -Continue Entresto 49-51 daily -Continue clopidogrel 75 mg daily
[2017-09-22] MEDS ORDERED: Acetaminophen 325 MG Tablet PO PRN (16:24)
[2017-09-22 16:31] LABS: Creatine Kinase 294 U/L (39-308); Troponin I 0.04 ng/mL (0.02-0.05)
[2017-09-22 16:43] LABS: Creatine Kinase MB 5.4 ng/mL (0.5-3.6)
[2017-09-22 21:34] LABS: Creatine Kinase 304 U/L (39-308); Troponin I 0.03 ng/mL (0.02-0.05)
[2017-09-22 21:46] LABS: Creatine Kinase MB 5.1 ng/mL (0.5-3.6)
[2017-09-23] MEDS: Senna/Docusate Sodium 8.6/50 MG Tablet PO SCH ×2 (00:14→09:35)
[2017-09-23 08:52] LABS: Hematocrit 38.6 % (39.0-51.0); Hemoglobin 12.2 gm/dL (13.0-17.0); Mean Corpuscular HGB Conc 31.7 % (32.0-36.0); Mean Corpuscular Hemoglobin 26.4 pg (27.0-34.0); Mean Corpuscular Volume 83.2 fL (80.0-100.0); Platelet Count 247 th/mm3 (150-450); Red Blood Count 4.63 mil/mm3 (4.50-5.90); Red Cell Distribution Width 15.3 % (11.6-17.2); White Blood Count 3.6 th/mm3 (4.0-11.0)
[2017-09-23] MEDS ORDERED: Rivaroxaban 20 MG Tablet PO SCH (09:00)
[2017-09-23] MEDS ORDERED: Carvedilol 6.25 MG Tablet PO SCH (09:00)
[2017-09-23] MEDS ORDERED: Furosemide 20 MG Tablet PO SCH (09:00)
[2017-09-23] MEDS ORDERED: Lisinopril 5 MG Tablet PO SCH (09:00)
[2017-09-23] MEDS ORDERED: Digoxin 250 MCG Tablet PO SCH (09:00)
--- NOTE | 2017-09-23 09:09 | P.PNFP ---
Subjective Interval history: No acute events overnight. Afebrile, vitals stable. Patient seen and examined this AM. He reports his left-sided chest pain and left arm pain have improved. He states his chest pain has now resolved, and states with his left arm he continues to have some numbness around the deltoid but otherwise no pain. He otherwise does not report specific complaints. Denies fevers, dyspnea, cough, abdominal pain. Ambulating without difficulty. He states he felt a vague left-sided lateral chest wall pain and left upper arm pain beginning very early Saturday morning around 01:00 after coming home from work. He states he fell asleep and woke up with the pain. He took a nitroglycerin in the morning which did not alleviate his symptoms. 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 He denied diaphoresis, jaw pain, radiation of his pain, palpitations. <Carlos Mcmanus - 09/23/17 09:09> Results - Labs Result diagrams: 09/23/17 08:22 09/23/17 08:22 <Bonnie Porter - 09/24/17 11:31> Abnormal lab results 09/22/17 09/22/17 09/22/17 Range/Units 12:40 12:40 12:40 WBC (4.0-11.0) th/mm3 Hgb 12.7 L (13.0-17.0) gm/dL Hct (39.0-51.0) % MCH 26.2 L (27.0-34.0) pg MCHC 31.2 L (32.0-36.0) % Neut % (Auto) 70.2 H (16.0-70.0) % Grady % (Auto) 8.3 H (0.0-8.0) % Lymph # (Auto) 0.8 L (1.0-4.8) th/mm3 PT 14.6 H (9.8-11.6) sec APTT 33.3 H (24.3-30.1) sec Chloride 110 H (98-107) meq/L BUN 22 H (7-18) mg/dL Estimated GFR 73 L (>89) mL/min Random Glucose 121 H (74-106) mg/dL Total Creatine Kinase 386 H (39-308) U/L CK-MB (CK-2) 6.8 H (0.5-3.6) ng/mL B-Natriuretic Peptide (0-100) pg/mL 09/22/17 09/22/17 09/22/17 Range/Units 12:40 15:55 20:11 WBC (4.0-11.0) th/mm3 Hgb (13.0-17.0) gm/dL Hct (39.0-51.0) % MCH (27.0-34.0) pg MCHC (32.0-36.0) % Neut % (Auto) (16.0-70.0) % Grady % (Auto) (0.0-8.0) % Lymph # (Auto) (1.0-4.8) th/mm3 PT (9.8-11.6) sec APTT (24.3-30.1) sec Chloride (98-107) meq/L BUN (7-18) mg/dL Estimated GFR (>89) mL/min Random Glucose (74-106) mg/dL Total Creatine Kinase (39-308) U/L CK-MB (CK-2) 5.4 H 5.1 H (0.5-3.6) ng/mL B-Natriuretic Peptide 2981 H (0-100) pg/mL 09/23/17 Range/Units 08:22 WBC 3.6 L (4.0-11.0) th/mm3 Hgb 12.2 L (13.0-17.0) gm/dL Hct 38.6 L (39.0-51.0) % MCH 26.4 L (27.0-34.0) pg MCHC 31.7 L (32.0-36.0) % Neut % (Auto) (16.0-70.0) % Grady % (Auto) (0.0-8.0) % Lymph # (Auto) (1.0-4.8) th/mm3 PT (9.8-11.6) sec APTT (24.3-30.1) sec Chloride (98-107) meq/L BUN (7-18) mg/dL Estimated GFR (>89) mL/min Random Glucose (74-106) mg/dL Total Creatine Kinase (39-308) U/L CK-MB (CK-2) (0.5-3.6) ng/mL B-Natriuretic Peptide (0-100) pg/mL Short CBC 09/22/17 09/23/17 Range/Units 12:40 08:22 WBC 4.4 3.6 L (4.0-11.0) th/mm3 Hgb 12.7 L 12.2 L (13.0-17.0) gm/dL Hct 40.6 38.6 L (39.0-51.0) % Plt Count 269 247 (150-450) th/mm3 BMP 09/22/17 12:40 Sodium 143 Potassium 3.8 Chloride 110 H Carbon Dioxide 25.3 BUN 22 H Creatinine 1.24 Calcium 8.6 Cardiac Enzymes 09/22/17 09/22/17 09/22/17 Range/Units 12:40 15:55 20:11 Total Creatine Kinase 386 H 294 304 (39-308) U/L CK-MB (CK-2) 6.8 H 5.4 H 5.1 H (0.5-3.6) ng/mL Troponin I 0.03 0.04 0.03 (0.02-0.05) ng/mL Liver Function 09/22/17 Range/Units 12:40 Total Bilirubin 1.0 (0.2-1.0) mg/dL AST 32 (15-37) U/L ALT 24 (12-78) U/L Alkaline Phosphatase 102 (45-117) U/L Albumin 3.4 (3.4-5.0) g/dL <Carlos Mcmanus - 09/23/17 09:09> - Imaging Impressions Chest X-Ray 09/22/17 12:38 CONCLUSION: Stable cardiomegaly with radiographic findings consistent with congestive heart failure. <Carlos Mcmanus - 09/23/17 09:09> Physical Exam Vital signs: Vital Signs 09/23/17 11:35 Temperature 97.9 F Pulse Rate 60 Respiratory Rate 16 Blood Pressure 103/69 Pulse Oximetry 98 Intake & Output 09/23/17 09/24/17 09/24/17 18:59 06:59 18:59 Other: Date of Last Bowel Movement 09/23/17 <Bonnie Porter - 09/24/17 11:31> Vital Signs 09/22/17 12:32 09/22/17 12:51 09/22/17 12:53 Temperature Pulse Rate 64 63 Respiratory Rate 22 19 Blood Pressure 120/78 98/59 L Pulse Oximetry 100 100 09/22/17 13:17 09/22/17 14:00 09/22/17 17:29 Temperature 97.5 F L Pulse Rate 60 60 80 Respiratory Rate 19 20 18 Blood Pressure 92/56 L 100/61 116/85 Pulse Oximetry 99 99 100 09/22/17 18:12 09/22/17 19:00 09/22/17 19:42 Temperature 97.9 F Pulse Rate 65 60 Respiratory Rate 16 Blood Pressure 115/74 Pulse Oximetry 93 L 100 09/22/17 23:18 09/23/17 03:43 09/23/17 07:47 Temperature 98.6 F 97.9 F 98.2 F Pulse Rate 66 61 66 Respiratory Rate 16 16 16 Blood Pressure 106/70 119/71 110/72 Pulse Oximetry 100 98 99 09/23/17 07:55 Temperature Pulse Rate Respiratory Rate Blood Pressure Pulse Oximetry 98 Intake & Output 09/22/17 09/23/17 09/23/17 18:59 06:59 18:59 Weight 63.503 kg Other: # Voids 1 Date of Last Bowel Movement 09/22/17 <Carlos Mcmanus - 09/23/17 09:09> Narrative: GENERAL: Lying in bed, no acute distress SKIN: Warm and dry. HEAD: Atraumatic. Normocephalic. EYES: EOMI. No scleral icterus. No injection or drainage. ENT: No nasal bleeding or discharge. Mucous membranes moist. NECK: Trachea midline. No JVD. CARDIOVASCULAR: Regular rate and rhythm. Early systolic murmur best heard along lower left sternal border. RESPIRATORY: No accessory muscle use. Clear to auscultation. Breath sounds equal bilaterally. GASTROINTESTINAL: Abdomen soft, non-tender, nondistended. MUSCULOSKELETAL: Extremities without edema. No obvious deformities. Left deltoid remains mildly tender to palpation. No bruising. Good range of motion of bilateral shoulders. Jewelry Inspector strength 5/5 bilaterally. NEUROLOGICAL: Awake and alert. No obvious cranial nerve deficits. Motor grossly within normal limits. Normal speech. PSYCHIATRIC: Appropriate mood and affect; insight and judgment normal. <Carlos Mcmanus - 09/23/17 09:09> Assessment and Plan - Assessment (1) Chest pain Code(s): R07.9 - Chest pain, unspecified Status: Acute (2) Afib Code(s): I48.91 - Unspecified atrial fibrillation Status: Acute (3) CHF (congestive heart failure) Code(s): I50.9 - Heart failure, unspecified Status: Acute (4) COPD (chronic obstructive pulmonary disease) Code(s): J44.9 - Chronic obstructive pulmonary disease, unspecified Status: Acute (5) HTN (hypertension) Code(s): I10 - Essential (primary) hypertension Status: Acute (6) HLD (hyperlipidemia) Code(s): E78.5 - Hyperlipidemia, unspecified Status: Acute <Bonnie Porter Beni - 09/24/17 11:31> (1) Chest pain Code(s): R07.9 - Chest pain, unspecified Status: Acute Plan: Patient with chest pain, left arm pain on admission. Reported washing dishes for 5 hours straight the night before. MSK tenderness on exam. Recently with a negative workup 6 weeks ago in chest pain center. -Troponins negative x3 -Nitroglycerin as needed -Telemetry -Pain management -Patient has significant medical history including CHF with documented EF of 20 % since as far back as 2012, previous MD, CABG x2, a-fib, smoker for 35 years, HLD. His pain and symptoms seem more related to an MSK or neurological etiology at this time. Patient also had a negative cardiac workup about 6 weeks ago in the chest pain center. Patient had a cervical spine CT done on 07/20/2017 showing multilevel cervical spine degenerative changes, moderate to severe left- sided foraminal stenosis at both C3/C4 and C4/C5, no high-grade spinal stenosis or fracture or subluxation. He was recommended and referred to neurology as an outpatient however he stated he did not follow-up with neurology as he began to do exercises at home which relieved his pain. Will consult PT for eval and treatment of left arm pain. (2) Afib Code(s): I48.91 - Unspecified atrial fibrillation Status: Acute Plan: History of A. fib with pacemaker placed. -Continue Xarelto 20 mg po daily -Continue digoxin 250 mcg daily -Continue home coreg 6.25 mg po bid (3) CHF (congestive heart failure) Code(s): I50.9 - Heart failure, unspecified Status: Acute Plan: History of CHF -Continue Lasix 20 mg daily, entresto 49/51 1 tab po bid, coreg bid -BNP noted to be elevated to 2981 on admission, appears to be somewhat near his baseline and review of BNPs in the past have fluctuated sometimes lower than this but appears to be near this range. Patient is asymptomatic at this time, without JVD or dyspnea -Recommended continuing all home medications at this time and close follow up with his PCP and mexican food cook as an outpatient (4) COPD (chronic obstructive pulmonary disease) Code(s): J44.9 - Chronic obstructive pulmonary disease, unspecified Status: Acute Plan: History of COPD, currently without exacerbation -Albuterol as needed -titrate O2 as needed (5) HTN (hypertension) Code(s): I10 - Essential (primary) hypertension Status: Acute Plan: History of hypertension -Continue lisinopril 5 mg daily -Continue carvedilol 6.25 mg twice daily (6) HLD (hyperlipidemia) Code(s): E78.5 - Hyperlipidemia, unspecified Status: Acute Plan: History of hyperlipidemia Continue simvastatin 20 mg daily <Carlos Mcmanus - 09/23/17 10:57> - Assessment and Plan Pleasant 57 year old man admitted for observation due to left lateral chest pain and left upper arm pain. Troponins negative x3, CK-MB trending down. Patient reports his chest pain has improved. Endorsed range of motion exercises had previously helped with his left arm pain. Discussed at length with patient to continue all of his home medications as from a cardiac standpoint he seems to be stable for many years of severe CHF. Will consult physical therapy for evaluation of left upper arm pain and anticipate discharge possibly later today if remaining stable. <Carlos Mcmanus - 09/23/17 11:09> Discussed Condition With: Dr. Porter, attending physician Dr. Jared MD R2 <Carlos Mcmanus - 09/23/17 11:09> - Attending Attestation The exam, history, and the medical decision-making described in the above note were completed with the assistance of the resident physician. I reviewed and agree with the findings presented. I attest that I had a [id number] encounter with the patient on the same day, and personally performed and documented my assessment and findings in the medical record. He has done remarkably well considering he has had an EF of less than 20% since 2012. 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 He understands that he has disc problems in his neck. He reports being 90% better today compared to on admission. He demonstrated how he washes dishes. He turned his head to the left in an acute angle. He reports he only washes dishes sometimes and that most of the time he is not performing that activity. After 5 hours of having his head turned in that way that seems to be what has caused his current problem. He is very ready to go home today and will follow up with physical therapy and neurology as an outpatient. He would not be a good surgical candidate based on his very low EF and cardiac problems. <Bonnie Porter - 09/24/17 11:31>
[2017-09-23 09:22] LABS: Calcium 8.4 mg/dL (8.5-10.1); Carbon Dioxide 24.5 meq/L (21.0-32.0); Potassium 3.9 meq/L (3.5-5.1)
[2017-09-23] MEDS ORDERED: Aspirin 325 MG Tablet PO SCH (16:23)
--- NOTE | 2017-09-24 07:49 | ECG ---
Date Performed: 09/22/2017 Time Performed: 16:14:28 PTAGE: 57 years EKG: ELECTRONIC VENTRICULAR PACEMAKER ABNORMAL RHYTHM ECG PREVIOUS TRACING : 09/22/2017 12.33 DOCTOR: Nanette Smiley Interpretating Date/Time 09/24/2017 07:41:23
--- NOTE | 2017-09-24 07:52 | ECG ---
Date Performed: 09/22/2017 Time Performed: 12:33:51 PTAGE: 57 years EKG: ELECTRONIC VENTRICULAR PACEMAKER ABNORMAL ECG PREVIOUS TRACING : 08/07/2017 03.10 DOCTOR: Nanette Smiley Interpretating Date/Time 09/24/2017 07:44:34
[2017-09-24 20:56] VITALS: BP 103/69; RESP 16; O2SAT 98
[2017-09-24 21:12] VITALS: TEMP 97.9
== END 2017-09-23 14:46 | disposition home or self-care (01) ==
LOC: NEPC 12:25 → NEPGCP 12:25 → NEDA 12:25 → NEPGCP 16:40
PROVIDERS: ADMIT Family Medicine; ATTEND Family Medicine
DX: F17.210 Nicotine dependence, cigarettes, uncomplicated; R07.89 Other chest pain; Z95.0 Presence of cardiac pacemaker; Z79.899 Other long term (current) drug therapy; J44.9 Chronic obstructive pulmonary disease, unspecified; I25.2 Old myocardial infarction; E78.5 Hyperlipidemia, unspecified; I48.91 Unspecified atrial fibrillation; I25.10 Atherosclerotic heart disease of native coronary artery without angina pectoris; I11.0 Hypertensive heart disease with heart failure; I50.9 Heart failure, unspecified; Z79.01 Long term (current) use of anticoagulants